=== PATIENT | male | born 1960 | race Two or more races ===

== ENCOUNTER 2025-08-28 01:24 | Inpatient (IN) | payer OTHER ==
[~2025-08-28] VITALS: Ht 170.2 cm; Wt 74.7 kg
[2025-08-28] VITALS (7 sets, daily range): BP systolic 144–180; BP diastolic 75–95; PULSE 77–84; RESP 16–20; TEMP 97.5–98.3; O2SAT 97–99
[~2025-08-28 01:24] MED LIST: AMLO1TAB23 PO; CLON0.1T PO; FURO80TA3 PO; HYDR100T10 PO
--- NOTE | 2025-08-28 01:36 | ECG ---
[facility] Test Date: 2025-08-28 Test Time: 01:33:37 Pat Name: SHANNAN BENITEZ Department: Room: [address] [place] [address] Gender: M Emergency Veterinary Assistant: ANJELICA : 1960 Requested By: WHITLEY BAIG Order Number: [id number] Reading MD: Ortiz Woo Measurements Intervals [place] Rate: 88 P: 25 MA: 157 QRS: 4 QRSD: 84 T: 41 QT: 388 QTc: 470 Interpretive Statements Sinus rhythm Probable left atrial enlargement Electronically Signed On 08-28-2025 12:19:09 PDT by Ortiz Woo Please click the below link to view image of tracing.
--- NOTE | 2025-08-28 01:40 | ED.PDOC ---
HPI Comments 64-year-old male came to ER for chest pain. Patient has history of hypertension, VA, end-stage renal disease on dialysis every Sunday and , status post CABG 4 months ago. Few hours ago, patient started experiencing substernal chest pains, pressure, constant, non radiating, associated with weakness, diaphoresis, shortness a breath, nausea and vomiting. Blood pressure upon arrival was 245/160 mm Hg Chief Complaint: Chest Pain Time Seen by MD: 01:39 Reviewed Notes: Nurses Notes Allergies: Coded Allergies: No Known Drug Allergy (Verified Allergy, Unknown, 08/28/25) Information Source: Patient Mode of Arrival: Ambulatory Severity: Moderate Timing: Hours Duration: Intermittent Location: Substernal Radiation: No Radiation Quality: Pressure Associated Signs and Symptoms: SOB, Diaphoresis, N/V Past Medical History PAST MEDICAL HISTORY: ESRD, HTN, [place] Surgical History: CABG Surgical History (Other): Dialysis Sunday and Family History Family History: Reviewed,noncontributory to illness Social History Smoker: Non-Smoker Alcohol: Denies ETOH Use Drugs: Denies Drug Use Lives In: Home Constitutional: reports: diaphoresis, weakness; denies: chills, fatigue, fever, malaise, sweats, others EENTM: denies: blurred vision, double vision, ear bleeding, ear discharge, ear drainage, ear pain, ear ringing, eye pain, eye redness, hearing loss, mouth pain, mouth swelling, nasal discharge, nose bleeding, nose congestion, nose pain, photophobia, tearing, throat pain, throat swelling, voice changes, others Respiratory: reports: SOB at rest, shortness of breath; denies: cough, hemoptysis, orthopnea, SOB with excertion, stridor, wheezing, others Cardiovascular: reports: chest pain, dizzy spells, diaphoresis; denies: Dyspnea on exertion, edema, irregular heart beat, left arm pain, lightheadedness, palpitations, PND, syncope, others Gastrointestinal: reports: nausea, vomiting; denies: abdomen distended, abdominal pain, blood streaked bowels, constipated, diarrhea, dysphagia, difficulty swallowing, hematemesis, melena, poor appetite, poor fluid intake, rectal bleeding, rectal pain, others Genitourinary: denies: burning, dysuria, flank pain, frequency, hematuria, incontinence, penile discharge, penile sore, pain, testicle pain, testicle swelling, urgency, others Neurological: denies: dizziness, fainting, headache, left sided numbness, left sided weakness, numbness, paresthesia, pre-existing deficit, right sided num bness, right sided weakness, seizure, speech problems, tingling, tremors, weakness, others Musculoskeletal: denies: back pain, gout, joint pain, joint swelling, muscle pain, muscle stiffness, neck pain, others Integumetry: denies: bruises, change in color, change in hair/nails, dryness, laceration, lesions, lumps, rash, wounds, others Allergic/Immunocompromised: denies: Difficulty Healing, Frequent Infections, Hives, Itching, others Hematologic/Lymphatic: denies: anemia, blood clots, easy bleeding, easy bruising, swollen glands, others Endocrine: denies: excessive hunger, excessive sweating, excessive thirst, excessive urination, flushing, intolerance to cold, intolerance to heat, unexplained weight gain, unexplained weight loss, others Psychiatric: denies: anxiety, bipolar disorder, depression, hopeless, panic disorder, schizophrenia, sleepless, suicidal, others Physical Exam General Appearance: Moderate Distress, Normal HEENT: Normal ENT Inspection, Pharynx Normal, TMs Normal Neck: Full Range of Motion, Non-Tender, Normal, Normal Inspection Respiratory: Chest Non-Tender, Lungs Clear, No Accessory Muscle Use, No Respiratory Distress, Normal Breath Sounds Cardiovascular: No Edema, No JVD, No Murmur, No Gallop, Normal Peripheral Pulses, Regular Rate/Rhythm Breast Exam: Deferred Gastrointestinal: No Organomegaly, Non Tender, No Pulsatile Mass, Normal Bowel Sounds, Soft Genitalia: Deferred Pelvic: Deferred Rectal: Deferred Extremities: No calf tenderness, Normal capillary refill, Normal inspection, Normal range of motion, Non-tender, No pedal edema Musculoskeletal : Apperance: Normal Neurologic: Alert, afternoon nanny II-XII nml as Tested, No Motor Deficits, Normal Affect, Normal Mood, No Sensory Deficits Cerebellar Function: Normal Reflexes: Normal Skin: Dry, Normal Color, Warm Lymphatic: No Adenopathy Was a procedure done? Was a procedure done?: No CP Differential Dx Differential Diagnosis: Angina, Anxiety / Panic Attack Differential Diagnosis: Angina, Chest Wall Pain, Costochondritis, Esophageal reflux/spasm, Gastritis, Myocardial Infarction, Pneumonia X-Ray, Labs, Meds, VS Vital Signs Date Time Temp Pulse Resp B/P (MAP) Pulse Ox O2 Delivery O2 Flow Rate FiO2 08/28/25 03:47 85 12 173/95 08/28/25 02:14 223/129 08/28/25 02:13 82 20 223/129 08/28/25 02:13 98.2 83 20 223/129 (160) 96 98.2 08/28/25 02:13 83 20 96 Room Air 08/28/25 01:33 88 08/28/25 01:25 98.3 99 28 245/160 91 98.3 Lab Test 08/28/25 02:35 08/28/25 01:45 Range/Units Troponin I High Sensitivity 22 22 </=54 ng/L White Blood Count 9.2 4.4-10.8 10^3/uL Red Blood Count 3.14 L 4.5-5.90 10^6/uL Hemoglobin 10.0 L 13.5-17.5 g/dL Hematocrit 29.3 L 41.0-53.0 % Mean Corpuscular Volume 93.3 80.0-100.0 fL Mean Corpuscular Hemoglobin 31.8 28.0-32.0 pg Mean Corpuscular Hemoglobin Concent 34.1 32.0-36.0 g/dL Red Cell Distribution Width 16.6 H 11.8-14.3 % Platelet Count 249 140-450 10^3/uL Mean Platelet Volume 7.3 6.9-10.8 fL Neutrophils (%) (Auto) 71.9 37.0-80.0 % Lymphocytes (%) (Auto) 16.8 10.0-50.0 % Monocytes (%) (Auto) 4.9 0.0-12.0 % Eosinophils (%) (Auto) 5.3 0.0-7.0 % Basophils (%) (Auto) 1.1 0.0-2.0 % Neutrophils # (Auto) 6.6 1.6-8.6 10 ^3/uL Lymphocytes # (Auto) 1.5 0.4-5.4 10 ^3/uL Monocytes # (Auto) 0.4 0-1.3 10 ^3/uL Eosinophils # (Auto) 0.5 0-0.8 10 ^3/uL Basophils # (Auto) 0.1 0-0.2 10 ^3/uL Nucleated Red Blood Cells 0.0 % Prothrombin Time 10.9 9.3-11.8 sec Prothrombin Time INR 1.03 0.9-1.15 Activated Partial Thromboplast Time 26.4 24.5-34.5 SEC Sodium Level 141 136-145 mmol/L Potassium Level 5.2 H 3.5-5.1 mmol/L Chloride Level 100 98-107 mmol/L Carbon Dioxide Level 21 20-31 mmol/L Anion Gap 20 H 5-15 Blood Urea Nitrogen 57 H 9-23 mg/dL Creatinine 11.14 *H 0.700-1.30 mg/dL Glomerular Filtration Rate Calc 5 >90 mL/min BUN/Creatinine Ratio 5.1 L 10.0-20.0 Serum Glucose 93 74-106 mg/dL Calcium Level 7.7 L 8.7-10.4 mg/dL Magnesium Level 2.1 1.6-2.6 mg/dL Total Bilirubin 0.4 0.2-1.0 mg/dL Aspartate Amino Transferase (AST) 30 13-40 U/L Alanine Aminotransferase (ALT) 24 7-40 U/L Alkaline Phosphatase 67 46-116 U/L B-Type Natriuretic Peptide 2003.41 0-100 pg/mL Total Protein 7.5 5.7-8.2 g/dL Albumin 4.8 3.2-4.8 g/dL Current Medications Medications (Trade) Dose Ordered Sig/Devyn Route Start Time Stop Time Status Last Admin Aspirin 162 mg ONCE ONCE PO 08/28/25 01:45 08/28/25 01:46 DC 08/28/25 02:07 Morphine Sulfate 4 mg ONCE ONCE IV 08/28/25 01:45 08/28/25 01:46 DC 08/28/25 02:13 Ondansetron HCl (Zofran) 4 mg ONCE ONCE IV 08/28/25 01:45 08/28/25 01:46 DC 08/28/25 02:10 Hydralazine HCl (Apresoline Injection) 20 mg ONCE ONCE IV 08/28/25 01:45 08/28/25 01:46 DC 08/28/25 02:14 CHEST RADIOGRAPH Indication: chest pain Technique: Single frontal view of the chest was obtained COMPARISON: None FINDINGS: Lines and Tubes: Right PermCath tip projects over the cavoatrial junction. Lungs: Clear Pleura: No effusion. No pneumothorax. Cardiomediastinal contours: Unremarkable status post median sternotomy. Bones: Unremarkable IMPRESSION: 1. No acute cardiopulmonary disease. 2. Right PermCath. Time of 1ST Reevaluation: 01:35 Reevaluation 1ST: Unchanged Patient Education/Counseling: Diagnosis, Treatment Family Education/Counseling: No Family Present SEPSIS Sepsis Screen Date sepsis recognized/suspect: Aug 28, 2025 Time Sepsis recognized/suspect: 012 Recent Procedure: No On Antibiotic Therapy: No Respiratory Rate >20: Yes Heart Rate >90: Yes Temp<36 C (96.8 F) or >38.3 C: No SBP <90 or MAP <65 mmHG: No New Acute Mental Status Change: No Is the patient on CPAP, BIPAP,: No Physician Orders Troponin-I Hs (08/28/25 04:32) Chest Xray 1 View (08/28/25 03:20) Vital Signs Date Time Temp Pulse Resp B/P (MAP) Pulse Ox O2 Delivery O2 Flow Rate FiO2 08/28/25 03:47 85 12 173/95 08/28/25 02:14 223/129 08/28/25 02:13 82 20 223/129 08/28/25 02:13 98.2 83 20 223/129 (160) 96 98.2 08/28/25 02:13 83 20 96 Room Air 08/28/25 01:33 88 08/28/25 01:25 98.3 99 28 245/160 91 98.3 Laboratory Tests Test 08/28/25 01:45 White Blood Count 9.2 10^3/uL (4.4-10.8) Medications Medications Dose Ordered Sig/Devyn Route Start Time Stop Time Status Last Admin Dose Admin Aspirin 162 mg ONCE ONCE PO 08/28/25 01:45 08/28/25 01:46 DC 08/28/25 02:07 Hydralazine HCl 20 mg ONCE ONCE IV 08/28/25 01:45 08/28/25 01:46 DC 08/28/25 02:14 Morphine Sulfate 4 mg ONCE ONCE IV 08/28/25 01:45 08/28/25 01:46 DC 08/28/25 02:13 Ondansetron HCl 4 mg ONCE ONCE IV 08/28/25 01:45 08/28/25 01:46 DC 08/28/25 02:10 Departure 1 Departure Time of Disposition: 04:26 Impression: Primary Impression: End stage renal failure on dialysis Additional Impressions: Fluid overload Hypertensive urgency Acute coronary syndrome Disposition: ADMITTED INPATIENT Admit to: Tele Condition: Guarded Discharged With: Self Comments 64-year-old male gets dialysis on Tuesdays and now with chest pain and shortness of breath. His blood pressure is quite elevated. His lab results were reviewed and show mild hyperkalemia 5.2. Troponin is normal at 22. BNP is quite elevated 2002. Chest x-ray has some mild fluid overload. Patient was given aspirin and hydralazine and morphine. Patient will need to be admitted for hypertensive urgency and fluid overload with renal failure and acute coronary syndrome Critical Care Note Critical Care Time?: Yes (35 min-critical care time only) Critical care comment: Chest pain Total critical care time: Approximately 36 minutes Due to a high probability of clinically significant, life threatening deterioration, the patient required my highest level of preparedness to intervene emergently and I personally spent this critical care time directly and personally managing the patient. This critical care time included obtaining a history; examining the patient; pulse oximetry; ordering and review of studies; arranging urgent treatment with development of a management plan; evaluation of patient's response to treatment; frequent reassessment; and, discussions with other providers. This critical care time was performed to assess and manage the high probability of imminent, life-threatening deterioration that could result in multi-organ failure. It was exclusive of separately billable procedures and treating other patients. Stability Stability form required: No Heart Score Heart Score: Heart Score Response (Comments) Value History Moderate Suspicious 1 EKG Repolarization Disturb 1 Age >65 2 Risk Factors >3 or Hx ASHD 2 Troponin Normal limit 0 Total 6 I personally scribed for WHITLEY BAIG MD ([email or web address]) on 08/28/25 at 01:40. Electronically submitted by Jackson Weinberg ([email or web address]). I personally scribed for WHITLEY BAIG MD ([email or web address]) on 08/28/25 at 04:01. Electronically submitted by Jackson Weinberg ([email or web address]). WHITLEY BAIG MD Aug 28, 2025 01:40
[2025-08-28 02:00] LABS: Hematocrit 29.3 % (41.0-53.0); Hemoglobin 10.0 g/dL (13.5-17.5); Mean Corpuscular Hemoglobin 31.8 pg (28.0-32.0); Mean Corpuscular Volume 93.3 fL (80.0-100.0); Nucleated Red Blood Cells % 0.0 %
[2025-08-28 02:10] LABS: INR 1.03 (0.9-1.15); Partial Thromboplastin Time 26.4 SEC (24.5-34.5); Prothrombin Time 10.9 sec (9.3-11.8)
[2025-08-28] MEDS: ONDANSETRON HCL 4 MG/2 ML VIAL IV ONE ×2 (02:10→05:54)
[2025-08-28] MEDS: MORPHINE SULFATE 4 MG/ML SYR/VIAL IV ONE (02:13)
[2025-08-28] MEDS: hydrALAZINE HCL 20 MG/ML VL IV ONE (02:14)
[2025-08-28 02:21] LABS: Alanine Aminotransferase 24 U/L (7-40); Albumin 4.8 g/dL (3.2-4.8); Alkaline Phosphatase 67 U/L (46-116); Anion Gap 20 (5-15); BUN/Creatinine Ratio 5.1 (10.0-20.0); Carbon Dioxide 21 mmol/L (20-31); Chloride 100 mmol/L (98-107); Glucose 93 mg/dL (74-106); Magnesium 2.1 mg/dL (1.6-2.6); Sodium 141 mmol/L (136-145); Total Protein 7.5 g/dL (5.7-8.2)
[2025-08-28 02:22] LABS: Bilirubin, Total 0.4 mg/dL (0.2-1.0)
[2025-08-28 02:33] LABS: Blood Urea Nitrogen 57 mg/dL (9-23); Calcium 7.7 mg/dL (8.7-10.4); Potassium 5.2 mmol/L (3.5-5.1)
--- NOTE | 2025-08-28 03:52 | DVH ---
CHEST RADIOGRAPH Indication: chest pain Technique: Single frontal view of the chest was obtained COMPARISON: None FINDINGS: Lines and Tubes: Right PermCath tip projects over the cavoatrial junction. Lungs: Clear Pleura: No effusion. No pneumothorax. Cardiomediastinal contours: Unremarkable status post median sternotomy. Bones: Unremarkable IMPRESSION: 1. No acute cardiopulmonary disease. 2. Right PermCath.
[2025-08-28] MEDS: HYDROmorphone HCL 2 MG/ML VL/or syr IV ONE (05:52)
[2025-08-28] MEDS ORDERED: ONDANSETRON HCL 4 MG/2 ML VIAL IV PRN (06:15)
[2025-08-28] MEDS ORDERED: DOCUSATE SOD 100 MG CAP PO PRN (06:15)
[2025-08-28] MEDS ORDERED: ACETAMINOPHEN 325 MG TAB PO PRN (06:15)
[2025-08-28] MEDS ORDERED: NITROGLYCERIN 0.4 MG SL TAB SL PRN (07:00)
--- NOTE | 2025-08-28 07:01 | DVHHP2 ---
History of Present Illness Reason for Visit: Hypertensive urgency History of Present Illness The patient is a 64-year-old male with past medical history of end-stage renal disease on hemodialysis, NE, and hypertension who presented to [facility] ED with complaint of chest pain. Patient reports he has been experienci ng substernal chest pain, pressure in nature, constant, nonradiating, associated with weakness, diaphoresis, shortness of breaths, nausea and vomiting, getting worse that prompted this visit. Patient was seen and evaluated in the ED, laboratory data shows WBC 9.2, hemoglobin 10.0, hematocrit 29.3, platelets 219, sodium 141, potassium 5.2, BUN 57, creatinine 11.14, glucose 93, calcium 7.7, troponin 22, BNP 2003.41, blood pressure 223/129 trending down to 166/90, heart rate 82, temperature 97.7 F O2 saturation 98% on oxygen. Chest x-ray show no acute cardiopulmonary disease. Please see medication orders section in the computer. On my assessment, patient denied chest pain at this moment, no headache, no dizziness, no diaphoresis, currently on oxygen, no diarrhea, no nausea, no vomiting, no fever, no chills. Patient was admitted for further evaluation and medical management. Past Medical History ESRD, HTN, NE Past Surgical History CABG 4 months ago, Dialysis Sunday and Family History Reviewed, noncontributory to the management of this case. Past Social History The patient lives at home, denies smoking, alcohol or illicit drugs abuse. Review of Systems Constitutional: Yes: Weakness; No: Fever, Chills, Sweats, Malaise, Other Eyes: No: Pain, Vision change, Conjunctivae inflammation, Eyelid inflammation, Other, Redness ENT: No: Ear pain, Ear discharge, Nose pain, Nose discharge, Nose congestion, Mouth pain, Mouth swelling, Throat pain, Throat swelling, Other Respiratory: Shortness of breath, Other (SOB at rest); No: Cough, Dry, SOB with excertion, Wheezing, Hemoptysis, Pleuritic Pain, Sputum, Wheezing Cardiovascular: Chest Pain, Other (Dizzy spells, diaphoresis.); No: Palpitations, Orthopnea, Paroxysmal Noc. Dyspnea, Edema, Lt Headedness Gastrointestinal: Nausea, Vomiting; No: Abdominal Pain, Diarrhea, Constipation, Melena, Hematochezia, Other Genitourinary: No Dysuria, No Frequency, No Incontinence, No Hematuria, No Retention; Other (Right PermCath) Musculoskeletal: No: other, neck pain, shoulder pain, arm pain, back pain, hand pain, leg pain, foot pain Skin: No: Rash, Lesions, Jaundice, Bruising, Other Neurological: No: Weakness, Numbness, Incoordination, Change in speech, Confu ashish, Seizures, Other Allergies: Coded Allergies: No Known Drug Allergy (Verified Allergy, Unknown, 08/28/25) Medications Current Medications Medications Dose Ordered Sig/Devyn Route Start Time Stop Time Status Last Admin Dose Admin Aspirin 81 mg DAILY PO 08/28/25 10:00 UNV Hydralazine HCl 10 mg Q6HP PRN IV 08/28/25 06:15 UNV Clonidine HCl 0.1 mg Q4HP PRN PO 08/28/25 06:15 UNV Amlodipine Besylate 10 mg DAILY PO 08/28/25 10:00 UNV Multivit/Ca Carb/ B Cmplx/FA/Prenat 1 tab DAILY PO 08/28/25 10:00 UNV Sevelamer HCl 800 mg TIDWM PO 08/28/25 08:00 UNV Calcium Acetate 667 mg TIDWMEALS PO 08/28/25 08:00 UNV Sodium Chloride 10 ml Q8HR IV 08/28/25 14:00 UNV Acetaminophen/ Hydrocodone Bitart 1 tab Q4HP PRN PO 08/28/25 06:15 UNV Ondansetron HCl 4 mg Q4HP PRN IV 08/28/25 06:15 UNV Docusate Sodium 100 mg BIDPRN PRN PO 08/28/25 06:15 UNV Acetaminophen 650 mg Q6HP PRN PO 08/28/25 06:15 UNV Exam Vital Signs Vital Signs Date Time Temp Pulse Resp B/P (MAP) Pulse Ox O2 Delivery O2 Flow Rate FiO2 08/28/25 06:24 85 18 154/93 08/28/25 06:08 97.7 94 97.7 08/28/25 02:13 Room Air General Appearance: Alert, Oriented X3, Cooperative, No acute distress HEENT: Atraumatic, PERRLA, EOMI, Mucous membr. moist/pink Respiratory: Normal air movement Cardiovascular: Regular rate, Normal S1, Normal S2, No murmurs Abdominal: Normal bowel sounds, Soft, No tenderness, No hepatospenomegaly, No masses Extremities: No clubbing, No cyanosis, No edema, Normal pulses, No tenderness /swelling Skin: No rashes, No breakdown, No significant lesion Neuro: Normal speech, Normal tone, Sensation intact, Cranial nerves 3-12 NL, Reflexes 2+, Other (Generalized weakness) Psych/Mental Status: Mental status NL, Mood NL Labs/Xrays Labs Test 08/28/25 04:43 08/28/25 01:45 Range/Units Troponin I High Sensitivity 31 </=54 ng/L White Blood Count 9.2 4.4-10.8 10^3/uL Red Blood Count 3.14 L 4.5-5.90 10^6/uL Hemoglobin 10.0 L 13.5-17.5 g/dL Hematocrit 29.3 L 41.0-53.0 % Mean Corpuscular Volume 93.3 80.0-100.0 fL Mean Corpuscular Hemoglobin 31.8 28.0-32.0 pg Mean Corpuscular Hemoglobin Concent 34.1 32.0-36.0 g/dL Red Cell Distribution Width 16.6 H 11.8-14.3 % Platelet Count 249 140-450 10^3/uL Mean Platelet Volume 7.3 6.9-10.8 fL Neutrophils (%) (Auto) 71.9 37.0-80.0 % Lymphocytes (%) (Auto) 16.8 10.0-50.0 % Monocytes (%) (Auto) 4.9 0.0-12.0 % Eosinophils (%) (Auto) 5.3 0.0-7.0 % Basophils (%) (Auto) 1.1 0.0-2.0 % Neutrophils # (Auto) 6.6 1.6-8.6 10 ^3/uL Lymphocytes # (Auto) 1.5 0.4-5.4 10 ^3/uL Monocytes # (Auto) 0.4 0-1.3 10 ^3/uL Eosinophils # (Auto) 0.5 0-0.8 10 ^3/uL Basophils # (Auto) 0.1 0-0.2 10 ^3/uL Nucleated Red Blood Cells 0.0 % Prothrombin Time 10.9 9.3-11.8 sec Prothrombin Time INR 1.03 0.9-1.15 Activated Partial Thromboplast Time 26.4 24.5-34.5 SEC Sodium Level 141 136-145 mmol/L Potassium Level 5.2 H 3.5-5.1 mmol/L Chloride Level 100 98-107 mmol/L Carbon Dioxide Level 21 20-31 mmol/L Anion Gap 20 H 5-15 Blood Urea Nitrogen 57 H 9-23 mg/dL Creatinine 11.14 *H 0.700-1.30 mg/dL Glomerular Filtration Rate Calc 5 >90 mL/min BUN/Creatinine Ratio 5.1 L 10.0-20.0 Serum Glucose 93 74-106 mg/dL Calcium Level 7.7 L 8.7-10.4 mg/dL Magnesium Level 2.1 1.6-2.6 mg/dL Total Bilirubin 0.4 0.2-1.0 mg/dL Aspartate Amino Transferase (AST) 30 13-40 U/L Alanine Aminotransferase (ALT) 24 7-40 U/L Alkaline Phosphatase 67 46-116 U/L B-Type Natriuretic Peptide 2003.41 0-100 pg/mL Total Protein 7.5 5.7-8.2 g/dL Albumin 4.8 3.2-4.8 g/dL PATIENT: Shaggy Crowe ACCT: [id number] UNIT: [id number] : 1960 LOC: ER ROOM / BED: / AGE / SEX: 64 / M ADM STATUS: REG ER SERVICE 0320 ORDERING PHYSICIAN: WHITLEY BAIG MD PROCEDURE(s): CXR1 - CHEST XRAY 1 VIEW REASON: chest pain ORDER NUMBER(s): [id number], ACCESSION NUMBER(s): [id number] CHEST RADIOGRAPH Indication: chest pain Technique: Single frontal view of the chest was obtained COMPARISON: None FINDINGS: Lines and Tubes: Right PermCath tip projects over the cavoatrial junction. Lungs: Clear Pleura: No effusion. No pneumothorax. Cardiomediastinal contours: Unremarkable status post median sternotomy. Bones: Unremarkable IMPRESSION: 1. No acute cardiopulmonary disease. 2. Right PermCath. SEPSIS Sepsis Screen Date sepsis recognized/suspect: Aug 28, 2025 Time Sepsis recognized/suspect: 021 Recent Procedure: No On Antibiotic Therapy: No Respiratory Rate >20: No Heart Rate >90: No Temp<36 C (96.8 F) or >38.3 C: No SBP <90 or MAP <65 mmHG: No New Acute Mental Status Change: No Is the patient on CPAP, BIPAP,: No Physician Orders Chest Xray 1 View (08/28/25 03:20) Complete Blood Count (08/28/25 06:02) Comprehensive Metabolic Panel (08/28/25 06:02) *Dr. Savannah Salmon -Da Amanda (08/28/25 06:02) Aspirin Tablet (08/28/25 10:00) Hydralazine Injection (Apresoline Inject (08/28/25 06:15) Clonidine Hcl Tablet (Catapres Tablet) (08/28/25 06:15) Amlodipine Tablet (Norvasc Tablet) (08/28/25 10:00) B-Complex W/ C & Folic Tablet (Nephro-Vi (08/28/25 10:00) Sevelamer (Renagel) (08/28/25 08:00) Calcium Acetate Capsule (Phoslo Capsule) (08/28/25 08:00) Allergies (08/28/25 06:02) Code Status (08/28/25 06:02) Renal Standard(2gna,3gk,Lopho) (08/28/25 Breakfast) Sodium Chloride Lock (Saline Lock Ns) (08/28/25 14:00) Oxygen Per Hour (08/28/25 06:02) Hydrocodone-Acet 5/325mg Tab (Chester 5/32 (08/28/25 06:15) Ondansetron Hcl (Zofran) (08/28/25 06:15) Docusate Sodium Capsule (Colace Capsule) (08/28/25 06:15) Complete Blood Count (08/29/25 04:00) Comprehensive Metabolic Panel (08/29/25 04:00) Condition: Serious (08/28/25 06:02) Acetaminophen Tablet (Tylenol Tablet) (08/28/25 06:15) Bedrest With Bathroom Privileg (08/28/25 06:02) Maintain Bed Rest (08/28/25 06:02) Sequential Compression Device (08/28/25 ) Vital Signs Date Time Temp Pulse Resp B/P (MAP) Pulse Ox O2 Delivery O2 Flow Rate FiO2 08/28/25 06:24 85 18 154/93 08/28/25 06:08 97.7 84 18 173/95 (121) 94 97.7 08/28/25 05:52 89 18 166/90 08/28/25 04:29 97.7 82 12 162/104 (123) 99 97.7 08/28/25 03:47 85 12 173/95 08/28/25 02:14 223/129 08/28/25 02:13 82 20 223/129 08/28/25 02:13 98.2 83 20 223/129 (160) 96 98.2 08/28/25 02:13 83 20 96 Room Air 08/28/25 01:33 88 08/28/25 01:25 98.3 99 28 245/160 91 98.3 Laboratory Tests Test 08/28/25 01:45 White Blood Count 9.2 10^3/uL (4.4-10.8) Medications Medications Dose Ordered Sig/Devyn Route Start Time Stop Time Status Last Admin Dose Admin Aspirin 162 mg ONCE ONCE PO 08/28/25 01:45 08/28/25 01:46 DC 08/28/25 02:07 162 MG Hydralazine HCl 20 mg ONCE ONCE IV 08/28/25 01:45 08/28/25 01:46 DC 08/28/25 02:14 20 MG Hydromorphone HCl 1 mg ONCE ONCE IV 08/28/25 05:30 08/28/25 05:31 DC 08/28/25 05:52 1 MG Morphine Sulfate 4 mg ONCE ONCE IV 08/28/25 01:45 08/28/25 01:46 DC 08/28/25 02:13 4 MG Ondansetron HCl 4 mg ONCE ONCE IV 08/28/25 01:45 08/28/25 01:46 DC 08/28/25 02:10 4 MG Ondansetron HCl 4 mg ONCE ONCE IV 08/28/25 05:30 08/28/25 05:31 DC 08/28/25 05:54 4 MG Assessment/Plan Assessment/Plan Hypertensive urgency Fluid overload Electrolyte imbalance Acute coronary syndrome End stage renal failure on dialysis Plan 1. Admit to telemetry unit 2. Breathing treatment 3. Pain control management 4. Management of fluids and electrolytes 5. Consultation for Nephrology 6. Diagnostic tests chest x-ray 7. DVT prophylaxis-on aspirin 8. Repeat labs CBC, CMP in a.m. 9. Continue with current medical management 10. Treatment plan discussed with patient and RN. Patient verbalized understanding. Plan discussed with: Patient, Other (RN) My Orders Orders - NINI OCHOA DNP Procedure Category Date Status Time Complete Blood Count LAB 08/28/25 Logged 06:02 Comprehensive LAB 08/28/25 Logged Metabolic Panel 06:02 *Dr. Savannah Salmon -Da CONS 08/28/25 Transmitted Amanda 06:02 Aspirin Tablet PHA 08/28/25 Logged 10:00 Hydralazine Injection PHA 08/28/25 Logged (Apresoline Inject 06:15 Clonidine Hcl Tablet PHA 08/28/25 Logged (Catapres Tablet) 06:15 Amlodipine Tablet PHA 08/28/25 Logged (Norvasc Tablet) 10:00 B-Complex W/ C & PHA 08/28/25 Logged Folic Tablet 10:00 Sevelamer (Renagel) PHA 08/28/25 Logged 08:00 Calcium Acetate PHA 08/28/25 Logged Capsule (Phoslo 08:00 Allergies WING 08/28/25 In Process 06:02 Code Status CODE 08/28/25 Transmitted 06:02 Renal DIET 08/28/25 Transmitted Standard(2gna,3gk,Lopho) Breakfast Sodium Chloride Lock PHA 08/28/25 Logged (Saline Lock Ns) 14:00 Oxygen Per Hour RT 08/28/25 Transmitted 06:02 Hydrocodone-Acet PHA 08/28/25 Logged 5/325mg Tab (Chester 06:15 Ondansetron Hcl PHA 08/28/25 Logged (Zofran) 06:15 Docusate Sodium PHA 08/28/25 Logged Capsule (Colace 06:15 Complete Blood Count LAB 08/29/25 Verified 04:00 Comprehensive LAB 08/29/25 Verified Metabolic Panel 04:00 Condition: Serious WING 08/28/25 In Process 06:02 Acetaminophen Tablet PHA 08/28/25 Logged (Tylenol Tablet) 06:15 Bedrest With Bathroom WING 08/28/25 In Process Privileg 06:02 Maintain Bed Rest WING 08/28/25 In Process 06:02 Sequential WING 08/28/25 In Process Compression Device Problem List: (1) Hypertensive urgency (2) Fluid overload (3) Electrolyte imbalance (4) Acute coronary syndrome (5) End stage renal failure on dialysis Date of Service: Aug 28, 2025 Billing Provider: NINI OCHOA DNP Common Visit Codes: [id number] INP/OBS CARE (HIGH) NINI OCHOA DNP Aug 28, 2025 07:00
[2025-08-28] MEDS: SEVELAMER 800 MG TAB PO SCH (08:00)
[2025-08-28] MEDS: CALCIUM ACETATE 667 MG CAP PO SCH (08:00)
[2025-08-28 08:25] LABS: Hematocrit 31.9 % (41.0-53.0); Hemoglobin 10.6 g/dL (13.5-17.5); Mean Corpuscular Hemoglobin 31.5 pg (28.0-32.0); Mean Corpuscular Volume 94.5 fL (80.0-100.0); Nucleated Red Blood Cells % 0.0 %
[2025-08-28 08:45] LABS: Alanine Aminotransferase 24 U/L (7-40); Alkaline Phosphatase 69 U/L (46-116); Anion Gap 19 (5-15); BUN/Creatinine Ratio 5.1 (10.0-20.0); Bilirubin, Total 0.4 mg/dL (0.2-1.0); Carbon Dioxide 21 mmol/L (20-31); Chloride 99 mmol/L (98-107); Sodium 139 mmol/L (136-145); Total Protein 8.1 g/dL (5.7-8.2)
[2025-08-28 09:04] LABS: Albumin 5.1 g/dL (3.2-4.8); Blood Urea Nitrogen 57 mg/dL (9-23); Calcium 8.0 mg/dL (8.7-10.4); Glucose 115 mg/dL (74-106); Potassium 5.5 mmol/L (3.5-5.1)
[2025-08-28] MEDS: B-COMPLEX W/ C & FOLIC ACID(NEPHROVITE TAB) PO SCH (10:00)
[2025-08-28] MEDS ORDERED: MORPHINE SULFATE 4 MG/ML SYR/VIAL IV PRN (10:00)
[2025-08-28] MEDS ORDERED: SODIUM CHL 0.9% 1000 ML BAG XX ONE (11:00)
[2025-08-28] MEDS: SODIUM CHLOR 0.9% PF (SALINE LOCK) 10ML VIAL/SYR IV SCH (13:36)
[2025-08-28] MEDS: HYDROcodone-ACET 5/325MG TAB PO PRN (21:12)
[2025-08-28] MEDS: hydrALAZINE HCL 20 MG/ML VL IV PRN (23:43)
[2025-08-29 01:00] VITALS: BP 155/97; PULSE 81; RESP 16; TEMP 98.6; O2SAT 98
[2025-08-29 05:00] VITALS: BP 163/99; PULSE 85; RESP 16; TEMP 98.7; O2SAT 100
[2025-08-29 05:33] LABS: Hematocrit 27.5 % (41.0-53.0); Hemoglobin 9.4 g/dL (13.5-17.5); Mean Corpuscular Hemoglobin 32.1 pg (28.0-32.0); Mean Corpuscular Volume 94.3 fL (80.0-100.0); Nucleated Red Blood Cells % 0.0 %
[2025-08-29 05:49] LABS: Alanine Aminotransferase 17 U/L (7-40); Albumin 4.2 g/dL (3.2-4.8); Alkaline Phosphatase 56 U/L (46-116); Anion Gap 14 (5-15); BUN/Creatinine Ratio 4.2 (10.0-20.0); Carbon Dioxide 27 mmol/L (20-31); Chloride 101 mmol/L (98-107); Glucose 91 mg/dL (74-106); Potassium 4.8 mmol/L (3.5-5.1); Sodium 142 mmol/L (136-145); Total Protein 6.5 g/dL (5.7-8.2)
[2025-08-29 05:50] LABS: Bilirubin, Total 0.4 mg/dL (0.2-1.0)
[2025-08-29 05:53] LABS: Blood Urea Nitrogen 35 mg/dL (9-23); Calcium 8.0 mg/dL (8.7-10.4)
[2025-08-29] MEDS ORDERED: CARV25TA55 PO (06:12)
[2025-08-29] MEDS ORDERED: NIFE90TA75 PO (06:12)
[2025-08-29] MEDS ORDERED: SODI650T PO (06:12)
--- NOTE | 2025-08-29 06:13 | DVHPN2 ---
Progress Note - Dictate vital signs Vital Sign Date Time Temp Pulse Resp B/P (MAP) Pulse Ox O2 Delivery O2 Flow Rate FiO2 08/29/25 05:00 98.7 85 16 163/99 (120) 100 98.7 08/28/25 20:00 Room Air* 0 21 Total Intake and Output 08/28/25 08/28/25 08/29/25 15:00 23:00 07:00 Intake Total 540 ml 775 ml Balance 540 ml 775 ml medications Current Medications Medications Dose Ordered Sig/Devyn Route Start Time Stop Time Status Last Admin Dose Admin Aspirin 81 mg DAILY PO 08/28/25 10:00 Hydralazine HCl 10 mg Q6HP PRN IV 08/28/25 06:15 08/28/25 23:43 10 MG Clonidine HCl 0.1 mg Q4HP PRN PO 08/28/25 06:15 08/29/25 04:32 0.1 MG Amlodipine Besylate 10 mg DAILY PO 08/28/25 10:00 Multivit/Ca Carb/ B Cmplx/FA/Prenat 1 tab DAILY PO 08/28/25 10:00 Sevelamer HCl 800 mg TIDWM PO 08/28/25 08:00 Calcium Acetate 667 mg TIDWMEALS PO 08/28/25 08:00 Sodium Chloride 10 ml Q8HR IV 08/28/25 14:00 08/28/25 22:00 10 ML Acetaminophen/ Hydrocodone Bitart 1 tab Q4HP PRN PO 08/28/25 06:15 08/29/25 04:37 1 TAB Ondansetron HCl 4 mg Q4HP PRN IV 08/28/25 06:15 Docusate Sodium 100 mg BIDPRN PRN PO 08/28/25 06:15 Acetaminophen 650 mg Q6HP PRN PO 08/28/25 06:15 Nitroglycerin 0.4 mg Q5MINP PRN SL 08/28/25 07:00 Morphine Sulfate 2 mg Q30M PRN IV 08/28/25 10:00 Losartan Potassium 50 mg DAILY PO 08/29/25 10:00 Hydralazine HCl 50 mg Q8HR PO 08/28/25 14:00 08/28/25 21:12 50 MG laboratory and microbiology Laboratory Tests 08/29/25 05:14 Test 08/29/25 05:14 Range/Units Serum Glucose 91 74-106 mg/dL KIKE CARDENAS NP Aug 29, 2025 06:13
[2025-08-29] MEDS ORDERED: ASPI-628 PO (07:43)
[2025-08-29 08:00] VITALS: PULSE 82; RESP 20; O2SAT 98
--- NOTE | 2025-08-29 08:50 | DVHINCON2 ---
DATE OF CONSULTATION: 08/28/2025 CONSULTING PHYSICIAN: Yong Villalobos MD REASON FOR CONSULTATION: Management of dialysis. HISTORY OF PRESENT ILLNESS: The patient is a 64-year-old gentleman who is one of our chronic dialysis patients, came to the hospital earlier today complaining of chest pain. ____ was found to have systolic blood pressure of 220. He was admitted to the hospital. Has received intravenous hydralazine. Blood pressure has started to improve. Today is his dialysis day. I am being consulted to handle his dialysis treatment and assist in managing his blood pressure. The patient denies any other symptoms or complaints. PAST MEDICAL HISTORY: Significant for ____ hypertension, coronary artery disease. He recently underwent coronary artery bypass surgery. He also has history of anemia, hyperparathyroidism, and hyperlipidemia. SOCIAL HISTORY: The patient denies smoking cigarettes, drinking alcohol, or using illicit drugs. MEDICATIONS IN THE HOSPITAL: Include morphine, multivitamins, amlodipine, aspirin, calcium acetate, sevelamer, nitroglycerin, acetaminophen, docusate, Zofran, clonidine, and hydralazine. PHYSICAL EXAMINATION: VITAL SIGNS: Blood pressure is 150/93, heart rate 85, respirations 18, temperature 97. GENERAL: The patient is an adult gentleman appears to be chronically ill, in no acute distress, alert and oriented x 3. HEENT: Unremarkable. NECK: No jugular venous distention, palpable thyroid, or lymphadenopathy. LUNGS: Clear to auscultation. CARDIOVASCULAR: Regular rate. S4 gallop. ABDOMEN: Soft and nontender. No organomegaly. Bowel sounds are normal intensity and frequency. EXTREMITIES: No clubbing, cyanosis, or edema. NEUROLOGIC: Nonfocal. SKIN: Unremarkable. LABORATORY FINDINGS: Sodium 139, potassium 5.5, bicarbonate 21, BUN 57, creatinine 11. Hemoglobin is 10.6. IMAGING DATA: Chest x-ray showed no infiltrate. ASSESSMENT AND PLAN: * End-stage renal disease. * ____. * Uncontrolled hypertension. * Anemia of renal disease. The patient's hemoglobin is at target range. The patient will be scheduled to have dialysis today. We will try to remove 3 to 3.5 liters of fluid to assist in managing his blood pressure. He should be on a strict low-sodium diet less than 2 grams a day. As far as antihypertensive management, we should start him on hydralazine 50 mg p.o. every 8 hours, losartan 50 mg once daily. I would recommend switching amlodipine to nifedipine XL 90 mg once a day and then titrate those medications as clinically necessary based on his progress over the next couple of days. I will follow him closely. Thank you for the consultation. MD MARIFER Darby/JIMBO/RENARD TID: [id number] RECEIPT: [id number]
[2025-08-29 09:00] VITALS: BP 136/82; PULSE 83; RESP 20; TEMP 99.6; O2SAT 98
[2025-08-29] MEDS: LOSARTAN POTASSIUM 50 MG TAB PO SCH (09:06)
--- NOTE | 2025-08-29 12:11 | DVHPN2 ---
Progress Note - Dictate Date Seen: Aug 29, 2025 Has the PT tested + for MRSA If YES, has PT been informed?: No Medical Necessity Reason Pt with a Central, PICC or Fol: No vital signs Vital Sign Date Time Temp Pulse Resp B/P (MAP) Pulse Ox O2 Delivery O2 Flow Rate FiO2 08/29/25 09:07 136/82 08/29/25 09:00 99.6 83 20 98 99.6 08/29/25 08:00 Room Air* 0 21 Total Intake and Output 08/28/25 08/28/25 08/29/25 15:00 23:00 07:00 Intake Total 540 ml 775 ml Balance 540 ml 775 ml medications Current Medications Medications Dose Ordered Sig/Devyn Route Start Time Stop Time Status Last Admin Dose Admin Aspirin 81 mg DAILY PO 08/28/25 10:00 08/29/25 09:05 81 MG Hydralazine HCl 10 mg Q6HP PRN IV 08/28/25 06:15 08/28/25 23:43 10 MG Clonidine HCl 0.1 mg Q4HP PRN PO 08/28/25 06:15 08/29/25 04:32 0.1 MG Amlodipine Besylate 10 mg DAILY PO 08/28/25 10:00 08/29/25 09:07 10 MG Multivit/Ca Carb/ B Cmplx/FA/Prenat 1 tab DAILY PO 08/28/25 10:00 08/29/25 09:06 1 TAB Sevelamer HCl 800 mg TIDWM PO 08/28/25 08:00 08/29/25 09:07 800 MG Calcium Acetate 667 mg TIDWMEALS PO 08/28/25 08:00 08/29/25 09:08 667 MG Sodium Chloride 10 ml Q8HR IV 08/28/25 14:00 08/29/25 06:42 10 ML Acetaminophen/ Hydrocodone Bitart 1 tab Q4HP PRN PO 08/28/25 06:15 08/29/25 04:37 1 TAB Ondansetron HCl 4 mg Q4HP PRN IV 08/28/25 06:15 Docusate Sodium 100 mg BIDPRN PRN PO 08/28/25 06:15 Acetaminophen 650 mg Q6HP PRN PO 08/28/25 06:15 Nitroglycerin 0.4 mg Q5MINP PRN SL 08/28/25 07:00 Morphine Sulfate 2 mg Q30M PRN IV 08/28/25 10:00 Losartan Potassium 50 mg DAILY PO 08/29/25 10:00 08/29/25 09:06 50 MG Hydralazine HCl 50 mg Q8HR PO 08/28/25 14:00 08/29/25 06:43 50 MG Patient Own Medication 1 tab TID PO 08/29/25 14:00 UNV Sodium Bicarbonate 650 mg TID PO 08/29/25 14:00 objective GENERAL: The patient is an adult gentleman appears to be chronically ill, in no acute distress, alert and oriented x 3. HEENT: Unremarkable. NECK: No jugular venous distention, palpable thyroid, or lymphadenopathy. LUNGS: Clear to auscultation. CARDIOVASCULAR: Regular rate. S4 gallop. ABDOMEN: Soft and nontender. No organomegaly. Bowel sounds are normal intensity and frequency. EXTREMITIES: No clubbing, cyanosis, or edema. NEUROLOGIC: Nonfocal. SKIN: Unremarkable. laboratory and microbiology Laboratory Tests 08/29/25 05:14 Test 08/29/25 05:14 Range/Units Serum Glucose 91 74-106 mg/dL Assessment/Plan ASSESSMENT AND PLAN: * End-stage renal disease. Had HD last night, 3 L of fluid were removed * CHF, improved * Uncontrolled hypertension. * Anemia of renal disease. The patient's hemoglobin is at target range. The patient will continue HD on MWF but will scheduled extra HD for tomorrow He should be on a strict low-sodium diet less than 2 grams a day. hydralazine 50 mg p.o. every 8 hours, losartan 50 mg once daily. I would recommend switching amlodipine to nifedipine XL 90 mg once a day and then titrate those medications as clinically necessary Plan discussed with: Other POOL YEAGER MD Aug 29, 2025 12:11
[2025-08-29] MEDS ORDERED: SODIUM BICARBONATE PO SCH (14:00)
[2025-08-29] MEDS ORDERED: SODIUM BICARBONATE 650 MG TAB PO SCH (14:00)
--- NOTE | 2025-08-29 21:44 | DVHDS2 ---
Discharge Summary Date of Admission Aug 28, 2025 at 07:00 Date of Discharge: Aug 29, 2025 Labs/Diagnostic Data: Laboratory Results Test 08/29/25 05:14 08/28/25 08:09 08/28/25 04:43 08/28/25 01:45 White Blood Count 5.3 10^3/uL (4.4-10.8) Red Blood Count 2.92 10^6/uL (4.5-5.90) Hemoglobin 9.4 g/dL (13.5-17.5) Hematocrit 27.5 % (41.0-53.0) Mean Corpuscular Volume 94.3 fL (80.0-100.0) Mean Corpuscular Hemoglobin 32.1 pg (28.0-32.0) Mean Corpuscular Hemoglobin Concent 34.1 g/dL (32.0-36.0) Red Cell Distribution Width 16.2 % (11.8-14.3) Platelet Count 227 10^3/uL (140-450) Mean Platelet Volume 7.3 fL (6.9-10.8) Neutrophils (%) (Auto) 68.4 % (37.0-80.0) Lymphocytes (%) (Auto) 15.0 % (10.0-50.0) Monocytes (%) (Auto) 7.4 % (0.0-12.0) Eosinophils (%) (Auto) 7.3 % (0.0-7.0) Basophils (%) (Auto) 1.9 % (0.0-2.0) Neutrophils # (Auto) 3.6 10 ^3/uL (1.6-8.6) Lymphocytes # (Auto) 0.8 10 ^3/uL (0.4-5.4) Monocytes # (Auto) 0.4 10 ^3/uL (0-1.3) Eosinophils # (Auto) 0.4 10 ^3/uL (0-0.8) Basophils # (Auto) 0.1 10 ^3/uL (0-0.2) Nucleated Red Blood Cells 0.0 % Sodium Level 142 mmol/L (136-145) Potassium Level 4.8 mmol/L (3.5-5.1) Chloride Level 101 mmol/L (98-107) Carbon Dioxide Level 27 mmol/L (20-31) Anion Gap 14 (5-15) Blood Urea Nitrogen 35 mg/dL (9-23) Creatinine 8.34 mg/dL (0.700-1.30) Glomerular Filtration Rate Calc 7 mL/min (>90) BUN/Creatinine Ratio 4.2 (10.0-20.0) Serum Glucose 91 mg/dL (74-106) Calcium Level 8.0 mg/dL (8.7-10.4) Total Bilirubin 0.4 mg/dL (0.2-1.0) Aspartate Amino Transferase (AST) 14 U/L (13-40) Alanine Aminotransferase (ALT) 17 U/L (7-40) Alkaline Phosphatase 56 U/L (46-116) Total Protein 6.5 g/dL (5.7-8.2) Albumin 4.2 g/dL (3.2-4.8) Troponin I High Sensitivity 31 ng/L (</=54) Prothrombin Time 10.9 sec (9.3-11.8) Prothrombin Time INR 1.03 (0.9-1.15) Activated Partial Thromboplast Time 26.4 SEC (24.5-34.5) Magnesium Level 2.1 mg/dL (1.6-2.6) B-Type Natriuretic Peptide 2003.41 pg/mL (0-100) Other Laboratory Tests 08/29/25 05:14 Brief Hx & Hospital Course: Patient was admitted on 08/28/2025 for fluid overload. He is end-stage renal disease on hemodialysis. Patient had hyperkalemia and hypertensive urgency. Patient's blood pressure was 245/160. Patient did receive hemodialysis. Hyperkalemia had resolved. Patient decided to leave against medical advice stating he felt better. Patient was instructed to follow up with his PCP in 1 week. The patient decided they wanted to leave AMA. The patient was informed about the risk of leaving. And was informed about the risk that are involved if they left without any treatment which may include . The patient was okay with it and decided to leave without any intervention. The patient was told to return for any worsening symptoms. Condition at Discharge: Undetermined Final Diagnosis/Problems List Dyspnea ESRD on HD Fluid overload Hyperkalemia Hypertensive urgency Hx CABG Discharge Disposition: AMA Discharge Instruct/Medications Scheduled Amlodipine Besylate (Amlodipine Besylate), 1 TAB PO DAILY, (Reported) Aspirin (Aspirin Adult Low Dose), 1 TAB PO DAILY, (Reported) Carvedilol (Carvedilol), 1 TAB PO BID, (Reported) Hydralazine Hcl (Hydralazine Hcl), 1 TAB PO TID, (Reported) Nifedipine (Nifedipine Er), 1 TAB PO DAILY, (Reported) Sodium Bicarbonate (Sodium Bicarbonate), 1 TAB PO TID, (Reported) Miscellaneous Medications Clonidine Hydrochloride (Clonidine Hcl), TAB PO, (Reported) Discharge Statement: "Patient was advised to return to the ER or call 911 if any headaches, dizziness, shortness of breath, chest pain, abdominal pain, bleeding, fevers, or worsening of medical condition. Patient was counseled about treatment plan, medications, possible side effects, patientverbalized understanding. All questions were answered to the best of my ability. This discharge took greater then 30 minutes in planning, reviewing documentation, counseling the patient, and discussing with other team members." ASSESSMENT ASSESSMENT Assessment KIKE CARDENAS NP Aug 29, 2025 21:44
[2025-08-30] MEDS ORDERED: SODIUM CHL 0.9% 1000 ML BAG XX ONE (07:00)
[2025-08-30] MEDS ORDERED: EPOETIN ALFA-EPBX 4,000 UNIT/ML VIAL SC ONE (21:00)
[2025-08-31 11:07] LABS: Hepatitis B Surface Antigen Negative (Negative)
== END 2025-08-29 12:42 | disposition left against medical advice (07) | DRG 640 ==
LOC: ER 01:24 → OVERFLOW 07:00 → TELE-EAST 14:50
PROVIDERS: ADMIT Nurse Practitioner; ATTEND Nurse Practitioner
DX: E87.70 Fluid overload, unspecified (principal); N18.6 End stage renal disease; I24.9 Acute ischemic heart disease, unspecified; I13.2 Hypertensive heart and chronic kidney disease with heart failure and with stage 5 chronic kidney disease, or end stage renal disease; E87.5 Hyperkalemia; I16.0 Hypertensive urgency; Z99.2 Dependence on renal dialysis; I50.9 Heart failure, unspecified; D63.1 Anemia in chronic kidney disease; E78.5 Hyperlipidemia, unspecified; I25.10 Atherosclerotic heart disease of native coronary artery without angina pectoris; Z95.1 Presence of aortocoronary bypass graft; I25.2 Old myocardial infarction; Z79.899 Other long term (current) drug therapy; Z53.29 Procedure and treatment not carried out because of patient's decision for other reasons
CPT/HCPCS: 36415; 71045; 80053; 83735; 83880; 84484; 85025; 85610; 85730; 86706; 87340; 90935; 93005; 99291; G0378; J1642; J2405

== ENCOUNTER 2025-09-01 01:52 | Inpatient (IN) | payer OTHER ==
[~2025-09-01] VITALS: Ht 167.6 cm; Wt 71.5 kg
[~2025-09-01 01:52] MED LIST changes: +ASPI-628 PO; +CARV25TA55 PO; +NIFE90TA75 PO; +SODI650T PO
--- NOTE | 2025-09-01 02:26 | ED.PDOC ---
SOB-HPI HPI Comments This is a 64-year-old male with a history of CAD status post CABG 4/5mo back at [facility], ESRD on hemodialysis Sunday/ [facility] for similar duration, hypertension who presented to the ER with a chief complaint of shortness of breaths and chills. Patient has been having shortness of breaths for the past day along with dry cough, chills, low-grade fever, he lives alone, denies smoking or drinking, denies any sick contacts or traveling. Patient is ambulatory. On arrival to the ER, patient is afebrile, normotensive, regular rate and rhythm. Examination unremarkable. 1+ pitting edema in the lower extremities. Patient has a hemodialysis scheduled 1300PT Last hemodialysis session 08/28 as inpatient, 3 L taken out Reports taking his nifedipine and Coreg regularly. Attestation note: Dr. Pastrana: I was the supervising attending for this ED encounter. Please see the resident's notes. I was available for questions and consultations. Differential diagnosis: Dyspnea: DDx include ACS, unstable angina, anxiety, PE, pneumothroax, neoplasm, cardiac ischemia, COPD, asthma, CHF, pleural effusion, tobacco abuse, pneumonia, hypoxia, hypercapnia, anemia., infection/sepsis., pulmonary edema. Asthma, Cardiac tamponade, infection. MDM: MDM: patient presented with the above HPI.---dyspnea/chills and fever---workup was initiated. patient was found with the above mentioned diagnosis. the following medications were ordered: please refer to order lists of meds and tests obtained by myself Dr. Pastrana. Patient ED course and VS have been stabilized. Patient has been reassessed in ED and remained in a stable condition. Pertinent incidental findings were discussed with the patient and/or family. Patient/family voices understanding and is agreeable with plan. Patient has been observed in the ED adequate length of time to insure improvement/stability. Escalation of care considered: Consideration of escalation to observation or admission Hyperkalemia protocol was initiated. Nephrology was consulted for dialysis. Patient was ADMITTED to the medicine team for further evaluation and treatment of their presentation. All the reports of any imaging studies that were ordered by myself were reviewed by myself. Chief Complaint: Shortness of Breath Time Seen by MD: 02:12 Reviewed notes: Nurses Notes Information Source: Patient Mode of Arrival: EMS Severity: Mild Past Medical History PAST MEDICAL HISTORY: ESRD, HTN, [place] Past Medical History (Other): Hypertension, ESRD on hemodialysis, history of CABG Surgical History: CABG Family History Family History: Reviewed,noncontributory to illness Social History Smoker: Non-Smoker Alcohol: Denies ETOH Use Drugs: Denies Drug Use Lives In: Home Constitutional: reports: chills, fever EENTM: denies: blurred vision, double vision, ear bleeding, ear discharge, ear drainage, ear pain, ear ringing, eye pain, eye redness, hearing loss, mouth pain, mouth swelling, nasal discharge, nose bleeding, nose congestion, nose pain, photophobia, tearing, throat pain, throat swelling, voice changes, others Respiratory: reports: cough, SOB at rest Cardiovascular: denies: chest pain, dizzy spells, diaphoresis, Dyspnea on exertion, edema, irregular heart beat, left arm pain, lightheadedness, palpitations, PND, syncope, others Gastrointestinal: denies: abdomen distended, abdominal pain, blood streaked bowels, constipated, diarrhea, dysphagia, difficulty swallowing, hematemesis, melena, nausea, poor appetite, poor fluid intake, rectal bleeding, rectal pain, vomiting, others Genitourinary: denies: burning, dysuria, flank pain, frequency, hematuria, incontinence, penile discharge, penile sore, pain, testicle pain, testicle swelling, urgency, others Neurological: denies: dizziness, fainting, headache, left sided numbness, left sided weakness, numbness, paresthesia, pre-existing deficit, right sided numbness, right sided weakness, seizure, speech problems, tingling, tremors, weakness, others Musculoskeletal: denies: back pain, gout, joint pain, joint swelling, muscle pain, muscle stiffness, neck pain, others Integumetry: denies: bruises, change in color, change in hair/nails, dryness, laceration, lesions, lumps, rash, wounds, others Allergic/Immunocompromised: denies: Difficulty Healing, Frequent Infections, Hives, Itching, others Hematologic/Lymphatic: denies: anemia, blood clots, easy bleeding, easy bruising, swollen glands, others Endocrine: denies: excessive hunger, excessive sweating, excessive thirst, excessive urination, flushing, intolerance to cold, intolerance to heat, unexplained weight gain, unexplained weight loss, others Psychiatric: denies: anxiety, bipolar disorder, depression, hopeless, panic disorder, schizophrenia, sleepless, suicidal, others Physical Exam General Appearance: Mild Distress HEENT: Cornea (L), Cornea (R) Neck: NOT DONE Respiratory: Decreased Breath Sounds, No Accessory Muscle Use, No Respiratory Distress Cardiovascular: Regular Rate/Rhythm Breast Exam: Deferred Gastrointestinal: Non Tender, Normal Bowel Sounds Genitalia: Deferred Pelvic: Deferred Rectal: Rectal Exam not done Extremities: Pedal edema, Swelling Neurologic: NOT DONE Cerebellar Function: NOT DONE Reflexes: NOT DONE Skin: Warm Lymphatic: NOT DONE Was a procedure done? Was a procedure done?: No Differential Dx Differential Diagnosis: Anxiety, Pharyngitis, Other Comments missed HD X-Ray, Labs, Meds, VS Vital Signs Date Time Temp Pulse Resp B/P (MAP) Pulse Ox O2 Delivery O2 Flow Rate FiO2 09/01/25 03:37 17 95 Room Air* 0 21 09/01/25 03:01 14 97 Room Air* 0 21 09/01/25 02:31 72 16 98 Room Air* 0 21 09/01/25 02:31 98.0 72 16 145/84 (104) 98 98.0 09/01/25 02:06 75 09/01/25 01:58 98.0 75 18 143/75 98 98.0 Lab Test 09/01/25 03:26 09/01/25 02:22 Range/Units Troponin I High Sensitivity Pending 16 </=54 ng/L White Blood Count 8.0 # 4.4-10.8 10^3/uL Red Blood Count 2.91 L 4.5-5.90 10^6/uL Hemoglobin 9.1 L 13.5-17.5 g/dL Hematocrit 27.6 L 41.0-53.0 % Mean Corpuscular Volume 94.8 80.0-100.0 fL Mean Corpuscular Hemoglobin 31.4 28.0-32.0 pg Mean Corpuscular Hemoglobin Concent 33.1 32.0-36.0 g/dL Red Cell Distribution Width 16.1 H 11.8-14.3 % Platelet Count 203 140-450 10^3/uL Mean Platelet Volume 7.7 6.9-10.8 fL Neutrophils (%) (Auto) 64.4 37.0-80.0 % Lymphocytes (%) (Auto) 17.7 10.0-50.0 % Monocytes (%) (Auto) 5.4 0.0-12.0 % Eosinophils (%) (Auto) 11.5 H 0.0-7.0 % Basophils (%) (Auto) 1.0 0.0-2.0 % Neutrophils # (Auto) 5.1 1.6-8.6 10 ^3/uL Lymphocytes # (Auto) 1.4 0.4-5.4 10 ^3/uL Monocytes # (Auto) 0.4 0-1.3 10 ^3/uL Eosinophils # (Auto) 0.9 H 0-0.8 10 ^3/uL Basophils # (Auto) 0.1 0-0.2 10 ^3/uL Nucleated Red Blood Cells 0.1 % Prothrombin Time 10.7 9.3-11.8 sec Prothrombin Time INR 1.01 0.9-1.15 Activated Partial Thromboplast Time 28.8 24.5-34.5 SEC Sodium Level 139 136-145 mmol/L Potassium Level 6.4 *H 3.5-5.1 mmol/L Chloride Level 101 98-107 mmol/L Carbon Dioxide Level 19 L 20-31 mmol/L Anion Gap 19 H 5-15 Blood Urea Nitrogen 61 H 9-23 mg/dL Creatinine 12.34 #*H 0.700-1.30 mg/dL Glomerular Filtration Rate Calc 4 >90 mL/min BUN/Creatinine Ratio 4.9 L 10.0-20.0 Serum Glucose 95 74-106 mg/dL Lactic Acid Level 0.8 0.4-2.0 mmol/L Calcium Level 7.5 L 8.7-10.4 mg/dL Total Bilirubin 0.2 0.2-1.0 mg/dL Aspartate Amino Transferase (AST) 18 13-40 U/L Alanine Aminotransferase (ALT) 17 7-40 U/L Alkaline Phosphatase 58 46-116 U/L B-Type Natriuretic Peptide 845.68 0-100 pg/mL Total Protein 7.3 5.7-8.2 g/dL Albumin 4.7 3.2-4.8 g/dL Current Medications Medications (Trade) Dose Ordered Sig/Devyn Route Start Time Stop Time Status Last Admin Albuterol (Ventolin Medneb) 2.5 mg ONCE ONCE NEB 09/01/25 02:45 09/01/25 02:58 DC 09/01/25 03:01 [place] [id number] Ph: [phone] DIAGNOSTIC IMAGING Diagnostic Imaging Report : [id number] Signed PATIENT: SHANNAN BENITEZ ACCT: [id number] UNIT: [id number] : 1960 LOC: ER ROOM / BED: / AGE / SEX: 64 / M ADM STATUS: REG ER SERVICE 1 ORDERING PHYSICIAN: FACUNDO PASTRANA DO PROCEDURE(s): CXRP - CHEST PORTABLE REASON: sob ORDER NUMBER(s): [id number], ACCESSION NUMBER(s): [id number] CHEST RADIOGRAPH Indication: sob Technique: 1 view Comparison: XY CHEST XRAY 1 VIEW on DOS: 08/28/25 FINDINGS: Lines and Tubes: Unchanged tunneled right IJ catheter. Lungs/Pleura: Similar bilateral infrahilar interstitial prominence. No focal consolidation, pleural effusion or pneumothorax. Cardiomediastinum: Normal heart size. Prior CABG. Other: No acute osseous abnormality. Sternotomy wires are unchanged. Multiple surgical ana and a metallic ring structure overlie the upper abdomen. IMPRESSION: No consolidation or significant interval change from 4 days prior. Mild infrahilar interstitial opacities suggest mild edema or atypical infection. ATED BY: GONZÁLEZ SANZ MD DICTATED DATE/TIME: 09/01/25242 SIGNED BY: GONZÁLEZ SANZ MD SIGNED DATE/TIME: 09/01/25242 CC: X-Ray, Labs, Meds, VS Comment CBC CMP Chest x-ray COVID/influenza swab Images Reviewed?: Images reviewed and evaluated by me Time of 1ST Reevaluation: 03:00 Reevaluation 1ST: Unchanged Patient Education/Counseling: Diagnosis, Treatment, Prognosis, Need For Follow Up Family Education/Counseling: No Family Present SEPSIS Sepsis Screen Date sepsis recognized/suspect: Sep 01, 2025 Time Sepsis recognized/suspect: 0201 Recent Procedure: No On Antibiotic Therapy: No Respiratory Rate >20: No Heart Rate >90: No Temp<36 C (96.8 F) or >38.3 C: No SBP <90 or MAP <65 mmHG: No New Acute Mental Status Change: No Is the patient on CPAP, BIPAP,: No Physician Orders Surveillance Observer (09/01/25 ) Chest Portable (09/01/25 02:12) Electrocardigram (09/01/25 02:12) Troponin-I Hs (09/01/25 03:12) Troponin-I Hs (09/01/25 05:12) Covid19 Antigen Samina (09/01/25 ) Rapid Influenza A&B (09/01/25 02:18) Potassium (09/01/25 07:19) Insulin R (Human) (Insulin R) (09/01/25 03:30) Dextrose 50% Syringe (09/01/25 03:30) Albuterol Medneb (Ventolin Medneb) (09/01/25 03:30) Furosemide Injection (Lasix Injection) (09/01/25 03:30) Calcium Gluc 1,000mg/50ml-Ns (09/01/25 03:30) Sodium Zirconium Cyclosilicate (Lokelma) (09/01/25 03:30) *Dr. Savannah Salmon -Eulogio Patel (09/01/25 03:20) Acetaminophen Tablet (Tylenol Tablet) (09/01/25 03:30) Vital Signs Date Time Temp Pulse Resp B/P (MAP) Pulse Ox O2 Delivery O2 Flow Rate FiO2 09/01/25 03:37 17 95 Room Air* 0 21 09/01/25 03:01 14 97 Room Air* 0 21 09/01/25 02:31 72 16 98 Room Air* 0 21 09/01/25 02:31 98.0 72 16 145/84 (104) 98 98.0 09/01/25 02:06 75 09/01/25 01:58 98.0 75 18 143/75 98 98.0 Laboratory Tests Test 09/01/25 02:22 Lactic Acid Level 0.8 mmol/L (0.4-2.0) White Blood Count 8.0 10^3/uL (4.4-10.8) # Medications Medications Dose Ordered Sig/Devyn Route Start Time Stop Time Status Last Admin Dose Admin Albuterol 2.5 mg ONCE ONCE NEB 09/01/25 02:45 09/01/25 02:58 DC 09/01/25 03:01 Departure 1 Departure Time of Disposition: 04:00 Impression: Primary Impression: Dyspnea Additional Impressions: ESRD on hemodialysis Hyperkalemia Anemia Disposition: 30 STILL A PATIENT Admit to: Tele Condition: Fair Discharged With: Self Comments Patient will be admitted to this facility for further management of h yperkalemia, volume overload state, he will probably need inpatient hemodialysis. Nephrology has been consulted. Hyperkalemia treatment provided, IV Lasix 40 mg once Pending COVID and influenza swab Critical Care Note Critical Care Time?: Yes (45 min-critical care time only) Stability Stability form required: No Heart Score Heart Score: Heart Score Response (Comments) Value History Moderate Suspicious 1 EKG Normal 0 Age >65 2 Risk Factors >3 or Hx ASHD 2 Troponin Normal limit 0 Total 5 I personally scribed for SANDRA VAUGHAN RESIDENT ([email or web address]) on 09/01/25 at 03:34. Electronically submitted by Troy Carson [email or web address]). SANDRA VAUGHAN Sep 01, 2025 02:26 FACUNDO PASTRANA DO Sep 01, 2025 03:35
[2025-09-01 02:31] VITALS: PULSE 72; RESP 16; O2SAT 98
--- NOTE | 2025-09-01 02:46 | DVH ---
CHEST RADIOGRAPH Indication: sob Technique: 1 view Comparison: XY CHEST XRAY 1 VIEW on DOS: 08/28/25 FINDINGS: Lines and Tubes: Unchanged tunneled right IJ catheter. Lungs/Pleura: Similar bilateral infrahilar interstitial prominence. No focal consolidation, pleural e ffusion or pneumothorax. Cardiomediastinum: Normal heart size. Prior CABG. Other: No acute osseous abnormality. Sternotomy wires are unchanged. Multiple surgical ana and a metallic ring structure overlie the upper abdomen. IMPRESSION: No consolidation or significant interval change from 4 days prior. Mild infrahilar interstitial opaci ties suggest mild edema or atypical infection.
[2025-09-01 02:49] LABS: Hematocrit 27.6 % (41.0-53.0); Hemoglobin 9.1 g/dL (13.5-17.5); Mean Corpuscular Hemoglobin 31.4 pg (28.0-32.0); Mean Corpuscular Volume 94.8 fL (80.0-100.0); Nucleated Red Blood Cells % 0.1 %
[2025-09-01 03:00] LABS: INR 1.01 (0.9-1.15); Partial Thromboplastin Time 28.8 SEC (24.5-34.5); Prothrombin Time 10.7 sec (9.3-11.8)
[2025-09-01] MEDS: ALBUTEROL SULF 2.5 MG/0.5ML(0.5%) NEB SOLN NEB ONE ×2 (03:01→04:20)
[2025-09-01 03:05] LABS: Alanine Aminotransferase 17 U/L (7-40); Albumin 4.7 g/dL (3.2-4.8); Alkaline Phosphatase 58 U/L (46-116); Anion Gap 19 (5-15); BUN/Creatinine Ratio 4.9 (10.0-20.0); Chloride 101 mmol/L (98-107); Glucose 95 mg/dL (74-106); Sodium 139 mmol/L (136-145); Total Protein 7.3 g/dL (5.7-8.2)
[2025-09-01 03:14] LABS: Bilirubin, Total 0.2 mg/dL (0.2-1.0); Blood Urea Nitrogen 61 mg/dL (9-23); Calcium 7.5 mg/dL (8.7-10.4); Carbon Dioxide 19 mmol/L (20-31)
[2025-09-01 03:15] LABS: Potassium 6.4 mmol/L (3.5-5.1)
[2025-09-01] MEDS: InsuLIN REG 1unit/0.01ml Soln (100units/ml) IV ONE (03:30)
[2025-09-01] MEDS: CALCIUM GLUC 1,000mg/50ml-NS 50 ML IV ONE (03:30)
[2025-09-01] MEDS: SODIUM ZIRCONIUM CYCL 10 GM PAK PO ONE (03:30)
[2025-09-01] MEDS: ACETAMINOPHEN 325 MG TAB PO ONE (03:30)
[2025-09-01] MEDS: FUROSEMIDE 40 MG/4 ML VIAL IV ONE (03:30)
[2025-09-01] MEDS: DEXTROSE (50%) 50ML SYRG IV ONE (03:30)
[2025-09-01] MEDS ORDERED: ACETAMINOPHEN 325 MG TAB PO PRN (04:15)
[2025-09-01] MEDS ORDERED: ONDANSETRON HCL 4 MG/2 ML VIAL IV PRN (04:15)
[2025-09-01] MEDS ORDERED: HYDROcodone-ACET 5/325MG TAB PO PRN (04:15)
[2025-09-01] MEDS ORDERED: NITROGLYCERIN 0.4 MG SL TAB SL PRN (04:15)
[2025-09-01] MEDS ORDERED: DOCUSATE SOD 100 MG CAP PO PRN (04:15)
[2025-09-01] MEDS ORDERED: MORPHINE SULFATE INJ 2 MG/ml SYRG IV PRN (04:15)
--- NOTE | 2025-09-01 04:15 | DVHHP2 ---
Admitting Diagnosis: Shortness of breath History of Present Illness 64 y/o male patient with history of CAD, CABG, ESRD on hemodialysis, hypertension presents with c/o shortness of breath and chills. While in the emergency department the patient was evaluated by the provider, As per provider: Labs, vital signs, and imagining monitored. Patient will be admitted for further evaluation and treatment. I discussed admission with the patient/family and is in agreement to treatment plan. Patient Family History: Patient reports no known family medical history. Allergies: Coded Allergies: No Known Drug Allergy (Verified Allergy, Unknown, 08/28/25) Home Meds Reported Medications Aspirin (Aspirin Adult Low Dose) 81 Mg Tab, 1 TAB PO DAILY 08/29/25 Amlodipine Besylate (Amlodipine Besylate) 10 Mg Tab, 1 TAB PO DAILY 08/29/25 Hydralazine Hcl (Hydralazine Hcl) 100 Mg Tab, 1 TAB PO TID 08/29/25 Sodium Bicarbonate (Sodium Bicarbonate) 650 Mg Tab, 1 TAB PO TID 08/29/25 Nifedipine (Nifedipine Er) 90 Mg Tab, 1 TAB PO DAILY 08/29/25 Clonidine Hydrochloride (Clonidine Hcl) 0.1 Mg Tab, TAB PO 08/29/25 Carvedilol (Carvedilol) 25 Mg Tab, 1 TAB PO BID 08/29/25 Current Medications Current Medications Medications (Trade) Dose Ordered Sig/Devyn Route PRN Reason Start Time Stop Time Status Last Admin Acetaminophen/ Hydrocodone Bitart ([place] 5/325MG Tab) 1 tab Q4HP PRN PO MODERATE PAIN (4-6 PAIN SCALE) 09/01/25 04:15 Ondansetron HCl (Zofran) 4 mg Q4HP PRN IV NAUSEA / VOMITING 09/01/25 04:15 Docusate Sodium (Colace Capsule) 100 mg BIDPRN PRN PO FOR CONSTIPATION 09/01/25 04:15 Acetaminophen (Tylenol Tablet) 650 mg Q6HP PRN PO PAIN SCALE 1-3 OR TEMP>100.4 09/01/25 04:15 Hydralazine HCl (Apresoline Injection) 10 mg Q6HP PRN IV SBP>150 09/01/25 04:15 Nitroglycerin (Ntrostat Sublingual) 0.4 mg Q5MINP PRN SL FOR CHEST PAIN 09/01/25 04:15 Morphine Sulfate 2 mg Q30M PRN IV FOR CHEST PAIN 09/01/25 04:15 Aspirin (Ecotrin Enteric Coated Tablet) 81 mg DAILY PO 09/01/25 10:00 09/01/25 09:36 Clonidine HCl (Catapres Tablet) 0.1 mg Q8HP PRN PO SBP>160 09/01/25 04:15 Patient Own Medication 1 tab BID PO 09/01/25 10:00 09/01/25 04:18 DC Patient Own Medication 1 tab DAILY PO 09/01/25 10:00 09/01/25 04:18 DC Patient Own Medication 1 tab TID PO 09/01/25 06:00 09/01/25 04:18 DC Heparin Sodium (Porcine) 5,000 units BID SC 09/01/25 10:00 Pantoprazole Sodium (Protonix Tablet) 40 mg DAILY PO 09/01/25 10:00 09/01/25 09:36 Carvedilol (Coreg Tablet) 25 mg BID PO 09/01/25 10:00 Sodium Bicarbonate 650 mg TID PO 09/01/25 06:00 09/01/25 14:21 Nifedipine (Procardia Xl (Time-Release)) 90 mg DAILY PO 09/01/25 10:00 Review of Systems Constitutional: denies chills, denies fever, denies malaise Eyes: denies eye pain, denies vision change ENT: denies ear pain, denies headache, denies nasal congestion, denies painful swallowing, denies voice change Cardiovascular: denies chest pain, denies edema, denies orthopnea, denies palpitations, denies paroxysmal nocturnal dyspnea Respiratory: denies cough, denies shortness of breath Gastrointestinal: denies constipation, denies diarrhea, denies nausea, denies vomiting Genitourinary: denies dysuria, denies frequent urination, denies urethral discharge Musculoskeletal: denies back pain, denies joint pain, denies muscle pain Skin: denies bruising, denies itching, denies rash Neurological: denies focal weakness, denies headache, denies sensory changes Psychiatric: denies anxiety, denies depression Endocrine: denies polydipsia, denies polyuria Hematologic/Lymphatic: denies easy bleeding, denies easy bruising, denies enlarged lymph nodes Allergic/Immunologic: denies allergy, denies hives Vital Signs Vital Signs Date Time Temp Pulse Resp B/P (MAP) Pulse Ox O2 Delivery O2 Flow Rate FiO2 09/01/25 20:00 98 Room Air* 0 21 09/01/25 17:00 97.8 75 18 162/96 (118) 97.8 Physical Exam General Appearance: alert, no distress HEENT: EOMI, PERRLA, normal external inspect of ears, no icterus, no nasal drainage Neck: no carotid bruit, no jugular venous distention (JVD), no lymphadenopathy Chest: normal thorax Respiratory: clear to auscultation, normal air movement Cardiovascular: regular rate and rhythm, no diastolic murmur, no jugular venous distention (JVD), no rub, no systolic murmur Abdominal: soft, no hepatomegaly, no mass, no splenomegaly, no tenderness Genitourinary: grossly normal external Musculoskeletal: no joint tenderness, no swelling Extremities: normal pulses, no calf tenderness, no clubbing, no cyanosis, no edema Skin: no bruising, no jaundice, no rash Neurological: alert, No focal deficit SEPSIS Sepsis Screen Date sepsis recognized/suspect: Sep 01, 2025 Time Sepsis recognized/suspect: 233 Recent Procedure: No On Antibiotic Therapy: No Respiratory Rate >20: No Heart Rate >90: No Temp<36 C (96.8 F) or >38.3 C: No SBP <90 or MAP <65 mmHG: No New Acute Mental Status Change: No Is the patient on CPAP, BIPAP,: No Physician Orders [employer] Counselor (09/01/25 ) Chest Portable (09/01/25 02:12) *Dr. Savannah Salmon -Da Amanda (09/01/25 03:20) Admit (09/01/25 04:06) Code Status (09/01/25 04:06) Renal Standard(2gna,3gk,Lopho) (09/01/25 Breakfast) Hydrocodone-Acet 5/325mg Tab ([place] 5/32 (09/01/25 04:15) Ondansetron Hcl (Zofran) (09/01/25 04:15) Docusate Sodium Capsule (Colace Capsule) (09/01/25 04:15) Complete Blood Count (09/02/25 04:00) Comprehensive Metabolic Panel (09/02/25 04:00) Condition: Fair (09/01/25 04:06) Acetaminophen Tablet (Tylenol Tablet) (09/01/25 04:15) *Dr. Savannah Salmon -Eulogio Patel (09/01/25 04:06) Hydralazine Injection (Apresoline Inject (09/01/25 04:15) Nitroglycerin Sublingual (Ntrostat Subli (09/01/25 04:15) Morphine Sulfate Injection (09/01/25 04:15) Stat Ekg For Chest Pain (09/01/25 04:06) Notify Md Of Changes From Base (09/01/25 04:06) Singer Songwriter For 24 Hours (09/01/25 04:06) Emergency Dysrhythmia Protocol (09/01/25 04:06) Rhythm Strips Once Every Shift (09/01/25 04:06) Oxygen By Nasal Cannula (09/01/25 04:06) Aspirin Enteric Coated Tablet (Ecotrin E (09/01/25 10:00) Clonidine Hcl Tablet (Catapres Tablet) (09/01/25 04:15) Heparin Sodium (Porcine) (09/01/25 10:00) Pantoprazole Tablet (Protonix Tablet) (09/01/25 10:00) Carvedilol Tablet (Coreg Tablet) (09/01/25 10:00) Sodium Bicarb Tab (09/01/25 06:00) Nifedipine Er (Procardia Xl (Time-Releas (09/01/25 10:00) Hemodialysis Orders (09/01/25 09:24) Dialysis Nursing Message (09/01/25 09:24) Document Fluid Input And Outpu (09/01/25 09:24) Acute Hepatitis Panel (09/01/25 09:24) Vital Signs Date Time Temp Pulse Resp B/P (MAP) Pulse Ox O2 Delivery O2 Flow Rate FiO2 09/01/25 20:00 98 Room Air* 0 21 09/01/25 17:00 97.8 75 18 162/96 (118) 95 97.8 09/01/25 13:19 82 17 99 Room Air* 0 21 09/01/25 13:19 98.3 82 17 151/84 (106) 99 98.3 09/01/25 12:30 97.9 80 13 153/78 (103) 99 97.9 09/01/25 10:00 68 14 135/68 (90) 98 09/01/25 09:00 69 13 129/72 (91) 98 09/01/25 08:00 67 12 156/72 (100) 97 09/01/25 08:00 66 09/01/25 07:14 66 09/01/25 07:14 97.9 66 14 157/82 (107) 97 97.9 09/01/25 07:14 14 97 Room Air* 0 21 09/01/25 07:14 66 14 97 Room Air* 0 21 09/01/25 06:00 76 18 158/89 (112) 97 09/01/25 04:22 74 16 130/63 (85) 97 09/01/25 03:37 17 95 Room Air* 0 21 09/01/25 03:30 98.0 09/01/25 03:30 155/84 09/01/25 03:01 14 97 Room Air* 0 21 09/01/25 02:31 72 16 98 Room Air* 0 21 09/01/25 02:31 98.0 72 16 145/84 (104) 98 98.0 09/01/25 02:06 75 09/01/25 01:58 98.0 75 18 143/75 98 98.0 Laboratory Tests Test 09/01/25 02:22 Lactic Acid Level 0.8 mmol/L (0.4-2.0) White Blood Count 8.0 10^3/uL (4.4-10.8) # Medications Medications Dose Ordered Sig/Devyn Route Start Time Stop Time Status Last Admin Dose Admin Aspirin 81 mg DAILY PO 09/01/25 10:00 09/01/25 09:36 Pantoprazole Sodium 40 mg DAILY PO 09/01/25 10:00 09/01/25 09:36 Results Labs Test 09/01/25 15:26 09/01/25 06:28 09/01/25 05:28 09/01/25 03:26 Range/Units Sodium Level 141 136-145 mmol/L Potassium Level 4.3 # 3.5-5.1 mmol/L Chloride Level 99 98-107 mmol/L Carbon Dioxide Level 27 20-31 mmol/L Anion Gap 15 5-15 Blood Urea Nitrogen 35 #H 9-23 mg/dL Creatinine 7.98 #H 0.700-1.30 mg/dL Glomerular Filtration Rate Calc 7 >90 mL/min BUN/Creatinine Ratio 4.4 L 10.0-20.0 Serum Glucose 159 H 74-106 mg/dL Calcium Level 8.1 L 8.7-10.4 mg/dL Influenza Type A Antigen Negative Negative Influenza Type B Antigen Negative Negative SARS-CoV-2 Antigen (Rapid) Negative NEGATIVE Troponin I High Sensitivity 14 </=54 ng/L Test 09/01/25 02:22 Range/Units White Blood Count 8.0 # 4.4-10.8 10^3/uL Red Blood Count 2.91 L 4.5-5.90 10^6/uL Hemoglobin 9.1 L 13.5-17.5 g/dL Hematocrit 27.6 L 41.0-53.0 % Mean Corpuscular Volume 94.8 80.0-100.0 fL Mean Corpuscular Hemoglobin 31.4 28.0-32.0 pg Mean Corpuscular Hemoglobin Concent 33.1 32.0-36.0 g/dL Red Cell Distribution Width 16.1 H 11.8-14.3 % Platelet Count 203 140-450 10^3/uL Mean Platelet Volume 7.7 6.9-10.8 fL Neutrophils (%) (Auto) 64.4 37.0-80.0 % Lymphocytes (%) (Auto) 17.7 10.0-50.0 % Monocytes (%) (Auto) 5.4 0.0-12.0 % Eosinophils (%) (Auto) 11.5 H 0.0-7.0 % Basophils (%) (Auto) 1.0 0.0-2.0 % Neutrophils # (Auto) 5.1 1.6-8.6 10 ^3/uL Lymphocytes # (Auto) 1.4 0.4-5.4 10 ^3/uL Monocytes # (Auto) 0.4 0-1.3 10 ^3/uL Eosinophils # (Auto) 0.9 H 0-0.8 10 ^3/uL Basophils # (Auto) 0.1 0-0.2 10 ^3/uL Nucleated Red Blood Cells 0.1 % Prothrombin Time 10.7 9.3-11.8 sec Prothrombin Time INR 1.01 0.9-1.15 Activated Partial Thromboplast Time 28.8 24.5-34.5 SEC Lactic Acid Level 0.8 0.4-2.0 mmol/L Total Bilirubin 0.2 0.2-1.0 mg/dL Aspartate Amino Transferase (AST) 18 13-40 U/L Alanine Aminotransferase (ALT) 17 7-40 U/L Alkaline Phosphatase 58 46-116 U/L B-Type Natriuretic Peptide 845.68 0-100 pg/mL Total Protein 7.3 5.7-8.2 g/dL Albumin 4.7 3.2-4.8 g/dL Plan 1. Fluid overload Monitor 2. ESRD on hemodialysis Monitor, nephrology consult, plan for hemodialysis 3. HTN with ESRD Monitor, medications 4. Hyperkalemia Monitor, repeat K level Plan discussed with: Patient, Other KIKE CARDENAS NP Sep 01, 2025 04:15
[2025-09-01] MEDS: SODIUM BICARBONATE 650 MG TAB PO SCH (05:57)
[2025-09-01] MEDS ORDERED: SODIUM BICARBONATE PO SCH (06:00)
[2025-09-01 07:14] VITALS: PULSE 66; RESP 14; O2SAT 97
[2025-09-01 07:30] LABS: COVID19 ANTIGEN SOFIA FIA NEGATIVE (NEGATIVE)
[2025-09-01 08:32] LABS: Chloride 101 mmol/L (98-107); Sodium 138 mmol/L (136-145)
[2025-09-01 08:33] LABS: Anion Gap 18 (5-15)
[2025-09-01 08:34] LABS: Calcium 7.2 mg/dL (8.7-10.4); Carbon Dioxide 19 mmol/L (20-31)
[2025-09-01 08:35] LABS: Potassium 6.6 mmol/L (3.5-5.1)
[2025-09-01 08:38] LABS: Glucose 91 mg/dL (74-106)
[2025-09-01 08:39] LABS: BUN/Creatinine Ratio 5.7 (10.0-20.0); Blood Urea Nitrogen 74 mg/dL (9-23)
[2025-09-01] MEDS: CARVEDILOL 12.5 MG TAB PO SCH (09:31)
[2025-09-01] MEDS: PANTOPRAZOLE 40 MG TAB PO SCH (09:36)
[2025-09-01] MEDS: ASPirin-EC 81 mg tab PO SCH (09:36)
[2025-09-01] MEDS: SODIUM CHL 0.9% 1000 ML BAG XX ONE (09:37)
[2025-09-01] MEDS: HEPARIN SODIUM (PORCINE) 5000 UNITS/ML 1ML VIAL SC SCH (09:45)
[2025-09-01] MEDS ORDERED: PATIENTS OWN MEDICATION (Carvedilol 1 TAB) PO SCH (10:00)
[2025-09-01] MEDS ORDERED: PATIENTS OWN MEDICATION (Nifedipine (Nifedipine Er) 1 TAB) PO SCH (10:00)
--- NOTE | 2025-09-01 12:09 | ECG ---
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
--- NOTE | 2025-09-01 12:32 | DVHPN2 ---
Progress Note - Dictate Date Seen: Sep 01, 2025 Medical Necessity Reason Pt with a Central, PICC or Fol: No vital signs Vital Sign Date Time Temp Pulse Resp B/P (MAP) Pulse Ox O2 Delivery O2 Flow Rate FiO2 09/01/25 10:00 68 14 135/68 (90) 98 09/01/25 07:14 97.9 97.9 09/01/25 07:14 Room Air* 0 21 medications Current Medications Medications Dose Ordered Sig/Devyn Route Start Time Stop Time Status Last Admin Dose Admin Acetaminophen/ Hydrocodone Bitart 1 tab Q4HP PRN PO 09/01/25 04:15 Ondansetron HCl 4 mg Q4HP PRN IV 09/01/25 04:15 Docusate Sodium 100 mg BIDPRN PRN PO 09/01/25 04:15 Acetaminophen 650 mg Q6HP PRN PO 09/01/25 04:15 Hydralazine HCl 10 mg Q6HP PRN IV 09/01/25 04:15 Nitroglycerin 0.4 mg Q5MINP PRN SL 09/01/25 04:15 Morphine Sulfate 2 mg Q30M PRN IV 09/01/25 04:15 Aspirin 81 mg DAILY PO 09/01/25 10:00 09/01/25 09:36 81 MG Clonidine HCl 0.1 mg Q8HP PRN PO 09/01/25 04:15 Heparin Sodium (Porcine) 5,000 units BID SC 09/01/25 10:00 Pantoprazole Sodium 40 mg DAILY PO 09/01/25 10:00 09/01/25 09:36 40 MG Carvedilol 25 mg BID PO 09/01/25 10:00 Sodium Bicarbonate 650 mg TID PO 09/01/25 06:00 09/01/25 05:57 650 MG Nifedipine 90 mg DAILY PO 09/01/25 10:00 objective General Appearance: alert, no distress HEENT: EOMI, PERRLA, normal external inspect of ears, no icterus, no nasal drainage Neck: no carotid bruit, no jugular venous distention (JVD), no lymphadenopathy Chest: normal thorax Respiratory: clear to auscultation, normal air movement Cardiovascular: regular rate and rhythm, no diastolic murmur, no jugular venous distention (JVD), no rub, no systolic murmur Abdominal: soft, no hepatomegaly, no mass, no splenomegaly, no tenderness Genitourinary: grossly normal external Musculoskeletal: no joint tenderness, no swelling Extremities: normal pulses, no calf tenderness, no clubbing, no cyanosis, no edema Skin: no bruising, no jaundice, no rash Neurological: alert, No focal deficit laboratory and microbiology Laboratory Tests 09/01/25 07:29 09/01/25 02:22 Test 09/01/25 07:29 Range/Units Serum Glucose 91 74-106 mg/dL Problem List 1. Fluid overload Monitor 2. ESRD on hemodialysis Monitor, nephrology consult, plan for hemodialysis 3. HTN with ESRD Monitor, medications 4. Hyperkalemia Monitor, repeat K level Assessment/Plan Subjective: Patient is awake and alert. Objective: Patient was admitted for fluid overload and hyperkalemia. Patient is noncompliant with dialysis. 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 Patient has been admitted multiple times for hyperkalemia. Plan: Hyperkalemia protocol. Emergent dialysis. Nephrology consult. Repeat labs. Monitor on EKG. Plan discussed with: Patient, Other KIKE CARDENAS NP Sep 01, 2025 12:32
[2025-09-01 13:19] VITALS: BP 151/84; PULSE 82; RESP 17; TEMP 98.3; O2SAT 99
[2025-09-01 15:59] LABS: Chloride 99 mmol/L (98-107); Potassium 4.3 mmol/L (3.5-5.1); Sodium 141 mmol/L (136-145)
[2025-09-01 16:00] LABS: Anion Gap 15 (5-15); Carbon Dioxide 27 mmol/L (20-31)
[2025-09-01 16:06] LABS: BUN/Creatinine Ratio 4.4 (10.0-20.0)
[2025-09-01 16:08] LABS: Blood Urea Nitrogen 35 mg/dL (9-23); Calcium 8.1 mg/dL (8.7-10.4); Glucose 159 mg/dL (74-106)
[2025-09-01 17:00] VITALS: BP 162/96; PULSE 75; RESP 18; TEMP 97.8; O2SAT 95
--- NOTE | 2025-09-01 18:56 | DVHINCON2 ---
Date of service: Sep 01, [address] Pak Reason for Consultation Dialysis History of Present Illness 64 Y/O M with history of ESRD on HD, HTN, CAD s/p CABG presented with chief complaint of SOB. K is 6.6 mmol/l. I was consulted for dialysis Past Medical History ESRD HTN Anemia CAD Past Surgical History CABG Allergies: Coded Allergies: No Known Drug Allergy (Verified Allergy, Unknown, 08/28/25) Home Meds Reported Medications Aspirin (Aspirin Adult Low Dose) 81 Mg Tab, 1 TAB PO DAILY 08/29/25 Amlodipine Besylate (Amlodipine Besylate) 10 Mg Tab, 1 TAB PO DAILY 08/29/25 Hydralazine Hcl (Hydralazine Hcl) 100 Mg Tab, 1 TAB PO TID 08/29/25 Sodium Bicarbonate (Sodium Bicarbonate) 650 Mg Tab, 1 TAB PO TID 08/29/25 Nifedipine (Nifedipine Er) 90 Mg Tab, 1 TAB PO DAILY 08/29/25 Clonidine Hydrochloride (Clonidine Hcl) 0.1 Mg Tab, TAB PO 08/29/25 Carvedilol (Carvedilol) 25 Mg Tab, 1 TAB PO BID 08/29/25 Current Medications Current Medications Medications (Trade) Dose Ordered Sig/Devyn Route PRN Reason Start Time Stop Time Status Last Admin Acetaminophen/ Hydrocodone Bitart ([place] 5/325MG Tab) 1 tab Q4HP PRN PO MODERATE PAIN (4-6 PAIN SCALE) 09/01/25 04:15 Ondansetron HCl (Zofran) 4 mg Q4HP PRN IV NAUSEA / VOMITING 09/01/25 04:15 Docusate Sodium (Colace Capsule) 100 mg BIDPRN PRN PO FOR CONSTIPATION 09/01/25 04:15 Acetaminophen (Tylenol Tablet) 650 mg Q6HP PRN PO PAIN SCALE 1-3 OR TEMP>100.4 09/01/25 04:15 Hydralazine HCl (Apresoline Injection) 10 mg Q6HP PRN IV SBP>150 09/01/25 04:15 Nitroglycerin (Ntrostat Sublingual) 0.4 mg Q5MINP PRN SL FOR CHEST PAIN 09/01/25 04:15 Morphine Sulfate 2 mg Q30M PRN IV FOR CHEST PAIN 09/01/25 04:15 Aspirin (Ecotrin Enteric Coated Tablet) 81 mg DAILY PO 09/01/25 10:00 09/01/25 09:36 Clonidine HCl (Catapres Tablet) 0.1 mg Q8HP PRN PO SBP>160 09/01/25 04:15 Patient Own Medication 1 tab BID PO 09/01/25 10:00 09/01/25 04:18 DC Patient Own Medication 1 tab DAILY PO 09/01/25 10:00 09/01/25 04:18 DC Patient Own Medication 1 tab TID PO 09/01/25 06:00 09/01/25 04:18 DC Heparin Sodium (Porcine) 5,000 units BID SC 09/01/25 10:00 Pantoprazole Sodium (Protonix Tablet) 40 mg DAILY PO 09/01/25 10:00 09/01/25 09:36 Carvedilol (Coreg Tablet) 25 mg BID PO 09/01/25 10:00 Sodium Bicarbonate 650 mg TID PO 09/01/25 06:00 09/01/25 14:21 Nifedipine (Procardia Xl (Time-Release)) 90 mg DAILY PO 09/01/25 10:00 Family History: Patient reports no known family medical history. Review of Systems as per HPI, all other systems were reviewed and are negative H&P Exam Vital Signs/I&O Vital Sign Date Time Temp Pulse Resp B/P (MAP) Pulse Ox O2 Delivery O2 Flow Rate FiO2 09/01/25 17:00 97.8 75 18 162/96 (118) 95 97.8 09/01/25 13:19 Room Air* 0 21 Physical Exam Gen: NAD HEENT: NC, AT Lungs: Crackles lung bases Cardiac: RRR, no murmur Abd: soft, no tenderness Ext: no edema Neuro: no focal deficits Labs/Diagnostic Data Labs/Diagnostic Data Laboratory Tests Test 09/01/25 15:26 09/01/25 07:29 09/01/25 06:28 09/01/25 05:28 Range/Units Sodium Level 141 138 136-145 mmol/L Potassium Level 4.3 # 6.6 *H 3.5-5.1 mmol/L Chloride Level 99 101 98-107 mmol/L Carbon Dioxide Level 27 19 L 20-31 mmol/L Anion Gap 15 18 H 5-15 Blood Urea Nitrogen 35 #H 74 #H 9-23 mg/dL Creatinine 7.98 #H 13.03 *H 0.700-1.30 mg/dL Glomerular Filtration Rate Calc 7 4 >90 mL/min BUN/Creatinine Ratio 4.4 L 5.7 L 10.0-20.0 Serum Glucose 159 H 91 74-106 mg/dL Calcium Level 8.1 L 7.2 L 8.7-10.4 mg/dL Influenza Type A Antigen Negative Negative Influenza Type B Antigen Negative Negative SARS-CoV-2 Antigen (Rapid) Negative NEGATIVE Troponin I High Sensitivity 14 </=54 ng/L Test 09/01/25 03:26 09/01/25 02:22 Range/Units Troponin I High Sensitivity 15 16 </=54 ng/L White Blood Count 8.0 # 4.4-10.8 10^3/uL Red Blood Count 2.91 L 4.5-5.90 10^6/uL Hemoglobin 9.1 L 13.5-17.5 g/dL Hematocrit 27.6 L 41.0-53.0 % Mean Corpuscular Volume 94.8 80.0-100.0 fL Mean Corpuscular Hemoglobin 31.4 28.0-32.0 pg Mean Corpuscular Hemoglobin Concent 33.1 32.0-36.0 g/dL Red Cell Distribution Width 16.1 H 11.8-14.3 % Platelet Count 203 140-450 10^3/uL Mean Platelet Volume 7.7 6.9-10.8 fL Neutrophils (%) (Auto) 64.4 37.0-80.0 % Lymphocytes (%) (Auto) 17.7 10.0-50.0 % Monocytes (%) (Auto) 5.4 0.0-12.0 % Eosinophils (%) (Auto) 11.5 H 0.0-7.0 % Basophils (%) (Auto) 1.0 0.0-2.0 % Neutrophils # (Auto) 5.1 1.6-8.6 10 ^3/uL Lymphocytes # (Auto) 1.4 0.4-5.4 10 ^3/uL Monocytes # (Auto) 0.4 0-1.3 10 ^3/uL Eosinophils # (Auto) 0.9 H 0-0.8 10 ^3/uL Basophils # (Auto) 0.1 0-0.2 10 ^3/uL Nucleated Red Blood Cells 0.1 % Prothrombin Time 10.7 9.3-11.8 sec Prothrombin Time INR 1.01 0.9-1.15 Activated Partial Thromboplast Time 28.8 24.5-34.5 SEC Sodium Level 139 136-145 mmol/L Potassium Level 6.4 *H 3.5-5.1 mmol/L Chloride Level 101 98-107 mmol/L Carbon Dioxide Level 19 L 20-31 mmol/L Anion Gap 19 H 5-15 Blood Urea Nitrogen 61 H 9-23 mg/dL Creatinine 12.34 #*H 0.700-1.30 mg/dL Glomerular Filtration Rate Calc 4 >90 mL/min BUN/Creatinine Ratio 4.9 L 10.0-20.0 Serum Glucose 95 74-106 mg/dL Lactic Acid Level 0.8 0.4-2.0 mmol/L Calcium Level 7.5 L 8.7-10.4 mg/dL Total Bilirubin 0.2 0.2-1.0 mg/dL Aspartate Amino Transferase (AST) 18 13-40 U/L Alanine Aminotransferase (ALT) 17 7-40 U/L Alkaline Phosphatase 58 46-116 U/L B-Type Natriuretic Peptide 845.68 0-100 pg/mL Total Protein 7.3 5.7-8.2 g/dL Albumin 4.7 3.2-4.8 g/dL Assessment ESRD on HD Hyperkalemia Acute on chronic diastolic CHF Fluid overload Hypertension CAD s/p CABG Hyperphosphatemia Secondary hyperparathyroidism Anemia of CKD Azotemia Plan: s/p stat HD low K diet continue Nifedipine ADRIANO post HD. goal Hb: 10-11 g/dl resume binders Plan discussed with: Patient GAEL ROBERTSON MD Sep 01, 2025 18:56
[2025-09-01 20:00] VITALS: PULSE 72; O2SAT 98
[2025-09-01 21:00] VITALS: BP 163/89; PULSE 72; RESP 18; TEMP 97.7; O2SAT 98
[2025-09-01] MEDS: EPOETIN ALFA-EPBX 4,000 UNIT/ML VIAL SC ONE (21:35)
[2025-09-02 01:00] VITALS: BP 143/84; PULSE 71; RESP 18; TEMP 98; O2SAT 98
[2025-09-02 05:00] VITALS: BP 168/97; PULSE 64; RESP 19; TEMP 98; O2SAT 98
[2025-09-02] MEDS: hydrALAZINE HCL 20 MG/ML VL IV PRN (05:36)
[2025-09-02 06:54] LABS: Hematocrit 27.5 % (41.0-53.0); Hemoglobin 9.5 g/dL (13.5-17.5); Mean Corpuscular Hemoglobin 31.9 pg (28.0-32.0); Mean Corpuscular Volume 92.9 fL (80.0-100.0); Nucleated Red Blood Cells % 0.0 %
[2025-09-02 07:13] LABS: Alanine Aminotransferase 11 U/L (7-40); Alkaline Phosphatase 48 U/L (46-116); Anion Gap 16 (5-15); BUN/Creatinine Ratio 4.3 (10.0-20.0); Carbon Dioxide 26 mmol/L (20-31); Chloride 99 mmol/L (98-107); Glucose 85 mg/dL (74-106); Sodium 141 mmol/L (136-145); Total Protein 6.3 g/dL (5.7-8.2)
[2025-09-02 07:14] LABS: Albumin 4.0 g/dL (3.2-4.8); Bilirubin, Total 0.4 mg/dL (0.2-1.0)
[2025-09-02 07:16] LABS: Blood Urea Nitrogen 40 mg/dL (9-23); Calcium 7.8 mg/dL (8.7-10.4); Potassium 5.2 mmol/L (3.5-5.1)
[2025-09-02 08:00] VITALS: PULSE 65; PULSE 67; RESP 18
[2025-09-02 11:48] LABS: Hepatitis B Surface Antigen Negative (Negative); Hepatitis C Antibody Negative (Negative)
--- NOTE | 2025-09-02 12:18 | DVHPN2 ---
Progress Note - Dictate Medical Necessity Reason Pt with a Central, PICC or Fol: No vital signs Vital Sign Date Time Temp Pulse Resp B/P (MAP) Pulse Ox O2 Delivery O2 Flow Rate FiO2 09/02/25 09:37 153/90 09/02/25 09:34 67 09/02/25 08:00 18 Room Air* 0 21 09/02/25 05:00 98.0 98 98.0 Total Intake and Output 09/01/25 09/01/25 09/02/25 15:00 23:00 07:00 Intake Total 300 ml 0 ml Output Total 2 ml Balance 300 ml -2 ml medications Current Medications Medications Dose Ordered Sig/Devyn Route Start Time Stop Time Status Last Admin Dose Admin Acetaminophen/ Hydrocodone Bitart 1 tab Q4HP PRN PO 09/01/25 04:15 Ondansetron HCl 4 mg Q4HP PRN IV 09/01/25 04:15 Docusate Sodium 100 mg BIDPRN PRN PO 09/01/25 04:15 Acetaminophen 650 mg Q6HP PRN PO 09/01/25 04:15 Hydralazine HCl 10 mg Q6HP PRN IV 09/01/25 04:15 09/02/25 05:36 10 MG Nitroglycerin 0.4 mg Q5MINP PRN SL 09/01/25 04:15 Morphine Sulfate 2 mg Q30M PRN IV 09/01/25 04:15 Aspirin 81 mg DAILY PO 09/01/25 10:00 09/02/25 09:34 81 MG Clonidine HCl 0.1 mg Q8HP PRN PO 09/01/25 04:15 09/01/25 23:03 0.1 MG Heparin Sodium (Porcine) 5,000 units BID SC 09/01/25 10:00 09/02/25 09:38 5,000 UNITS Pantoprazole Sodium 40 mg DAILY PO 09/01/25 10:00 09/02/25 09:34 40 MG Carvedilol 25 mg BID PO 09/01/25 10:00 09/02/25 09:34 25 MG Sodium Bicarbonate 650 mg TID PO 09/01/25 06:00 09/02/25 05:19 650 MG Nifedipine 90 mg DAILY PO 09/01/25 10:00 09/02/25 09:37 90 MG objective General Appearance: alert, no distress HEENT: EOMI, PERRLA, normal external inspect of ears, no icterus, no nasal drainage Neck: no carotid bruit, no jugular venous distention (JVD), no lymphadenopathy Chest: normal thorax Respiratory: clear to auscultation, normal air movement Cardiovascular: regular rate and rhythm, no diastolic murmur, no jugular venous distention (JVD), no rub, no systolic murmur Abdominal: soft, no hepatomegaly, no mass, no splenomegaly, no tenderness Genitourinary: grossly normal external Musculoskeletal: no joint tenderness, no swelling Extremities: normal pulses, no calf tenderness, no clubbing, no cyanosis, no edema Skin: no bruising, no jaundice, no rash Neurological: alert, No focal deficit laboratory and microbiology Laboratory Tests 09/02/25 06:22 Test 09/02/25 06:22 Range/Units Serum Glucose 85 74-106 mg/dL Problem List 1. Fluid overload Monitor 2. ESRD on hemodialysis Monitor, nephrology consult, plan for hemodialysis 3. HTN with ESRD Monitor, medications 4. Hyperkalemia Monitor, repeat K level Assessment/Plan Subjective: Patient is awake and alert. Objective: Patient was admitted for fluid overload and hyperkalemia. Patient is noncompliant with dialysis. 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 Patient has been admitted multiple times for hyperkalemia. Plan: Hyperkalemia protocol. Emergent dialysis. Nephrology consult. Repeat labs. Monitor on EKG. KIKE CARDENAS NP Sep 02, 2025 12:18
[2025-09-02] MEDS ORDERED: SODI10PA PO (12:31)
--- NOTE | 2025-09-02 12:33 | DVHDS2 ---
Discharge Summary Date of Admission Sep 01, 2025 at 04:06 Date of Discharge: Sep 02, 2025 Labs/Diagnostic Data: Laboratory Results Test 09/02/25 06:22 09/01/25 06:28 09/01/25 05:28 09/01/25 03:26 White Blood Count 5.2 10^3/uL (4.4-10.8) Red Blood Count 2.96 10^6/uL (4.5-5.90) Hemoglobin 9.5 g/dL (13.5-17.5) Hematocrit 27.5 % (41.0-53.0) Mean Corpuscular Volume 92.9 fL (80.0-100.0) Mean Corpuscular Hemoglobin 31.9 pg (28.0-32.0) Mean Corpuscular Hemoglobin Concent 34.3 g/dL (32.0-36.0) Red Cell Distribution Width 15.7 % (11.8-14.3) Platelet Count 174 10^3/uL (140-450) Mean Platelet Volume 7.9 fL (6.9-10.8) Neutrophils (%) (Auto) 54.9 % (37.0-80.0) Lymphocytes (%) (Auto) 25.9 % (10.0-50.0) Monocytes (%) (Auto) 6.3 % (0.0-12.0) Eosinophils (%) (Auto) 11.5 % (0.0-7.0) Basophils (%) (Auto) 1.4 % (0.0-2.0) Neutrophils # (Auto) 2.8 10 ^3/uL (1.6-8.6) Lymphocytes # (Auto) 1.3 10 ^3/uL (0.4-5.4) Monocytes # (Auto) 0.3 10 ^3/uL (0-1.3) Eosinophils # (Auto) 0.6 10 ^3/uL (0-0.8) Basophils # (Auto) 0.1 10 ^3/uL (0-0.2) Nucleated Red Blood Cells 0.0 % Sodium Level 141 mmol/L (136-145) Potassium Level 5.2 mmol/L (3.5-5.1) Chloride Level 99 mmol/L (98-107) Carbon Dioxide Level 26 mmol/L (20-31) Anion Gap 16 (5-15) Blood Urea Nitrogen 40 mg/dL (9-23) Creatinine 9.25 mg/dL (0.700-1.30) Glomerular Filtration Rate Calc 6 mL/min (>90) BUN/Creatinine Ratio 4.3 (10.0-20.0) Serum Glucose 85 mg/dL (74-106) Calcium Level 7.8 mg/dL (8.7-10.4) Total Bilirubin 0.4 mg/dL (0.2-1.0) Aspartate Amino Transferase (AST) 10 U/L (13-40) Alanine Aminotransferase (ALT) 11 U/L (7-40) Alkaline Phosphatase 48 U/L (46-116) Total Protein 6.3 g/dL (5.7-8.2) Albumin 4.0 g/dL (3.2-4.8) Influenza Type A Antigen Negative (Negative) Influenza Type B Antigen Negative (Negative) SARS-CoV-2 Antigen (Rapid) Negative (NEGATIVE) Troponin I High Sensitivity 14 ng/L (</=54) Hepatitis A IgM Antibody Negative Hepatitis B Surface Antigen Negative (Negative) Hepatitis B Core IgM Antibody Negative (Negative) Hepatitis C Antibody Negative (Negative) Test 09/01/25 02:22 Prothrombin Time 10.7 sec (9.3-11.8) Prothrombin Time INR 1.01 (0.9-1.15) Activated Partial Thromboplast Time 28.8 SEC (24.5-34.5) Lactic Acid Level 0.8 mmol/L (0.4-2.0) B-Type Natriuretic Peptide 845.68 pg/mL (0-100) Other Laboratory Tests 09/02/25 06:22 Brief Hx & Hospital Course: 64 y/o male patient with history of CAD, CABG, ESRD on hemodialysis, hypertension presents with c/o shortness of breath and chills. While in the emergency department the patient was evaluated by the provider, As per provider: Labs, vital signs, and imagining monitored. Patient was admitted 09/01/2025 for fluid overload. Patient is in stage renal disease on hemodialysis. Patient is only going to dialysis twice a week. 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 Patient has multiple admissions for fluid overload and hyperkalemia. Patient's hyperkalemia was treated with hyperkalemia protocol. I did discuss plan of care with nephrology. We will send patient home with Lokelma daily 10 g. Patient is to continue dialysis per his regular schedule outpatient. Patient was instructed to follow-up with his PCP to 1 week. The patient received proper medical treatment and medications. Vital signs, Imaging and Laboratory Work was monitored daily. All consults recommendations were followed as provided. There were no complaints or new complaints upon discharge, all questions and concerns were answered. Patient was advised to return to the ER or call 911 if any headaches, dizziness, shortness of breath, chest pain, bleeding, fevers, or worsening of medical condition. Patient/Family was counseled about treatment plan, medications, possible side effects, patient verbalized understanding. All questions were answered to the best of my ability. The patient symptoms improved and they are okay to be DC. Condition at Discharge: Good Final Diagnosis/Problems List Hyperkalemia uncontrolled blood pressure ESRD on HD Secondary Diagnosis: Fluid overload ESRD on hemodialysis HTN with ESRD Hyperkalemia Discharge Disposition: Home Discharge Instruct/Medications Diet: Renal Activity: No Restrictions, As Tolerated Medications: lokelma 10g daily Scheduled Amlodipine Besylate (Amlodipine Besylate), 1 TAB PO DAILY, (Reported) Aspirin (Aspirin Adult Low Dose), 1 TAB PO DAILY, (Reported) Carvedilol (Carvedilol), 1 TAB PO BID, (Reported) Clonidine Hydrochloride (Clonidine Hcl), 1 TAB PO DAILY, (Reported) Furosemide (Furosemide), 1 TAB PO BID, (Reported) Hydralazine Hcl (Hydralazine Hcl), 1 TAB PO Q8HR, (Reported) Nifedipine (Nifedipine Er), 1 TAB PO DAILY, (Reported) Sodium Bicarbonate (Sodium Bicarbonate), 1 TAB PO TID, (Reported) Sodium Zirconium Cyclosilicate (Lokelma), 10 GM PO DAILY Discharge Statement: "Patient was advised to return to the ER or call 911 if any headaches, dizziness, shortness of breath, chest pain, abdominal pain, bleeding, fevers, or worsening of medical condition. Patient was counseled about treatment plan, medications, possible side effects, patientverbalized understanding. All questions were answered to the best of my ability. This discharge took greater then 30 minutes in planning, reviewing documentation, counseling the patient, and discussing with other team members." ASSESSMENT ASSESSMENT Assessment Hyperkalemia uncontrolled blood pressure ESRD on HD KIKE CARDENAS NP Sep 02, 2025 12:33
[2025-09-02] MEDS: SODIUM ZIRCONIUM CYCL 10 GM PAK PO ONE (12:47)
== END 2025-09-02 13:50 | disposition home or self-care (01) | DRG 291 ==
LOC: ER 01:52 → OVERFLOW 04:06 → TELE-WESTW 13:10
PROVIDERS: ADMIT Nurse Practitioner; ATTEND Nurse Practitioner
PROC: 5A1D70Z Performance of Urinary Filtration, Intermittent, Less than 6 Hours Per Day (ICD-10-PCS; principal; 2025-09-01)
DX: I13.2 Hypertensive heart and chronic kidney disease with heart failure and with stage 5 chronic kidney disease, or end stage renal disease (principal); I50.33 Acute on chronic diastolic (congestive) heart failure; N18.6 End stage renal disease; N25.81 Secondary hyperparathyroidism of renal origin; E87.5 Hyperkalemia; I25.10 Atherosclerotic heart disease of native coronary artery without angina pectoris; D63.1 Anemia in chronic kidney disease; E83.39 Other disorders of phosphorus metabolism; Z99.2 Dependence on renal dialysis; Z95.1 Presence of aortocoronary bypass graft; Z79.82 Long term (current) use of aspirin; Z79.899 Other long term (current) drug therapy
CPT/HCPCS: 36415; 71045; 80048; 80053; 80074; 83605; 83880; 84132; 84484; 85025; 85610; 85730; 87426; 87804; 90935; 93005; 94640; 96374; 99291; G0378; J1642; J1815

== ENCOUNTER 2025-09-19 23:01 | Inpatient (IN) | payer OTHER ==
[~2025-09-19] VITALS: Ht 172.7 cm; Wt 72.1 kg
[~2025-09-19 23:01] MED LIST changes: +SODI10PA PO
[2025-09-19] MEDS: FUROSEMIDE 100 MG/10ML VIAL IV ONE (23:15)
[2025-09-19] MEDS: hydrALAZINE HCL 20 MG/ML VL IV ONE (23:30)
--- NOTE | 2025-09-19 23:34 | ED.PDOC ---
HPI Comments HPI: 64-year-old male who came to ER for shortness of breath. Patient has a history of hypertension, end-stage renal disease, on dialysis 2 to 3 times a week. Patient's last dialysis session was . Claims good compliance with the medications. With a past few or as patient has been complaining of chest pressure, shortness of breath and weakness. Of arrival to the ER, blood pressure noted to be at 228/132 mmHg. Patient was discharged here last Sep 02, diagnosed with Hyperkalemia, uncontrolled blood pressure, ESRD on HD Initial Vitals BP: 228/132 HR: 80 RR: 20 O2: 95% Temp: 98.3 F Past Medical History: Hypertension, end-stage renal disease Past Surgical History: Dialysis, CABG HPI: Poor Historian. REVIEW OF SYSTEMS: CONSTITUTIONAL: Denies acute: fever, diaphoresis, chills, HEAD: Denies acute: headache, photophobia Eyes: Denies acute: Double vision, vision loss, eye pain, eye discharge. EARS: Denies acute: tinnitus, hearing loss, ear discharge, ear pain, THROAT: Denies acute: sore throat, swelling, difficulty swallowing , pain with swallowin g, change in voice. NECK: Denies acute: neck pain, neck swelling, stiff neck. HEART: Denies acute : palpitations, LUNGS: Denies acute: wheezing, cough, hemoptysis ABDOMEN: Denies acute: abdominal pain, Nausea, Vomiting, diarrhea, melena , hematemesis, hematochezia SKIN: Denies acute: rash, redness, lesions, itchiness. EXTREMITIES: Denies acute: calf pain, numbness, tingling, weakness, denies pain in extremity. Denies acute: Low back pain. Neuro: Denies acute: focal neurological deficit, motor or sensory focal neurological deficit, tremors, seizure like activity, confusion, dizziness, change in mental status, loss of bowel or bladder function, cauda equina like symptoms. : Denies acute: dysuria, hematuria, flank pain, increase in urinary frequency. PSYCH: Denies acute: hallucination, suicidal ideation, homicidal ideation. PHYSICAL EXAM: General: -----[id number]---acute distress, awake and alert. Head: normocephalic, atraumatic. Neck: supple, trachea is midline, no swelling. Throat: Normal phonation. Eyes:, no erythema, no purulent discharge, no proptosis, no icterus. Heart: regular rate, regular rhythm, no significant murmur appreciated. Lungs: no apparent respiratory distress, Able to speak in full sentences. No wheezing, no rhonchi, no crackles. No stridors Clear to auscultation bilaterally. Abdomen: non tender to palpation, non distended, soft, no guarding, no rebound, + bowel sounds. Neuro: Awake, Alert, oriented to name, self, situation, follows commands GCS=15. Speech is normal. Skin: no petechia, no purpura, no cyanosis, non-pale, not jaundice. Lower extremities: --trace - Pitting edema no deformity, no focal swelling, no calf TTP. Makes eye contact. moves all four extremities. Face: no apparent facial droop. ED COURSE: DISCLAIMER: This medical document was created using an electronic medical record system with voice recognition software and computerized dictation system. Although this doc ument has been carefully reviewed, there might still be some phonetic and typographical errors. Occasional wrong-word or "sound-alike" substitutions may have occurred due to the inherent limitations of voice recognition software. These areas are purely typographical due to imperfections of the software programs and do not reflect any compromise in the patient's medical care. Please read the chart carefully and recognize, using context, where these substitutions have occurred. Chief Complaint: Shortness of Breath Time Seen by MD: 23:32 Reviewed Notes: Nurses Notes, Allergies Allergies: Coded Allergies: No Known Drug Allergy (Verified Allergy, Unknown, 08/28/25) Home Meds Active Scripts Sodium Zirconium Cyclosilicate (Lokelma) 10 Gm Phong, 10 GM PO DAILY for 30 Days, #30 PACK 1 Refill Prov:KIKE CARDENAS CHICKEN PICKER 09/02/25 Reported Medications Furosemide (Furosemide) 80 Mg Tab, 1 TAB PO BID for 30 Days, #60 09/02/25 Aspirin (Aspirin Adult Low Dose) 81 Mg Tab, 1 TAB PO DAILY 08/29/25 Amlodipine Besylate (Amlodipine Besylate) 10 Mg Tab, 1 TAB PO DAILY for 30 Days, #30 08/29/25 Hydralazine Hcl (Hydralazine Hcl) 100 Mg Tab, 1 TAB PO Q8HR for 30 Days, #90 08/29/25 Sodium Bicarbonate (Sodium Bicarbonate) 650 Mg Tab, 1 TAB PO TID 08/29/25 Nifedipine (Nifedipine Er) 90 Mg Tab, 1 TAB PO DAILY 08/29/25 Clonidine Hydrochloride (Clonidine Hcl) 0.1 Mg Tab, 1 TAB PO DAILY for 30 Days, #30 08/29/25 Carvedilol (Carvedilol) 25 Mg Tab, 1 TAB PO BID 08/29/25 Information Source: Patient Mode of Arrival: Ambulatory Past Medical History PAST MEDICAL HISTORY: ESRD, HTN, ME Surgical History: CABG Family History Family History: Reviewed,noncontributory to illness Social History Smoker: Non-Smoker Alcohol: Denies ETOH Use Drugs: Denies Drug Use Lives In: Home Was a procedure done? Was a procedure done?: No CP Differential Dx Differential Diagnosis: Angina, Anxiety / Panic Attack Differential Diagnosis: CHF, Other (DDX include renal disease, thyroid disease, electrolyte abnormality, increased salt intake, medications non-compliance, undiagnosed HTN, Hypertensive crisis, hypertensive urgency., drug toxicity.) Differential Diagnosis: Angina, Chest Wall Pain, Costochondritis, Esophageal reflux/spasm, Gastritis, Myocardial Infarction, Other (Ddx include but not limitied to gastritis, musculoskeletal pain, radiculopathy, atypical chest pain, dissection, aneurysm, ACS, unstable angina, hiatal hernia, GERD, anxiety, costochondritis, PE, pneumothroax, neoplasm, cardiac ischemia, drug abuse, anemia.) X-Ray, Labs, Meds, VS Vital Signs Date Time Temp Pulse Resp B/P (MAP) Pulse Ox O2 Delivery O2 Flow Rate FiO2 09/20/25 00:25 207/104 09/20/25 00:25 207/104 09/20/25 00:15 215/101 09/19/25 23:47 98.1 75 20 216/114 (148) 97 98.1 09/19/25 23:47 76 20 97 Room Air* 0 21 09/19/25 23:30 216/114 09/19/25 23:29 77 09/19/25 23:15 216/104 09/19/25 23:03 98.3 80 20 228/132 95 98.3 Lab Test 09/20/25 00:22 09/19/25 23:30 Range/Units Troponin I High Sensitivity 17 18 </=54 ng/L White Blood Count 6.4 4.4-10.8 10^3/uL Red Blood Count 3.15 L 4.5-5.90 10^6/uL Hemoglobin 10.0 L 13.5-17.5 g/dL Hematocrit 29.7 L 41.0-53.0 % Mean Corpuscular Volume 94.4 80.0-100.0 fL Mean Corpuscular Hemoglobin 31.8 28.0-32.0 pg Mean Corpuscular Hemoglobin Concent 33.7 32.0-36.0 g/dL Red Cell Distribution Width 15.3 H 11.8-14.3 % Platelet Count 212 140-450 10^3/uL Mean Platelet Volume 7.5 6.9-10.8 fL Neutrophils (%) (Auto) 65.2 37.0-80.0 % Lymphocytes (%) (Auto) 20.2 10.0-50.0 % Monocytes (%) (Auto) 6.9 0.0-12.0 % Eosinophils (%) (Auto) 6.2 0.0-7.0 % Basophils (%) (Auto) 1.5 0.0-2.0 % Neutrophils # (Auto) 4.2 1.6-8.6 10 ^3/uL Lymphocytes # (Auto) 1.3 0.4-5.4 10 ^3/uL Monocytes # (Auto) 0.4 0-1.3 10 ^3/uL Eosinophils # (Auto) 0.4 0-0.8 10 ^3/uL Basophils # (Auto) 0.1 0-0.2 10 ^3/uL Nucleated Red Blood Cells 0.0 % Sodium Level 140 136-145 mmol/L Potassium Level 4.9 3.5-5.1 mmol/L Chloride Level 97 L 98-107 mmol/L Carbon Dioxide Level 26 20-31 mmol/L Anion Gap 17 H 5-15 Blood Urea Nitrogen 52 H 9-23 mg/dL Creatinine 10.14 *H 0.700-1.30 mg/dL Glomerular Filtration Rate Calc 5 >90 mL/min BUN/Creatinine Ratio 5.1 L 10.0-20.0 Serum Glucose 93 74-106 mg/dL Calcium Level 7.4 L 8.7-10.4 mg/dL Total Bilirubin 0.2 0.2-1.0 mg/dL Aspartate Amino Transferase (AST) 14 13-40 U/L Alanine Aminotransferase (ALT) 12 7-40 U/L Alkaline Phosphatase 71 46-116 U/L B-Type Natriuretic Peptide 2098.83 0-100 pg/mL Total Protein 7.5 5.7-8.2 g/dL Albumin 4.8 3.2-4.8 g/dL Current Medications Medications (Trade) Dose Ordered Sig/Devyn Route Start Time Stop Time Status Last Admin Furosemide (Lasix Injection) 60 mg ONCE ONCE IV 09/19/25 23:15 09/19/25 23:16 DC 09/19/25 23:15 Hydralazine HCl (Apresoline Injection) 5 mg ONCE ONCE IV 09/19/25 23:30 09/19/25 23:31 DC 09/19/25 23:30 Clonidine HCl (Catapres Tablet) 0.2 mg ONCE ONCE PO 09/20/25 00:00 09/20/25 00:01 DC 09/20/25 00:25 Nitroglycerin (Ntrostat Sublingual) 0.4 mg ONCE ONCE SL 09/20/25 00:00 09/20/25 00:01 DC 09/20/25 00:25 Amlodipine Besylate (Norvasc Tablet) 10 mg ONCE ONCE PO 09/20/25 00:15 09/20/25 00:46 DC 09/20/25 00:15 Calcium Acetate (Phoslo Capsule) 667 mg ONCE ONCE PO 09/20/25 00:15 09/20/25 00:46 DC 09/20/25 00:15 Time of 1ST Reevaluation: 23:33 Reevaluation 1ST: Unchanged Patient Education/Counseling: Diagnosis, Treatment Family Education/Counseling: No Family Present Comments MDM: patient presented with the above HPI.---cardiac---workup was initiated. patient was found with the above mentioned diagnosis. the following medications were ordered: please refer to order lists of meds and tests obtained by myself Dr. Pastrana. Patient ED course and VS have been stabilized. Patient has been reassessed in the ED and remained in a stable condition. Pertinent incidental findings were discussed with the patient and/or family. Patient/family voices understanding and is agreeable with plan. Patient has been observed in the ED adequate length of time to insure improvement/stability. Escalation of care considered: Consideration of escalation to observation or admission I do not believe that the patient is compliant with his medications or with the his dialysis sessions. Patient was given multiple antihypertensive medications here in the ED. Medicine team took over the care of this patient. Patient was ADMITTED to the medicine team for further evaluation and treatment of their presentation. All the reports of any imaging studies that were ordered by myself were reviewed by myself. SEPSIS Sepsis Screen Date sepsis recognized/suspect: Sep 19, 2025 Time Sepsis recognized/suspect: 2302 Recent Procedure: No On Antibiotic Therapy: No Respiratory Rate >20: No Heart Rate >90: No Temp<36 C (96.8 F) or >38.3 C: No SBP <90 or MAP <65 mmHG: No New Acute Mental Status Change: No Is the patient on CPAP, BIPAP,: No Physician Orders Receiving Room Clerk (09/19/25 ) Chest Portable (09/19/25 23:06) Electrocardigram (09/19/25 23:06) Troponin-I Hs (09/20/25 02:06) Comprehensive Metabolic Panel (09/20/25 04:00) *[facility] (09/20/25 00:14) Amlodipine Tablet (Norvasc Tablet) (09/20/25 10:00) Clonidine Hcl Tablet (Catapres Tablet) (09/20/25 00:15) Carvedilol Tablet (Coreg Tablet) (09/20/25 10:00) Sevelamer (Renagel) (09/20/25 08:00) B-Complex W/ C & Folic Tablet (Nephro-Vi (09/20/25 10:00) Calcium Acetate Capsule (Phoslo Capsule) (09/20/25 08:00) Furosemide Injection (Lasix Injection) (09/20/25 10:00) Aspirin Tablet (09/20/25 10:00) Hydralazine Hcl Tablet (Apresoline Table (09/20/25 06:00) Allergies (09/20/25 00:14) Code Status (09/20/25 00:14) Renal Standard(2gna,3gk,Lopho) (09/20/25 Breakfast) Sodium Chloride Lock (Saline Lock Ns) (09/20/25 06:00) Oxygen Per Hour (09/20/25 00:14) Hydrocodone-Acet 5/325mg Tab ([place] 5/32 (09/20/25 00:15) Ondansetron Hcl (Zofran) (09/20/25 00:15) Docusate Sodium Capsule (Colace Capsule) (09/20/25 00:15) Complete Blood Count (09/21/25 04:00) Comprehensive Metabolic Panel (09/21/25 04:00) Condition: Serious (09/20/25 00:14) Acetaminophen Tablet (Tylenol Tablet) (09/20/25 00:15) Bedrest With Bathroom Privileg (09/20/25 00:14) Maintain Bed Rest (09/20/25 00:14) Sequential Compression Device (09/20/25 ) Vital Signs Date Time Temp Pulse Resp B/P (MAP) Pulse Ox O2 Delivery O2 Flow Rate FiO2 09/20/25 00:25 207/104 09/20/25 00:25 207/104 09/20/25 00:15 215/101 09/19/25 23:47 98.1 75 20 216/114 (148) 97 98.1 09/19/25 23:47 76 20 97 Room Air* 0 21 09/19/25 23:30 216/114 09/19/25 23:29 77 09/19/25 23:15 216/104 09/19/25 23:03 98.3 80 20 228/132 95 98.3 Laboratory Tests Test 09/19/25 23:30 White Blood Count 6.4 10^3/uL (4.4-10.8) Medications Medications Dose Ordered Sig/Devyn Route Start Time Stop Time Status Last Admin Dose Admin Amlodipine Besylate 10 mg ONCE ONCE PO 09/20/25 00:15 09/20/25 00:46 DC 09/20/25 00:15 Calcium Acetate 667 mg ONCE ONCE PO 09/20/25 00:15 09/20/25 00:46 DC 09/20/25 00:15 Clonidine HCl 0.2 mg ONCE ONCE PO 09/20/25 00:00 09/20/25 00:01 DC 09/20/25 00:25 Furosemide 60 mg ONCE ONCE IV 09/19/25 23:15 09/19/25 23:16 DC 10/25/25 23:15 Hydralazine HCl 5 mg ONCE ONCE IV 09/19/25 23:30 09/19/25 23:31 DC 09/19/25 23:30 Nitroglycerin 0.4 mg ONCE ONCE SL 09/20/25 00:00 09/20/25 00:01 DC 09/20/25 00:25 Departure 1 Departure Time of Disposition: 23:48 Impression: Primary Impression: Hypertensive crisis Additional Impressions: End stage renal disease on dialysis Chest pain Volume overload Anemia CHF exacerbation Disposition: ADMITTED INPATIENT Admit to: Tele Condition: Guarded Discharged With: Self Critical Care Note Critical Care Time?: Yes (45 min-critical care time only) Critical care comment: Chest pain, hypertensive urgency Stability Stability form required: No Heart Score Heart Score: Heart Score Response (Comments) Value History Moderate Suspicious 1 EKG Normal 0 Age >65 2 Risk Factors >3 or Hx ASHD 2 Troponin Normal limit 0 Total 5 I personally scribed for FACUNDO PASTRANA DO ([email or web address]) on 09/19/25 at 23:34. Electronically submitted by Jackson Weinberg ([email or web address]). FACUNDO PASTRANA DO Sep 19, 2025 23:34
[2025-09-19 23:39] LABS: Hematocrit 29.7 % (41.0-53.0); Hemoglobin 10.0 g/dL (13.5-17.5); Mean Corpuscular Hemoglobin 31.8 pg (28.0-32.0); Mean Corpuscular Volume 94.4 fL (80.0-100.0); Nucleated Red Blood Cells % 0.0 %
[2025-09-19 23:47] VITALS: PULSE 76; RESP 20; O2SAT 97
[2025-09-19 23:52] LABS: Alanine Aminotransferase 12 U/L (7-40); Albumin 4.8 g/dL (3.2-4.8); Alkaline Phosphatase 71 U/L (46-116); Anion Gap 17 (5-15); BUN/Creatinine Ratio 5.1 (10.0-20.0); Carbon Dioxide 26 mmol/L (20-31); Glucose 93 mg/dL (74-106); Potassium 4.9 mmol/L (3.5-5.1); Sodium 140 mmol/L (136-145); Total Protein 7.5 g/dL (5.7-8.2)
[2025-09-19 23:56] LABS: Bilirubin, Total 0.2 mg/dL (0.2-1.0); Blood Urea Nitrogen 52 mg/dL (9-23); Calcium 7.4 mg/dL (8.7-10.4); Chloride 97 mmol/L (98-107)
[2025-09-20] VITALS (8 sets, daily range): BP systolic 134–159; BP diastolic 84–100; PULSE 56–81; RESP 16–18; TEMP 97.8–98.3; O2SAT 96–99
[2025-09-20] MEDS ORDERED: ACETAMINOPHEN 325 MG TAB PO PRN (00:15)
[2025-09-20] MEDS ORDERED: DOCUSATE SOD 100 MG CAP PO PRN (00:15)
[2025-09-20] MEDS: CALCIUM ACETATE 667 MG CAP PO ONE (00:15)
[2025-09-20] MEDS ORDERED: HYDROcodone-ACET 5/325MG TAB PO PRN (00:15)
[2025-09-20] MEDS: NITROGLYCERIN 0.4 MG SL TAB SL ONE (00:25)
--- NOTE | 2025-09-20 00:35 | DVHHP2 ---
History of Present Illness Reason for Visit: Hypertensive crisis History of Present Illness The patient is a 64-year-old male with past medical history of AL, Coronary artery disease, hypertension, and end-stage renal disease on hemodialysis who presented to [facility] ED with complaint of shortness of breaths. Patient reports he has been experiencing shortness of breaths associated with chest pain, body pain, increased work of breathing, increased blood pressure with SBP in the 200s, getting worse that prompted this visit. Patient was seen and evaluated in the ED, laboratory data shows WBC 6.4, hemoglobin 10.0, hematocrit 29.7, platelets 212, sodium 140, potassium 4.9, BUN 52, creatinine 10.14, glucose 93, anion gap 17, calcium 7.4, BNP 2098.83, troponin 18, blood pressure 228/132, heart rate 75, temperature 98.1 F, O2 saturation 97% on oxygen. Patient was started on hydralazine 10 mg IV, please see medication orders section in the computer. On my assessment, patient denied chest pain, no dizziness, headache, diaphoresis, currently on oxygen, no diarrhea, nausea, vomiting, fever, no chills. Patient was admitted for further evaluation and medical management. Past Medical History Coronary artery disease, Hypertension, End-stage renal disease, AL Past Surgical History PermCath for Dialysis, CABG Family History Reviewed, noncontributory to the management of this case. Past Social History The patient lives at home, denies smoking, alcohol or illicit drugs abuse. Review of Systems Constitutional: Yes: Weakness; No: Fever, Chills, Sweats, Malaise, Other Eyes: No: Pain, Vision change, Conjunctivae inflammation, Eyelid inflammation, Other, Redness ENT: No: Ear pain, Ear discharge, Nose pain, Nose discharge, Nose congestion, Mouth pain, Mouth swelling, Throat pain, Throat swelling, Other Respiratory: Shortness of breath; No: Cough, Dry, SOB with excertion, Wheezing, Hemoptysis, Pleuritic Pain, Sputum, Wheezing, Other Cardiovascular: Chest Pain, Other (Right chest PermCath); No: Palpitations, Orthopnea, Paroxysmal Noc. Dyspnea, Edema, Lt Headedness Gastrointestinal: No: Nausea, Vomiting, Abdominal Pain, Diarrhea, Constipation, Melena, Hematochezia, Other Genitourinary: No Dysuria, No Frequency, No Incontinence, No Hematuria, No Retention; Other (On hemodialysis) Musculoskeletal: No: other, neck pain, shoulder pain, arm pain, back pain, hand pain, leg pain, foot pain Skin: No: Rash, Lesions, Jaundice, Bruising, Other Neurological: No: Weakness, Numbness, Incoordination, Change in speech, Confusion, Seizures, Other Allergies: Coded Allergies: No Known Drug Allergy (Verified Allergy, Unknown, 08/28/25) Medications Current Medications Medications Dose Ordered Sig/Devyn Route Start Time Stop Time Status Last Admin Dose Admin Amlodipine Besylate 10 mg DAILY PO 09/20/25 10:00 UNV Clonidine HCl 0.2 mg Q6HP PRN PO 09/20/25 00:15 UNV Carvedilol 25 mg Q12HR PO 09/20/25 10:00 UNV Sevelamer HCl 800 mg TIDWM PO 09/20/25 08:00 UNV Multivit/Ca Carb/ B Cmplx/FA/Prenat 1 tab DAILY PO 09/20/25 10:00 UNV Calcium Acetate 667 mg TIDWMEALS PO 09/20/25 08:00 UNV Furosemide 40 mg DAILY IV 09/20/25 10:00 UNV Aspirin 81 mg DAILY PO 09/20/25 10:00 UNV Hydralazine HCl 25 mg Q8HR PO 09/20/25 06:00 UNV Sodium Chloride 10 ml Q8HR IV 09/20/25 06:00 UNV Acetaminophen/ Hydrocodone Bitart 1 tab Q4HP PRN PO 09/20/25 00:15 UNV Ondansetron HCl 4 mg Q4HP PRN IV 09/20/25 00:15 UNV Docusate Sodium 100 mg BIDPRN PRN PO 09/20/25 00:15 UNV Acetaminophen 650 mg Q6HP PRN PO 09/20/25 00:15 UNV Exam Vital Signs Vital Signs Date Time Temp Pulse Resp B/P (MAP) Pulse Ox O2 Delivery O2 Flow Rate FiO2 09/20/25 00:25 207/104 09/19/25 23:47 98.1 75 20 97 98.1 09/19/25 23:47 Room Air* 0 21 General Appearance: Alert, Oriented X3, Cooperative, No acute distress HEENT: Atraumatic, PERRLA, EOMI, Mucous membr. moist/pink Respiratory: Normal air movement Cardiovascular: Regular rate, Normal S1, Normal S2, No murmurs Abdominal: Normal bowel sounds, Soft, No tenderness, No hepatospenomegaly, No masses Extremities: No clubbing, No cyanosis, No edema, Normal pulses, No tenderness/swelling Skin: No rashes Neuro: Normal speech, Normal tone, Sensation intact, Cranial nerves 3-12 NL, Reflexes 2+, Other (Generalized weakness) Psych/Mental Status: Mental status NL, Mood NL Labs/Xrays Labs Test 09/20/25 00:22 09/19/25 23:30 Range/Units White Blood Count 6.4 4.4-10.8 10^3/uL Red Blood Count 3.15 L 4.5-5.90 10^6/uL Hemoglobin 10.0 L 13.5-17.5 g/dL Hematocrit 29.7 L 41.0-53.0 % Mean Corpuscular Volume 94.4 80.0-100.0 fL Mean Corpuscular Hemoglobin 31.8 28.0-32.0 pg Mean Corpuscular Hemoglobin Concent 33.7 32.0-36.0 g/dL Red Cell Distribution Width 15.3 H 11.8-14.3 % Platelet Count 212 140-450 10^3/uL Mean Platelet Volume 7.5 6.9-10.8 fL Neutrophils (%) (Auto) 65.2 37.0-80.0 % Lymphocytes (%) (Auto) 20.2 10.0-50.0 % Monocytes (%) (Auto) 6.9 0.0-12.0 % Eosinophils (%) (Auto) 6.2 0.0-7.0 % Basophils (%) (Auto) 1.5 0.0-2.0 % Neutrophils # (Auto) 4.2 1.6-8.6 10 ^3/uL Lymphocytes # (Auto) 1.3 0.4-5.4 10 ^3/uL Monocytes # (Auto) 0.4 0-1.3 10 ^3/uL Eosinophils # (Auto) 0.4 0-0.8 10 ^3/uL Basophils # (Auto) 0.1 0-0.2 10 ^3/uL Nucleated Red Blood Cells 0.0 % Sodium Level 140 136-145 mmol/L Potassium Level 4.9 3.5-5.1 mmol/L Chloride Level 97 L 98-107 mmol/L Carbon Dioxide Level 26 20-31 mmol/L Anion Gap 17 H 5-15 Blood Urea Nitrogen 52 H 9-23 mg/dL Creatinine 10.14 *H 0.700-1.30 mg/dL Glomerular Filtration Rate Calc 5 >90 mL/min BUN/Creatinine Ratio 5.1 L 10.0-20.0 Serum Glucose 93 74-106 mg/dL Calcium Level 7.4 L 8.7-10.4 mg/dL Total Bilirubin 0.2 0.2-1.0 mg/dL Aspartate Amino Transferase (AST) 14 13-40 U/L Alanine Aminotransferase (ALT) 12 7-40 U/L Alkaline Phosphatase 71 46-116 U/L B-Type Natriuretic Peptide 2098.83 0-100 pg/mL Total Protein 7.5 5.7-8.2 g/dL Albumin 4.8 3.2-4.8 g/dL SEPSIS Sepsis Screen Date sepsis recognized/suspect: Sep 19, 2025 Time Sepsis recognized/suspect: 2350 Recent Procedure: No On Antibiotic Therapy: No Respiratory Rate >20: No Heart Rate >90: No Temp<36 C (96.8 F) or >38.3 C: No SBP <90 or MAP <65 mmHG: No New Acute Mental Status Change: No Is the patient on CPAP, BIPAP,: No Physician Orders Rd Mechanical Engineer (09/19/25 ) Chest Portable (09/19/25 23:06) Electrocardigram (09/19/25 23:06) Troponin-I Hs (09/20/25 00:06) Troponin-I Hs (09/20/25 02:06) Complete Blood Count (09/20/25 04:00) Comprehensive Metabolic Panel (09/20/25 04:00) *[facility] (09/20/25 00:14) Amlodipine Tablet (Norvasc Tablet) (09/20/25 00:15) Amlodipine Tablet (Norvasc Tablet) (09/20/25 10:00) Clonidine Hcl Tablet (Catapres Tablet) (09/20/25 00:15) Carvedilol Tablet (Coreg Tablet) (09/20/25 10:00) Sevelamer (Renagel) (09/20/25 08:00) B-Complex W/ C & Folic Tablet (Nephro-Vi (09/20/25 10:00) Calcium Acetate Capsule (Phoslo Capsule) (09/20/25 08:00) Calcium Acetate Capsule (Phoslo Capsule) (09/20/25 00:15) Furosemide Injection (Lasix Injection) (09/20/25 10:00) Aspirin Tablet (09/20/25 10:00) Hydralazine Hcl Tablet (Apresoline Table (09/20/25 06:00) Allergies (09/20/25 00:14) Code Status (09/20/25 00:14) Renal Standard(2gna,3gk,Lopho) (09/20/25 Breakfast) Sodium Chloride Lock (Saline Lock Ns) (09/20/25 06:00) Oxygen Per Hour (09/20/25 00:14) Hydrocodone-Acet 5/325mg Tab ([place] 5/32 (09/20/25 00:15) Ondansetron Hcl (Zofran) (09/20/25 00:15) Docusate Sodium Capsule (Colace Capsule) (09/20/25 00:15) Complete Blood Count (09/21/25 04:00) Comprehensive Metabolic Panel (09/21/25 04:00) Condition: Serious (09/20/25 00:14) Acetaminophen Tablet (Tylenol Tablet) (09/20/25 00:15) Bedrest With Bathroom Privileg (09/20/25 00:14) Maintain Bed Rest (09/20/25 00:14) Sequential Compression Device (09/20/25 ) Admit (09/20/25 00:34) Nitroglycerin Sublingual (Ntrostat Subli (09/20/25 00:45) Morphine Sulfate Injection (09/20/25 00:45) Stat Ekg For Chest Pain (09/20/25:34) Notify Md Of Changes From Base (09/20/25:34) Chief Passenger Ship Steward/Stewardess For 24 Hours (09/20/25 00:34) Emergency Dysrhythmia Protocol (09/20/25:34) Rhythm Strips Once Every Shift (09/20/25 00:34) Oxygen By Nasal Cannula (09/20/25 00:34) Vital Signs Date Time Temp Pulse Resp B/P (MAP) Pulse Ox O2 Delivery O2 Flow Rate FiO2 09/20/25 00:25 207/104 09/20/25 00:25 207/104 09/19/25 23:47 98.1 75 20 216/114 (148) 97 98.1 09/19/25 23:47 76 20 97 Room Air* 0 21 09/19/25 23:30 216/114 09/19/25 23:29 77 09/19/25 23:15 216/104 09/19/25 23:03 98.3 80 20 228/132 95 98.3 Laboratory Tests Test 09/19/25 23:30 White Blood Count 6.4 10^3/uL (4.4-10.8) Medications Medications Dose Ordered Sig/Devyn Route Start Time Stop Time Status Last Admin Dose Admin Clonidine HCl 0.2 mg ONCE ONCE PO 09/20/25 00:00 09/20/25 00:01 DC 09/20/25 00:25 0.2 MG Furosemide 60 mg ONCE ONCE IV 09/19/25 23:15 09/19/25 23:16 DC 09/19/25 23:15 60 MG Hydralazine HCl 5 mg ONCE ONCE IV 09/19/25 23:30 09/19/25 23:31 DC 09/19/25 23:30 5 MG Nitroglycerin 0.4 mg ONCE ONCE SL 09/20/25 00:00 09/20/25 00:01 DC 09/20/25 00:25 0.4 MG Assessment/Plan Assessment/Plan Hypertensive crisis Chest pain Volume overload End stage renal disease on dialysis Acute exacerbation of congestive heart failure Plan 1. Admit to telemetry unit 2. Breathing treatment 3. Pain control management 4. Management of fluids and electrolytes 5. Consultation for Nephrology/dialysis 6. Diagnostic tests chest x-ray 7. DVT prophylaxis-on aspirin 8. Repeat labs CBC, CMP in a.m. 9. Continue with current medical management 10. Treatment plan discussed with patient and RN. Patient verbalized understanding. Plan discussed with: Patient, Other (RN) My Orders Orders - NINI OCHOA DNP Procedure Category Date Status Time Complete Blood Count LAB 09/20/25 Logged 04:00 Comprehensive LAB 09/20/25 Logged Metabolic Panel 04:00 *Dr[facility] CONS 09/20/25 Transmitted -[place] 00:14 Amlodipine Tablet PHA 09/20/25 Logged (Norvasc Tablet) 00:15 Amlodipine Tablet PHA 09/20/25 Logged (Norvasc Tablet) 10:00 Clonidine Hcl Tablet PHA 09/20/25 Logged (Catapres Tablet) 00:15 Carvedilol Tablet PHA 09/20/25 Logged (Coreg Tablet) 10:00 Sevelamer (Renagel) PHA 09/20/25 Logged 08:00 B-Complex W/ C & PHA 09/20/25 Logged Folic Tablet 10:00 Calcium Acetate PHA 09/20/25 Logged Capsule (Phoslo 08:00 Calcium Acetate PHA 09/20/25 Logged Capsule (Phoslo 00:15 Furosemide Injection PHA 09/20/25 Logged (Lasix Injection) 10:00 Aspirin Tablet PHA 09/20/25 Logged 10:00 Hydralazine Hcl PHA 09/20/25 Logged Tablet (Apresoline 06:00 Allergies WING 09/20/25 In Process 00:14 Code Status CODE 09/20/25 Transmitted 00:14 Renal DIET 09/20/25 Transmitted Standard(2gna,3gk,Lopho) Breakfast Sodium Chloride Lock PHA 09/20/25 Logged (Saline Lock Ns) 06:00 Oxygen Per Hour RT 09/20/25 Transmitted 00:14 Hydrocodone-Acet PHA 09/20/25 Logged 5/325mg Tab ([place] 00:15 Ondansetron Hcl PHA 09/20/25 Logged (Zofran) 00:15 Docusate Sodium PHA 09/20/25 Logged Capsule (Colace 00:15 Complete Blood Count LAB 09/21/25 Verified 04:00 Comprehensive LAB 09/21/25 Verified Metabolic Panel 04:00 Condition: Serious WING 09/20/25 In Process 00:14 Acetaminophen Tablet PHA 09/20/25 Logged (Tylenol Tablet) 00:15 Bedrest With Bathroom WING 09/20/25 In Process Privileg 00:14 Maintain Bed Rest WING 09/20/25 In Process 00:14 Sequential WING 09/20/25 In Process Compression Device Admit ADMIT 09/20/25 Transmitted 00:34 Nitroglycerin PHA 09/20/25 Transmitted Sublingual (Ntrostat 00:45 Morphine Sulfate PHA 09/20/25 Transmitted Injection 00:45 Stat Ekg For Chest WING 09/20/25 Transmitted Pain 00:34 Notify Of Changes WING 09/20/25 Transmitted From Base 00:34 Chief Passenger Ship Steward/Stewardess For [facility] 09/20/25 Transmitted 24 Hours 00:34 Emergency Dysrhythmia [facility] 09/20/25 Transmitted Protocol 00:34 Rhythm Strips Once [facility] 09/20/25 Transmitted Every Shift 00:34 Oxygen By Nasal RT 09/20/25 Transmitted Cannula 00:34 Problem List: (1) Hypertensive crisis (2) Chest pain (3) Volume overload (4) End stage renal disease on dialysis (5) Acute exacerbation of congestive heart failure Date of Service: Sep 20, 2025 Billing Provider: NINI OCHOA DNP Common Visit Codes: [id number] INP/OBS CARE (HIGH) NINI OCHOA DNP Sep 20, 2025 00:35
[2025-09-20] MEDS ORDERED: NITROGLYCERIN 0.4 MG SL TAB SL PRN (00:45)
[2025-09-20] MEDS: MORPHINE SULFATE INJ 2 MG/ml SYRG IV PRN (00:57)
[2025-09-20] MEDS: LABETALOL HCL 20 MG/4 ML VL IV ONE ×2 (01:30→02:39)
--- NOTE | 2025-09-20 02:10 | DVH ---
CHEST RADIOGRAPH Indication: sob Technique: Single frontal view of the chest was obtained COMPARISON: XY CHEST PORTABLE on DOS: 09/01/25, XY CHEST XRAY 1 VIEW on DOS: 08/28/25 FINDINGS: Lines and Tubes: Right PermCath is stable in position. Lungs: Moderate diffuse increased prominence of the pulmonary vasculature without evidence of focal c onsolidation. Mild bibasilar pulmonary airspace disease. Pleura: No effusion. No pneumothorax. Cardiomediastinal contours: Unremarkable Bones: Unremarkable IMPRESSION: 1. Moderate diffuse increased prominence of the pulmonary vasculature with mild bibasilar pulmonary a irspace disease. 2. Right PermCath.
[2025-09-20 02:30] LABS: Hematocrit 31.5 % (41.0-53.0); Hemoglobin 10.6 g/dL (13.5-17.5); Mean Corpuscular Hemoglobin 31.5 pg (28.0-32.0); Mean Corpuscular Volume 93.5 fL (80.0-100.0); Nucleated Red Blood Cells % 0.0 %
[2025-09-20] MEDS ORDERED: NITROGLYCERIN 50MG/250ML 250 ML IV SCH (02:30)
[2025-09-20 02:49] LABS: Alanine Aminotransferase 14 U/L (7-40); Albumin 4.3 g/dL (3.2-4.8); Alkaline Phosphatase 64 U/L (46-116); Anion Gap 19 (5-15); BUN/Creatinine Ratio 6.3 (10.0-20.0); Carbon Dioxide 24 mmol/L (20-31); Chloride 98 mmol/L (98-107); Glucose 102 mg/dL (74-106); Potassium 4.7 mmol/L (3.5-5.1); Sodium 141 mmol/L (136-145); Total Protein 6.6 g/dL (5.7-8.2)
[2025-09-20 02:52] LABS: Bilirubin, Total 0.2 mg/dL (0.2-1.0); Blood Urea Nitrogen 64 mg/dL (9-23); Calcium 7.0 mg/dL (8.7-10.4)
[2025-09-20] MEDS: ONDANSETRON HCL 4 MG/2 ML VIAL IV PRN (05:19)
[2025-09-20] MEDS: SODIUM CHLOR 0.9% PF (SALINE LOCK) 10ML VIAL/SYR IV SCH (05:56)
--- NOTE | 2025-09-20 06:59 | ECG ---
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
[2025-09-20] MEDS: CALCIUM ACETATE 667 MG CAP PO SCH (09:05)
[2025-09-20] MEDS: SEVELAMER 800 MG TAB PO SCH (09:05)
[2025-09-20] MEDS: CARVEDILOL 12.5 MG TAB PO SCH (09:32)
[2025-09-20] MEDS: B-COMPLEX W/ C & FOLIC ACID(NEPHROVITE TAB) PO SCH (09:32)
[2025-09-20] MEDS: FUROSEMIDE 40 MG/4 ML VIAL IV SCH (09:33)
[2025-09-20 09:55] LABS: Triglycerides 131.0 mg/dL (< 150)
[2025-09-20 09:56] LABS: Magnesium 2.0 mg/dL (1.6-2.6)
[2025-09-20 09:57] LABS: Cholesterol 182.0 mg/dL (< 200); HDL Cholesterol 54.0 mg/dL (40-59)
--- NOTE | 2025-09-20 10:02 | DVHINCON2 ---
Date Seen: Sep 20, 2025 Referring Physician DARIEAL Valle Reason for Consultation Hypertensive crisis History of Present Illness This is a 64-year-old male patient who presents to the emergency room with chief complaint of shortness of breath, generalized weakness, and headache. He reports that symptoms began yesterday at approximately noon. The patient decided to come to the emergency room for further evaluation. Upon emergency room arrival, the patient's blood pressure was noted to reach as high as 228/132. Cardiology has been consulted at this time for hypertensive crisis. Initial twelve lead electrocardiogram reveals normal sinus rhythm without any significant ST segment changes. Initial troponin level of 18ng/L with flat trend thereafter. Significant past medical history includes severe coronary artery disease status post quadruple bypass (on ASA), history myocardial infarction, hypertension, hyperlipidemia, end-stage renal disease on hemodialysis, and chronic back pain. He reports compliance with his antihypertensive medications and with dialysis. The patient reports undergoing quadruple vessel CABG approximately six months ago at [facility]. He states he has not followed up with a sample worker in the outpatient setting. Past Medical History Past medical history reviewed. No other significant than mentioned above. Past Surgical History Quadruple vessel CABG Lumbar spinal surgery from L4-L5 Family History: Patient reports no known family medical history. Family History Family history reviewed. Social History Denies the use of tobacco, alcohol or illicit drugs. Allergies: Coded Allergies: No Known Drug Allergy (Verified Allergy, Unknown, 08/28/25) Home Meds Active Scripts Sodium Zirconium Cyclosilicate (Lokelma) 10 Gm Phong, 10 GM PO DAILY for 30 Days, #30 PACK 1 Refill Prov:KIKE CARDENAS NP 09/02/25 Reported Medications Furosemide (Furosemide) 80 Mg Tab, 1 TAB PO BID for 30 Days, #60 09/02/25 Aspirin (Aspirin Adult Low Dose) 81 Mg Tab, 1 TAB PO DAILY 08/29/25 Amlodipine Besylate (Amlodipine Besylate) 10 Mg Tab, 1 TAB PO DAILY for 30 Days, #30 08/29/25 Hydralazine Hcl (Hydralazine Hcl) 100 Mg Tab, 1 TAB PO Q8HR for 30 Days, #90 08/29/25 Sodium Bicarbonate (Sodium Bicarbonate) 650 Mg Tab, 1 TAB PO TID 08/29/25 Nifedipine (Nifedipine Er) 90 Mg Tab, 1 TAB PO DAILY 08/29/25 Clonidine Hydrochloride (Clonidine Hcl) 0.1 Mg Tab, 1 TAB PO DAILY for 30 Days, #30 08/29/25 Carvedilol (Carvedilol) 25 Mg Tab, 1 TAB PO BID 08/29/25 Home Meds Home medications reviewed. Current Medications Current Medications Medications (Trade) Dose Ordered Sig/Devyn Route PRN Reason Start Time Stop Time Status Last Admin Amlodipine Besylate (Norvasc Tablet) 10 mg DAILY PO 09/20/25 10:00 09/20/25 09:31 Clonidine HCl (Catapres Tablet) 0.2 mg Q6HP PRN PO SBP>160 09/20/25 00:15 Carvedilol (Coreg Tablet) 25 mg Q12HR PO 09/20/25 10:00 09/20/25 09:32 Sevelamer HCl (Renagel) 800 mg TIDWM PO 09/20/25 08:00 09/20/25 09:05 Multivit/Ca Carb/ B Cmplx/FA/Prenat (Nephro-Porf[place] Tablet) 1 tab DAILY PO 09/20/25 10:00 09/20/25 09:32 Calcium Acetate (Phoslo Capsule) 667 mg TIDWMEALS PO 09/20/25 08:00 09/20/25 09:05 Furosemide (Lasix Injection) 40 mg DAILY IV 09/20/25 10:00 09/20/25 09:33 Aspirin 81 mg DAILY PO 09/20/25 10:00 09/20/25 09:31 Hydralazine HCl (Apresoline Tablet) 25 mg Q8HR PO 09/20/25 06:00 Sodium Chloride (Saline Lock Ns) 10 ml Q8HR IV 09/20/25 06:00 09/20/25 05:56 Acetaminophen/ Hydrocodone Bitart ([place] 5/325MG Tab) 1 tab Q4HP PRN PO MODERATE PAIN (4-6 PAIN SCALE) 09/20/25 00:15 Ondansetron HCl (Zofran) 4 mg Q4HP PRN IV NAUSEA / VOMITING 09/20/25 00:15 09/20/25 05:19 Docusate Sodium (Colace Capsule) 100 mg BIDPRN PRN PO FOR CONSTIPATION 09/20/25 00:15 Acetaminophen (Tylenol Tablet) 650 mg Q6HP PRN PO PAIN SCALE 1-3 OR TEMP>100.4 09/20/25 00:15 Nitroglycerin (Ntrostat Sublingual) 0.4 mg Q5MINP PRN SL FOR CHEST PAIN 09/20/25 00:45 Morphine Sulfate 2 mg Q30M PRN IV FOR CHEST PAIN 09/20/25 00:45 09/20/25 00:57 Nitroglycerin 250 ml @ 1.5 mls/hr Q24H IV 09/20/25 02:30 09/20/25 02:33 DC Labetalol HCl (Labetalol HCl) 5 mg Q2HPRN PRN IV SBP>150 09/20/25 02:30 Nicardipine/ Sodium Chloride 200 ml @ 50 mls/hr Q4H IV 09/20/25 02:45 09/20/25 03:40 Azithromycin (Zithromax Tablet) 250 mg DAILY PO 09/21/25 10:00 Ceftriaxone Sodium 50 ml @ 100 mls/hr DAILY@09 IV 09/20/25 09:00 09/20/25 09:33 Review of Systems Constitutional: Generalized weakness Ears, Nose, & Throat: No symptom reported Eyes: No symptom reported Neurological: Headache Pulmonary/Respiratory: Shortness of breath Cardiovascular: No symptom reported Gastrointestinal: No symptom reported Genitourinary: No symptom reported Musculoskeletal: No symptom reported Skin: No symptom reported Psychiatric: No symptom reported Endocrine: No symptom reported Hematologic/Lymphatic: No symptom reported Vital Signs Vital Signs Date Time Temp Pulse Resp B/P (MAP) Pulse Ox O2 Delivery O2 Flow Rate FiO2 09/20/25 09:33 140/78 09/20/25 09:32 64 09/20/25 08:00 99 Nasal Cannula* 2 28 09/20/25 07:15 12 09/20/25 03:30 97.9 97.9 Physical Exam General Appearance: Cooperative. Well-developed. Well-nourished. No acute distress. Pulmonary/Respiratory: Clear, bilateral breaths sounds. Cardiovascular/Chest: Regular rate and rhythm. Peripheral Pulses: 2+ Radial (R). 2+ Radial (L). 2+ Pedal (R). 2+ Pedal (L) Abdominal Exam: Normal bowel sounds. Ankle Exam: Negative ankle edema Lower extremities: Negative lower extremity edema Neuro/Mental Status: A/OX4, coherent. Thoughts/Psych: Normal thought pattern. Appropriate mood and affect. Good judgment and insight. Appearance: No acute distress. Skin Exam: Normal inspection. Right upper chest HD catheter. Normal color. Warm and dry. Labs/Diagnostic Data Labs Test 09/20/25 02:18 09/19/25 23:30 Range/Units White Blood Count 8.0 4.4-10.8 10^3/uL Red Blood Count 3.37 L 4.5-5.90 10^6/uL Hemoglobin 10.6 L 13.5-17.5 g/dL Hematocrit 31.5 L 41.0-53.0 % Mean Corpuscular Volume 93.5 80.0-100.0 fL Mean Corpuscular Hemoglobin 31.5 28.0-32.0 pg Mean Corpuscular Hemoglobin Concent 33.7 32.0-36.0 g/dL Red Cell Distribution Width 15.2 H 11.8-14.3 % Platelet Count 207 140-450 10^3/uL Mean Platelet Volume 7.5 6.9-10.8 fL Neutrophils (%) (Auto) 64.1 37.0-80.0 % Lymphocytes (%) (Auto) 22.1 10.0-50.0 % Monocytes (%) (Auto) 7.6 0.0-12.0 % Eosinophils (%) (Auto) 5.1 0.0-7.0 % Basophils (%) (Auto) 1.1 0.0-2.0 % Neutrophils # (Auto) 5.2 1.6-8.6 10 ^3/uL Lymphocytes # (Auto) 1.8 0.4-5.4 10 ^3/uL Monocytes # (Auto) 0.6 0-1.3 10 ^3/uL Eosinophils # (Auto) 0.4 0-0.8 10 ^3/uL Basophils # (Auto) 0.1 0-0.2 10 ^3/uL Nucleated Red Blood Cells 0.0 % Sodium Level 141 136-145 mmol/L Potassium Level 4.7 3.5-5.1 mmol/L Chloride Level 98 98-107 mmol/L Carbon Dioxide Level 24 20-31 mmol/L Anion Gap 19 H 5-15 Blood Urea Nitrogen 64 #H 9-23 mg/dL Creatinine 10.23 *H 0.700-1.30 mg/dL Glomerular Filtration Rate Calc 5 >90 mL/min BUN/Creatinine Ratio 6.3 L 10.0-20.0 Serum Glucose 102 74-106 mg/dL Calcium Level 7.0 L 8.7-10.4 mg/dL Total Bilirubin 0.2 0.2-1.0 mg/dL Aspartate Amino Transferase (AST) 20 13-40 U/L Alanine Aminotransferase (ALT) 14 7-40 U/L Alkaline Phosphatase 64 46-116 U/L Troponin I High Sensitivity 18 </=54 ng/L Total Protein 6.6 5.7-8.2 g/dL Albumin 4.3 3.2-4.8 g/dL Thyroid Stimulating Hormone (TSH) 1.43 0.55-4.78 uIU/mL B-Type Natriuretic Peptide 2098.83 0-100 pg/mL Assessment Hypertensive emergency Severe coronary artery disease status post quadruple vessel bypass (on aspirin) Hyperlipidemia History myocardial infarction End-stage renal disease on hemodialysis Plan/Recommendation We will continue with the following plan/recommendations (Dr. Good): * Transthoracic echocardiogram reveals EF of 50% * Aggressive BP control * Single antiplatelet therapy * Lipid-lowering agent * Close cardiac surveillance * Nephrology consult and recommendations Patient seen with . Continue with medical management. There is no further inpatient cardiac workup indicated at this time. The patient states that he is planning to follow up with Cardiology in the outpatient setting, pending an appointment. Thank you for allowing us to care for this patient. Please call with any questions or concerns. Critical care time spent: 44 minutes This medical document was created using an electronic medical record system with voice recognition software and computerized dictation system. Although this do cument has been carefully reviewed, there might still be some phonetic and typographical errors. Occasional wrong-word or ``sound-alike substitutions may have occurred due to the inherent limitations of voice recognition software. These areas are purely typographical due to imperfections of the software programs and do not reflect any compromise in the patient's medical care. Please read the chart carefully and recognize, using context, where these substitutions have occurred. Plan discussed with: Patient NYHA Physical activity limitations: NA Date of Service: Sep 20, 2025 Billing Provider: BEN GUTIERREZ Cardiology Common Codes: [id number] INP/OBS CARE (High) Cardiology Consultation Codes: [id number] CONSULT <45MIN BEN GUTIERREZ Sep 20, 2025 10:02
[2025-09-20] MEDS: AZITHROMYCIN 250 MG TAB PO ONE (10:22)
[2025-09-20 11:21] LABS: Amphetamine Screen, Urine Neg (NEGATIVE); Barbiturate Scree,Urine Neg (NEGATIVE); Benzodiazephine Screen, Urine Neg (NEGATIVE); Cannabinoid Screen, Urine Neg (NEGATIVE); Cocaine Screen, Urine Neg (NEGATIVE); Opiate Scree,Urine Neg (NEGATIVE); Phencyclidine Screen, Urine Neg (NEGATIVE)
--- NOTE | 2025-09-20 11:52 | DVHINCON2 ---
Date of service: Sep 20, [address] Fraire Reason for Consultation End-stage kidney disease History of Present Illness This is a 64-year-old male with history of end-stage kidney disease on hemodialysis, coronary artery disease status post CABG, hypertension, noncompliance with the dialysis treatments presenting to the emergency room complaining of shortness of breast. Patient noted to have a blood pressure of 228/132 in the emergency room. Admitted with impression of hypertensive urgency. Started on nicardipine drip which was discontinued today morning. Nephrology consulted for continuation of dialysis. Patient seen and examined at bedside. Denies any shortness of breath. Off nicardipine drip. Blood pressure has been stable Past Medical History Past Medical History Coronary artery disease, Hypertension, End-stage renal disease on HD Past Surgical History Past Surgical History Tunneled catheter, CABG Family History: Patient reports no known family medical history. Family History Social History No active history of smoking, alcohol or drug abuse Allergies: Coded Allergies: No Known Drug Allergy (Verified Allergy, Unknown, 08/28/25) Home Meds Active Scripts Sodium Zirconium Cyclosilicate (Lokelma) 10 Gm Phong, 10 GM PO DAILY for 30 Days, #30 PACK 1 Refill Prov:KIKE CARDENAS RECTANGULAR TANK COOPER 09/02/25 Reported Medications Furosemide (Furosemide) 80 Mg Tab, 1 TAB PO BID for 30 Days, #60 09/02/25 Aspirin (Aspirin Adult Low Dose) 81 Mg Tab, 1 TAB PO DAILY 08/29/25 Amlodipine Besylate (Amlodipine Besylate) 10 Mg Tab, 1 TAB PO DAILY for 30 Days, #30 08/29/25 Hydralazine Hcl (Hydralazine Hcl) 100 Mg Tab, 1 TAB PO Q8HR for 30 Days, #90 08/29/25 Sodium Bicarbonate (Sodium Bicarbonate) 650 Mg Tab, 1 TAB PO TID 08/29/25 Nifedipine (Nifedipine Er) 90 Mg Tab, 1 TAB PO DAILY 08/29/25 Clonidine Hydrochloride (Clonidine Hcl) 0.1 Mg Tab, 1 TAB PO DAILY for 30 Days, #30 08/29/25 Carvedilol (Carvedilol) 25 Mg Tab, 1 TAB PO BID 08/29/25 Current Medications Current Medications Medications (Trade) Dose Ordered Sig/Devyn Route PRN Reason Start Time Stop Time Status Last Admin Amlodipine Besylate (Norvasc Tablet) 10 mg DAILY PO 09/20/25 10:00 09/20/25 09:31 Clonidine HCl (Catapres Tablet) 0.2 mg Q6HP PRN PO SBP>160 09/20/25 00:15 Carvedilol (Coreg Tablet) 25 mg Q12HR PO 09/20/25 10:00 09/20/25 09:32 Sevelamer HCl (Renagel) 800 mg TIDWM PO 09/20/25 08:00 09/20/25 09:05 Multivit/Ca Carb/ B Cmplx/FA/Prenat (Nephro-Porfirio Tablet) 1 tab DAILY PO 09/20/25 10:00 09/20/25 09:32 Calcium Acetate (Phoslo Capsule) 667 mg TIDWMEALS PO 09/20/25 08:00 09/20/25 09:05 Furosemide (Lasix Injection) 40 mg DAILY IV 09/20/25 10:00 09/20/25 09:33 Aspirin 81 mg DAILY PO 09/20/25 10:00 09/20/25 09:31 Hydralazine HCl (Apresoline Tablet) 25 mg Q8HR PO 09/20/25 06:00 Sodium Chloride (Saline Lock Ns) 10 ml Q8HR IV 09/20/25 06:00 09/20/25 05:56 Acetaminophen/ Hydrocodone Bitart ([place]lin 5/325MG Tab) 1 tab Q4HP PRN PO MODERATE PAIN (4-6 PAIN SCALE) 09/20/25 00:15 Ondansetron HCl (Zofran) 4 mg Q4HP PRN IV NAUSEA / VOMITING 09/20/25 00:15 09/20/25 05:19 Docusate Sodium (Colace Capsule) 100 mg BIDPRN PRN PO FOR CONSTIPATION 09/20/25 00:15 Acetaminophen (Tylenol Tablet) 650 mg Q6HP PRN PO PAIN SCALE 1-3 OR TEMP>100.4 09/20/25 00:15 Nitroglycerin (Ntrostat Sublingual) 0.4 mg Q5MINP PRN SL FOR CHEST PAIN 09/20/25 00:45 Morphine Sulfate 2 mg Q30M PRN IV FOR CHEST PAIN 09/20/25 00:45 09/20/25 00:57 Nitroglycerin 250 ml @ 1.5 mls/hr Q24H IV 09/20/25 02:30 09/20/25 02:33 DC Labetalol HCl (Labetalol HCl) 5 mg Q2HPRN PRN IV SBP>150 09/20/25 02:30 Nicardipine/ Sodium Chloride 200 ml @ 50 mls/hr Q4H IV 09/20/25 02:45 09/20/25 03:40 Azithromycin (Zithromax Tablet) 250 mg DAILY PO 09/21/25 10:00 Ceftriaxone Sodium 50 ml @ 100 mls/hr DAILY@09 IV 09/20/25 09:00 09/20/25 09:33 Atorvastatin Calcium (Lipitor) 40 mg HS PO 09/20/25 22:00 Review of Systems 12 point review of systems negative except as stated in the HPI Vital Signs Vital Signs Date Time Temp Pulse Resp B/P (MAP) Pulse Ox O2 Delivery O2 Flow Rate FiO2 09/20/25 11:03 62 154/81 09/20/25 11:00 17 100 09/20/25 10:31 Nasal Cannula* 2 28 09/20/25 03:30 97.9 97.9 Physical Exam Awake alert oriented x3 HEENT: Normocephalic, no JVD Lungs: Bilateral good air entry CVS: S1, S2 regular rate rhythm Abdomen: Soft, bowel sounds present DIRECTOR PHYSICAL: No focal deficits Extremities: No edema Labs/Diagnostic Data Labs Test 09/20/25 10:00 09/20/25 02:18 09/19/25 23:30 Range/Units Urine Opiates Screen Neg NEGATIVE Urine Fentanyl Screen Neg NEGATIVE Urine Barbiturates Screen Neg NEGATIVE Urine Phencyclidine Screen Neg NEGATIVE Urine Amphetamines Screen Neg NEGATIVE Urine Benzodiazepines Screen Neg NEGATIVE Urine Cocaine Screen Neg NEGATIVE Urine Cannabinoids Screen Neg NEGATIVE White Blood Count 8.0 4.4-10.8 10^3/uL Red Blood Count 3.37 L 4.5-5.90 10^6/uL Hemoglobin 10.6 L 13.5-17.5 g/dL Hematocrit 31.5 L 41.0-53.0 % Mean Corpuscular Volume 93.5 80.0-100.0 fL Mean Corpuscular Hemoglobin 31.5 28.0-32.0 pg Mean Corpuscular Hemoglobin Concent 33.7 32.0-36.0 g/dL Red Cell Distribution Width 15.2 H 11.8-14.3 % Platelet Count 207 140-450 10^3/uL Mean Platelet Volume 7.5 6.9-10.8 fL Neutrophils (%) (Auto) 64.1 37.0-80.0 % Lymphocytes (%) (Auto) 22.1 10.0-50.0 % Monocytes (%) (Auto) 7.6 0.0-12.0 % Eosinophils (%) (Auto) 5.1 0.0-7.0 % Basophils (%) (Auto) 1.1 0.0-2.0 % Neutrophils # (Auto) 5.2 1.6-8.6 10 ^3/uL Lymphocytes # (Auto) 1.8 0.4-5.4 10 ^3/uL Monocytes # (Auto) 0.6 0-1.3 10 ^3/uL Eosinophils # (Auto) 0.4 0-0.8 10 ^3/uL Basophils # (Auto) 0.1 0-0.2 10 ^3/uL Nucleated Red Blood Cells 0.0 % Sodium Level 141 136-145 mmol/L Potassium Level 4.7 3.5-5.1 mmol/L Chloride Level 98 98-107 mmol/L Carbon Dioxide Level 24 20-31 mmol/L Anion Gap 19 H 5-15 Blood Urea Nitrogen 64 #H 9-23 mg/dL Creatinine 10.23 *H 0.700-1.30 mg/dL Glomerular Filtration Rate Calc 5 >90 mL/min BUN/Creatinine Ratio 6.3 L 10.0-20.0 Serum Glucose 102 74-106 mg/dL Hemoglobin A1c 4.4 <5.7 % A1C Calcium Level 7.0 L 8.7-10.4 mg/dL Magnesium Level 2.0 1.6-2.6 mg/dL Total Bilirubin 0.2 0.2-1.0 mg/dL Aspartate Amino Transferase (AST) 20 13-40 U/L Alanine Aminotransferase (ALT) 14 7-40 U/L Alkaline Phosphatase 64 46-116 U/L Troponin I High Sensitivity 18 </=54 ng/L Total Protein 6.6 5.7-8.2 g/dL Albumin 4.3 3.2-4.8 g/dL Triglycerides Level 131 < 150 mg/dL Cholesterol Level 182 < 200 mg/dL LDL Cholesterol 113 H < 100 mg/dL HDL Cholesterol 54 40-59 mg/dL Thyroid Stimulating Hormone (TSH) 1.43 0.55-4.78 uIU/mL B-Type Natriuretic Peptide 2098.83 0-100 pg/mL Assessment End-stage kidney disease on hemodialysis Hypertensive urgency, improved Noncompliance with dialysis treatments History of coronary artery disease status post CABG Plan/Recommendation Hemodialysis tomorrow. Currently patient with no shortness of breath. Electrolytes within acceptable limits. Continue with oral antihypertensives. Blood pressure is stable. Plan discussed with: Patient KIKE CARTWRIGHT MD Sep 20, 2025 11:52
--- NOTE | 2025-09-20 13:30 | DVHSR ---
APPROVED REPORT EXAM: Two-dimensional and M-mode echocardiogram with Doppler and color Doppler. Blood Pressure: 121/102 mmHg INDICATION Evaluate Cardiac Function RISK FACTORS Height: 5' 8", Weight: 164 DIMENSIONS LVDd4.6 (3.8-5.7cm)LA (2D)4.2 (1.9-4.0cm)Aortic Root3.5 (2.0-3.7cm) LVDs3.0 (2.5-4.0cm)LA (MM) (1.9-4.0cm)Aortic Cusp Exc1.3 (1.5-2.0cm) EF (%) 64.0 (55-70%)Rt. Atrium4.3 (1.9-4.0cm)Asc. Aorta cm IVSd1.3 (0.7-1.1cm)RV (D) (1.8-2.4cm) PWd1.2 (0.7-1.1cm) Mitral Valve MitralMitral Stenosis E wave1.20m/sMV Mean GR.mmHg A wave0.90m/sMV Peak GR.mmHg E/A ratio1.32D MVAcm2 Aortic Valve Aortic ValveAortic Stenosis V10.90m/Chin Mean GR.8mmHg V21.90m/Chin Peak GR.15mmHg LVOT Diameter2.3 (1.8-2.4cm)Doppler AVA1.97cm2 Conclusion lvef 50% moderate LVH normal rv function moderate MAC normal atria no severe valve abnormaliteis noted
--- NOTE | 2025-09-20 16:34 | DVHPN2 ---
Progress Note Date Seen: Sep 20, 2025 Medical Necessity Reason Pt with a Central, PICC or Fol: No Subjective Review of Systems: CVS:Normal, RESPIRATORY:Normal, GI:Normal, :Normal, NEURO:Normal Objective vital signs Vital Sign Date Time Temp Pulse Resp B/P (MAP) Pulse Ox O2 Delivery O2 Flow Rate FiO2 09/20/25 14:57 134/87 09/20/25 13:00 98.3 56 18 97 98.3 09/20/25 12:56 Nasal Cannula* 2 28 Total Intake and Output 09/19/25 09/19/25 09/20/25 15:00 23:00 07:00 Intake Total 100 ml Balance 100 ml medications Current Medications Medications Dose Ordered Sig/Devyn Route Start Time Stop Time Status Last Admin Dose Admin Amlodipine Besylate 10 mg DAILY PO 09/20/25 10:00 09/20/25 09:31 10 MG Clonidine HCl 0.2 mg Q6HP PRN PO 09/20/25 00:15 Carvedilol 25 mg Q12HR PO 09/20/25 10:00 09/20/25 09:32 25 MG Sevelamer HCl 800 mg TIDWM PO 09/20/25 08:00 09/20/25 14:56 800 MG Multivit/Ca Carb/ B Cmplx/FA/Prenat 1 tab DAILY PO 09/20/25 10:00 09/20/25 09:32 1 TAB Calcium Acetate 667 mg TIDWMEALS PO 09/20/25 08:00 09/20/25 14:55 667 MG Furosemide 40 mg DAILY IV 09/20/25 10:00 09/20/25 09:33 40 MG Aspirin 81 mg DAILY PO 09/20/25 10:00 09/20/25 09:31 81 MG Hydralazine HCl 25 mg Q8HR PO 09/20/25 06:00 09/20/25 14:57 25 MG Sodium Chloride 10 ml Q8HR IV 09/20/25 06:00 09/20/25 14:56 10 ML Acetaminophen/ Hydrocodone Bitart 1 tab Q4HP PRN PO 09/20/25 00:15 Ondansetron HCl 4 mg Q4HP PRN IV 09/20/25 00:15 09/20/25 05:19 4 MG Docusate Sodium 100 mg BIDPRN PRN PO 09/20/25 00:15 Acetaminophen 650 mg Q6HP PRN PO 09/20/25 00:15 Nitroglycerin 0.4 mg Q5MINP PRN SL 09/20/25 00:45 Morphine Sulfate 2 mg Q30M PRN IV 09/20/25 00:45 09/20/25 00:57 2 MG Labetalol HCl 5 mg Q2HPRN PRN IV 09/20/25 02:30 Azithromycin 250 mg DAILY PO 09/21/25 10:00 Cancel Atorvastatin Calcium 40 mg HS PO 09/20/25 22:00 Examination: GENERAL:Normal, LUNGS:Normal, CVS:Normal, ABDOMEN:Normal, SKIN:Normal, :Normal laboratory and microbiology Laboratory Tests 09/20/25 02:18 Test 09/20/25 02:18 Range/Units Serum Glucose 102 74-106 mg/dL Labs and/or images reviewed: Labs reviewed by me, Image(s) reviewed by me Problem List/Assessment/Plan Problem List/Assessment/Plan Shaggy Crowe is a patient with a history of end-stage renal disease on hemodialysis, chronic diastolic heart failure, and coronary artery disease status post CABG presenting to the emergency room for hypertensive urgency or hypertensive crisis.The patient arrived with blood pressure greater than 200 and was initially managed on a cardene drip, which was subsequently weaned off. His blood pressure is currently stable in the 130s systolic and 80s diastolic. The patient reports receiving dialysis on Tuesdays and , and occasionally on , though he is noncompliant with his dialysis treatments. He is scheduled for dialysis tomorrow and was evaluated by catcher helper Dr. Nuñez during this admission. He was also seen by cardiology who ordered an echocardiogram. Shaggy Crowe is a patient with end-stage renal disease on hemodialysis presenting with hypertensive urgency with blood pressure greater than 200 mmHg. Hypertensive Urgency Assessment: Patient presented with hypertensive crisis with blood pressure greater than 200 mmHg. Initially required Cardene drip for blood pressure control but was successfully weaned off. Current blood pressure is stable in the 130s systolic and 80s diastolic, indicating adequate control of the hypertensive episode. Plan: - Blood pressure currently stable and controlled - Consider discharge tomorrow End-Stage Renal Disease Assessment: Patient has end-stage renal disease requiring hemodialysis. Reports dialysis schedule of Tuesdays, , and occasionally additional sessions. Patient is noncompliant with dialysis treatments. Was evaluated by catcher helper Dr. Nuñez. Plan: - Continue inpatient hemodialysis - Dialysis scheduled for tomorrow Chronic Diastolic Heart Failure Assessment: Patient has chronic diastolic heart failure in the setting of coronary artery disease status post coronary artery bypass grafting. Plan: - Cardiology consultation completed - Echocardiogram ordered Plan discussed with: Patient Date of Service: Sep 20, 2025 Billing Provider: SERENA DUMONT MD Common Visit Codes: [id number] INP/OBS CARE (MOD) JOCELYNE POSADAS Sep 20, 2025 16:34
[2025-09-20] MEDS: ATORVASTATIN 20 MG TAB PO SCH (21:14)
[2025-09-21] VITALS (8 sets, daily range): BP systolic 159–198; BP diastolic 100–111; PULSE 58–66; RESP 16–18; TEMP 97.5–98.7; O2SAT 96–99
[2025-09-21 09:16] LABS: Hematocrit 31.3 % (41.0-53.0); Hemoglobin 10.2 g/dL (13.5-17.5); Mean Corpuscular Hemoglobin 31.5 pg (28.0-32.0); Mean Corpuscular Volume 96.3 fL (80.0-100.0); Nucleated Red Blood Cells % 0.1 %
[2025-09-21 09:34] LABS: Albumin 3.8 g/dL (3.2-4.8); Alkaline Phosphatase 55 U/L (46-116); Anion Gap 17 (5-15); BUN/Creatinine Ratio 3.7 (10.0-20.0); Carbon Dioxide 20 mmol/L (20-31); Chloride 99 mmol/L (98-107); Sodium 136 mmol/L (136-145); Total Protein 6.2 g/dL (5.7-8.2)
[2025-09-21 09:40] LABS: Alanine Aminotransferase 9 U/L (7-40); Bilirubin, Total 0.2 mg/dL (0.2-1.0); Blood Urea Nitrogen 44 mg/dL (9-23); Calcium 7.3 mg/dL (8.7-10.4); Glucose 141 mg/dL (74-106); Potassium 5.4 mmol/L (3.5-5.1)
[2025-09-21] MEDS ORDERED: AZITHROMYCIN 250 MG TAB PO SCH (10:00)
--- NOTE | 2025-09-21 13:44 | DVHPN2 ---
Progress Note - Dictate Date Seen: Sep 21, 2025 Medical Necessity Reason Pt with a Central, PICC or Fol: No Subjective Feels better Admitted with uncontrolled HTN and fluid overload vital signs Vital Sign Date Time Temp Pulse Resp B/P (MAP) Pulse Ox O2 Delivery O2 Flow Rate FiO2 09/21/25 13:00 97.5 59 18 177/111 (133) 98 97.5 09/21/25 08:00 Nasal Cannula* 2 28 Total Intake and Output 09/20/25 09/20/25 09/21/25 15:00 23:00 07:00 Intake Total 300 ml 450 ml 795 ml Output Total 700 ml Balance 300 ml 450 ml 95 ml medications Current Medications Medications Dose Ordered Sig/Devyn Route Start Time Stop Time Status Last Admin Dose Admin Clonidine HCl 0.2 mg Q6HP PRN PO 09/20/25 00:15 09/21/25 01:36 0.2 MG Carvedilol 25 mg Q12HR PO 09/20/25 10:00 09/20/25 21:14 25 MG Sevelamer HCl 800 mg TIDWM PO 09/20/25 08:00 09/21/25 09:09 800 MG Multivit/Ca Carb/ B Cmplx/FA/Prenat 1 tab DAILY PO 09/20/25 10:00 09/21/25 10:22 1 TAB Calcium Acetate 667 mg TIDWMEALS PO 09/20/25 08:00 09/21/25 09:09 667 MG Furosemide 40 mg DAILY IV 09/20/25 10:00 09/20/25 09:33 40 MG Aspirin 81 mg DAILY PO 09/20/25 10:00 09/21/25 10:22 81 MG Sodium Chloride 10 ml Q8HR IV 09/20/25 06:00 09/21/25 05:42 10 ML Acetaminophen/ Hydrocodone Bitart 1 tab Q4HP PRN PO 09/20/25 00:15 Ondansetron HCl 4 mg Q4HP PRN IV 09/20/25 00:15 09/20/25 05:19 4 MG Docusate Sodium 100 mg BIDPRN PRN PO 09/20/25 00:15 Acetaminophen 650 mg Q6HP PRN PO 09/20/25 00:15 Nitroglycerin 0.4 mg Q5MINP PRN SL 09/20/25 00:45 Morphine Sulfate 2 mg Q30M PRN IV 09/20/25 00:45 09/20/25 00:57 2 MG Labetalol HCl 5 mg Q2HPRN PRN IV 09/20/25 02:30 Azithromycin 250 mg DAILY PO 09/21/25 10:00 Cancel Atorvastatin Calcium 40 mg HS PO 09/20/25 22:00 09/20/25 21:14 40 MG Hydralazine HCl 100 mg Q8HR PO 09/21/25 14:00 Nifedipine 90 mg DAILY PO 09/22/25 10:00 objective Awake alert oriented x3 HEENT: Normocephalic, no JVD Lungs: Bilateral good air entry CVS: S1, S2 regular rate rhythm Abdomen: Soft, bowel sounds present 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 DC planning Plan discussed with: POOL Hill MD Sep 21, 2025 13:44
[2025-09-21] MEDS: SODIUM CHL 0.9% 1000 ML BAG XX ONE (14:47)
[2025-09-21] MEDS: LABETALOL HCL 20 MG/4 ML VL IV PRN (18:06)
--- NOTE | 2025-09-21 21:23 | DVHPN2 ---
Progress Note - Dictate Date Seen: Sep 21, 2025 Medical Necessity Reason Pt with a Central, PICC or Fol: No vital signs Vital Sign Date Time Temp Pulse Resp B/P (MAP) Pulse Ox O2 Delivery O2 Flow Rate FiO2 09/21/25 20:16 64 173/105 09/21/25 19:56 Nasal Cannula* 2 28 09/21/25 17:00 97.9 17 98 97.9 Total Intake and Output 09/20/25 09/20/25 09/21/25 15:00 23:00 07:00 Intake Total 300 ml 450 ml 795 ml Output Total 700 ml Balance 300 ml 450 ml 95 ml medications Current Medications Medications Dose Ordered Sig/Devyn Route Start Time Stop Time Status Last Admin Dose Admin Clonidine HCl 0.2 mg Q6HP PRN PO 09/20/25 00:15 09/21/25 17:23 0.2 MG Carvedilol 25 mg Q12HR PO 09/20/25 10:00 09/20/25 21:14 25 MG Sevelamer HCl 800 mg TIDWM PO 09/20/25 08:00 09/21/25 18:05 800 MG Multivit/Ca Carb/ B Cmplx/FA/Prenat 1 tab DAILY PO 09/20/25 10:00 09/21/25 10:22 1 TAB Calcium Acetate 667 mg TIDWMEALS PO 09/20/25 08:00 09/21/25 18:04 667 MG Furosemide 40 mg DAILY IV 09/20/25 10:00 09/20/25 09:33 40 MG Aspirin 81 mg DAILY PO 09/20/25 10:00 09/21/25 10:22 81 MG Sodium Chloride 10 ml Q8HR IV 09/20/25 06:00 09/21/25 14:46 10 ML Acetaminophen/ Hydrocodone Bitart 1 tab Q4HP PRN PO 09/20/25 00:15 Ondansetron HCl 4 mg Q4HP PRN IV 09/20/25 00:15 09/20/25 05:19 4 MG Docusate Sodium 100 mg BIDPRN PRN PO 09/20/25 00:15 Acetaminophen 650 mg Q6HP PRN PO 09/20/25 00:15 Nitroglycerin 0.4 mg Q5MINP PRN SL 09/20/25 00:45 Morphine Sulfate 2 mg Q30M PRN IV 09/20/25 00:45 09/20/25 00:57 2 MG Labetalol HCl 5 mg Q2HPRN PRN IV 09/20/25 02:30 09/21/25 20:16 5 MG Azithromycin 250 mg DAILY PO 09/21/25 10:00 Cancel Atorvastatin Calcium 40 mg HS PO 09/20/25 22:00 09/20/25 21:14 40 MG Hydralazine HCl 100 mg Q8HR PO 09/21/25 14:00 Nifedipine 90 mg DAILY PO 09/22/25 10:00 objective General Appearance: alert, no distress HEENT: EOMI, PERRLA, normal external inspect of ears, no icterus, no nasal drainage Neck: no carotid bruit, no jugular venous distention (JVD), no lymphadenopathy Chest: normal thorax Respiratory: clear to auscultation, normal air movement Cardiovascular: regular rate and rhythm, no diastolic murmur, no jugular venous distention (JVD), no rub, no systolic murmur Abdominal: soft, no hepatomegaly, no mass, no splenomegaly, no tenderness Genitourinary: grossly normal external Musculoskeletal: no joint tenderness, no swelling Extremities: normal pulses, no calf tenderness, no clubbing, no cyanosis, no edema Skin: no bruising, no jaundice, no rash Neurological: alert, No focal deficit laboratory and microbiology Laboratory Tests 09/21/25 09:03 Test 09/21/25 09:03 Range/Units Serum Glucose 141 H 74-106 mg/dL Problem List Hypertensive Urgency Assessment: Patient presented with hypertensive crisis with blood pressure greater than 200 mmHg. Initially required Cardene drip for blood pressure control but was successfully weaned off. Current blood pressure is stable in the 130s systolic and 80s diastolic, indicating adequate control of the hypertensive episode. Plan: - Blood pressure currently stable and controlled - Consider discharge tomorrow End-Stage Renal Disease Assessment: Patient has end-stage renal disease requiring hemodialysis. Reports dialysis schedule of Tuesdays, , and occasionally additional sessions. Patient is noncompliant with dialysis treatments. Was evaluated by network support engineer Dr. Nuñez. Plan: - Continue inpatient hemodialysis - Dialysis scheduled for tomorrow Chronic Diastolic Heart Failure Assessment: Patient has chronic diastolic heart failure in the setting of coronary artery disease status post coronary artery bypass grafting. Plan: - Cardiology consultation completed - Echocardiogram ordered Assessment/Plan Subjective Patient is awake and alert. Objective Patient was admitted with severe hypertensive urgency. Blood pressure was over 200. Patient has end-stage renal disease on hemodialysis. Patient has been known to be medically noncompliant. 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 Patient has a history of CAD status post CABG. Plan Adjust blood pressure medications. 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 Monitor vitals. Patient scheduled for hemodialysis today. Plan discussed with: Patient, Other KIKE CARDENAS NP Sep 21, 2025 21:23
[2025-09-21] MEDS: EPOETIN ALFA-EPBX 4,000 UNIT/ML VIAL SC ONE (21:30)
[2025-09-22] VITALS (8 sets, daily range): BP systolic 125–167; BP diastolic 74–98; PULSE 56–62; RESP 16–18; TEMP 97.4–99.3; O2SAT 97–99
--- NOTE | 2025-09-22 13:39 | DVHPN2 ---
Progress Note - Dictate Date Seen: Sep 22, 2025 Has the PT tested + for MRSA If YES, has PT been informed?: No Medical Necessity Reason Pt with a Central, PICC or Fol: No Subjective Feels better Admitted with uncontrolled HTN and fluid overload vital signs Vital Sign Date Time Temp Pulse Resp B/P (MAP) Pulse Ox O2 Delivery O2 Flow Rate FiO2 09/22/25 10:50 59 167/95 09/22/25 09:00 98.0 18 97 98.0 09/22/25 08:00 Nasal Cannula* 2 28 Total Intake and Output 09/21/25 09/21/25 09/22/25 15:00 23:00 07:00 Intake Total 470 ml 350 ml Balance 470 ml 350 ml medications Current Medications Medications Dose Ordered Sig/Devyn Route Start Time Stop Time Status Last Admin Dose Admin Clonidine HCl 0.2 mg Q6HP PRN PO 09/20/25 00:15 09/22/25 04:29 0.2 MG Carvedilol 25 mg Q12HR PO 09/20/25 10:00 09/22/25 09:50 25 MG Sevelamer HCl 800 mg TIDWM PO 09/20/25 08:00 09/22/25 13:04 800 MG Multivit/Ca Carb/ B Cmplx/FA/Prenat 1 tab DAILY PO 09/20/25 10:00 09/22/25 09:51 1 TAB Calcium Acetate 667 mg TIDWMEALS PO 09/20/25 08:00 09/22/25 13:04 667 MG Furosemide 40 mg DAILY IV 09/20/25 10:00 09/22/25 09:49 40 MG Aspirin 81 mg DAILY PO 09/20/25 10:00 09/22/25 09:50 81 MG Sodium Chloride 10 ml Q8HR IV 09/20/25 06:00 09/22/25 05:36 10 ML Acetaminophen/ Hydrocodone Bitart 1 tab Q4HP PRN PO 09/20/25 00:15 Ondansetron HCl 4 mg Q4HP PRN IV 09/20/25 00:15 09/20/25 05:19 4 MG Docusate Sodium 100 mg BIDPRN PRN PO 09/20/25 00:15 Acetaminophen 650 mg Q6HP PRN PO 09/20/25 00:15 Nitroglycerin 0.4 mg Q5MINP PRN SL 09/20/25 00:45 Morphine Sulfate 2 mg Q30M PRN IV 09/20/25 00:45 09/20/25 00:57 2 MG Labetalol HCl 5 mg Q2HPRN PRN IV 09/20/25 02:30 09/21/25 23:00 5 MG Azithromycin 250 mg DAILY PO 09/21/25 10:00 Cancel Atorvastatin Calcium 40 mg HS PO 09/20/25 22:00 09/21/25 21:28 40 MG Hydralazine HCl 100 mg Q8HR PO 09/21/25 14:00 09/22/25 05:36 100 MG Nifedipine 90 mg DAILY PO 09/22/25 10:00 09/22/25 09:51 90 MG objective Awake alert oriented x3 HEENT: Normocephalic, no JVD Lungs: Bilateral good air entry CVS: S1, S2 regular rate rhythm Abdomen: Soft, bowel sounds present TRANSITION OF CARE SPECIALIST: No focal deficits Extremities: No edema laboratory and microbiology Laboratory Tests 09/21/25 09:03 Test 09/21/25 09:03 Range/Units Serum Glucose 141 H 74-106 mg/dL Problem List Assessment End-stage kidney disease on hemodialysis Hypertensive urgency, improved Noncompliance with dialysis treatments History of coronary artery disease status post CABG Plan/Recommendation Hemodialysis on MWF schedule Continue with oral antihypertensives: max doses of nifedipine, carvedilol and hydralazine, cannot use ARB due to persistent hyperkalemia Needs more aggressive UF with HD DC planning Plan discussed with: Patient POOL YEAGER MD Sep 22, 2025 13:39
--- NOTE | 2025-09-22 14:39 | DVHPN2 ---
Progress Note - Dictate Date Seen: Sep 22, 2025 Has the PT tested + for MRSA If YES, has PT been informed?: No Medical Necessity Reason Pt with a Central, PICC or Fol: No vital signs Vital Sign Date Time Temp Pulse Resp B/P (MAP) Pulse Ox O2 Delivery O2 Flow Rate FiO2 09/22/25 13:00 98.1 56 18 145/88 (107) 99 98.1 09/22/25 08:00 Nasal Cannula* 2 28 Total Intake and Output 09/21/25 09/21/25 09/22/25 15:00 23:00 07:00 Intake Total 470 ml 350 ml Balance 470 ml 350 ml medications Current Medications Medications Dose Ordered Sig/Devyn Route Start Time Stop Time Status Last Admin Dose Admin Clonidine HCl 0.2 mg Q6HP PRN PO 09/20/25 00:15 09/22/25 04:29 0.2 MG Carvedilol 25 mg Q12HR PO 09/20/25 10:00 09/22/25 09:50 25 MG Sevelamer HCl 800 mg TIDWM PO 09/20/25 08:00 09/22/25 13:04 800 MG Multivit/Ca Carb/ B Cmplx/FA/Prenat 1 tab DAILY PO 09/20/25 10:00 09/22/25 09:51 1 TAB Calcium Acetate 667 mg TIDWMEALS PO 09/20/25 08:00 09/22/25 13:04 667 MG Furosemide 40 mg DAILY IV 09/20/25 10:00 09/22/25 09:49 40 MG Aspirin 81 mg DAILY PO 09/20/25 10:00 09/22/25 09:50 81 MG Sodium Chloride 10 ml Q8HR IV 09/20/25 06:00 09/22/25 14:20 10 ML Acetaminophen/ Hydrocodone Bitart 1 tab Q4HP PRN PO 09/20/25 00:15 Ondansetron HCl 4 mg Q4HP PRN IV 09/20/25 00:15 09/20/25 05:19 4 MG Docusate Sodium 100 mg BIDPRN PRN PO 09/20/25 00:15 Acetaminophen 650 mg Q6HP PRN PO 09/20/25 00:15 Nitroglycerin 0.4 mg Q5MINP PRN SL 09/20/25 00:45 Morphine Sulfate 2 mg Q30M PRN IV 09/20/25 00:45 09/20/25 00:57 2 MG Labetalol HCl 5 mg Q2HPRN PRN IV 09/20/25 02:30 09/21/25 23:00 5 MG Azithromycin 250 mg DAILY PO 09/21/25 10:00 Cancel Atorvastatin Calcium 40 mg HS PO 09/20/25 22:00 09/21/25 21:28 40 MG Nifedipine 90 mg DAILY PO 09/22/25 10:00 09/22/25 09:51 90 MG Minoxidil 5 mg Q12HR PO 09/22/25 22:00 objective General Appearance: alert, no distress HEENT: EOMI, PERRLA, normal external inspect of ears, no icterus, no nasal drainage Neck: no carotid bruit, no jugular venous distention (JVD), no lymphadenopathy Chest: normal thorax Respiratory: clear to auscultation, normal air movement Cardiovascular: regular rate and rhythm, no diastolic murmur, no jugular venous distention (JVD), no rub, no systolic murmur Abdominal: soft, no hepatomegaly, no mass, no splenomegaly, no tenderness Genitourinary: grossly normal external Musculoskeletal: no joint tenderness, no swelling Extremities: normal pulses, no calf tenderness, no clubbing, no cyanosis, no edema Skin: no bruising, no jaundice, no rash Neurological: alert, No focal deficit laboratory and microbiology Laboratory Tests 09/21/25 09:03 Test 09/21/25 09:03 Range/Units Serum Glucose 141 H 74-106 mg/dL Problem List Hypertensive Urgency Assessment: Patient presented with hypertensive crisis with blood pressure greater than 200 mmHg. Initially required Cardene drip for blood pressure control but was successfully weaned off. Current blood pressure is stable in the 130s systolic and 80s diastolic, indicating adequate control of the hypertensive episode. Plan: - Blood pressure currently stable and controlled - Consider discharge tomorrow End-Stage Renal Disease Assessment: Patient has end-stage renal disease requiring hemodialysis. Reports dialysis schedule of Tuesdays, , and occasionally additional sessions. Patient is noncompliant with dialysis treatments. Was evaluated by dewaterer operator Dr. Nuñez. Plan: - Continue inpatient hemodialysis - Dialysis scheduled for tomorrow Chronic Diastolic Heart Failure Assessment: Patient has chronic diastolic heart failure in the setting of coronary artery disease status post coronary artery bypass grafting. Plan: - Cardiology consultation completed - Echocardiogram ordered Assessment/Plan Subjective Patient is awake and alert. Objective Patient was seen by nephrology. Blood pressure medications were adjusted. Blood pressure today is much better. Patient scheduled for hemodialysis tomorrow. Plan Continue current treatment. Patient instructed to be compliant with his hemodialysis chair times. Continue antihypertensives. DC plan for tomorrow after hemodialysis. Plan discussed with: Patient, Other KIKE CARDENAS NP Sep 22, 2025 14:39
[2025-09-22] MEDS: MINOXIDIL 2.5 MG TAB PO ONE (15:19)
[2025-09-22] MEDS: MINOXIDIL 2.5 MG TAB PO SCH (21:15)
[2025-09-23 01:00] VITALS: BP 121/74; PULSE 60; RESP 18; TEMP 97.8; O2SAT 98
[2025-09-23 05:00] VITALS: BP 130/76; PULSE 68; RESP 18; TEMP 97.9; O2SAT 96
[2025-09-23] MEDS ORDERED: SODIUM CHL 0.9% 1000 ML BAG XX ONE (07:00)
[2025-09-23 08:00] VITALS: PULSE 67
[2025-09-23 09:00] VITALS: BP 140/83; PULSE 63; RESP 16; TEMP 97.9; O2SAT 97
== END 2025-09-23 09:10 | disposition left against medical advice (07) | DRG 304 ==
LOC: ER 23:01 → OVERFLOW 09-20 00:34 → TELE-WESTW 09-20 12:06
PROVIDERS: ADMIT Nurse Practitioner; ATTEND Nurse Practitioner
PROC: 5A1D70Z Performance of Urinary Filtration, Intermittent, Less than 6 Hours Per Day (ICD-10-PCS; principal; 2025-09-21)
DX: I16.0 Hypertensive urgency (principal); N18.6 End stage renal disease; I50.32 Chronic diastolic (congestive) heart failure; I13.2 Hypertensive heart and chronic kidney disease with heart failure and with stage 5 chronic kidney disease, or end stage renal disease; D64.9 Anemia, unspecified; Z99.2 Dependence on renal dialysis; Z95.1 Presence of aortocoronary bypass graft; Z91.158 Patient's noncompliance with renal dialysis for other reason; I25.10 Atherosclerotic heart disease of native coronary artery without angina pectoris; E78.5 Hyperlipidemia, unspecified; G89.29 Other chronic pain; E87.5 Hyperkalemia; Z53.29 Procedure and treatment not carried out because of patient's decision for other reasons; I25.2 Old myocardial infarction; Z79.82 Long term (current) use of aspirin; Z79.899 Other long term (current) drug therapy
CPT/HCPCS: 36415; 71045; 80053; 80061; 80307; 83036; 83735; 83880; 84443; 84484; 85025; 90935; 93005; 93306; 96374; 96375; G0378; J1642; J2405

== ENCOUNTER 2025-09-24 00:11 | Inpatient (IN) | payer OTHER ==
[~2025-09-24] VITALS: Ht 172.7 cm; Wt 75.3 kg
[2025-09-24] VITALS (13 sets, daily range): BP systolic 151–172; BP diastolic 72–114; PULSE 62–80; RESP 10–20; TEMP 97.4–98; O2SAT 95–99
--- NOTE | 2025-09-24 01:50 | ED.PDOC ---
History of Present Illness HPI Comments 64-year-old male who presents to the ED with a chief complaint of shortness of breath onset yesterday (09/23/2025). Patient was admitted to [facility] on 09/19/2025 with a diagnosis of hypertensive crisis. Patient decided to sign himself out AMA yesterday, states he was feeling stable to go home. A few hours after being home patient began experiencing shortness of breath, generalized weakness and body aches, dizziness, nausea, diarrhea. Patient gets dialysis on Tuesdays, , Saturdays. Patient states he is willing to stay along as needed. Upon ED arrival BP was 158/87, states he was prescribed another medication for hypertension, was unable to pick it up. Denies headache, fever, chills, chest pain, dysuria, hematuria. No other symptoms or modifying factors present at this time. REVIEW OF SYSTEMS: General: No fever, no chills, or fatigue HEENT: No sore throat, no earache, no congestion, no neck pain. Cardiac: No chest pain. No palpitations. Lungs: shortness of breath GI: Nausea, diarrhea. : No dysuria, frequency, or urgency. No hematuria. Musculoskeletal: body aches. Skin: No rash, no itching. Neuro: dizziness. weakness. (And as sated in HPI) PHYSICAL EXAM: General: Awake, alert and oriented. No acute distress. Skin: Skin in warm, dry and intact. Appropriate color for ethnicity. HEENT: The head is normocephalic and atraumatic. Conjunctivae are clear without exudates or hemorrhage. Sclera is non-icteric. Eyelids are normal in appearance without swelling or lesions. Oral mucosa is pink and moist Neck: The neck is supple with normal range of motion. No JVD. Cardiac: Heart rate and rhythm are normal. No murmurs, gallops, or rubs are auscultated. Respiratory: No signs of respiratory distress. Lung sounds are clear in all lobes bilaterally without rales, rhonchi, or wheezes. Abdominal: Abdomen is soft, non-tender without distention, guarding or rigidity. Bowel sounds are present and normoactive in all four quadrants. Extremities: Upper and lower extremities are atraumatic in appearance without deformity or edema. Neurological: The patient is awake, alert and oriented to person, place, and time with normal speech. Speech is clear. There is no facial asymmetry. Psychiatric: Appropriate mood and affect. Good judgement and insight. 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 09/02/25 Reported Medications Furosemide (Furosemide) 80 Mg Tab, 1 TAB PO BID for 30 Days, #60 09/02/25 Aspirin (Aspirin Adult Low Dose) 81 Mg Tab, 1 TAB PO DAILY 08/29/25 Amlodipine Besylate (Amlodipine Besylate) 10 Mg Tab, 1 TAB PO DAILY for 30 Days, #30 08/29/25 Hydralazine Hcl (Hydralazine Hcl) 100 Mg Tab, 1 TAB PO Q8HR for 30 Days, #90 08/29/25 Sodium Bicarbonate (Sodium Bicarbonate) 650 Mg Tab, 1 TAB PO TID 08/29/25 Nifedipine (Nifedipine Er) 90 Mg Tab, 1 TAB PO DAILY 08/29/25 Clonidine Hydrochloride (Clonidine Hcl) 0.1 Mg Tab, 1 TAB PO DAILY for 30 Days, #30 08/29/25 Carvedilol (Carvedilol) 25 Mg Tab, 1 TAB PO BID 08/29/25 Mode of Arrival: Ambulatory Past Medical History PAST MEDICAL HISTORY: ESRD, HTN, [place] Surgical History: CABG Family History Family History: Reviewed,noncontributory to illness Social History Smoker: Non-Smoker Alcohol: Denies ETOH Use Drugs: Denies Drug Use Lives In: Home Was a procedure done? Was a procedure done?: No EKG EKG : Pulse Rate (adult): 68 Cardiac Rhythm: NSR X-Ray, Labs, Meds, VS Vital Signs Date Time Temp Pulse Resp B/P (MAP) Pulse Ox O2 Delivery O2 Flow Rate FiO2 09/24/25 04:32 173/88 09/24/25 04:30 97.7 09/24/25 04:14 16 95 Room Air* 0 21 09/24/25 04:13 68 09/24/25 03:50 68 09/24/25 02:52 62 18 98 Nasal Cannula* 2 28 09/24/25 02:51 62 18 168/86 (113) 100 09/24/25 00:14 97.5 63 18 158/87 96 97.5 Lab Test 09/24/25 02:30 09/24/25 02:05 Range/Units Influenza Type A Antigen Negative Negative Influenza Type B Antigen Negative Negative SARS-CoV-2 Antigen (Rapid) Negative NEGATIVE White Blood Count 5.8 4.4-10.8 10^3/uL Red Blood Count 3.49 L 4.5-5.90 10^6/uL Hemoglobin 11.1 L 13.5-17.5 g/dL Hematocrit 33.3 L 41.0-53.0 % Mean Corpuscular Volume 95.2 80.0-100.0 fL Mean Corpuscular Hemoglobin 31.7 28.0-32.0 pg Mean Corpuscular Hemoglobin Concent 33.3 32.0-36.0 g/dL Red Cell Distribution Width 14.9 H 11.8-14.3 % Platelet Count 211 140-450 10^3/uL Mean Platelet Volume 8.0 6.9-10.8 fL Neutrophils (%) (Auto) 67.3 37.0-80.0 % Lymphocytes (%) (Auto) 17.5 10.0-50.0 % Monocytes (%) (Auto) 7.3 0.0-12.0 % Eosinophils (%) (Auto) 6.6 0.0-7.0 % Basophils (%) (Auto) 1.3 0.0-2.0 % Neutrophils # (Auto) 3.9 1.6-8.6 10 ^3/uL Lymphocytes # (Auto) 1.0 0.4-5.4 10 ^3/uL Monocytes # (Auto) 0.4 0-1.3 10 ^3/uL Eosinophils # (Auto) 0.4 0-0.8 10 ^3/uL Basophils # (Auto) 0.1 0-0.2 10 ^3/uL Nucleated Red Blood Cells 0.0 % Sodium Level 134 L 136-145 mmol/L Potassium Level 6.3 *H 3.5-5.1 mmol/L Chloride Level 96 L 98-107 mmol/L Carbon Dioxide Level 23 20-31 mmol/L Anion Gap 15 5-15 Blood Urea Nitrogen 54 H 9-23 mg/dL Creatinine 11.45 *H 0.700-1.30 mg/dL Glomerular Filtration Rate Calc 4 >90 mL/min BUN/Creatinine Ratio 4.7 L 10.0-20.0 Serum Glucose 101 74-106 mg/dL Calcium Level 8.2 L 8.7-10.4 mg/dL Magnesium Level 2.4 1.6-2.6 mg/dL Troponin I High Sensitivity 28 </=54 ng/L Current Medications Medications (Trade) Dose Ordered Sig/Devyn Route Start Time Stop Time Status Last Admin Insulin Human Regular (InsuLIN R) 10 units ONCE ONCE IV 09/24/25 03:45 09/24/25 03:46 DC 09/24/25 04:29 Dextrose 50 ml ONCE ONCE IV 09/24/25 03:45 09/24/25 03:46 DC 09/24/25 04:29 Albuterol (Ventolin Medneb) 20 mg ONCE ONCE NEB 09/24/25 03:45 09/24/25 03:46 DC 09/24/25 04:14 Sodium Bicarbonate 50 ml ONCE ONCE IV 09/24/25 03:45 09/24/25 03:46 DC 09/24/25 04:30 Furosemide (Lasix Injection) 20 mg ONCE ONCE IV 09/24/25 03:45 09/24/25 03:46 DC 09/24/25 04:32 Calcium Gluconate/ Sodium Chloride 50 ml @ 120 mls/hr ONCE ONCE IV 09/24/25 03:45 09/24/25 04:09 DC 09/24/25 04:30 Acetaminophen (Tylenol Tablet) 650 mg ONCE ONCE PO 09/24/25 03:45 09/24/25 03:50 DC 09/24/25 04:30 Tramadol HCl (Ultram) 25 mg ONCE ONCE PO 09/24/25 03:45 09/24/25 03:50 DC 09/24/25 04:31 Time of 1ST Reevaluation: 02:00 Reevaluation 1ST: Unchanged Patient Education/Counseling: Need For Follow Up Family Education/Counseling: No Family Present SEPSIS Sepsis Screen Date sepsis recognized/suspect: Sep 24, 2025 Time Sepsis recognized/suspect: 0017 Recent Procedure: No On Antibiotic Therapy: No Respiratory Rate >20: No Heart Rate >90: No Temp<36 C (96.8 F) or >38.3 C: No SBP <90 or MAP <65 mmHG: No New Acute Mental Status Change: No Is the patient on CPAP, BIPAP,: No Physician Orders Chest Xray 1 View (09/24/25 03:45) Vital Signs Date Time Temp Pulse Resp B/P (MAP) Pulse Ox O2 Delivery O2 Flow Rate FiO2 09/24/25 04:32 173/88 09/24/25 04:30 97.7 09/24/25 04:14 16 95 Room Air* 0 21 09/24/25 04:13 68 09/24/25 03:50 68 09/24/25 02:52 62 18 98 Nasal Cannula* 2 28 09/24/25 02:51 62 18 168/86 (113) 100 09/24/25 00:14 97.5 63 18 158/87 96 97.5 Laboratory Tests Test 09/24/25 02:05 White Blood Count 5.8 10^3/uL (4.4-10.8) Medications Medications Dose Ordered Sig/Devyn Route Start Time Stop Time Status Last Admin Dose Admin Acetaminophen 650 mg ONCE ONCE PO 09/24/25 03:45 09/24/25 03:50 DC 09/24/25 04:30 Albuterol 20 mg ONCE ONCE NEB 09/24/25 03:45 09/24/25 03:46 DC 09/24/25 04:14 Calcium Gluconate/ Sodium Chloride 50 ml @ 120 mls/hr ONCE ONCE IV 09/24/25 03:45 09/24/25 04:09 DC 09/24/25 04:30 Dextrose 50 ml ONCE ONCE IV 09/24/25 03:45 09/24/25 03:46 DC 09/24/25 04:29 Furosemide 20 mg ONCE ONCE IV 09/24/25 03:45 09/24/25 03:46 DC 09/24/25 04:32 Insulin Human Regular 10 units ONCE ONCE IV 09/24/25 03:45 09/24/25 03:46 DC 09/24/25 04:29 Sodium Bicarbonate 50 ml ONCE ONCE IV 09/24/25 03:45 09/24/25 03:46 DC 09/24/25 04:30 Tramadol HCl 25 mg ONCE ONCE PO 09/24/25 03:45 09/24/25 03:50 DC 09/24/25 04:31 Departure 1 Departure Time of Disposition: 03:46 Impression: Primary Impression: End stage renal disease on dialysis Additional Impressions: Hyperkalemia Shortness of breath Disposition: ADMITTED INPATIENT Condition: Stable Critical Care Note Critical Care Time?: No Stability Stability form required: No Heart Score Heart Score: Heart Score Response (Comments) Value History N/A 0 EKG N/A 0 Age N/A 0 Risk Factors N/A 0 Troponin N/A 0 Total 0 I personally scribed for SCOTTIE MARCOS MD ([email or web address]) on 09/24/25 at 01:50. Electronically submitted by Hilda Long ([email or web address]). I personally scribed for SCOTTIE MARCOS MD ([email or web address]) on 09/24/25 at 04:13. Electronically submitted by Hilda Long ([email or web address]). SCOTTIE MARCOS MD Sep 24, 2025 01:50
[2025-09-24 02:19] LABS: Hematocrit 33.3 % (41.0-53.0); Hemoglobin 11.1 g/dL (13.5-17.5); Mean Corpuscular Hemoglobin 31.7 pg (28.0-32.0); Mean Corpuscular Volume 95.2 fL (80.0-100.0); Nucleated Red Blood Cells % 0.0 %
[2025-09-24 02:33] LABS: Anion Gap 15 (5-15); Carbon Dioxide 23 mmol/L (20-31)
[2025-09-24 02:38] LABS: Glucose 101 mg/dL (74-106)
[2025-09-24 02:39] LABS: BUN/Creatinine Ratio 4.7 (10.0-20.0); Magnesium 2.4 mg/dL (1.6-2.6)
[2025-09-24 02:42] LABS: Blood Urea Nitrogen 54 mg/dL (9-23); Calcium 8.2 mg/dL (8.7-10.4); Chloride 96 mmol/L (98-107); Sodium 134 mmol/L (136-145)
[2025-09-24 02:43] LABS: Potassium 6.3 mmol/L (3.5-5.1)
--- NOTE | 2025-09-24 03:53 | ECG ---
[facility] Test Date: 2025-09-24 Test Time: 03:50:43 Pat Name: SHANNAN BENITEZ Department: [facility] ED Patient ID: [facility]-[id number] Room: 0278T Gender: M Enamel Buffer: ANGELA : 1960 Requested By: SCOTTIE MARCOS Order Number: [id number] Reading MD: Ortiz Woo Measurements Intervals [place] Rate: 68 P: 53 ME: 178 QRS: 25 QRSD: 86 T: 61 QT: 436 QTc: 464 Interpretive Statements Sinus rhythm Probable left atrial enlargement RSR' in V1 or V2, probably normal variant Electronically Signed On 09-29-2025 13:26:08 PST by Ortiz Woo Please click the below link to view image of tracing.
[2025-09-24 04:13] LABS: COVID19 ANTIGEN SOFIA FIA NEGATIVE (NEGATIVE)
[2025-09-24] MEDS: ALBUTEROL SULF 2.5 MG/0.5ML(0.5%) NEB SOLN NEB ONE (04:14)
[2025-09-24] MEDS: InsuLIN REG 1unit/0.01ml Soln (100units/ml) IV ONE (04:29)
[2025-09-24] MEDS: DEXTROSE (50%) 50ML SYRG IV ONE ×2 (04:29→04:41)
[2025-09-24] MEDS: ACETAMINOPHEN 325 MG TAB PO ONE (04:30)
[2025-09-24] MEDS: SODIUM BICARB 8.4% 50Meq/50ml SYR INJ IV ONE (04:30)
[2025-09-24] MEDS: CALCIUM GLUC 1,000mg/50ml-NS 50 ML IV ONE (04:30)
[2025-09-24] MEDS: FUROSEMIDE 20 MG/2 ML VIAL IV ONE (04:32)
--- NOTE | 2025-09-24 05:25 | DVHHPRES ---
History of Present Illness Resident Creating Document: SARA BEAN History of Present Illness Patient is a 64-year-old male with past medical history of ESRD on dialysis, HTN, [place], presented to [facility] ED with complaint of chest pain and shortness of breath. Patient reports substernal chest pain radiating to both arms and legs, for approximately 1 week and is associated with nausea, vomiting, and diarrhea. Patient was admitted to [facility] on 09/19/2025 with a diagnosis of hypertensive crisis. Patient decided to sign himself out AMA yesterday, states he was feeling stable to go home. Patient gets dialysis on Tuesdays, , Saturdays with Dr. Nuñez. Last dialysis was on Sunday of this week. On evaluation in the ED, patient is afebrile, blood pressure is 173/88 mmHg. Initial labs show significant potassium 6.3 and creatinine 11.45. Chest x-ray shows moderate diffuse increased prominence of the pulmonary vasculature with mild bibasilar pulmonary airspace disease. The patient was started on blood pressure medication and IV fluids. Patient is admitted for further evaluation and management. Past Medical History ESRD, HTN, [place] Past Surgical History CABG Family History: None Smoke: No ALCOHOL: none Drugs: None Lives: with Family Review of Systems Review of Systems Constitutional: Generalized weakness Eyes: No Pain, No Vision change, No Conjunctivae inflammation, No Eyelid inflammation, No Other, No Redness ENT: No Ear pain, No Ear discharge, No Nose pain, No Nose discharge, No Nose co ngestion, No Mouth pain, No Mouth swelling, No Throat pain, No Throat swelling, No Other Cardiovascular: Chest Pain, No Palpitations, No Orthopnea, No Paroxysmal No Dyspnea, No Edema, No Lt Headedness, No Other Respiratory: Dry cough, No Dry, Shortness of breath, No SOB with exertion, No Wheezing, No Hemoptysis, No Pleuritic Pain, No Sputum, No Other Gastrointestinal: Nausea, Vomiting, No Abdominal Pain, Diarrhea, No Constipation, No Melena, No Hematochezia, No Other Genitourinary: No Dysuria, No Frequency, No Incontinence, No Hematuria, No Retention, No Other Musculoskeletal: No other, No neck pain, No shoulder pain, No arm pain, No back pain, No hand pain, No leg pain, No foot pain Skin: No Rash, No Lesions, No Jaundice, No Bruising, No Other Allergies: Coded Allergies: No Known Drug Allergy (Verified Allergy, Unknown, 08/28/25) Exam Vital Signs Vital Signs Date Time Temp Pulse Resp B/P (MAP) Pulse Ox O2 Delivery O2 Flow Rate FiO2 09/24/25 04:32 173/88 09/24/25 04:30 97.7 09/24/25 04:14 16 95 Room Air* 0 21 09/24/25 04:13 68 Exam General Appearance: Mild distress. Well developed. Well nourished. NAD Head Exam: Normal inspection Neck Exam: Normal inspection. Non-tender. Normal alignment Pulmonary/Respiratory: Chest non-tender. Clear bilateral breath sounds, no crackles, no wheezing. Cardiovascular/Chest: Regular rate and rhythm. No murmurs. No JVD. Peripheral Pulses: 2+ Radial (R). 2+ Radial (L). 2+ Pedal (R). 2+ Pedal (L) Abdominal Exam: Normal bowel sounds. Soft. normal abdomen, no visible veins, Nontender. No hepatospenomegaly. No masses Ankle Exam: Negative ankle edema Lower extremities: Bilateral +1 pitting edema. Neuro/Mental Status: A&O x4. Coherent. Thoughts/Psych: Normal thought pattern. Appropriate mood and affect. Good judgement and insight Skin Exam: Normal inspection. Normal color. Warm. Dry Labs/Xrays Labs Test 09/24/25 02:30 09/24/25 02:05 Range/Units Influenza Type A Antigen Negative Negative Influenza Type B Antigen Negative Negative SARS-CoV-2 Antigen (Rapid) Negative NEGATIVE White Blood Count 5.8 4.4-10.8 10^3/uL Red Blood Count 3.49 L 4.5-5.90 10^6/uL Hemoglobin 11.1 L 13.5-17.5 g/dL Hematocrit 33.3 L 41.0-53.0 % Mean Corpuscular Volume 95.2 80.0-100.0 fL Mean Corpuscular Hemoglobin 31.7 28.0-32.0 pg Mean Corpuscular Hemoglobin Concent 33.3 32.0-36.0 g/dL Red Cell Distribution Width 14.9 H 11.8-14.3 % Platelet Count 211 140-450 10^3/uL Mean Platelet Volume 8.0 6.9-10.8 fL Neutrophils (%) (Auto) 67.3 37.0-80.0 % Lymphocytes (%) (Auto) 17.5 10.0-50.0 % Monocytes (%) (Auto) 7.3 0.0-12.0 % Eosinophils (%) (Auto) 6.6 0.0-7.0 % Basophils (%) (Auto) 1.3 0.0-2.0 % Neutrophils # (Auto) 3.9 1.6-8.6 10 ^3/uL Lymphocytes # (Auto) 1.0 0.4-5.4 10 ^3/uL Monocytes # (Auto) 0.4 0-1.3 10 ^3/uL Eosinophils # (Auto) 0.4 0-0.8 10 ^3/uL Basophils # (Auto) 0.1 0-0.2 10 ^3/uL Nucleated Red Blood Cells 0.0 % Sodium Level 134 L 136-145 mmol/L Potassium Level 6.3 *H 3.5-5.1 mmol/L Chloride Level 96 L 98-107 mmol/L Carbon Dioxide Level 23 20-31 mmol/L Anion Gap 15 5-15 Blood Urea Nitrogen 54 H 9-23 mg/dL Creatinine 11.45 *H 0.700-1.30 mg/dL Glomerular Filtration Rate Calc 4 >90 mL/min BUN/Creatinine Ratio 4.7 L 10.0-20.0 Serum Glucose 101 74-106 mg/dL Calcium Level 8.2 L 8.7-10.4 mg/dL Magnesium Level 2.4 1.6-2.6 mg/dL Troponin I High Sensitivity 28 </=54 ng/L SEPSIS Sepsis Screen Date sepsis recognized/suspect: Sep 24, 2025 Time Sepsis recognized/suspect: 0017 Recent Procedure: No On Antibiotic Therapy: No Respiratory Rate >20: No Heart Rate >90: No Temp<36 C (96.8 F) or >38.3 C: No SBP <90 or MAP <65 mmHG: No New Acute Mental Status Change: No Is the patient on CPAP, BIPAP,: No Physician Orders Chest Xray 1 View (09/24/25 03:45) Vital Signs Date Time Temp Pulse Resp B/P (MAP) Pulse Ox O2 Delivery O2 Flow Rate FiO2 09/24/25 04:32 173/88 09/24/25 04:30 97.7 10/30/25 04:14 16 95 Room Air* 0 21 09/24/25 04:13 68 09/24/25 04:00 70 09/24/25 03:50 68 09/24/25 02:52 62 18 98 Nasal Cannula* 2 28 09/24/25 02:51 62 18 168/86 (113) 100 09/24/25 00:14 97.5 63 18 158/87 96 97.5 Laboratory Tests Test 09/24/25 02:05 White Blood Count 5.8 10^3/uL (4.4-10.8) Medications Medications Dose Ordered Sig/Devyn Route Start Time Stop Time Status Last Admin Dose Admin Acetaminophen 650 mg ONCE ONCE PO 09/24/25 03:45 09/24/25 03:50 DC 09/24/25 04:30 650 MG Albuterol 20 mg ONCE ONCE NEB 09/24/25 03:45 09/24/25 03:46 DC 09/24/25 04:14 20 MG Calcium Gluconate/ Sodium Chloride 50 ml @ 120 mls/hr ONCE ONCE IV 09/24/25 03:45 09/24/25 04:09 DC 09/24/25 04:30 120 MLS/HR Dextrose 50 ml ONCE ONCE IV 09/24/25 03:45 09/24/25 03:46 DC 09/24/25 04:29 50 ML Dextrose 50 ml ONCE ONCE IV 09/24/25 04:45 09/24/25 04:46 DC 09/24/25 04:41 50 ML Furosemide 20 mg ONCE ONCE IV 09/24/25 03:45 09/24/25 03:46 DC 09/24/25 04:32 20 MG Insulin Human Regular 10 units ONCE ONCE IV 09/24/25 03:45 09/24/25 03:46 DC 09/24/25 04:29 10 UNITS Sodium Bicarbonate 50 ml ONCE ONCE IV 09/24/25 03:45 09/24/25 03:46 DC 09/24/25 04:30 50 ML Tramadol HCl 25 mg ONCE ONCE PO 09/24/25 03:45 09/24/25 03:50 DC 09/24/25 04:31 25 MG Assessment/Plan Assessment/Plan Acute on chronic diastolic CHF ESRD on Hemodialysis (Sunday, , Sunday. Dr. Savannah Reyna) Hyperkalemia due to above Potassium 6.3 Hyperkalemia protocol given Creatinine 11.45 IV NS Nephro consult Furosemide 60 MG IV bid Chest X-ray: Moderate diffuse increased prominence of the pulmonary vasculature with mild bibasilar pulmonary airspace disease. Albuterol 2.5 MG NEB q6h prn Ipratropium 0.5 MG NEB q6h Nephrology consult Uncontrolled hypertension Nifedipine 90 MG PO daily Acute intractable nausea, vomiting, diarrhea possibly due to gastroenteritis Zofran 4 MG IV q4h Stool WBC Stool culture C diff Diet: Renal Goals of care: Full code, discussed for >30 minutes on 09/24/25 Plan discussed with patient Plan discussed with Dr. Rios Plan discussed with: Patient Date of Service: Sep 24, 2025 Billing Provider: LAVON RIOS MD Common Visit Codes: [id number] INP/OBS CARE (HIGH) Secondary Visit Codes: [id number] CARE PLAN 30 MINUTES SARA BEAN RESIDENT Sep 24, 2025 05:25 LUPILLO JEFFERSON RESIDENT Sep 24, 2025 07:42
[2025-09-24] MEDS ORDERED: IPRATROPIUM BROM 0.5 MG/2.5ML INH SOL NEB PRN (05:30)
[2025-09-24] MEDS ORDERED: ONDANSETRON HCL 4 MG/2 ML VIAL IV PRN (05:30)
[2025-09-24] MEDS ORDERED: NITROGLYCERIN 0.4 MG SL TAB SL PRN (05:30)
[2025-09-24] MEDS ORDERED: ALBUTEROL SULF 2.5 MG/0.5ML(0.5%) NEB SOLN NEB PRN (05:30)
--- NOTE | 2025-09-24 05:36 | DVH ---
CHEST RADIOGRAPH Indication: Shortness of breath Technique: Single frontal view of the chest was obtained COMPARISON: XY CHEST PORTABLE on DOS: 09/19/25, XY CHEST PORTABLE on DOS: 09/01/25, XY CHEST XRAY 1 EW on DOS: 08/28/25 FINDINGS: Lines and Tubes: Right PermCath in stable position. Lungs: Mild diffuse increased prominence of the pulmonary vasculature, diminished when compared to th e prior exam. No evidence of focal consolidation. Pleura: No effusion. No pneumothorax. Cardiomediastinal contours: Cardiomegaly status post median sternotomy. Bones: Unremarkable IMPRESSION: 1. Cardiomegaly with mild pulmonary vascular congestion, diminished when compared to the prior exam.
[2025-09-24] MEDS: FUROSEMIDE 100 MG/10ML VIAL IV ONE (06:05)
[2025-09-24 07:12] LABS: Alanine Aminotransferase 12 U/L (7-40); Alkaline Phosphatase 61 U/L (46-116); Anion Gap 18 (5-15); BUN/Creatinine Ratio 6.1 (10.0-20.0); Carbon Dioxide 25 mmol/L (20-31); Potassium 4.4 mmol/L (3.5-5.1); Sodium 139 mmol/L (136-145); Total Protein 6.5 g/dL (5.7-8.2)
[2025-09-24 07:13] LABS: Albumin 4.4 g/dL (3.2-4.8)
[2025-09-24 07:20] LABS: Blood Urea Nitrogen 69 mg/dL (9-23); Calcium 8.1 mg/dL (8.7-10.4); Chloride 96 mmol/L (98-107); Glucose 115 mg/dL (74-106)
[2025-09-24 07:21] LABS: Bilirubin, Total 0.2 mg/dL (0.2-1.0)
[2025-09-24] MEDS ORDERED: SODIUM CHL 0.9% 1000 ML BAG XX ONE (13:30)
[2025-09-24] MEDS: FUROSEMIDE 40 MG/4 ML VIAL IV SCH (17:45)
[2025-09-24] MEDS: MINOXIDIL 2.5 MG TAB PO SCH (22:41)
[2025-09-25] VITALS (12 sets, daily range): BP systolic 56–186; BP diastolic 71–102; PULSE 18–79; RESP 18; TEMP 36.7; O2SAT 95–100
[2025-09-25 09:20] LABS: Hematocrit 33.7 % (41.0-53.0); Hemoglobin 11.2 g/dL (13.5-17.5); Mean Corpuscular Hemoglobin 31.3 pg (28.0-32.0); Mean Corpuscular Volume 94.1 fL (80.0-100.0); Nucleated Red Blood Cells % 0.1 %
[2025-09-25 09:38] LABS: Alanine Aminotransferase 10 U/L (7-40); Albumin 4.5 g/dL (3.2-4.8); Alkaline Phosphatase 64 U/L (46-116); Anion Gap 13 (5-15); BUN/Creatinine Ratio 3.2 (10.0-20.0); Carbon Dioxide 26 mmol/L (20-31); Chloride 100 mmol/L (98-107); Sodium 139 mmol/L (136-145); Total Protein 7.1 g/dL (5.7-8.2)
[2025-09-25 09:43] LABS: Bilirubin, Total 0.3 mg/dL (0.2-1.0); Blood Urea Nitrogen 29 mg/dL (9-23); Calcium 8.4 mg/dL (8.7-10.4); Glucose 127 mg/dL (74-106); Potassium 5.1 mmol/L (3.5-5.1)
--- NOTE | 2025-09-25 11:14 | DVHPN2 ---
Progress Note - Dictate Date Seen: Sep 24, 2025 Has the PT tested + for MRSA If YES, has PT been informed?: No Medical Necessity Reason Pt with a Central, PICC or Fol: No Subjective Left AMA yesterday and came back today vital signs Vital Sign Date Time Temp Pulse Resp B/P (MAP) Pulse Ox O2 Delivery O2 Flow Rate FiO2 09/24/25 10:31 172/114 (133) 09/24/25 10:24 97.5 67 16 95 97.5 09/24/25 08:15 0.0 21 09/24/25 08:05 Room Air* medications Current Medications Medications Dose Ordered Sig/Devyn Route Start Time Stop Time Status Last Admin Dose Admin Ondansetron HCl 4 mg Q4HP PRN IV 09/24/25 05:30 Nitroglycerin 0.4 mg Q5MINP PRN SL 09/24/25 05:30 Albuterol 2.5 mg Q6HPRN PRN NEB 09/24/25 05:30 Ipratropium [place] 0.5 mg Q6HPRN PRN NEB 09/24/25 05:30 Nifedipine 90 mg DAILY PO 09/25/25 10:00 Furosemide 40 mg BIDD IV 09/24/25 18:00 Minoxidil 5 mg Q12HR PO 09/24/25 22:00 UNV objective Alert and oriented x 3 NAD Lungs Mild basilar rales CV: S4 gallop, II/ GIANLUCA Abdomen: soft, NT No leg edema laboratory and microbiology Laboratory Tests 09/24/25 06:35 09/24/25 02:05 Test 09/24/25 06:35 Range/Units Serum Glucose 115 H 74-106 mg/dL Problem List 1. ESRD 2. Uncontrolled HTN 3. DM2 4. Anemia of CKD Add Minoxidil 5 mg BID HD today Plan discussed with: Patient POOL YEAGER MD Sep 24, 2025 13:27
[2025-09-25] MEDS: SODIUM ZIRCONIUM CYCL 10 GM PAK PO ONE (11:52)
--- NOTE | 2025-09-25 13:33 | DVHPN2 ---
Progress Note - Dictate Date Seen: Sep 25, 2025 Has the PT tested + for MRSA If YES, has PT been informed?: No Medical Necessity Reason Pt with a Central, PICC or Fol: No Subjective No new complaints vital signs Vital Sign Date Time Temp Pulse Resp B/P (MAP) Pulse Ox O2 Delivery O2 Flow Rate FiO2 09/25/25 13:17 186/97 09/25/25 10:00 95 Room Air 0.0 09/25/25 10:00 21 09/25/25 09:00 98.1 74 18 98.1 Total Intake and Output 09/24/25 09/24/25 09/25/25 15:00 23:00 07:00 Intake Total 240 ml 400 ml Balance 240 ml 400 ml medications Current Medications Medications Dose Ordered Sig/Devyn Route Start Time Stop Time Status Last Admin Dose Admin Ondansetron HCl 4 mg Q4HP PRN IV 09/24/25 05:30 Nitroglycerin 0.4 mg Q5MINP PRN SL 09/24/25 05:30 Albuterol 2.5 mg Q6HPRN PRN NEB 09/24/25 05:30 Ipratropium [place] 0.5 mg Q6HPRN PRN NEB 09/24/25 05:30 Furosemide 40 mg BIDD IV 09/24/25 18:00 09/25/25 05:39 40 MG Minoxidil 5 mg Q12HR PO 09/24/25 22:00 09/25/25 09:02 5 MG Carvedilol 25 mg BID PO 09/25/25 22:00 Hydralazine HCl 100 mg Q8HR PO 09/25/25 14:00 09/25/25 13:17 100 MG Nifedipine 90 mg DAILY PO 09/26/25 10:00 objective Alert and oriented x 3 NAD Lungs Mild basilar rales CV: S4 gallop, II/ GIANLUCA Abdomen: soft, NT No leg edema laboratory and microbiology Laboratory Tests 09/25/25 09:04 Test 09/25/25 09:04 Range/Units Serum Glucose 127 H 74-106 mg/dL Problem List 1. ESRD, had HD yesterday 2. HTN, better controlled 3. DM2 4. Anemia of CKD started Minoxidil 5 mg BID Add Losartan 100 mg QD HD tomorrow Plan discussed with: POOL Hill MD Sep 25, 2025 13:33
[2025-09-25] MEDS: hydrALAZINE HCL 20 MG/ML VL IV ONE (18:00)
[2025-09-25] MEDS: LOSARTAN POTASSIUM 50 MG TAB PO ONE (18:00)
[2025-09-25] MEDS ORDERED: CARVEDILOL 12.5 MG TAB PO SCH (22:00)
[2025-09-25] MEDS ORDERED: SODI10PA PO (22:08)
[2025-09-25] MEDS ORDERED: LOSA-535 PO (22:12)
[2025-09-25] MEDS ORDERED: MINO2.5T2 PO (22:13)
--- NOTE | 2025-09-25 22:17 | DVHDS2 ---
Discharge Summary Date of Admission Sep 24, 2025 at 05:25 Date of Discharge: Sep 25, 2025 Labs/Diagnostic Data: Laboratory Results Test 09/25/25 09:04 09/24/25 21:00 09/24/25 06:35 09/24/25 06:12 White Blood Count 5.5 10^3/uL (4.4-10.8) Red Blood Count 3.58 10^6/uL (4.5-5.90) Hemoglobin 11.2 g/dL (13.5-17.5) Hematocrit 33.7 % (41.0-53.0) Mean Corpuscular Volume 94.1 fL (80.0-100.0) Mean Corpuscular Hemoglobin 31.3 pg (28.0-32.0) Mean Corpuscular Hemoglobin Concent 33.2 g/dL (32.0-36.0) Red Cell Distribution Width 14.7 % (11.8-14.3) Platelet Count 217 10^3/uL (140-450) Mean Platelet Volume 7.9 fL (6.9-10.8) Neutrophils (%) (Auto) 61.5 % (37.0-80.0) Lymphocytes (%) (Auto) 21.5 % (10.0-50.0) Monocytes (%) (Auto) 9.0 % (0.0-12.0) Eosinophils (%) (Auto) 6.6 % (0.0-7.0) Basophils (%) (Auto) 1.4 % (0.0-2.0) Neutrophils # (Auto) 3.4 10 ^3/uL (1.6-8.6) Lymphocytes # (Auto) 1.2 10 ^3/uL (0.4-5.4) Monocytes # (Auto) 0.5 10 ^3/uL (0-1.3) Eosinophils # (Auto) 0.4 10 ^3/uL (0-0.8) Basophils # (Auto) 0.1 10 ^3/uL (0-0.2) Nucleated Red Blood Cells 0.1 % Sodium Level 139 mmol/L (136-145) Potassium Level 5.1 mmol/L (3.5-5.1) Chloride Level 100 mmol/L (98-107) Carbon Dioxide Level 26 mmol/L (20-31) Anion Gap 13 (5-15) Blood Urea Nitrogen 29 mg/dL (9-23) Creatinine 9.20 mg/dL (0.700-1.30) Glomerular Filtration Rate Calc 6 mL/min (>90) BUN/Creatinine Ratio 3.2 (10.0-20.0) Serum Glucose 127 mg/dL (74-106) Calcium Level 8.4 mg/dL (8.7-10.4) Total Bilirubin 0.3 mg/dL (0.2-1.0) Aspartate Amino Transferase (AST) 11 U/L (13-40) Alanine Aminotransferase (ALT) 10 U/L (7-40) Alkaline Phosphatase 64 U/L (46-116) Total Protein 7.1 g/dL (5.7-8.2) Albumin 4.5 g/dL (3.2-4.8) Stool for White Cells None seen Lactic Acid Level 1.4 mmol/L (0.4-2.0) Troponin I High Sensitivity 23 ng/L (</=54) B-Type Natriuretic Peptide 1171.36 pg/mL (0-100) POC Glucose 128 mg/dl (70-106) Test 09/24/25 02:30 09/24/25 02:05 Influenza Type A Antigen Negative (Negative) Influenza Type B Antigen Negative (Negative) SARS-CoV-2 Antigen (Rapid) Negative (NEGATIVE) Magnesium Level 2.4 mg/dL (1.6-2.6) Other Laboratory Tests 09/25/25 09:04 Brief Hx & Hospital Course: Is a 64-year-old male with PMH of ESRD on HD who presented with complaints of chest pain and shortness of breath. Patient has had multiple admissions for similar complaints. Patient was recently seen few days prior for hypertensive crisis but signed out AMA. Patient receives dialysis on Tuesdays and Saturdays with Dr. Rosas. BP on arrival was 173/88 with potassium of 6.3. Patient was admitted and his hypertension was managed. Nephrology was consulted and patient underwent dialysis. Nephrology recommended that patient continues antihypertensives and with the addition of losartan 100 mg p.o. daily and minoxidil 5 mg p.o. twice daily. Patient's blood pressure is 126/86 on discharge. Patient did not have any chest pain prior to discharge. He was discharged in stable condition. [facility] case management arrange follow-up appointments. Condition at Discharge: Good Final Diagnosis/Problems List Hyperkalemia Secondary Diagnosis: ESRD on HD Hypertensive Crisis Discharge Disposition: Home Discharge Instruct/Medications Diet: Renal Activity: No Restrictions, As Tolerated Scheduled Amlodipine Besylate (Amlodipine Besylate), 1 TAB PO DAILY, (Reported) Aspirin (Aspirin Adult Low Dose), 1 TAB PO DAILY, (Reported) Carvedilol (Carvedilol), 1 TAB PO BID, (Reported) Clonidine Hydrochloride (Clonidine Hcl), 1 TAB PO DAILY, (Reported) Furosemide (Furosemide), 1 TAB PO BID, (Reported) Hydralazine Hcl (Hydralazine Hcl), 1 TAB PO Q8HR, (Reported) Losartan Potassium (Losartan Potassium), 100 MG PO DAILY Minoxidil (Minoxidil), 5 MG PO BID Nifedipine (Nifedipine Er), 1 TAB PO DAILY, (Reported) Sodium Bicarbonate (Sodium Bicarbonate), 1 TAB PO TID, (Reported) Sodium Zirconium Cyclosilicate (Lokelma), 10 GM PO DAILY Discontinued Medications Sodium Zirconium Cyclosilicate (Lokelma), 10 GM PO DAILY Discharge Statement: "Patient was advised to return to the ER or call 911 if any headaches, dizziness, shortness of breath, chest pain, abdominal pain, bleeding, fevers, or worsening of medical condition. Patient was counseled about treatment plan, medications, possible side effects, patientverbalized understanding. All questions were answered to the best of my ability. This discharge took greater then 30 minutes in planning, reviewing documentation, counseling the patient, and discussing with other team members." ASSESSMENT ASSESSMENT Assessment Hyperkalemia JOSE PAUL DO Sep 25, 2025 22:17
[2025-09-26] MEDS ORDERED: SODIUM CHL 0.9% 1000 ML BAG XX ONE (07:00)
[2025-09-26] MEDS ORDERED: LOSARTAN POTASSIUM 50 MG TAB PO SCH (10:00)
== END 2025-09-25 20:08 | disposition home or self-care (01) | DRG 640 ==
LOC: ER 00:11 → OVERFLOW 05:25 → TELE-WESTW 09:01
PROVIDERS: ADMIT Student in an Organized Health Care Education/Training Program; ATTEND Student in an Organized Health Care Education/Training Program
PROC: 5A1D70Z Performance of Urinary Filtration, Intermittent, Less than 6 Hours Per Day (ICD-10-PCS; principal; 2025-09-24)
DX: E87.5 Hyperkalemia (principal); I50.33 Acute on chronic diastolic (congestive) heart failure; N18.6 End stage renal disease; I13.2 Hypertensive heart and chronic kidney disease with heart failure and with stage 5 chronic kidney disease, or end stage renal disease; I16.9 Hypertensive crisis, unspecified; D63.1 Anemia in chronic kidney disease; E11.22 Type 2 diabetes mellitus with diabetic chronic kidney disease; Z99.2 Dependence on renal dialysis; Z79.82 Long term (current) use of aspirin; Z95.1 Presence of aortocoronary bypass graft; Z79.899 Other long term (current) drug therapy; K52.9 Noninfective gastroenteritis and colitis, unspecified
CPT/HCPCS: 36415; 71045; 80048; 80053; 82962; 83605; 83735; 83880; 84484; 85025; 85048; 87045; 87426; 87427; 87804; 90935; 93005; 94640; G0378; J1642; J1815

== ENCOUNTER 2025-09-27 13:55 | Emergency (ER) | payer OTHER ==
[~2025-09-27] VITALS: Ht 170.2 cm; Wt 70.6 kg
[~2025-09-27 13:55] MED LIST changes: +LOSA-535 PO; +MINO2.5T2 PO
[2025-09-27 13:57] VITALS: TEMP 97.8
--- NOTE | 2025-09-27 14:09 | ECG ---
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
--- NOTE | 2025-09-27 14:16 | ED.PDOC ---
History of Present Illness HPI Comments This is 64 year old male presenting to the ED with chief complaint of dizziness. Patient reports that he has been experiencing dizziness with associated weakness, numbness of the hands, nausea, vomiting, cough, SOB, and bilateral leg swelling for the past 2 days. Patient relays that he was recently discharged last week due to hypertensive crisis and hyperkalemia. Patient states he underwent a quadruple bypass 4 months ago at [place]. Patient denies any chest pain, headache, syncope, diarrhea, or abdominal pain. Chief Complaint: Dizziness Time Seen by MD: 14:12 Reviewed Notes: Nurses Notes, Medications, Allergies Allergies: Coded Allergies: No Known Drug Allergy (Verified Allergy, Unknown, 08/28/25) Home Meds Active Scripts Minoxidil (Minoxidil) 2.5 Mg Tab, 5 MG PO BID for 30 Days, #120 TAB 1 Refill Prov:CLARENCERolyJOSE JACOBO DO 09/25/25 Losartan Potassium (Losartan Potassium) 100 Mg Tab, 100 MG PO DAILY, #30 TAB 1 Refill Prov:JOSE PAUL DO 09/25/25 Sodium Zirconium Cyclosilicate (Lokelma) 10 Gm [place]ong, 10 GM PO DAILY for 30 Days, #30 PACK 2 Refills Prov:CHIKAJUSTIN JACOBOI Chadwick DO 09/25/25 Reported Medications Furosemide (Furosemide) 80 Mg Tab, 1 TAB PO BID for 30 Days, #60 09/02/25 Aspirin (Aspirin Adult Low Dose) 81 Mg Tab, 1 TAB PO DAILY 08/29/25 Amlodipine Besylate (Amlodipine Besylate) 10 Mg Tab, 1 TAB PO DAILY for 30 Days, #30 08/29/25 Hydralazine Hcl (Hydralazine Hcl) 100 Mg Tab, 1 TAB PO Q8HR for 30 Days, #90 08/29/25 Sodium Bicarbonate (Sodium Bicarbonate) 650 Mg Tab, 1 TAB PO TID 08/29/25 Nifedipine (Nifedipine Er) 90 Mg Tab, 1 TAB PO DAILY 08/29/25 Clonidine Hydrochloride (Clonidine Hcl) 0.1 Mg Tab, 1 TAB PO DAILY for 30 Days, #30 08/29/25 Carvedilol (Carvedilol) 25 Mg Tab, 1 TAB PO BID 08/29/25 Discontinued Scripts Sodium Zirconium Cyclosilicate (Lokelma) 10 Gm Phong, 10 GM PO DAILY for 30 Days, #30 PACK 1 Refill Prov:KIKE CARDENAS DARIELA 09/02/25 Information Source: Patient Mode of Arrival: Ambulatory Severity: Moderate Timing: Days Duration: Since onset Prehospital treatment: None Past Medical History PAST MEDICAL HISTORY: CHF, ESRD, HTN, [place] Surgical History: CABG Family History Family History: Reviewed,noncontributory to illness, Family hx of DM, Family hx of Cancer, Family hx of heart gian, Family hx of HTN Social History Smoker: Non-Smoker Alcohol: Denies ETOH Use Drugs: Denies Drug Use Lives In: Home Constitutional: reports: weakness; denies: chills, diaphoresis, fatigue, fever, malaise, sweats, others EENTM: denies: blurred vision, double vision, ear bleeding, ear discharge, ear drainage, ear pain, ear ringing, eye pain, eye redness, hearing loss, mouth pain, mouth swelling, nasal discharge, nose bleeding, nose congestion, nose pain, photophobia, tearing, throat pain, throat swelling, voice changes, others Respiratory: reports: cough, shortness of breath; denies: hemoptysis, orth opnea, SOB at rest, SOB with excertion, stridor, wheezing, others Cardiovascular: reports: edema; denies: chest pain, dizzy spells, diaphoresis, Dyspnea on exertion, irregular heart beat, left arm pain, lightheadedness, palpitations, PND, syncope, others Gastrointestinal: reports: nausea, vomiting; denies: abdomen distended, abdominal pain, blood streaked bowels, constipated, diarrhea, dysphagia, diffi culty swallowing, hematemesis, melena, poor appetite, poor fluid intake, rectal bleeding, rectal pain, others Genitourinary: denies: burning, dysuria, flank pain, frequency, hematuria, incontinence, penile discharge, penile sore, pain, testicle pain, testicle swelling, urgency, others Neurological: reports: dizziness, numbness; denies: fainting, headache, left sided numbness, left sided weakness, paresthesia, pre-existing deficit, right sided numbness, right sided weakness, seizure, speech problems, tingling, tremors, weakness, others Musculoskeletal: denies: back pain, gout, joint pain, joint swelling, muscle pain, muscle stiffness, neck pain, others Integumetry: denies: bruises, change in color, change in hair/nails, dryness, laceration, lesions, lumps, rash, wounds, others Allergic/Immunocompromised: denies: Difficulty Healing, Frequent Infections, Hives, Itching, others Hematologic/Lymphatic: denies: anemia, blood clots, easy bleeding, easy bruising, swollen glands, others Endocrine: denies: excessive hunger, excessive sweating, excessive thirst, excessive urination, flushing, intolerance to cold, intolerance to heat, unexplained weight gain, unexplained weight loss, others Psychiatric: denies: anxiety, bipolar disorder, depression, hopeless, panic disorder, schizophrenia, sleepless, suicidal, others All Other Systems: Reviewed and Negative Physical Exam General Appearance: Moderate Distress HEENT: Pale Conjuntivae (L), Pale Conjuntivae (R), Pharynx Normal, TMs Normal Neck: Full Range of Motion, Non-Tender, Normal, Normal Inspection Respiratory: Chest Non-Tender, Lungs Clear, No Accessory Muscle Use, No Respiratory Distress, Normal Breath Sounds Cardiovascular: No Edema, No JVD, No Murmur, No Gallop, Normal Peripheral Pulses, Regular Rate/Rhythm, Other (Dialysis catheter to the left chest) Breast Exam: Deferred Gastrointestinal: No Organomegaly, Non Tender, No Pulsatile Mass, Normal Bowel Sounds, Soft Genitalia: Deferred Pelvic: Deferred Rectal: Deferred Extremities: No calf tenderness, Normal capillary refill, No pedal edema Musculoskeletal : Apperance: Normal Neurologic: Alert, news intern II-XII nml as Tested, No Motor Deficits, Normal Affect, Normal Mood, No Sensory Deficits Cerebellar Function: Normal Reflexes: Normal Skin: Dry, Normal Color, Warm Lymphatic: No Adenopathy Was a procedure done? Was a procedure done?: No Differential Dx Considerations may include: Hyperkalemia, generalized weakness, dizziness, pulmonary edema X-Ray, Labs, Meds, VS Vital Signs Date Time Temp Pulse Resp B/P (MAP) Pulse Ox O2 Delivery O2 Flow Rate FiO2 09/27/25 15:31 69 13 98 Room Air* 0 21 09/27/25 14:39 68 18 105/63 (77) 98 09/27/25 14:39 68 18 98 Room Air 09/27/25 14:04 72 09/27/25 13:57 97.8 73 15 136/75 98 97.8 Lab Test 09/27/25 17:07 09/27/25 14:28 09/27/25 14:03 Range/Units Troponin I High Sensitivity 17 15 </=54 ng/L White Blood Count 6.9 # 4.4-10.8 10^3/uL Red Blood Count 3.66 L 4.5-5.90 10^6/uL Hemoglobin 11.5 L 13.5-17.5 g/dL Hematocrit 35.3 L 41.0-53.0 % Mean Corpuscular Volume 96.3 80.0-100.0 fL Mean Corpuscular Hemoglobin 31.4 28.0-32.0 pg Mean Corpuscular Hemoglobin Concent 32.6 32.0-36.0 g/dL Red Cell Distribution Width 15.1 H 11.8-14.3 % Platelet Count 213 140-450 10^3/uL Mean Platelet Volume 7.6 6.9-10.8 fL Neutrophils (%) (Auto) 72.0 37.0-80.0 % Lymphocytes (%) (Auto) 16.0 10.0-50.0 % Monocytes (%) (Auto) 6.0 0.0-12.0 % Eosinophils (%) (Auto) 4.8 0.0-7.0 % Basophils (%) (Auto) 1.2 0.0-2.0 % Neutrophils # (Auto) 4.9 1.6-8.6 10 ^3/uL Lymphocytes # (Auto) 1.1 0.4-5.4 10 ^3/uL Monocytes # (Auto) 0.4 0-1.3 10 ^3/uL Eosinophils # (Auto) 0.3 0-0.8 10 ^3/uL Basophils # (Auto) 0.1 0-0.2 10 ^3/uL Nucleated Red Blood Cells 0.0 % Sodium Level 143 136-145 mmol/L Potassium Level 6.7 *H 3.5-5.1 mmol/L Chloride Level 104 98-107 mmol/L Carbon Dioxide Level 18 L 20-31 mmol/L Anion Gap 21 H 5-15 Blood Urea Nitrogen 65 H 9-23 mg/dL Creatinine 13.49 #*H 0.700-1.30 mg/dL Glomerular Filtration Rate Calc 4 >90 mL/min BUN/Creatinine Ratio 4.8 L 10.0-20.0 Serum Glucose 113 H 74-106 mg/dL Calcium Level 7.9 L 8.7-10.4 mg/dL B-Type Natriuretic Peptide 697.77 0-100 pg/mL Hepatitis A IgM Antibody Pending Hepatitis B Surface Antigen Pending Hepatitis B Core IgM Antibody Pending Hepatitis C Antibody Pending POC Glucose 96 70-106 mg/dl Current Medications Medications (Trade) Dose Ordered Sig/Devyn Route Start Time Stop Time Status Last Admin Sodium Bicarbonate 50 ml ONCE ONCE IV 09/27/25 15:15 09/27/25 15:16 DC 09/27/25 15:45 Calcium Gluconate/ Sodium Chloride 50 ml @ 100 mls/hr ONCE ONCE IV 09/27/25 15:15 09/27/25 15:44 DC 09/27/25 15:25 Chest XR indicates: Bilateral lower lung zone opacities which may represent pneumonia in the right clinical setting. IV Hep-Lock was established. The patient's BNP is 697.77 The troponin level is negative The creatinine is 13.49 The BUN is 65 The patient is hyperkalemic at 6.7 The CBC is within normal limits. At this time, the patient is being admitted to the hospitalist. The patient was given calcium, dextrose, insulin and sodium bicarbonate for the hyperkalemia. The patient was evaluated by the hospitalist and it seems that they are scheduling the patient for dialysis and then the patient will be discharged home. The patient's care is being turned over to the hospitalist for [facility]. Images Reviewed?: Images reviewed and evaluated by me Time of 1ST Reevaluation: 15:10 Reevaluation 1ST: Unchanged Patient Education/Counseling: Diagnosis, Treatment, Prognosis, Need For Follow Up Family Education/Counseling: No Family Present SEPSIS Sepsis Screen Date sepsis recognized/suspect: Sep 27, 2025 Time Sepsis recognized/suspect: 1359 Recent Procedure: No On Antibiotic Therapy: No Respiratory Rate >20: No Heart Rate >90: No Temp<36 C (96.8 F) or >38.3 C: No SBP <90 or MAP <65 mmHG: No New Acute Mental Status Change: No Is the patient on CPAP, BIPAP,: No Physician Orders Chest Two Views Routine (09/27/25 14:14) Heplock Iv (09/27/25 14:14) Optics Manufacturing Technician (09/27/25 14:14) Blood Pressure (09/27/25 14:14) Pulse Oximetry (09/27/25 14:14) Troponin-I Hs (09/27/25 17:14) *[facility] (09/27/25 15:32) Hemodialysis Orders (09/27/25 15:44) Dialysis Nursing Message (09/27/25 15:44) Document Fluid Input And Outpu (09/27/25 15:44) Acute Hepatitis Panel (09/27/25 15:44) Discharge (09/27/25 16:42) 2 Gm Sodium Diet (09/27/25 Dinner) Vital Signs Date Time Temp Pulse Resp B/P (MAP) Pulse Ox O2 Delivery O2 Flow Rate FiO2 09/27/25 15:31 69 13 98 Room Air* 0 21 09/27/25 14:39 68 18 105/63 (77) 98 09/27/25 14:39 68 18 98 Room Air 09/27/25 14:04 72 09/27/25 13:57 97.8 73 15 136/75 98 97.8 Laboratory Tests Test 09/27/25 14:28 White Blood Count 6.9 10^3/uL (4.4-10.8) # Medications Medications Dose Ordered Sig/Devyn Route Start Time Stop Time Status Last Admin Dose Admin Calcium Gluconate/ Sodium Chloride 50 ml @ 100 mls/hr ONCE ONCE IV 09/27/25 15:15 09/27/25 15:44 DC 09/27/25 15:25 Sodium Bicarbonate 50 ml ONCE ONCE IV 09/27/25 15:15 09/27/25 15:16 DC 09/27/25 15:45 Departure 1 Departure Time of Disposition: 17:47 Impression: Primary Impression: End stage renal failure on dialysis Additional Impression: Hyperkalemia Disposition: 01 HOME / SELF CARE / HOMELESS Condition: Fair Discharged With: Self Critical Care Note Critical Care Time?: No Stability Stability form required: No Heart Score Heart Score: Heart Score Response (Comments) Value History Highly Suspicious 2 EKG Normal 0 Age >65 2 Risk Factors >3 or Hx ASHD 2 Troponin Normal limit 0 Total 6 I personally scribed for STACY MULTANI MD ([email or web address]) on 09/27/25 at 14:16. Electronically submitted by Cain Candelaria ([email or web address]). I personally scribed for STACY MULTANI MD ([email or web address]) on 09/27/25 at 14:50. Electronically submitted by Cain Candelaria ([email or web address]). STACY MULTANI MD Sep 27, 2025 14:16
[2025-09-27 14:38] LABS: Hematocrit 35.3 % (41.0-53.0); Hemoglobin 11.5 g/dL (13.5-17.5); Mean Corpuscular Hemoglobin 31.4 pg (28.0-32.0); Mean Corpuscular Volume 96.3 fL (80.0-100.0); Nucleated Red Blood Cells % 0.0 %
[2025-09-27 14:43] LABS: Chloride 104 mmol/L (98-107); Sodium 143 mmol/L (136-145)
[2025-09-27 14:44] LABS: Anion Gap 21 (5-15)
[2025-09-27 14:49] LABS: BUN/Creatinine Ratio 4.8 (10.0-20.0)
--- NOTE | 2025-09-27 14:49 | DVH ---
XY CHEST TWO VIEWS ROUTINE CLINICAL HISTORY: weakness COMPARISON: None TECHNIQUE: Frontal and lateral view of the chest was obtained FINDINGS: Lines and Tubes: Right IJ approach hemodialysis catheter terminating over the proximal right atrium. Lungs: Bilateral lower lung zone opacities. Pleura: No effusion. No pneumothorax. Cardiomediastinal contours: Unremarkable. Midline sternotomy wires surgical clips is noted consisten t with prior history of CABG. Bones: No acute osseous abnormality. Old fracture deformity of the right mid to distal clavicle. Surg ical clips are noted over the left Upper abdominal quadrant. IMPRESSION: Bilateral lower lung zone opacities which may represent pneumonia in the right clinical setting.
[2025-09-27 14:50] LABS: Blood Urea Nitrogen 65 mg/dL (9-23); Carbon Dioxide 18 mmol/L (20-31); Glucose 113 mg/dL (74-106)
[2025-09-27 14:51] LABS: Calcium 7.9 mg/dL (8.7-10.4); Potassium 6.7 mmol/L (3.5-5.1)
[2025-09-27] MEDS: CALCIUM GLUC 1,000mg/50ml-NS 50 ML IV ONE (15:25)
[2025-09-27 15:31] VITALS: PULSE 69; RESP 13; O2SAT 98
[2025-09-27] MEDS: DEXTROSE (50%) 50ML SYRG IV ONE (15:44)
[2025-09-27] MEDS: SODIUM BICARB 8.4% 50Meq/50ml SYR Vial IV ONE (15:45)
[2025-09-27] MEDS ORDERED: SODIUM CHL 0.9% 1000 ML BAG XX ONE (15:45)
[2025-09-27] MEDS: InsuLIN REG 1unit/0.01ml Soln (100units/ml) IV ONE (15:59)
--- NOTE | 2025-09-27 16:56 | DVHINCON2 ---
Date of service: Sep 27, 2025 Reason for Consultation ESRD History of Present Illness 64 year old male hx ESRD on hd, htn,LVH and multiple er visits for missed dialysis. presents to hospital after missed hd he has k 6.7, bun 67 Patient is a [facility] patient but he is getting discharged from their unit because his insurance /medical group has changed. I was asked by primary medical doctor to arrange dialysis and coordinate dialysis unit transfer Allergies: Coded Allergies: No Known Drug Allergy (Verified Allergy, Unknown, 08/28/25) Home Meds Active Scripts Minoxidil (Minoxidil) 2.5 Mg Tab, 5 MG PO BID for 30 Days, #120 TAB 1 Refill Prov:JOSE PAUL DO 09/25/25 Losartan Potassium (Losartan Potassium) 100 Mg Tab, 100 MG PO DAILY, #30 TAB 1 Refill Prov:JOSE PAUL DO 09/25/25 Sodium Zirconium Cyclosilicate (Lokelma) 10 Gm Phong, 10 GM PO DAILY for 30 Days, #30 PACK 2 Refills Prov:JOSE PAUL DO 09/25/25 Reported Medications Furosemide (Furosemide) 80 Mg Tab, 1 TAB PO BID for 30 Days, #60 09/02/25 Aspirin (Aspirin Adult Low Dose) 81 Mg Tab, 1 TAB PO DAILY 08/29/25 Amlodipine Besylate (Amlodipine Besylate) 10 Mg Tab, 1 TAB PO DAILY for 30 Days, #30 08/29/25 Hydralazine Hcl (Hydralazine Hcl) 100 Mg Tab, 1 TAB PO Q8HR for 30 Days, #90 08/29/25 Sodium Bicarbonate (Sodium Bicarbonate) 650 Mg Tab, 1 TAB PO TID 08/29/25 Nifedipine (Nifedipine Er) 90 Mg Tab, 1 TAB PO DAILY 08/29/25 Clonidine Hydrochloride (Clonidine Hcl) 0.1 Mg Tab, 1 TAB PO DAILY for 30 Days, #30 08/29/25 Carvedilol (Carvedilol) 25 Mg Tab, 1 TAB PO BID 08/29/25 Discontinued Scripts Sodium Zirconium Cyclosilicate (Lokelma) 10 Gm Phong, 10 GM PO DAILY for 30 Days, #30 PACK 1 Refill Prov:KIKE CARDENAS NP 09/02/25 Family History: Patient reports no known family medical history. H&P Exam Vital Signs/I&O Vital Sign Date Time Temp Pulse Resp B/P (MAP) Pulse Ox O2 Delivery O2 Flow Rate FiO2 09/27/25 15:31 69 13 98 Room Air* 0 21 09/27/25 14:39 105/63 (77) 09/27/25 13:57 97.8 97.8 Physical Exam elderly male nad tunnel hd catheter + edema Labs/Diagnostic Data Labs/Diagnostic Data Laboratory Tests Test 09/27/25 14:28 09/27/25 14:03 Range/Units White Blood Count 6.9 # 4.4-10.8 10^3/uL Red Blood Count 3.66 L 4.5-5.90 10^6/uL Hemoglobin 11.5 L 13.5-17.5 g/dL Hematocrit 35.3 L 41.0-53.0 % Mean Corpuscular Volume 96.3 80.0-100.0 fL Mean Corpuscular Hemoglobin 31.4 28.0-32.0 pg Mean Corpuscular Hemoglobin Concent 32.6 32.0-36.0 g/dL Red Cell Distribution Width 15.1 H 11.8-14.3 % Platelet Count 213 140-450 10^3/uL Mean Platelet Volume 7.6 6.9-10.8 fL Neutrophils (%) (Auto) 72.0 37.0-80.0 % Lymphocytes (%) (Auto) 16.0 10.0-50.0 % Monocytes (%) (Auto) 6.0 0.0-12.0 % Eosinophils (%) (Auto) 4.8 0.0-7.0 % Basophils (%) (Auto) 1.2 0.0-2.0 % Neutrophils # (Auto) 4.9 1.6-8.6 10 ^3/uL Lymphocytes # (Auto) 1.1 0.4-5.4 10 ^3/uL Monocytes # (Auto) 0.4 0-1.3 10 ^3/uL Eosinophils # (Auto) 0.3 0-0.8 10 ^3/uL Basophils # (Auto) 0.1 0-0.2 10 ^3/uL Nucleated Red Blood Cells 0.0 % Sodium Level 143 136-145 mmol/L Potassium Level 6.7 *H 3.5-5.1 mmol/L Chloride Level 104 98-107 mmol/L Carbon Dioxide Level 18 L 20-31 mmol/L Anion Gap 21 H 5-15 Blood Urea Nitrogen 65 H 9-23 mg/dL Creatinine 13.49 #*H 0.700-1.30 mg/dL Glomerular Filtration Rate Calc 4 >90 mL/min BUN/Creatinine Ratio 4.8 L 10.0-20.0 Serum Glucose 113 H 74-106 mg/dL Calcium Level 7.9 L 8.7-10.4 mg/dL Troponin I High Sensitivity 15 </=54 ng/L B-Type Natriuretic Peptide 697.77 0-100 pg/mL POC Glucose 96 70-106 mg/dl Assessment ESRD hyperkalemia htn dialysis noncompliance AARON HD fluid removal as tolerated send paperwork and dialysis flow sheet to [facility] to arrange outpatient dialysis start for this week. if patient next treatment isnt arranged in next 48hrs he must return to ER for dialysis Plan discussed with: Patient NIKKI STEVENSON MD Sep 27, 2025 16:56
[2025-09-27 18:00] VITALS: BP 131/70; PULSE 80; RESP 15; O2SAT 100
[2025-09-27] MEDS: ALBUMIN 25% 100 ML IV ONE (18:30)
--- NOTE | 2025-09-27 18:43 | DVHDS2 ---
Discharge Summary Date of Admission Date of Discharge: Sep 27, 2025 Labs/Diagnostic Data: Laboratory Results Test 09/27/25 17:07 09/27/25 14:28 09/27/25 14:03 Troponin I High Sensitivity 17 ng/L (</=54) White Blood Count 6.9 10^3/uL (4.4-10.8) Red Blood Count 3.66 10^6/uL (4.5-5.90) Hemoglobin 11.5 g/dL (13.5-17.5) Hematocrit 35.3 % (41.0-53.0) Mean Corpuscular Volume 96.3 fL (80.0-100.0) Mean Corpuscular Hemoglobin 31.4 pg (28.0-32.0) Mean Corpuscular Hemoglobin Concent 32.6 g/dL (32.0-36.0) Red Cell Distribution Width 15.1 % (11.8-14.3) Platelet Count 213 10^3/uL (140-450) Mean Platelet Volume 7.6 fL (6.9-10.8) Neutrophils (%) (Auto) 72.0 % (37.0-80.0) Lymphocytes (%) (Auto) 16.0 % (10.0-50.0) Monocytes (%) (Auto) 6.0 % (0.0-12.0) Eosinophils (%) (Auto) 4.8 % (0.0-7.0) Basophils (%) (Auto) 1.2 % (0.0-2.0) Neutrophils # (Auto) 4.9 10 ^3/uL (1.6-8.6) Lymphocytes # (Auto) 1.1 10 ^3/uL (0.4-5.4) Monocytes # (Auto) 0.4 10 ^3/uL (0-1.3) Eosinophils # (Auto) 0.3 10 ^3/uL (0-0.8) Basophils # (Auto) 0.1 10 ^3/uL (0-0.2) Nucleated Red Blood Cells 0.0 % Sodium Level 143 mmol/L (136-145) Potassium Level 6.7 mmol/L (3.5-5.1) Chloride Level 104 mmol/L (98-107) Carbon Dioxide Level 18 mmol/L (20-31) Anion Gap 21 (5-15) Blood Urea Nitrogen 65 mg/dL (9-23) Creatinine 13.49 mg/dL (0.700-1.30) Glomerular Filtration Rate Calc 4 mL/min (>90) BUN/Creatinine Ratio 4.8 (10.0-20.0) Serum Glucose 113 mg/dL (74-106) Calcium Level 7.9 mg/dL (8.7-10.4) B-Type Natriuretic Peptide 697.77 pg/mL (0-100) POC Glucose 96 mg/dl (70-106) Other Laboratory Tests 09/27/25 14:28 Brief Hx & Hospital Course: Patient is a 64-year-old male with past medical history of hypertension, ESRD on HD who presents with generalized complaints of dizziness, weakness due to missed dialysis. Patient was recently seen in the hospital for similar issue. Vitals were within normal limits without any signs of hypertension or hypoxia. Laboratory findings were notable for anemia of 11.5. BUN/creatinine was 65/13.49 with metabolic acidosis noted of 18 with anion gap of 21 and potassium of 6.7. Patient was given sodium bicarbonate, insulin, calcium gluconate for temporizing measures. Nephrology was consulted for stat dialysis. This was arranged in the ER. Patient had 3.5 L removed. He tolerated it well. His symptoms had largely resolved. He noted some generalized bodyaches. He was given Tylenol for this. Overall, patient was in stable condition and discharged home. Outpatient dialysis to be arranged with nephrology. Susan to arrange. Condition at Discharge: Good Final Diagnosis/Problems List Missed Dialysis Secondary Diagnosis: Hyperkalemia Discharge Disposition: Home Discharge Instruct/Medications Diet: Renal Diet comment: Low potassium diet. Activity: No Restrictions, As Tolerated Follow Up/Referral: Follow up with [facility]. Medications: Continue home medications. Scheduled Amlodipine Besylate (Amlodipine Besylate), 1 TAB PO DAILY, (Reported) Aspirin (Aspirin Adult Low Dose), 1 TAB PO DAILY, (Reported) Carvedilol (Carvedilol), 1 TAB PO BID, (Reported) Clonidine Hydrochloride (Clonidine Hcl), 1 TAB PO DAILY, (Reported) Furosemide (Furosemide), 1 TAB PO BID, (Reported) Hydralazine Hcl (Hydralazine Hcl), 1 TAB PO Q8HR, (Reported) Losartan Potassium (Losartan Potassium), 100 MG PO DAILY Minoxidil (Minoxidil), 5 MG PO BID Nifedipine (Nifedipine Er), 1 TAB PO DAILY, (Reported) Sodium Bicarbonate (Sodium Bicarbonate), 1 TAB PO TID, (Reported) Sodium Zirconium Cyclosilicate (Lokelma), 10 GM PO DAILY Discontinued Medications Sodium Zirconium Cyclosilicate (Lokelma), 10 GM PO DAILY Discharge Statement: "Patient was advised to return to the ER or call 911 if any headaches, dizziness, shortness of breath, chest pain, abdominal pain, bleeding, fevers, or worsening of medical condition. Patient was counseled about treatment plan, medications, possible side effects, patientverbalized understanding. All questions were answered to the best of my ability. This discharge took greater then 30 minutes in planning, reviewing documentation, counseling the patient, and discussing with other team members." ASSESSMENT ASSESSMENT Assessment Missed Dialysis JOSE PAUL DO Sep 27, 2025 18:43
[2025-09-27] MEDS: ACETAMINOPHEN 325 MG TAB PO ONE (18:57)
[2025-09-28 10:48] LABS: Hepatitis B Surface Antigen Negative (Negative)
[2025-09-28 10:55] LABS: Hepatitis C Antibody Negative (Negative)
== END 2025-09-27 19:03 | disposition home or self-care (01) ==
LOC: ER 13:55
DX: I13.2 Hypertensive heart and chronic kidney disease with heart failure and with stage 5 chronic kidney disease, or end stage renal disease (principal); N18.6 End stage renal disease; I50.9 Heart failure, unspecified; E87.5 Hyperkalemia; Z79.899 Other long term (current) drug therapy; Z91.158 Patient's noncompliance with renal dialysis for other reason; Z79.82 Long term (current) use of aspirin; Z99.2 Dependence on renal dialysis; Z95.1 Presence of aortocoronary bypass graft
CPT/HCPCS: 36415; 71046; 80048; 80074; 82947; 83880; 84484; 85025; 93005; 96365; 96375; 99285; J0613; 82962; 90935

== ENCOUNTER 2025-11-06 13:09 | Inpatient (IN) | payer OTHER, MEDICAID ==
[~2025-11-06] VITALS: Ht 172.7 cm; Wt 74.4 kg
--- NOTE | 2025-11-06 13:54 | ED.PDOC ---
HPI Comments Patient is a 65-year-old male with past medical history of ESRD on hemodialysis on Sunday, , Sunday schedule, via right chest wall access, hypertension, PR s/p CABG at [facility] 6 months ago, atrial fibrillation, brought in by EMS due to increased blood pressure. According to the patient, he has been noting increasing BP over the last 2 weeks, associated with shortness of breaths, today he also started feeling chest pressure which he rates 5/10 in intensity along with burning in eyes and numbness and tingling in bilateral upper extremities. Denies having similar symptoms in the past. On review of systems patient is complaining of fever, chills, shortness of breath and nausea. Past medical history: ESRD on hemodialysis, hypertension, PR s/p CABG, atrial fibrillation Past surgical history: CABG, back surgery Home medications: Eliquis, carvedilol, clonidine, hydralazine, nifedipine Social & Personal history: Lives alone. Denies smoking, alcohol, drugs. Allergies: Denies Patient seen and examined at bedside. Patient is alert and oriented to time, place person and responding to all questions. General: Fever, chills Eyes: No Pain, No Vision change, No Conjunctivae inflammation, No Eyelid in flammation, No Other, No Redness ENT: No Ear pain, No Ear discharge, No Nose pain, No Nose discharge, No Nose congestion, No Mouth pain, No Mouth swelling, No Throat pain, No Throat swelling, No Other Cardiovascular: No Chest Pain, No Palpitations, No Orthopnea, No Paroxysmal No Dyspnea, No Edema, No Lt Headedness, No Other Respiratory: No Cough, No Dry, Shortness of breath, No SOB with exertion, No Wheezing, No Hemoptysis, No Pleuritic Pain, No Sputum, No Other Gastrointestinal: Nausea, No Vomiting, No Abdominal Pain, No Diarrhea, No Constipation, No Melena, No Hematochezia, No Other Genitourinary: No Dysuria, No Frequency, No Incontinence, No Hematuria, No Retention, No Other Musculoskeletal: No other, No neck pain, No shoulder pain, No arm pain, No back pain, No hand pain, No leg pain, No foot pain Skin: No Rash, No Lesions, No Jaundice, No Bruising, No Other Chief Complaint: Shortness of Breath Time Seen by MD: 13:30 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 Allergies: Coded Allergies: No Known Drug Allergy (Verified Allergy, Unknown, 08/28/25) Home Meds Active Scripts Minoxidil (Minoxidil) 2.5 Mg Tab, 5 MG PO BID for 30 Days, #120 TAB 1 Refill Prov:JOSE PAUL DO 09/25/25 Losartan Potassium (Losartan Potassium) 100 Mg Tab, 100 MG PO DAILY, #30 TAB 1 Refill Prov:JOSE PAUL DO 09/25/25 Sodium Zirconium Cyclosilicate (Lokelma) 10 Gm Phong, 10 GM PO DAILY for 30 Days, #30 PACK 2 Refills Prov:JOSE PAUL DO 09/25/25 Reported Medications Furosemide (Furosemide) 80 Mg Tab, 1 TAB PO BID for 30 Days, #60 09/02/25 Aspirin (Aspirin Adult Low Dose) 81 Mg Tab, 1 TAB PO DAILY 08/29/25 Amlodipine Besylate (Amlodipine Besylate) 10 Mg Tab, 1 TAB PO DAILY for 30 Days, #30 08/29/25 Hydralazine Hcl (Hydralazine Hcl) 100 Mg Tab, 1 TAB PO Q8HR for 30 Days, #90 08/29/25 Sodium Bicarbonate (Sodium Bicarbonate) 650 Mg Tab, 1 TAB PO TID 08/29/25 Nifedipine (Nifedipine Er) 90 Mg Tab, 1 TAB PO DAILY 08/29/25 Clonidine Hydrochloride (Clonidine Hcl) 0.1 Mg Tab, 1 TAB PO DAILY for 30 Days, #30 08/29/25 Carvedilol (Carvedilol) 25 Mg Tab, 1 TAB PO BID 08/29/25 Information Source: Patient, Emergency Med Personnel Mode of Arrival: EMS Severity: Moderate Timing: Weeks Duration: Since onset Prehospital treatment: 12 Lead EKG Past Medical History PAST MEDICAL HISTORY: CHF, ESRD, HTN, PR Surgical History: CABG Family History Family History: Reviewed,noncontributory to illness, Family hx of DM, Family hx of Cancer, Family hx of heart gian, Family hx of HTN Social History Smoker: Non-Smoker Alcohol: Denies ETOH Use Drugs: Denies Drug Use Lives In: Home Physical Exam General Appearance: Mild Distress, None, Other (Tearful and sad affect) HEENT: Normal ENT Inspection, PERRL/EOMI Neck: None, Non-Tender, Normal, Normal Inspection Respiratory: Lungs Clear, No Accessory Muscle Use, No Respiratory Distress Cardiovascular: Regular Rate/Rhythm Breast Exam: Deferred Gastrointestinal: No Organomegaly, Non Tender, No Pulsatile Mass, Normal Bowel Sounds Genitalia: Deferred Pelvic: Deferred Rectal: Rectal Exam not done Extremities: No calf tenderness, Normal capillary refill, Normal inspection, Normal range of motion, Non-tender Neurologic: Alert, No Motor Deficits, No Sensory Deficits Cerebellar Function: Normal Reflexes: NOT DONE Skin: NOT DONE Peripheral Pulses: 2+ dorsalis pedis (R), 2+ dorsalis pedis (L) Lymphatic: NOT DONE Was a procedure done? Was a procedure done?: No CP Differential Dx Differential Diagnosis: Anxiety / Panic Attack, Heart Failure Differential Diagnosis: CHF, HTN Accelerated X-Ray, Labs, Meds, VS Vital Signs Date Time Temp Pulse Resp B/P (MAP) Pulse Ox O2 Delivery O2 Flow Rate FiO2 11/06/25 15:48 61 198/98 11/06/25 15:00 59 16 149/113 (125) 98 11/06/25 14:48 61 180/109 11/06/25 14:47 180/109 11/06/25 14:18 15 94 Room Air* 0 21 11/06/25 14:18 97.9 61 15 179/99 (125) 94 97.9 11/06/25 14:14 61 11/06/25 13:16 98.3 62 25 224/123 96 98.3 11/06/25 13:10 61 Lab Test 11/06/25 15:36 11/06/25 14:34 Range/Units Troponin I High Sensitivity Pending 18 </=54 ng/L White Blood Count 6.2 4.4-10.8 10^3/uL Red Blood Count 3.67 L 4.5-5.90 10^6/uL Hemoglobin 11.1 L 13.5-17.5 g/dL Hematocrit 33.3 L 41.0-53.0 % Mean Corpuscular Volume 90.7 80.0-100.0 fL Mean Corpuscular Hemoglobin 30.3 28.0-32.0 pg Mean Corpuscular Hemoglobin Concent 33.4 32.0-36.0 g/dL Red Cell Distribution Width 14.6 H 11.8-14.3 % Platelet Count 169 140-450 10^3/uL Mean Platelet Volume 8.8 6.9-10.8 fL Neutrophils (%) (Auto) 73.8 37.0-80.0 % Lymphocytes (%) (Auto) 15.0 10.0-50.0 % Monocytes (%) (Auto) 5.6 0.0-12.0 % Eosinophils (%) (Auto) 4.7 0.0-7.0 % Basophils (%) (Auto) 0.9 0.0-2.0 % Neutrophils # (Auto) 4.6 1.6-8.6 10 ^3/uL Lymphocytes # (Auto) 0.9 0.4-5.4 10 ^3/uL Monocytes # (Auto) 0.3 0-1.3 10 ^3/uL Eosinophils # (Auto) 0.3 0-0.8 10 ^3/uL Basophils # (Auto) 0.1 0-0.2 10 ^3/uL Nucleated Red Blood Cells 0.1 % Sodium Level 139 136-145 mmol/L Potassium Level 6.4 *H 3.5-5.1 mmol/L Chloride Level 99 98-107 mmol/L Carbon Dioxide Level 24 20-31 mmol/L Anion Gap 16 H 5-15 Blood Urea Nitrogen 76 H 9-23 mg/dL Creatinine 12.80 *H 0.700-1.30 mg/dL Glomerular Filtration Rate Calc 4 >90 mL/min BUN/Creatinine Ratio 5.9 L 10.0-20.0 Serum Glucose 97 74-106 mg/dL Calcium Level 8.1 L 8.7-10.4 mg/dL Total Bilirubin 0.3 0.2-1.0 mg/dL Aspartate Amino Transferase (AST) 10 L 13-40 U/L Alanine Aminotransferase (ALT) 15 7-40 U/L Alkaline Phosphatase 56 46-116 U/L B-Type Natriuretic Peptide 2715.56 0-100 pg/mL Total Protein 6.7 5.7-8.2 g/dL Albumin 4.3 3.2-4.8 g/dL Current Medications Medications (Trade) Dose Ordered Sig/Devyn Route Start Time Stop Time Status Last Admin Labetalol HCl (Labetalol HCl) 20 mg ONCE ONCE IV 11/06/25 13:30 11/06/25 13:31 DC 11/06/25 14:48 Furosemide (Lasix Injection) 40 mg ONCE ONCE IV 11/06/25 13:45 11/06/25 13:51 DC 11/06/25 14:47 Piperacillin Sod/ Tazobactam Sod 100 ml @ 100 mls/hr ONCE ONCE IV 11/06/25 14:45 11/06/25 15:44 DC 11/06/25 14:53 Time of 1ST Reevaluation: 14:30 Reevaluation 1ST: Worsened Patient Education/Counseling: Diagnosis, Treatment, Prognosis, Need For Follow Up Family Education/Counseling: No Family Present SEPSIS Sepsis Screen Date sepsis recognized/suspect: Nov 06, 2025 Time Sepsis recognized/suspect: 1319 Recent Procedure: No On Antibiotic Therapy: No Respiratory Rate >20: No Heart Rate >90: No Temp<36 C (96.8 F) or >38.3 C: No SBP <90 or MAP <65 mmHG: No New Acute Mental Status Change: No Is the patient on CPAP, BIPAP,: No Physician Orders Electrocardigram (11/06/25 13:25) Electrocardigram (11/06/25 13:22) Electrocardigram (11/06/25 14:22) Electrocardigram (11/06/25 16:22) Troponin-I Hs (11/06/25 14:22) Troponin-I Hs (11/06/25 16:22) Head Without Contrast (11/06/25 13:22) Chest Portable (11/06/25 13:33) Potassium (11/06/25 19:38) Calcium Gluc 1,000mg/50ml-Ns (11/06/25 15:45) Admit (11/06/25 15:53) Oxygen By Nasal Cannula (11/06/25 15:53) Stat Ekg For Chest Pain (11/06/25 15:53) Notify Md Of Changes From Base (11/06/25 15:53) 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 Savannah Salmon -Eulogio Patel (11/06/25 15:53) Ceftriaxone 1gm/50ml (Rocephin) (11/06/25 16:00) Ceftriaxone 1gm/50ml (Rocephin) (11/07/25 09:00) Doxycycline 100mg/100ml (Vibramycin) (11/06/25 16:00) Acetaminophen Tablet (Tylenol Tablet) (11/06/25 16:00) Acetaminophen Tablet (Tylenol Tablet) (11/06/25 16:00) Vital Signs Date Time Temp Pulse Resp B/P (MAP) Pulse Ox O2 Delivery O2 Flow Rate FiO2 11/06/25 15:48 61 198/98 11/06/25 15:00 59 16 149/113 (125) 98 11/06/25 14:48 61 180/109 11/06/25 14:47 180/109 11/06/25 14:18 15 94 Room Air* 0 21 11/06/25 14:18 97.9 61 15 179/99 (125) 94 97.9 11/06/25 14:14 61 11/06/25 13:16 98.3 62 25 224/123 96 98.3 11/06/25 13:10 61 Laboratory Tests Test 11/06/25 14:34 White Blood Count 6.2 10^3/uL (4.4-10.8) Medications Medications Dose Ordered Sig/Devyn Route Start Time Stop Time Status Last Admin Dose Admin Furosemide 40 mg ONCE ONCE IV 11/06/25 13:45 11/06/25 13:51 DC 11/06/25 14:47 Labetalol HCl 20 mg ONCE ONCE IV 11/06/25 13:30 11/06/25 13:31 DC 11/06/25 14:48 Piperacillin Sod/ Tazobactam Sod 100 ml @ 100 mls/hr ONCE ONCE IV 11/06/25 14:45 11/06/25 15:44 DC 11/06/25 14:53 Departure 1 Departure Time of Disposition: 14:45 Impression: Primary Impression: Hypertensive emergency Additional Impression: Pneumonia Qualified Codes: J18.9 - Pneumonia, unspecified organism Disposition: ADMITTED INPATIENT Admit to: [facility] Condition: Guarded Critical Care Note Critical Care Time?: No Stability Stability form required: No Heart Score Heart Score: Heart Score Response (Comments) Value History Moderate Suspicious 1 EKG Normal 0 Age >65 2 Risk Factors >3 or Hx ASHD 2 Troponin Normal limit 0 Total 5 MARIE,EMAN RESIDENT Nov 06, 2025 13:54
--- NOTE | 2025-11-06 14:11 | DVH ---
CHEST RADIOGRAPH INDICATION: CHEST PAIN TECHNIQUE: Single frontal view of the chest was obtained COMPARISON: XY CHEST XRAY 1 VIEW on DOS: 09/24/25, XY CHEST PORTABLE on DOS: 09/19/25, XY CHEST PORTABLE on DOS: 09/01/25 FINDINGS: Lines and Tubes: Right IJ approach hemodialysis catheter terminating within the proximal right atrium. Lungs: Diffuse interstitial prominence with By lower lung zone consolidation. Pleura: No effusion. No pneumothorax. Cardiomediastinal contours: Borderline cardiomegaly. Midline sternotomy wires and surgical clips are noted consistent with prior history of CABG. Bones: No acute osseous abnormality. Surgical clips are noted over the left upper abdomen. IMPRESSION: Pulmonary vascular congestion /atypical pneumonia with right lower lung zone consolidation which may represent pneumonia/atelectasis.
[2025-11-06 14:18] VITALS: RESP 15; O2SAT 94
--- NOTE | 2025-11-06 14:20 | DVH ---
CLINICAL HISTORY: R/O CVA TECHNIQUE: Helical scanning was performed of the head from the skull base to the vertex. Multiplanar reconstructions were performed. This exam was performed according to our departmental dose optimization program. Up-to-date CT equipment and radiation dose reduction techniques are utilized as appropriate. CTDI 60 DLP 1119 COMPARISON: None FINDINGS: There is no evidence for acute intracranial hemorrhage, acute ischemic changes, mass, mass effect, or extra-axial fluid collection. There is no hydrocephalus or midline shift. There is no effacement of the cerebral sulci and basal subarachnoid cisterns. The palafox-white matter differentiation is well maintained. Scattered white matter hypoattenuation is most compatible with a minimal burden of nonspecific chronic small vessel ischemic change. The imaged paranasal sinuses are clear. IMPRESSION: NO ACUTE INTRACRANIAL ABNORMALITY SEEN.
[2025-11-06] MEDS: FUROSEMIDE 40 MG/4 ML VIAL IV ONE (14:47)
[2025-11-06] MEDS: LABETALOL HCL 20 MG/4 ML VL IV ONE (14:48)
[2025-11-06] MEDS: PIPERACILLIN-TAZOB 3.375GM 100 ML IV ONE (14:53)
[2025-11-06 14:54] LABS: Hematocrit 33.3 % (41.0-53.0); Hemoglobin 11.1 g/dL (13.5-17.5); Mean Corpuscular Hemoglobin 30.3 pg (28.0-32.0); Mean Corpuscular Volume 90.7 fL (80.0-100.0); Nucleated Red Blood Cells % 0.1 %
[2025-11-06 15:25] LABS: Alanine Aminotransferase 15 U/L (7-40); Albumin 4.3 g/dL (3.2-4.8); Alkaline Phosphatase 56 U/L (46-116); Anion Gap 16 (5-15); BUN/Creatinine Ratio 5.9 (10.0-20.0); Bilirubin, Total 0.3 mg/dL (0.2-1.0); Carbon Dioxide 24 mmol/L (20-31); Chloride 99 mmol/L (98-107); Glucose 97 mg/dL (74-106); Sodium 139 mmol/L (136-145); Total Protein 6.7 g/dL (5.7-8.2)
[2025-11-06 15:26] LABS: Blood Urea Nitrogen 76 mg/dL (9-23); Calcium 8.1 mg/dL (8.7-10.4)
[2025-11-06 15:34] LABS: Potassium 6.4 mmol/L (3.5-5.1)
[2025-11-06] MEDS: ALBUTEROL SULF 2.5 MG/0.5ML(0.5%) NEB SOLN NEB ONE (15:45)
[2025-11-06] MEDS: CALCIUM GLUC 1,000mg/50ml-NS 50 ML IV ONE (16:01)
[2025-11-06] MEDS: DEXTROSE (50%) 50ML SYRG IV ONE ×2 (16:12→22:03)
[2025-11-06] MEDS: InsuLIN REG 1unit/0.01ml Soln (100units/ml) IV ONE ×2 (16:34→19:15)
[2025-11-06] MEDS: SODIUM BICARB 8.4% 50Meq/50ml SYR INJ IV ONE ×2 (16:37→22:03)
[2025-11-06] MEDS: hydrALAZINE HCL 20 MG/ML VL IV ONE (16:42)
[2025-11-06] MEDS ORDERED: DEXTROSE (50%) 50ML SYRG IV PRN (16:45)
[2025-11-06] MEDS: ACETAMINOPHEN 325 MG TAB PO ONE (16:48)
[2025-11-06] MEDS: SODIUM ZIRCONIUM CYCL 10 GM PAK PO ONE ×2 (16:49→22:03)
[2025-11-06] MEDS: DOXYCYCLINE 100MG/100ML 100 ML IV SCH (17:53)
--- NOTE | 2025-11-06 18:34 | DVHHPRES ---
History of Present Illness Resident Creating Document: JANNET MONTESINOS RESIDENT History of Present Illness 65-year-old male with past medical history of ESRD on hemodialysis on Sunday, , Sunday schedule, via right chest wall access, hypertension, [place] s/p CABG at [facility] 6 months ago, atrial fibrillation, brought in by EMS due to increased blood pressure. Patient mentioned that he has been feeling fever, shortness of breath, generalized weakness for last few days. He has been noting increasing BP over the last 2 weeks. He also mentioned associated nausea and dizziness. today he also started feeling chest pressure which he rates 5/10 in intensity along with burning in eyes and numbness and tingling in bilateral upper extremities. He denied any headache, abdominal pain, constipation, diarrhea, burning micturition, or other complaints. Patient goes to dialysis at [facility] Past medical history: ESRD on hemodialysis, hypertension, [place] s/p CABG, atrial fibrillation Past surgical history: CABG, back surgery Home medications: Eliquis, carvedilol, clonidine, hydralazine, nifedipine Social & Personal history: Lives alone. Denies smoking, alcohol, drugs. Allergies: Denies Family history Noncontributory to the above illness Review of Systems Review of Systems Review of system as described in the HPI Allergies: Coded Allergies: No Known Drug Allergy (Verified Allergy, Unknown, 08/28/25) Medications Current Medications Medications Dose Ordered Sig/Devyn Route Start Time Stop Time Status Last Admin Dose Admin Ceftriaxone Sodium 50 ml @ 100 mls/hr DAILY@09 IV 11/07/25 09:00 Doxycycline Hyclate 100 ml @ 50 mls/hr Q12H IV 11/06/25 16:00 11/06/25 17:53 50 MLS/HR Acetaminophen 650 mg Q4HP PRN PO 11/06/25 16:00 Diagnostic Test (Pha) 1 strip IQ4HR 11/06/25 20:00 Insulin Human Regular IQ4HR SC 11/06/25 20:00 Dextrose 50 ml UD PRN IV 11/06/25 16:45 Nifedipine 90 mg DAILY PO 11/07/25 10:00 Exam Vital Signs Vital Signs Date Time Temp Pulse Resp B/P (MAP) Pulse Ox O2 Delivery O2 Flow Rate FiO2 11/06/25 18:01 186/110 11/06/25 18:00 66 20 98 11/06/25 15:45 Nasal Cannula* 2 28 11/06/25 14:18 97.9 97.9 Exam Examination General Appearance: Alert, Oriented X3, Cooperative, No acute distress HEENT: EOMI Respiratory: Bilateral crackles Cardiovascular: Regular rate, Normal S1, Normal S2 Abdominal: Normal bowel sounds Extremities: No cyanosis, No edema, Normal pulses, No tenderness/swelling Skin: No rashes, No breakdown Neuro: Normal speech and tone Labs/Xrays Labs Test 11/06/25 17:40 11/06/25 16:53 11/06/25 14:34 Range/Units POC Glucose 164 H 70-106 mg/dl White Blood Count 6.2 4.4-10.8 10^3/uL Red Blood Count 3.67 L 4.5-5.90 10^6/uL Hemoglobin 11.1 L 13.5-17.5 g/dL Hematocrit 33.3 L 41.0-53.0 % Mean Corpuscular Volume 90.7 80.0-100.0 fL Mean Corpuscular Hemoglobin 30.3 28.0-32.0 pg Mean Corpuscular Hemoglobin Concent 33.4 32.0-36.0 g/dL Red Cell Distribution Width 14.6 H 11.8-14.3 % Platelet Count 169 140-450 10^3/uL Mean Platelet Volume 8.8 6.9-10.8 fL Neutrophils (%) (Auto) 73.8 37.0-80.0 % Lymphocytes (%) (Auto) 15.0 10.0-50.0 % Monocytes (%) (Auto) 5.6 0.0-12.0 % Eosinophils (%) (Auto) 4.7 0.0-7.0 % Basophils (%) (Auto) 0.9 0.0-2.0 % Neutrophils # (Auto) 4.6 1.6-8.6 10 ^3/uL Lymphocytes # (Auto) 0.9 0.4-5.4 10 ^3/uL Monocytes # (Auto) 0.3 0-1.3 10 ^3/uL Eosinophils # (Auto) 0.3 0-0.8 10 ^3/uL Basophils # (Auto) 0.1 0-0.2 10 ^3/uL Nucleated Red Blood Cells 0.1 % Sodium Level 139 136-145 mmol/L Potassium Level 6.4 *H 3.5-5.1 mmol/L Chloride Level 99 98-107 mmol/L Carbon Dioxide Level 24 20-31 mmol/L Anion Gap 16 H 5-15 Blood Urea Nitrogen 76 H 9-23 mg/dL Creatinine 12.80 *H 0.700-1.30 mg/dL Glomerular Filtration Rate Calc 4 >90 mL/min BUN/Creatinine Ratio 5.9 L 10.0-20.0 Serum Glucose 97 74-106 mg/dL Calcium Level 8.1 L 8.7-10.4 mg/dL Total Bilirubin 0.3 0.2-1.0 mg/dL Aspartate Amino Transferase (AST) 10 L 13-40 U/L Alanine Aminotransferase (ALT) 15 7-40 U/L Alkaline Phosphatase 56 46-116 U/L B-Type Natriuretic Peptide 2715.56 0-100 pg/mL Total Protein 6.7 5.7-8.2 g/dL Albumin 4.3 3.2-4.8 g/dL SEPSIS Sepsis Screen Date sepsis recognized/suspect: Nov 06, 2025 Time Sepsis recognized/suspect: 1417 Recent Procedure: No On Antibiotic Therapy: No Respiratory Rate >20: No Heart Rate >90: No Temp<36 C (96.8 F) or >38.3 C: No SBP <90 or MAP <65 mmHG: No New Acute Mental Status Change: No Is the patient on CPAP, BIPAP,: No Physician Orders Electrocardigram (11/06/25 13:25) Electrocardigram (11/06/25 13:22) Electrocardigram (11/06/25 14:22) Electrocardigram (11/06/25 16:22) Troponin-I Hs (11/06/25 16:22) Head Without Contrast (11/06/25 13:22) Chest Portable (11/06/25 13:33) Potassium (11/06/25 19:38) Admit (11/06/25 15:53) Oxygen By Nasal Cannula (11/06/25 15:53) Stat Ekg For Chest Pain (11/06/25 15:53) Notify Md Of Changes From Base (11/06/25 15:53) [employer] For 24 Hours (11/06/25 15:53) Emergency Dysrhythmia Protocol (11/06/25 15:53) Rhythm Strips Once Every Shift (11/06/25 15:53) *Dr. Savannah Salmon -Eulogio Patel (11/06/25 15:53) Ceftriaxone 1gm/50ml (Rocephin) (11/07/25 09:00) Doxycycline 100mg/100ml (Vibramycin) (11/06/25 16:00) Acetaminophen Tablet (Tylenol Tablet) (11/06/25 16:00) Glucose Blood (Accu-Chek Comfort Curve T (11/06/25 20:00) Insulin R (Human) (Insulin R) (11/06/25 20:00) Dextrose 50% Syringe (11/06/25 16:45) Urine Bacterial Culture (11/06/25 17:04) Blood Culture (11/06/25 17:04) Respiratory Culture W/ Gs (11/06/25 17:04) Nifedipine Er (Procardia Xl (Time-Releas (11/07/25 10:00) Vital Signs Date Time Temp Pulse Resp B/P (MAP) Pulse Ox O2 Delivery O2 Flow Rate FiO2 11/06/25 18:01 186/110 11/06/25 18:00 66 20 186/110 (135) 98 11/06/25 17:00 68 23 173/92 (119) 96 11/06/25 16:42 196/108 11/06/25 15:48 61 198/98 11/06/25 15:45 18 98 Nasal Cannula* 2 28 11/06/25 15:00 59 16 149/113 (125) 98 11/06/25 14:48 61 180/109 11/06/25 14:47 180/109 11/06/25 14:18 15 94 Room Air* 0 21 11/06/25 14:18 97.9 61 15 179/99 (125) 94 97.9 11/06/25 14:14 61 11/06/25 13:16 98.3 62 25 224/123 96 98.3 11/06/25 13:10 61 Laboratory Tests Test 11/06/25 14:34 White Blood Count 6.2 10^3/uL (4.4-10.8) Medications Medications Dose Ordered Sig/Devyn Route Start Time Stop Time Status Last Admin Dose Admin Acetaminophen 650 mg ONCE ONCE PO 11/06/25 16:00 11/06/25 16:01 DC 11/06/25 16:48 650 MG Albuterol 20 mg ONCE ONCE NEB 11/06/25 15:45 11/06/25 15:49 DC 11/06/25 15:45 20 MG Calcium Gluconate/ Sodium Chloride 50 ml @ 120 mls/hr ONCE ONCE IV 11/06/25 15:45 11/06/25 16:09 DC 11/06/25 16:01 120 MLS/HR Ceftriaxone Sodium 50 ml @ 100 mls/hr ONCE ONCE IV 11/06/25 16:00 11/06/25 16:29 DC 11/06/25 17:44 100 MLS/HR Dextrose 50 ml ONCE ONCE IV 11/06/25 15:45 11/06/25 15:49 DC 11/06/25 16:15 50 ML Doxycycline Hyclate 100 ml @ 50 mls/hr Q12H IV 11/06/25 16:00 11/06/25 17:53 50 MLS/HR Furosemide 40 mg ONCE ONCE IV 11/06/25 13:45 11/06/25 13:51 DC 11/06/25 14:47 40 MG Hydralazine HCl 10 mg Q6HPRN ONCE IV 11/06/25 18:00 11/06/25 18:01 DC 11/06/25 16:42 10 MG Insulin Human Regular 10 units ONCE ONCE IV 11/06/25 15:45 11/06/25 15:49 DC 11/06/25 16:34 10 UNITS Labetalol HCl 20 mg ONCE ONCE IV 11/06/25 13:30 11/06/25 13:31 DC 11/06/25 14:48 20 MG Nifedipine 90 mg ONCE ONCE PO 11/06/25 17:45 11/06/25 17:50 DC 11/06/25 18:01 90 MG Piperacillin Sod/ Tazobactam Sod 100 ml @ 100 mls/hr ONCE ONCE IV 11/06/25 14:45 11/06/25 15:44 DC 11/06/25 14:53 100 MLS/HR Sodium Bicarbonate 50 ml ONCE ONCE IV 11/06/25 15:45 11/06/25 15:49 DC 11/06/25 16:37 50 ML Zirconium Oxide 10 gm ONCE ONCE PO 11/06/25 15:45 11/06/25 15:49 DC 11/06/25 16:49 10 GM Assessment/Plan Assessment/Plan Assessment/plan # community-acquired pneumonia Gram-positive/Gram-negative IV ceftriaxone plus doxycycline Sputum Cultures # acute hypoxic respiratory failure due to community-acquired pneumonia/pulmonary edema/hypertensive emergency -on 2l # ESRD on hemodialysis Neurology consulted # Hepatomegaly emergency -IV hydralazine q.6 p.r.n. Nifedipine 90 mg # hyperkalemia -corrected EKG Repeat BMP Nephrology consult # [place] status post CABG Resume home meds # atrial fibrillation Resume home meds #DVT prophylaxis -heparin Code status discussed with the patient for greater than 21 minutes, full code Case discussion with Dr. Silva Plan discussed with: Patient, Other My Orders Orders - JANNET MONTESINOS RESIDENT Procedure Category Date Status Time Admit ADMIT 11/06/25 Transmitted 15:53 Oxygen By Nasal RT 11/06/25 Transmitted Cannula 15:53 Stat Ekg For Chest WING 11/06/25 In Process Pain 15:53 Notify Of Changes WING 11/06/25 In Process From Base 15:53 [employer] For [facility] 11/06/25 In Process 24 Hours 15:53 Emergency Dysrhythmia [facility] 11/06/25 In Process Protocol 15:53 Rhythm Strips Once [facility] 11/06/25 In Process Every Shift 15:53 *Dr. Savannah Salmon -Da CONS 11/06/25 Transmitted Amanda 15:53 Ceftriaxone 1gm/50ml PHA 11/07/25 In Process (Rocephin) 09:00 Doxycycline PHA 11/06/25 In Process 100mg/100ml 16:00 Acetaminophen Tablet PHA 11/06/25 In Process (Tylenol Tablet) 16:00 Glucose Blood PHA 11/06/25 In Process (Accu-Chek Comfort 20:00 Insulin R (Human) PHA 11/06/25 In Process (Insulin R) 20:00 Dextrose 50% Syringe PHA 11/06/25 In Process 16:45 Urine Bacterial SUSANA 11/06/25 Logged Culture 17:04 Blood Culture SUSANA 11/06/25 In Process 17:04 Respiratory Culture SUSANA 11/06/25 Logged W/ Gs 17:04 Nifedipine Er PHA 11/07/25 In Process (Procardia Xl 10:00 Visit Coding STANDARD RES Billing Provider: STEPH SILVA MD Date of Service if different f: Nov 06, 2025 Common Visit Codes: [id number] INP/OBS CARE (HIGH) Secondary Visit Codes: [id number] CARE PLAN 30 MINUTES JANNTE MONTESINOS RESIDENT Nov 06, 2025 18:34
[2025-11-06 18:50] LABS: Sodium 139 mmol/L (136-145)
[2025-11-06 18:51] LABS: Anion Gap 17 (5-15); Carbon Dioxide 24 mmol/L (20-31)
[2025-11-06 18:56] LABS: BUN/Creatinine Ratio 6.4 (10.0-20.0)
[2025-11-06 18:59] LABS: Blood Urea Nitrogen 79 mg/dL (9-23); Calcium 8.0 mg/dL (8.7-10.4); Chloride 98 mmol/L (98-107); Glucose 125 mg/dL (74-106)
[2025-11-06 19:01] LABS: Potassium 5.7 mmol/L (3.5-5.1)
[2025-11-06] MEDS: ALBUTEROL SULF 2.5 MG/0.5ML(0.5%) NEB SOLN ONE (19:26)
[2025-11-06 19:30] VITALS: RESP 17; O2SAT 100
[2025-11-06] MEDS: ACCU-CHEK COMFORT CURVE STRIP VI SCH (20:00)
[2025-11-06] MEDS: InsuLIN REG 1unit/0.01ml Soln (100units/ml) SC SCH (20:00)
[2025-11-06 20:41] LABS: INR 1.08 (0.9-1.15); Partial Thromboplastin Time 30.0 SEC (24.5-34.5); Prothrombin Time 11.4 sec (9.3-11.8)
[2025-11-06 21:34] LABS: COVID19 ANTIGEN SOFIA FIA NEGATIVE (NEGATIVE)
[2025-11-06] MEDS: FUROSEMIDE 20 MG/2 ML VIAL IV ONE (22:02)
[2025-11-06] MEDS: SODIUM BICARBONATE 650 MG TAB PO SCH (22:22)
[2025-11-06] MEDS: CARVEDILOL 12.5 MG TAB PO SCH (22:24)
[2025-11-06] MEDS: MINOXIDIL 2.5 MG TAB PO SCH (22:25)
[2025-11-07] VITALS (8 sets, daily range): BP systolic 128–148; BP diastolic 78–96; PULSE 63–95; RESP 15–20; TEMP 97.2–98.1; O2SAT 95–99
[2025-11-07] MEDS: HEPARIN SODIUM (PORCINE) 5000 UNITS/ML 1ML VIAL SC SCH
[2025-11-07] MEDS: ACETAMINOPHEN 325 MG TAB PO PRN (01:03)
[2025-11-07] MEDS: FUROSEMIDE 40 MG TAB PO SCH (05:06)
[2025-11-07 06:10] LABS: Hematocrit 32.7 % (41.0-53.0); Hemoglobin 11.1 g/dL (13.5-17.5); Mean Corpuscular Hemoglobin 30.5 pg (28.0-32.0); Mean Corpuscular Volume 89.5 fL (80.0-100.0); Nucleated Red Blood Cells % 0.0 %
[2025-11-07 06:18] LABS: Albumin 3.9 g/dL (3.2-4.8); Alkaline Phosphatase 49 U/L (46-116); Anion Gap 18 (5-15); BUN/Creatinine Ratio 6.0 (10.0-20.0); Carbon Dioxide 24 mmol/L (20-31); Glucose 103 mg/dL (74-106); Magnesium 2.2 mg/dL (1.6-2.6); Potassium 4.9 mmol/L (3.5-5.1); Sodium 139 mmol/L (136-145); Total Protein 6.2 g/dL (5.7-8.2)
[2025-11-07 06:19] LABS: Blood Urea Nitrogen 77 mg/dL (9-23); Chloride 97 mmol/L (98-107)
[2025-11-07 06:20] LABS: Alanine Aminotransferase 9 U/L (7-40)
[2025-11-07 06:21] LABS: Bilirubin, Total 0.3 mg/dL (0.2-1.0); Calcium 7.9 mg/dL (8.7-10.4)
--- NOTE | 2025-11-07 13:49 | DVHINCON2 ---
Date of service: Nov 07, [address] Huff Reason for Consultation ESKD ,Hyperkalemia History of Present Illness This is a 65-year-old male with history of end-stage kidney disease on hemodialysis on Sunday, , Sunday schedule presenting the emergency room complaining of chest discomfort associated with shortness of breath and elevated blood pressure. Patient does have history of coronary artery disease status post CABG, atrial fibrillation, hypertension. He also has significant noncompliance with his outpatient dialysis treatments. On presentation patient noted to be hyperkalemic with a potassium of 6.4. Nephrology consulted for continuation of dialysis. As per the history patient's last dialysis was on Sunday. Patient seen and examined at bedside. In no acute distress. Past Medical History ESRD on hemodialysis, hypertension, CAD, atrial fibrillation Past Surgical History S/P CABG, back surgery Family History: Diabetes mellitus Family History NONCONTRIBUTORY Social History NO ACTIVE HISTORY OF SMOKING, ALCOHOL OR DRUG ABUSE Allergies: Coded Allergies: No Known Drug Allergy (Verified Allergy, Unknown, 08/28/25) Home Meds Active Scripts Minoxidil (Minoxidil) 2.5 Mg Tab, 5 MG PO BID for 30 Days, #120 TAB 1 Refill Prov:CHIKAJOSE JACOBO DO 09/25/25 Losartan Potassium (Losartan Potassium) 100 Mg Tab, 100 MG PO DAILY, #30 TAB 1 Refill Prov:CLARENCERolyJUSTIN JACOBOI Chadwick DO 09/25/25 Sodium Zirconium Cyclosilicate (Lokelma) 10 Gm Phong, 10 GM PO DAILY for 30 Days, #30 PACK 2 Refills Prov:JOSE PAUL DO 09/25/25 Reported Medications Furosemide (Furosemide) 80 Mg Tab, 1 TAB PO BID for 30 Days, #60 09/02/25 Aspirin (Aspirin Adult Low Dose) 81 Mg Tab, 1 TAB PO DAILY 08/29/25 Amlodipine Besylate (Amlodipine Besylate) 10 Mg Tab, 1 TAB PO DAILY for 30 Days, #30 08/29/25 Hydralazine Hcl (Hydralazine Hcl) 100 Mg Tab, 1 TAB PO Q8HR for 30 Days, #90 08/29/25 Sodium Bicarbonate (Sodium Bicarbonate) 650 Mg Tab, 1 TAB PO TID 08/29/25 Nifedipine (Nifedipine Er) 90 Mg Tab, 1 TAB PO DAILY 08/29/25 Clonidine Hydrochloride (Clonidine Hcl) 0.1 Mg Tab, 1 TAB PO DAILY for 30 Days, #30 08/29/25 Carvedilol (Carvedilol) 25 Mg Tab, 1 TAB PO BID 08/29/25 Current Medications Current Medications Medications (Trade) Dose Ordered Sig/Devyn Route PRN Reason Start Time Stop Time Status Last Admin Ceftriaxone Sodium 50 ml @ 100 mls/hr DAILY@09 IV 11/07/25 09:00 Doxycycline Hyclate 100 ml @ 50 mls/hr Q12H IV 11/06/25 16:00 11/07/25 05:07 Acetaminophen (Tylenol Tablet) 650 mg Q4HP PRN PO MODERATE PAIN (4-6 PAIN SCALE) 11/06/25 16:00 11/07/25 01:03 Diagnostic Test (Pha) (Accu-Chek Comfort Curve T) 1 strip IQ4HR 11/06/25 20:00 11/07/25 12:00 Insulin Human Regular (InsuLIN R) IQ4HR SC 11/06/25 20:00 Dextrose 50 ml UD PRN IV Blood Sugar LESS THAN 60 11/06/25 16:45 Nifedipine (Procardia Xl (Time-Release)) 90 mg DAILY PO 11/07/25 10:00 Aspirin (Ecotrin Enteric Coated Tablet) 81 mg DAILY PO 11/07/25 10:00 Minoxidil (Loniten Tablet) 5 mg BID PO 11/06/25 22:00 11/06/25 22:25 Carvedilol (Coreg Tablet) 25 mg BID PO 11/06/25 22:00 11/06/25 22:24 Furosemide (Lasix Tablet) 80 mg BIDD PO 11/07/25 06:00 11/07/25 05:06 Hydralazine HCl (Apresoline Tablet) 100 mg Q8HR PO 11/06/25 22:00 11/07/25 05:06 Losartan Potassium (Cozaar Tablet) 100 mg DAILY PO 11/07/25 10:00 Sodium Bicarbonate 650 mg TID PO 11/06/25 22:00 11/07/25 05:07 Patient Own Medication 10 gm DAILY PO 11/07/25 10:00 Heparin Sodium (Porcine) 5,000 units Q8HR SC 11/06/25 22:00 11/07/25 05:17 Review of Systems 12 point review of system negative except as stated in the HPI Vital Signs Vital Signs Date Time Temp Pulse Resp B/P (MAP) Pulse Ox O2 Delivery O2 Flow Rate FiO2 11/07/25 09:00 97.9 66 15 131/78 (95) 96 97.9 11/07/25 00:58 Room Air* 0 21 Physical Exam Awake alert oriented x3 HEENT: Normocephalic, no JVD Lungs: Bilateral good air entry CVS: S1, S2 regular rate rhythm Abdomen: Soft, bowel sounds present ORTHOPHOTO TECH/DRAFTSMAN: No focal deficits Extremities: No edema Labs/Diagnostic Data Labs Test 11/07/25 10:55 11/07/25 05:13 11/06/25 20:45 11/06/25 20:13 Range/Units POC Glucose 98 70-106 mg/dl White Blood Count 6.4 4.4-10.8 10^3/uL Red Blood Count 3.65 L 4.5-5.90 10^6/uL Hemoglobin 11.1 L 13.5-17.5 g/dL Hematocrit 32.7 L 41.0-53.0 % Mean Corpuscular Volume 89.5 80.0-100.0 fL Mean Corpuscular Hemoglobin 30.5 28.0-32.0 pg Mean Corpuscular Hemoglobin Concent 34.0 32.0-36.0 g/dL Red Cell Distribution Width 14.6 H 11.8-14.3 % Platelet Count 152 140-450 10^3/uL Mean Platelet Volume 8.2 6.9-10.8 fL Neutrophils (%) (Auto) 74.5 37.0-80.0 % Lymphocytes (%) (Auto) 15.7 10.0-50.0 % Monocytes (%) (Auto) 7.0 0.0-12.0 % Eosinophils (%) (Auto) 2.0 0.0-7.0 % Basophils (%) (Auto) 0.8 0.0-2.0 % Neutrophils # (Auto) 4.7 1.6-8.6 10 ^3/uL Lymphocytes # (Auto) 1.0 0.4-5.4 10 ^3/uL Monocytes # (Auto) 0.4 0-1.3 10 ^3/uL Eosinophils # (Auto) 0.1 0-0.8 10 ^3/uL Basophils # (Auto) 0.1 0-0.2 10 ^3/uL Nucleated Red Blood Cells 0.0 % Sodium Level 139 136-145 mmol/L Potassium Level 4.9 3.5-5.1 mmol/L Chloride Level 97 L 98-107 mmol/L Carbon Dioxide Level 24 20-31 mmol/L Anion Gap 18 H 5-15 Blood Urea Nitrogen 77 H 9-23 mg/dL Creatinine 12.85 *H 0.700-1.30 mg/dL Glomerular Filtration Rate Calc 4 >90 mL/min BUN/Creatinine Ratio 6.0 L 10.0-20.0 Serum Glucose 103 74-106 mg/dL Calcium Level 7.9 L 8.7-10.4 mg/dL Magnesium Level 2.2 1.6-2.6 mg/dL Total Bilirubin 0.3 0.2-1.0 mg/dL Aspartate Amino Transferase (AST) < 8 L 13-40 U/L Alanine Aminotransferase (ALT) 9 7-40 U/L Alkaline Phosphatase 49 46-116 U/L Total Protein 6.2 5.7-8.2 g/dL Albumin 3.9 3.2-4.8 g/dL Influenza Type A Antigen Negative Negative Influenza Type B Antigen Negative Negative SARS-CoV-2 Antigen (Rapid) Negative NEGATIVE Prothrombin Time 11.4 9.3-11.8 sec Prothrombin Time INR 1.08 0.9-1.15 Activated Partial Thromboplast Time 30.0 24.5-34.5 SEC Test 11/06/25 17:40 11/06/25 14:34 Range/Units Troponin I High Sensitivity 16 </=54 ng/L B-Type Natriuretic Peptide 2715.56 0-100 pg/mL Assessment End-stage kidney disease on hemodialysis Hyperkalemia, resolved Noncompliance with outpatient dialysis treatments Probable right lower lobe pneumonia Coronary artery disease status post CABG History of atrial fibrillation Hypertension, poorly controlled Plan/Recommendation Potassium levels improved. Blood pressure is stable. Hemodialysis in a.m.. Plan discussed with: Patient KIKE CARTWRIGHT MD Nov 07, 2025 13:49
[2025-11-07] MEDS: ASPirin-EC 81 mg tab PO SCH (13:53)
--- NOTE | 2025-11-07 13:57 | DVHPN2 ---
Subjective The patient seen and examined at bedside. Feel better. Reviewed: Care Plan, H&P, Labs, Medications, Previous Orders, Radiology Changes from previous H/P or p: No Changes Objective Vitals Vital Signs Date Time Temp Pulse Resp B/P (MAP) Pulse Ox O2 Delivery O2 Flow Rate FiO2 11/07/25 13:52 66 136/81 11/07/25 09:00 97.9 15 96 97.9 11/07/25 00:58 Room Air* 0 21 Intake/Output Intake and Output 11/07/25 07:00 Intake Total 550 ml Output Total 0 ml Balance 550 ml Intake Oral 150 ml IV Total 400 ml Output Urine Total 0 ml General Appearance: Alert, Cooperative HEENT: Atraumatic, PERRLA, EOMI, Mucous membr. moist/pink Neck: Supple Lungs: Clear to auscultation, Normal air movement Cardiovascular: Regular rate, Normal S1, Normal S2, No murmurs, Gallops, Rubs Abdomen: Normal bowel sounds, Soft, No tenderness Neuro: Cranial nerves 3-12 NL Psych/Mental Status: Mental status NL Medications Current Medications Medications Dose Ordered Sig/Devyn Route Start Time Stop Time Status Last Admin Dose Admin Ceftriaxone Sodium 50 ml @ 100 mls/hr DAILY@09 IV 11/07/25 09:00 11/07/25 13:50 100 MLS/HR Doxycycline Hyclate 100 ml @ 50 mls/hr Q12H IV 11/06/25 16:00 11/07/25 05:07 50 MLS/HR Acetaminophen 650 mg Q4HP PRN PO 11/06/25 16:00 11/07/25 01:03 650 MG Diagnostic Test (Pha) 1 strip IQ4HR 11/06/25 20:00 11/07/25 12:00 1 STRIP Insulin Human Regular IQ4HR SC 11/06/25 20:00 Dextrose 50 ml UD PRN IV 11/06/25 16:45 Nifedipine 90 mg DAILY PO 11/07/25 10:00 Aspirin 81 mg DAILY PO 11/07/25 10:00 11/07/25 13:53 81 MG Minoxidil 5 mg BID PO 11/06/25 22:00 11/07/25 13:52 5 MG Carvedilol 25 mg BID PO 11/06/25 22:00 11/07/25 13:52 25 MG Furosemide 80 mg BIDD PO 11/07/25 06:00 11/07/25 05:06 80 MG Hydralazine HCl 100 mg Q8HR PO 11/06/25 22:00 11/07/25 13:51 100 MG Losartan Potassium 100 mg DAILY PO 11/07/25 10:00 Sodium Bicarbonate 650 mg TID PO 11/06/25 22:00 11/07/25 13:53 650 MG Patient Own Medication 10 gm DAILY PO 11/07/25 10:00 Heparin Sodium (Porcine) 5,000 units Q8HR SC 11/06/25 22:00 11/07/25 13:51 5,000 UNITS Laboratory Results Laboratory Tests 11/07/25 05:13 Chemistry Test 11/06/25 14:34 11/06/25 17:40 11/07/25 05:13 Albumin 4.3 g/dL (3.2-4.8) 3.9 g/dL (3.2-4.8) Calcium Level 8.1 mg/dL (8.7-10.4) L 8.0 mg/dL (8.7-10.4) L 7.9 mg/dL (8.7-10.4) L Total Protein 6.7 g/dL (5.7-8.2) 6.2 g/dL (5.7-8.2) Magnesium Level 2.2 mg/dL (1.6-2.6) Coagulation Test 11/06/25 20:13 Prothrombin Time 11.4 sec (9.3-11.8) Prothrombin Time INR 1.08 (0.9-1.15) Activated Partial Thromboplast Time 30.0 SEC (24.5-34.5) Cardiac Markers Test 11/06/25 14:34 B-Type Natriuretic Peptide 2715.56 pg/mL (0-100) LFT Test 11/06/25 14:34 11/07/25 05:13 Alanine Aminotransferase (ALT) 15 U/L (7-40) 9 U/L (7-40) Alkaline Phosphatase 56 U/L (46-116) 49 U/L (46-116) Aspartate Amino Transferase (AST) 10 U/L (13-40) L < 8 U/L (13-40) L Total Bilirubin 0.3 mg/dL (0.2-1.0) 0.3 mg/dL (0.2-1.0) Labs and/or images reviewed: Labs reviewed by me Assessment/Plan Assessment/Plan # community-acquired pneumonia Gram-positive/Gram-negative IV ceftriaxone plus doxycycline Cultures # acute hypoxic respiratory failure due to community-acquired pneumonia/pulmonary edema/hypertensive emergency -on 2l Hepatomegaly emergency -IV hydralazine q.6 p.r.n. Nifedipine 90 mg # hyperkalemia -corrected EKG Repeat BMP Nephrology consult #CT status post CABG Aspirin plus statin # atrial fibrillation Resume home meds # ESRD on hemodialysis Neurology consulted Plan discussed with: Patient My Orders Orders - BIGG MATTHEWS MD Procedure Category Date Status Time Renal DIET 11/07/25 Transmitted Standard(2gna,3gk,Lopho) Lunch Date of Service: Nov 07, 2025 Billing Provider: BIGG MATTHEWS MD Common Visit Codes: [id number] INP/OBS CARE(HIGH) BIGG MATTHEWS MD Nov 07, 2025 13:57
[2025-11-07] MEDS: LOSARTAN POTASSIUM 50 MG TAB PO SCH (13:58)
[2025-11-08] VITALS (8 sets, daily range): BP systolic 122–163; BP diastolic 83–95; PULSE 62–79; RESP 14–19; TEMP 97.4–98.8; O2SAT 96–98
[2025-11-08 05:33] LABS: Hematocrit 31.2 % (41.0-53.0); Hemoglobin 10.6 g/dL (13.5-17.5); Mean Corpuscular Hemoglobin 30.9 pg (28.0-32.0); Mean Corpuscular Volume 91.0 fL (80.0-100.0); Nucleated Red Blood Cells % 0.2 %
[2025-11-08 05:40] LABS: Anion Gap 18 (5-15); Carbon Dioxide 23 mmol/L (20-31); Sodium 137 mmol/L (136-145)
[2025-11-08 05:46] LABS: BUN/Creatinine Ratio 6.0 (10.0-20.0); Glucose 97 mg/dL (74-106)
[2025-11-08 05:56] LABS: Chloride 96 mmol/L (98-107)
[2025-11-08 05:57] LABS: Calcium 7.9 mg/dL (8.7-10.4)
[2025-11-08 05:58] LABS: Blood Urea Nitrogen 84 mg/dL (9-23); Potassium 5.7 mmol/L (3.5-5.1)
--- NOTE | 2025-11-08 10:07 | ECG ---
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
--- NOTE | 2025-11-08 12:45 | DVHPN2 ---
Subjective The patient seen and examined at bedside. Feel better. Reviewed: Care Plan, H&P, Labs, Medications, Previous Orders, Radiology Changes from previous H/P or p: No Changes Objective Vitals Vital Signs Date Time Temp Pulse Resp B/P (MAP) Pulse Ox O2 Delivery O2 Flow Rate FiO2 11/08/25 09:10 98.4 67 14 138/84 (102) 96 98.4 11/07/25 20:00 Room Air* 0 21 Intake/Output Intake and Output 11/08/25 07:00 Intake Total 840 ml Output Total 435 ml Balance 405 ml Intake Oral 740 ml IV Total 100 ml Output Urine Total 435 ml # Bowel Movements 1 General Appearance: Alert, Cooperative HEENT: Atraumatic, PERRLA, EOMI, Mucous membr. moist/pink Neck: Supple Lungs: Clear to auscultation, Normal air movement Cardiovascular: Regular rate, Normal S1, Normal S2, No murmurs, Gallops, Rubs Abdomen: Normal bowel sounds, Soft, No tenderness Neuro: Cranial nerves 3-12 NL Psych/Mental Status: Mental status NL Medications Current Medications Medications Dose Ordered Sig/Devyn Route Start Time Stop Time Status Last Admin Dose Admin Ceftriaxone Sodium 50 ml @ 100 mls/hr DAILY@09 IV 11/07/25 09:00 11/07/25 13:50 100 MLS/HR Doxycycline Hyclate 100 ml @ 50 mls/hr Q12H IV 11/06/25 16:00 11/08/25 05:10 50 MLS/HR Acetaminophen 650 mg Q4HP PRN PO 11/06/25 16:00 11/07/25 23:06 650 MG Diagnostic Test (Pha) 1 strip IQ4HR 11/06/25 20:00 11/08/25 05:34 1 STRIP Insulin Human Regular IQ4HR SC 11/06/25 20:00 Dextrose 50 ml UD PRN IV 11/06/25 16:45 Nifedipine 90 mg DAILY PO 11/07/25 10:00 11/07/25 14:00 90 MG Aspirin 81 mg DAILY PO 11/07/25 10:00 11/07/25 13:53 81 MG Minoxidil 5 mg BID PO 11/06/25 22:00 11/07/25 21:00 5 MG Carvedilol 25 mg BID PO 11/06/25 22:00 11/07/25 20:59 25 MG Furosemide 80 mg BIDD PO 11/07/25 06:00 11/08/25 05:31 80 MG Hydralazine HCl 100 mg Q8HR PO 11/06/25 22:00 11/08/25 05:32 100 MG Losartan Potassium 100 mg DAILY PO 11/07/25 10:00 11/07/25 13:58 100 MG Sodium Bicarbonate 650 mg TID PO 11/06/25 22:00 11/08/25 05:31 650 MG Patient Own Medication 10 gm DAILY PO 11/07/25 10:00 Heparin Sodium (Porcine) 5,000 units Q8HR SC 11/06/25 22:00 11/08/25 05:33 5,000 UNITS Laboratory Results Laboratory Tests 11/08/25 04:54 Chemistry Test 11/08/25 04:54 Calcium Level 7.9 mg/dL (8.7-10.4) L Microbiology Microbiology Date/Time Source Procedure Growth Status 11/07/25 01:25 Nose MRSA Screen - Final Complete 11/06/25 17:52 Blood Blood Culture - Preliminary NO GROWTH AFTER 24 HOURS OF INCUBATION. Resulted Labs and/or images reviewed: Labs reviewed by me Assessment/Plan Assessment/Plan # community-acquired pneumonia Gram-positive/Gram-negative IV ceftriaxone plus doxycycline Cultures # acute hypoxic respiratory failure due to community-acquired pneumonia/pulmonary edema/hypertensive emergency -on 2l Hepatomegaly emergency -IV hydralazine q.6 p.r.n. Nifedipine 90 mg # hyperkalemia -corrected EKG Repeat [facility] Nephrology consult #ND status post CABG Aspirin plus statin # atrial fibrillation Resume home meds # ESRD on hemodialysis Neurology consulted Plan discussed with: Patient My Orders Orders - BIGG MATTHEWS MD Procedure Category Date Status Time Complete Blood Count LAB 11/09/25 Verified 05:00 Basic Metabolic Panel LAB 11/09/25 Verified 05:00 Date of Service: Nov 08, 2025 Billing Provider: BIGG MATTHEWS MD Common Visit Codes: [id number] INP/OBS CARE(HIGH) BIGG MATTHEWS MD Nov 08, 2025 12:44
--- NOTE | 2025-11-08 20:15 | DVHPN2 ---
Progress Note - Dictate Date Seen: Nov 08, 2025 Subjective no acute issues overnight vital signs Vital Sign Date Time Temp Pulse Resp B/P (MAP) Pulse Ox O2 Delivery O2 Flow Rate FiO2 11/08/25 18:00 148/95 11/08/25 16:30 98.8 75 16 97 98.8 11/08/25 08:00 Room Air* 0 21 Total Intake and Output 11/07/25 11/07/25 11/08/25 15:00 23:00 07:00 Intake Total 640 ml 200 ml Output Total 310 ml 125 ml Balance 330 ml 75 ml medications Current Medications Medications Dose Ordered Sig/Devyn Route Start Time Stop Time Status Last Admin Dose Admin Ceftriaxone Sodium 50 ml @ 100 mls/hr DAILY@09 IV 11/07/25 09:00 11/08/25 09:00 100 MLS/HR Doxycycline Hyclate 100 ml @ 50 mls/hr Q12H IV 11/06/25 16:00 11/08/25 05:10 50 MLS/HR Acetaminophen 650 mg Q4HP PRN PO 11/06/25 16:00 11/07/25 23:06 650 MG Diagnostic Test (Pha) 1 strip IQ4HR 11/06/25 20:00 11/08/25 16:00 1 STRIP Insulin Human Regular IQ4HR SC 11/06/25 20:00 Dextrose 50 ml UD PRN IV 11/06/25 16:45 Nifedipine 90 mg DAILY PO 11/07/25 10:00 11/08/25 10:00 90 MG Aspirin 81 mg DAILY PO 11/07/25 10:00 11/08/25 10:00 81 MG Minoxidil 5 mg BID PO 11/06/25 22:00 11/08/25 10:00 5 MG Carvedilol 25 mg BID PO 11/06/25 22:00 11/07/25 20:59 25 MG Furosemide 80 mg BIDD PO 11/07/25 06:00 11/08/25 18:00 80 MG Hydralazine HCl 100 mg Q8HR PO 11/06/25 22:00 11/08/25 05:32 100 MG Losartan Potassium 100 mg DAILY PO 11/07/25 10:00 11/07/25 13:58 100 MG Sodium Bicarbonate 650 mg TID PO 11/06/25 22:00 11/08/25 14:00 650 MG Patient Own Medication 10 gm DAILY PO 11/07/25 10:00 Heparin Sodium (Porcine) 5,000 units Q8HR SC 11/06/25 22:00 11/08/25 05:33 5,000 UNITS objective Awake alert oriented x3 HEENT: Normocephalic, no JVD Lungs: Bilateral good air entry CVS: S1, S2 regular rate rhythm Abdomen: Soft, bowel sounds present 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
[2025-11-09] VITALS (7 sets, daily range): BP systolic 134–148; BP diastolic 75–87; PULSE 66–77; RESP 16–18; TEMP 36.7; O2SAT 97–99
[2025-11-09] MEDS: ALBUTEROL SULF 2.5 MG/0.5ML(0.5%) NEB SOLN NEB ONE (07:54)
[2025-11-09] MEDS: SODIUM CHL 0.9% 1000 ML BAG XX ONE (07:55)
--- NOTE | 2025-11-09 12:04 | DVH ---
XY CHEST TWO VIEWS ROUTINE CLINICAL HISTORY: PNA COMPARISON: XY CHEST PORTABLE on DOS: 11/06/25, XY CHEST TWO VIEWS ROUTINE on DOS: 09/27/25, XY CHEST XRAY 1 VIEW on DOS: 09/24/25, XY CHEST PORTABLE on DOS: 09/19/25, XY CHEST PORTABLE on DOS: 09/01/25 TECHNIQUE: Frontal and lateral view of the chest was obtained FINDINGS: Lines and Tubes: Dialysis catheter unchanged. Lungs: Pulmonary vascular congestion unchanged. Pleura: No effusion. No pneumothorax. Cardiomediastinal contours: Unremarkable Bones: No acute osseous abnormality. IMPRESSION: 1. Pulmonary vascular congestion unchanged.
[2025-11-09] MEDS ORDERED: DOXY100C4 PO (14:34)
--- NOTE | 2025-11-09 14:36 | DVHDS2 ---
Discharge Summary Date of Admission Nov 06, 2025 at 15:53 Date of Discharge: Nov 09, 2025 Labs/Diagnostic Data: Laboratory Results Test 11/09/25 12:35 11/08/25 04:54 11/07/25 05:13 11/06/25 20:45 POC Glucose 63 mg/dl (70-106) White Blood Count 5.4 10^3/uL (4.4-10.8) Red Blood Count 3.43 10^6/uL (4.5-5.90) Hemoglobin 10.6 g/dL (13.5-17.5) Hematocrit 31.2 % (41.0-53.0) Mean Corpuscular Volume 91.0 fL (80.0-100.0) Mean Corpuscular Hemoglobin 30.9 pg (28.0-32.0) Mean Corpuscular Hemoglobin Concent 34.0 g/dL (32.0-36.0) Red Cell Distribution Width 14.9 % (11.8-14.3) Platelet Count 168 10^3/uL (140-450) Mean Platelet Volume 8.5 fL (6.9-10.8) Neutrophils (%) (Auto) 64.8 % (37.0-80.0) Lymphocytes (%) (Auto) 19.9 % (10.0-50.0) Monocytes (%) (Auto) 8.9 % (0.0-12.0) Eosinophils (%) (Auto) 5.6 % (0.0-7.0) Basophils (%) (Auto) 0.8 % (0.0-2.0) Neutrophils # (Auto) 3.5 10 ^3/uL (1.6-8.6) Lymphocytes # (Auto) 1.1 10 ^3/uL (0.4-5.4) Monocytes # (Auto) 0.5 10 ^3/uL (0-1.3) Eosinophils # (Auto) 0.3 10 ^3/uL (0-0.8) Basophils # (Auto) 0 10 ^3/uL (0-0.2) Nucleated Red Blood Cells 0.2 % Sodium Level 137 mmol/L (136-145) Potassium Level 5.7 mmol/L (3.5-5.1) Chloride Level 96 mmol/L (98-107) Carbon Dioxide Level 23 mmol/L (20-31) Anion Gap 18 (5-15) Blood Urea Nitrogen 84 mg/dL (9-23) Creatinine 14.05 mg/dL (0.700-1.30) Glomerular Filtration Rate Calc 3 mL/min (>90) BUN/Creatinine Ratio 6.0 (10.0-20.0) Serum Glucose 97 mg/dL (74-106) Calcium Level 7.9 mg/dL (8.7-10.4) Hepatitis B Surface Antigen Negative (Negative) Hepatitis B Surface Antibody Negative (Negative) Magnesium Level 2.2 mg/dL (1.6-2.6) Total Bilirubin 0.3 mg/dL (0.2-1.0) Aspartate Amino Transferase (AST) < 8 U/L (13-40) Alanine Aminotransferase (ALT) 9 U/L (7-40) Alkaline Phosphatase 49 U/L (46-116) Total Protein 6.2 g/dL (5.7-8.2) Albumin 3.9 g/dL (3.2-4.8) Influenza Type A Antigen Negative (Negative) Influenza Type B Antigen Negative (Negative) SARS-CoV-2 Antigen (Rapid) Negative (NEGATIVE) Test 11/06/25 20:13 11/06/25 17:40 11/06/25 14:34 Prothrombin Time 11.4 sec (9.3-11.8) Prothrombin Time INR 1.08 (0.9-1.15) Activated Partial Thromboplast Time 30.0 SEC (24.5-34.5) Troponin I High Sensitivity 16 ng/L (</=54) B-Type Natriuretic Peptide 2715.56 pg/mL (0-100) Other Laboratory Tests 11/08/25 04:54 Brief Hx & Hospital Course: 65-year-old male with past medical history of ESRD on hemodialysis on Sunday, , Sunday schedule, via right chest wall access, hypertension, [place] s/p CABG at [facility] 6 months ago, atrial fibrillation, brought in by EMS due to increased blood pressure. Patient mentioned that he has been feeling fever, shortness of breath, generalized weakness for last few days. He has been noting increasing BP over the last 2 weeks. Patient was seen in Nephrology consult. Patient is feeling better, no longer on supplemental oxygen. Will be discharged home on Doxy PO. Condition at Discharge: Poor Final Diagnosis/Problems List Possible Gram Neg PNA ESRD on HD Pulm Edema Discharge Disposition: Home Discharge Instruct/Medications Diet: Renal Activity: Light activity Follow Up/Referral: PCP in 1 week Medications: See [facility] Scheduled Amlodipine Besylate (Amlodipine Besylate), 1 TAB PO DAILY, (Reported) Aspirin (Aspirin Adult Low Dose), 1 TAB PO DAILY, (Reported) Carvedilol (Carvedilol), 1 TAB PO BID, (Reported) Clonidine Hydrochloride (Clonidine Hcl), 1 TAB PO DAILY, (Reported) Doxycycline Hyclate (Doxycycline Hyclate), 100 MG PO BID Furosemide (Furosemide), 1 TAB PO BID, (Reported) Hydralazine Hcl (Hydralazine Hcl), 1 TAB PO Q8HR, (Reported) Losartan Potassium (Losartan Potassium), 100 MG PO DAILY Minoxidil (Minoxidil), 5 MG PO BID Nifedipine (Nifedipine Er), 1 TAB PO DAILY, (Reported) Sodium Bicarbonate (Sodium Bicarbonate), 1 TAB PO TID, (Reported) Sodium Zirconium Cyclosilicate (Lokelma), 10 GM PO DAILY Discharge Statement: "Patient was advised to return to the ER or call 911 if any headaches, dizziness, shortness of breath, chest pain, abdominal pain, bleeding, fevers, or worsening of medical condition. Patient was counseled about treatment plan, medications, possible side effects, patientverbalized understanding. All questions were answered to the best of my ability. This discharge took greater then 30 minutes in planning, reviewing documentation, counseling the patient, and discussing with other team members." ASSESSMENT ASSESSMENT Assessment Date of Service: Nov 09, 2025 Billing Provider: LAVON GILMAN MD Common Visit Codes: 15622-QRI/OBS DISCH DAY >30min LAVON GILMAN MD Nov 09, 2025 14:36
--- NOTE | 2025-11-09 16:33 | DVHPN2 ---
Progress Note - Dictate Date Seen: Nov 09, 2025 Medical Necessity Reason Pt with a Central, PICC or Fol: No Subjective feeling better vital signs Vital Sign Date Time Temp Pulse Resp B/P (MAP) Pulse Ox O2 Delivery O2 Flow Rate FiO2 11/09/25 16:22 36.7 72 17 99 11/09/25 15:51 144/82 11/09/25 08:00 Room Air* 0 21 Total Intake and Output 11/08/25 11/08/25 11/09/25 15:00 23:00 07:00 Intake Total 400 ml 500 ml Output Total 450 ml Balance 400 ml 50 ml medications Current Medications Medications Dose Ordered Sig/Devyn Route Start Time Stop Time Status Last Admin Dose Admin Ceftriaxone Sodium 50 ml @ 100 mls/hr DAILY@09 IV 11/07/25 09:00 11/09/25 10:00 100 MLS/HR Doxycycline Hyclate 100 ml @ 50 mls/hr Q12H IV 11/06/25 16:00 11/09/25 15:52 50 MLS/HR Acetaminophen 650 mg Q4HP PRN PO 11/06/25 16:00 11/09/25 10:30 650 MG Diagnostic Test (Pha) 1 strip IQ4HR 11/06/25 20:00 11/09/25 12:00 1 STRIP Insulin Human Regular IQ4HR SC 11/06/25 20:00 11/09/25 10:09 2 UNITS Dextrose 50 ml UD PRN IV 11/06/25 16:45 Nifedipine 90 mg DAILY PO 11/07/25 10:00 11/09/25 10:01 90 MG Aspirin 81 mg DAILY PO 11/07/25 10:00 11/09/25 10:00 81 MG Minoxidil 5 mg BID PO 11/06/25 22:00 11/09/25 10:00 5 MG Carvedilol 25 mg BID PO 11/06/25 22:00 11/09/25 10:01 25 MG Furosemide 80 mg BIDD PO 11/07/25 06:00 11/09/25 05:42 80 MG Hydralazine HCl 100 mg Q8HR PO 11/06/25 22:00 11/09/25 15:51 100 MG Losartan Potassium 100 mg DAILY PO 11/07/25 10:00 11/07/25 13:58 100 MG Sodium Bicarbonate 650 mg TID PO 11/06/25 22:00 11/09/25 15:50 650 MG Patient Own Medication 10 gm DAILY PO 11/07/25 10:00 Heparin Sodium (Porcine) 5,000 units Q8HR SC 11/06/25 22:00 11/09/25 05:48 5,000 UNITS objective Awake alert oriented x3 HEENT: Normocephalic, no JVD Lungs: Bilateral good air entry CVS: S1, S2 regular rate rhythm Abdomen: Soft, bowel sounds present 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: No 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
[2025-11-10] MEDS ORDERED: SODIUM CHL 0.9% 1000 ML BAG XX ONE (07:00)
== END 2025-11-09 18:18 | disposition home or self-care (01) | DRG 177 ==
LOC: ER 13:09 → EDBD 13:09 → OVERFLOW 15:53 → TELE-EAST 23:52
PROVIDERS: ADMIT Internal Medicine; ATTEND Internal Medicine
PROC: 05HA33Z Insertion of Infusion Device into Left Brachial Vein, Percutaneous Approach (ICD-10-PCS; principal; 2025-11-06)
PROC: B54NZZA Ultrasonography of Left Upper Extremity Veins, Guidance (ICD-10-PCS; 2025-11-06)
PROC: 5A1D70Z Performance of Urinary Filtration, Intermittent, Less than 6 Hours Per Day (ICD-10-PCS; 2025-11-08)
DX: J15.69 Pneumonia due to other Gram-negative bacteria (principal); J96.01 Acute respiratory failure with hypoxia; N18.6 End stage renal disease; I13.2 Hypertensive heart and chronic kidney disease with heart failure and with stage 5 chronic kidney disease, or end stage renal disease; I16.1 Hypertensive emergency; R16.0 Hepatomegaly, not elsewhere classified; Z99.2 Dependence on renal dialysis; I48.91 Unspecified atrial fibrillation; I25.10 Atherosclerotic heart disease of native coronary artery without angina pectoris; E87.5 Hyperkalemia; Z20.822 Contact with and (suspected) exposure to COVID-19; Z83.3 Family history of diabetes mellitus; Z91.199 Patient's noncompliance with other medical treatment and regimen due to unspecified reason; Z95.1 Presence of aortocoronary bypass graft
CPT/HCPCS: 36415; 70450; 71045; 71046; 80048; 80053; 82962; 83735; 83880; 84132; 84484; 85025; 85610; 85730; 86706; 87040; 87081; 87340; 87426; 87804; 90935; 93005; 94640; 96365; G0378; J1815; J2543

== ENCOUNTER 2025-11-12 21:26 | Inpatient (IN) | payer OTHER, MEDICAID ==
[~2025-11-12] VITALS: Ht 167.6 cm; Wt 72.3 kg
[~2025-11-12 21:26] MED LIST changes: -AMLO1TAB23 PO; +DOXY100C4 PO; -LOSA-535 PO
[2025-11-12] MEDS ORDERED: ONDANSETRON HCL 4 MG/2 ML VIAL IV ONE (21:45)
[2025-11-12] MEDS ORDERED: MORPHINE SULFATE 4 MG/ML SYR/VIAL IV ONE (21:45)
[2025-11-12] MEDS ORDERED: hydrALAZINE HCL 20 MG/ML VL IV ONE (21:45)
--- NOTE | 2025-11-12 21:49 | ED.PDOC ---
History of Present Illness HPI Comments 65 y/o M, with PMHx of HTN, [place], ESRD, and CHF presents to the ED for CC of hypertension. Patient reports, his blood pressure has been high for x1day. Upon arrival to the ED, patient is hypertensive with a blood pressure of 220/100mmHg. Patient endorses symptoms of shortness of breath, dizziness, weakness, fever, and chills in relation. Chief Complaint: High Blood Pressure Time Seen by MD: 21:40 Reviewed Notes: Nurses Notes, Auto Overhauler Notes, Medications, Allergies Allergies: Coded Allergies: No Known Drug Allergy (Verified Allergy, Unknown, 08/28/25) Home Meds Active Scripts Doxycycline Hyclate (Doxycycline Hyclate) 100 Mg Cap, 100 MG PO BID for 7 Days, #14 CAP Prov:LAVON GILMAN MD 11/09/25 Minoxidil (Minoxidil) 2.5 Mg Tab, 5 MG PO BID for 30 Days, #120 TAB 1 Refill Prov:JOSE PAUL DO 09/25/25 Sodium Zirconium Cyclosilicate (Lokelma) 10 Gm Phong, 10 GM PO DAILY for 30 Days, #30 PACK 2 Refills Prov:JOSE PAUL DO 09/25/25 Reported Medications Furosemide (Furosemide) 80 Mg Tab, 1 TAB PO BID for 30 Days, #60 09/02/25 Aspirin (Aspirin Adult Low Dose) 81 Mg Tab, 1 TAB PO DAILY 08/29/25 Hydralazine Hcl (Hydralazine Hcl) 100 Mg Tab, 1 TAB PO Q8HR for 30 Days, #90 08/29/25 Sodium Bicarbonate (Sodium Bicarbonate) 650 Mg Tab, 1 TAB PO TID 08/29/25 Nifedipine (Nifedipine Er) 90 Mg Tab, 1 TAB PO DAILY 08/29/25 Clonidine Hydrochloride (Clonidine Hcl) 0.1 Mg Tab, 1 TAB PO DAILY for 30 Days, #30 08/29/25 Carvedilol (Carvedilol) 25 Mg Tab, 1 TAB PO BID 08/29/25 Discontinued Reported Medications Amlodipine Besylate (Amlodipine Besylate) 10 Mg Tab, 1 TAB PO DAILY for 30 Days, #30 08/29/25 Discontinued Scripts Losartan Potassium (Losartan Potassium) 100 Mg Tab, 100 MG PO DAILY, #30 TAB 1 Refill Prov:JOSE PAUL DO 09/25/25 Information Source: Patient, Emergency Med Personnel Mode of Arrival: EMS Severity: Moderate Timing: Days Duration: Since onset Prehospital treatment: None Past Medical History PAST MEDICAL HISTORY: CHF, ESRD, HTN, [place] Surgical History: CABG Family History Family History: Reviewed,noncontributory to illness, Family hx of DM, Family hx of Cancer, Family hx of heart gian, Family hx of HTN Social History Smoker: Non-Smoker Alcohol: Denies ETOH Use Drugs: Denies Drug Use Lives In: Home Constitutional: reports: chills, fever, weakness; denies: diaphoresis, fatigue, malaise, sweats, others EENTM: denies: blurred vision, double vision, ear bleeding, ear discharge, ear drainage, ear pain, ear ringing, eye pain, eye redness, hearing loss, mouth pain, mouth swelling, nasal discharge, nose bleeding, nose congestion, nose pain, photophobia, tearing, throat pain, throat swelling, voice changes, others Respiratory: reports: shortness of breath; denies: cough, hemoptysis, orthopnea, SOB at rest, SOB with excertion, stridor, wheezing, others Cardiovascular: denies: chest pain, dizzy spells, diaphoresis, Dyspnea on exertion, edema, irregular heart beat, left arm pain, lightheadedness, palpitations, PND, syncope, others Gastrointestinal: denies: abdomen distended, abdominal pain, blood streaked bowels, constipated, diarrhea, dysphagia, difficulty swallowing, hematemesis, melena, nausea, poor appetite, poor fluid intake, rectal bleeding, rectal pain, vomiting, others Genitourinary: denies: burning, dysuria, flank pain, frequency, hematuria, incontinence, penile discharge, penile sore, pain, testicle pain, testicle swelling, urgency, others Neurological: reports: dizziness; denies: fainting, headache, left sided numbness, left sided weakness, numbness, paresthesia, pre-existing deficit, right sided numbness, right sided weakness, seizure, speech problems, tingling, tremors, weakness, others Musculoskeletal: denies: back pain, gout, joint pain, joint swelling, muscle pain, muscle stiffness, neck pain, others Integumetry: denies: bruises, change in color, change in hair/nails, dryness, laceration, lesions, lumps, rash, wounds, others Allergic/Immunocompromised: denies: Difficulty Healing, Frequent Infections, Hives, Itching, others Hematologic/Lymphatic: denies: anemia, blood clots, easy bleeding, easy bruising, swollen glands, others Endocrine: denies: excessive hunger, excessive sweating, excessive thirst, excessive urination, flushing, intolerance to cold, intolerance to heat, unexp lained weight gain, unexplained weight loss, others Psychiatric: denies: anxiety, bipolar disorder, depression, hopeless, panic disorder, schizophrenia, sleepless, suicidal, others All Other Systems: Reviewed and Negative Physical Exam General Appearance: No Apparent Distress, Normal HEENT: Normal ENT Inspection, Pharynx Normal, TMs Normal Neck: Full Range of Motion, Non-Tender, Normal, Normal Inspection Respiratory: Chest Non-Tender, Lungs Clear, No Accessory Muscle Use, No Respiratory Distress, Normal Breath Sounds Cardiovascular: No Edema, No JVD, No Murmur, No Gallop, Normal Peripheral Pulse s, Regular Rate/Rhythm Breast Exam: Deferred Gastrointestinal: No Organomegaly, Non Tender, No Pulsatile Mass, Normal Bowel Sounds, Soft Genitalia: Deferred Pelvic: Deferred Rectal: Deferred Extremities: No calf tenderness, Normal capillary refill, Normal inspection, Normal range of motion, Non-tender, No pedal edema Musculoskeletal : Apperance: Normal Neurologic: Alert, outreach liaison II-XII nml as Tested, No Motor Deficits, Normal Affect, Normal Mood, No Sensory Deficits Cerebellar Function: Normal Reflexes: Normal Skin: Dry, Normal Color, Warm Lymphatic: No Adenopathy Was a procedure done? Was a procedure done?: No Differential Dx Considerations may include: hypertensive crisis, hypertensive urgency, pneumonia X-Ray, Labs, Meds, VS Vital Signs Date Time Temp Pulse Resp B/P (MAP) Pulse Ox O2 Delivery O2 Flow Rate FiO2 11/12/25 22:34 67 18 198/103 11/12/25 22:26 198/103 11/12/25 21:52 98.2 62 19 204/96 (132) 98 98.2 11/12/25 21:52 Room Air* 0 21 11/12/25 21:38 60 11/12/25 21:30 98.0 60 18 220/100 99 98.0 Lab Test 11/12/25 22:20 Range/Units White Blood Count 6.0 4.4-10.8 10^3/uL Red Blood Count 3.47 L 4.5-5.90 10^6/uL Hemoglobin 10.5 L 13.5-17.5 g/dL Hematocrit 31.6 L 41.0-53.0 % Mean Corpuscular Volume 91.2 80.0-100.0 fL Mean Corpuscular Hemoglobin 30.4 28.0-32.0 pg Mean Corpuscular Hemoglobin Concent 33.3 32.0-36.0 g/dL Red Cell Distribution Width 14.7 H 11.8-14.3 % Platelet Count 150 140-450 10^3/uL Mean Platelet Volume 8.3 6.9-10.8 fL Neutrophils (%) (Auto) 63.2 37.0-80.0 % Lymphocytes (%) (Auto) 20.0 10.0-50.0 % Monocytes (%) (Auto) 7.5 0.0-12.0 % Eosinophils (%) (Auto) 8.7 H 0.0-7.0 % Basophils (%) (Auto) 0.6 0.0-2.0 % Neutrophils # (Auto) 3.8 1.6-8.6 10 ^3/uL Lymphocytes # (Auto) 1.2 0.4-5.4 10 ^3/uL Monocytes # (Auto) 0.5 0-1.3 10 ^3/uL Eosinophils # (Auto) 0.5 0-0.8 10 ^3/uL Basophils # (Auto) 0 0-0.2 10 ^3/uL Nucleated Red Blood Cells 0.0 % Sodium Level 140 136-145 mmol/L Potassium Level 6.3 *H 3.5-5.1 mmol/L Chloride Level 100 98-107 mmol/L Carbon Dioxide Level 23 20-31 mmol/L Anion Gap 17 H 5-15 Blood Urea Nitrogen 60 H 9-23 mg/dL Creatinine 15.47 *H 0.700-1.30 mg/dL Glomerular Filtration Rate Calc 3 >90 mL/min BUN/Creatinine Ratio 3.9 L 10.0-20.0 Serum Glucose 93 74-106 mg/dL Lactic Acid Level 1.2 0.4-2.0 mmol/L Calcium Level 8.3 L 8.7-10.4 mg/dL Total Bilirubin 0.2 0.2-1.0 mg/dL Aspartate Amino Transferase (AST) < 8 L 13-40 U/L Alanine Aminotransferase (ALT) 9 7-40 U/L Alkaline Phosphatase 56 46-116 U/L Troponin I High Sensitivity Pending Total Protein 6.9 5.7-8.2 g/dL Albumin 4.3 3.2-4.8 g/dL Current Medications Medications (Trade) Dose Ordered Sig/Devyn Route Start Time Stop Time Status Last Admin Hydralazine HCl (Apresoline Tablet) 25 mg ONCE ONCE PO 11/12/25 22:15 11/12/25 22:16 DC 11/12/25 22:26 Ondansetron HCl (Zofran Po) 4 mg ONCE ONCE PO 11/12/25 22:15 11/12/25 22:16 DC 11/12/25 22:26 Morphine Sulfate 4 mg ONCE ONCE IV 11/12/25 22:30 11/12/25 22:31 DC 11/12/25 22:34 X-Ray, Labs, Meds, VS Comment Patient will be admitted for hypertensive urgency Hyperkalemia End-stage renal failure Noncompliance with dialysis Recommend dialysis consult in the morning Hyperkalemia protocol started Time of 1ST Reevaluation: 22:10 Reevaluation 1ST: Unchanged Patient Education/Counseling: Diagnosis, Treatment Family Education/Counseling: No Family Present SEPSIS Sepsis Screen Date sepsis recognized/suspect: Nov 12, 2025 Time Sepsis recognized/suspect: 2129 Recent Procedure: No On Antibiotic Therapy: No Respiratory Rate >20: No Heart Rate >90: No Temp<36 C (96.8 F) or >38.3 C: No SBP <90 or MAP <65 mmHG: No New Acute Mental Status Change: No Is the patient on CPAP, BIPAP,: No Physician Orders Electrocardigram (11/12/25 21:42) Urinalysis (11/12/25 21:43) Troponin-I Hs (11/12/25 21:43) Drug Screen (11/12/25 21:43) Troponin-I Hs (11/12/25 22:43) Troponin-I Hs (11/13/25 00:43) Insulin R (Human) (Insulin R) (11/12/25 23:15) Albuterol Medneb (Ventolin Medneb) (11/12/25 23:15) Sodium Bicarb 50meq/50ml Syr (11/12/25 23:15) Dextrose 50% Syringe (11/12/25 23:15) Vital Signs Date Time Temp Pulse Resp B/P (MAP) Pulse Ox O2 Delivery O2 Flow Rate FiO2 11/12/25 22:34 67 18 198/103 11/12/25 22:26 198/103 11/12/25 21:52 98.2 62 19 204/96 (132) 98 98.2 11/12/25 21:52 Room Air* 0 21 11/12/25 21:38 60 11/12/25 21:30 98.0 60 18 220/100 99 98.0 Laboratory Tests Test 11/12/25 22:20 Lactic Acid Level 1.2 mmol/L (0.4-2.0) White Blood Count 6.0 10^3/uL (4.4-10.8) Medications Medications Dose Ordered Sig/Devyn Route Start Time Stop Time Status Last Admin Dose Admin Hydralazine HCl 25 mg ONCE ONCE PO 11/12/25 22:15 11/12/25 22:16 DC 11/12/25 22:26 Morphine Sulfate 4 mg ONCE ONCE IV 11/12/25 22:30 11/12/25 22:31 DC 11/12/25 22:34 Ondansetron HCl 4 mg ONCE ONCE PO 11/12/25 22:15 11/12/25 22:16 DC 11/12/25 22:26 Departure 1 Departure Time of Disposition: 23:11 Impression: Primary Impression: Hypertensive urgency Additional Impressions: Dyspnea Qualified Codes: R06.09 - Other forms of dyspnea Electrolyte imbalance End stage renal disease on dialysis Hyperkalemia Disposition: 09 ADMITTED INPATIENT Condition: Guarded Critical Care Note Critical Care Time?: No Stability Stability form required: No Heart Score Heart Score: Heart Score Response (Comments) Value History N/A 0 EKG N/A 0 Age N/A 0 Risk Factors N/A 0 Troponin N/A 0 Total 0 I personally scribed for AKHIL ROJAS ([email or web address]) on 11/12/25 at 21:49. Electronically submitted by Billie Mcwilliams ([email or web address]). AKHIL ROJAS Nov 12, 2025 21:49
[2025-11-12] MEDS: SODIUM CHLORIDE 0.9% 1,000 ML IV ONE (22:14)
[2025-11-12] MEDS ORDERED: MORPHINE SULFATE 4 MG/ML SYR/VIAL IM ONE (22:15)
[2025-11-12] MEDS: ONDANSETRON ODT 4 MG TAB PO ONE (22:26)
[2025-11-12] MEDS: MORPHINE SULFATE 4 MG/ML SYR/VIAL IV ONE (22:34)
[2025-11-12 22:51] LABS: Hematocrit 31.6 % (41.0-53.0); Hemoglobin 10.5 g/dL (13.5-17.5); Mean Corpuscular Hemoglobin 30.4 pg (28.0-32.0); Mean Corpuscular Volume 91.2 fL (80.0-100.0); Nucleated Red Blood Cells % 0.0 %
[2025-11-12 22:54] LABS: Albumin 4.3 g/dL (3.2-4.8); Alkaline Phosphatase 56 U/L (46-116); Anion Gap 17 (5-15); BUN/Creatinine Ratio 3.9 (10.0-20.0); Carbon Dioxide 23 mmol/L (20-31); Chloride 100 mmol/L (98-107); Glucose 93 mg/dL (74-106); Sodium 140 mmol/L (136-145); Total Protein 6.9 g/dL (5.7-8.2)
[2025-11-12 23:02] LABS: Alanine Aminotransferase 9 U/L (7-40); Blood Urea Nitrogen 60 mg/dL (9-23); Calcium 8.3 mg/dL (8.7-10.4)
[2025-11-12 23:04] LABS: Potassium 6.3 mmol/L (3.5-5.1)
[2025-11-12 23:05] LABS: Bilirubin, Total 0.2 mg/dL (0.2-1.0)
[2025-11-12] MEDS: DEXTROSE (50%) 50ML SYRG IV ONE (23:21)
[2025-11-12] MEDS: SODIUM BICARB 8.4% 50Meq/50ml SYR INJ IV ONE (23:21)
[2025-11-12] MEDS: InsuLIN REG 1unit/0.01ml Soln (100units/ml) IV ONE (23:21)
[2025-11-12 23:26] VITALS: PULSE 67; RESP 16; O2SAT 97
[2025-11-12] MEDS: ALBUTEROL SULF 2.5 MG/0.5ML(0.5%) NEB SOLN NEB ONE (23:26)
[2025-11-12] MEDS ORDERED: DOCUSATE SOD 100 MG CAP PO PRN (23:30)
[2025-11-12] MEDS ORDERED: ONDANSETRON HCL 4 MG/2 ML VIAL IV PRN (23:30)
[2025-11-12] MEDS ORDERED: NITROGLYCERIN 0.4 MG SL TAB SL PRN (23:30)
--- NOTE | 2025-11-12 23:34 | DVHHP2 ---
History of Present Illness Reason for Visit: Hypertensive urgency History of Present Illness The patient is a 65-year-old male with past medical history of end-stage renal disease on hemodialysis, hypertension, MT, and congestive heart failure who presented to [facility] ED with complaint of elevated blood pressur e. Patient reports that his blood pressure has been high for the past 1 day despite taking his medication associated with shortness of breaths. Patient was seen and evaluated in the ED, laboratory data shows WBC 6.0, hemoglobin 10.0, hematocrit 31.6, platelets 150, sodium 140, potassium 6.3, BUN 60, creatinine 15.47, GFR 3, glucose 93, calcium 8.3, AST 8, ALT 9, troponin 34, blood pressure 220/100 trending down to 198/103, heart rate 68, temperature 98.2 F, O2 saturation 98% on room air. Patient was given IV hydralazine 15 mg x 1, please see medication orders section in the computer. On my assessment, patient denied chest pain, no headache, dizziness, diaphoresis, shortness of breaths, no diarrhea, nausea, vomiting, fever, no chills. Patient was admitted for further evaluation and medical management. Past Medical History CHF, ESRD, HTN, MT Past Surgical History CABG Family History Reviewed, noncontributory to the management of this case. Past Social History The patient lives at home, denies smoking, alcohol or illicit drugs abuse. Review of Systems Constitutional: Yes: Weakness; No: Fever, Chills, Sweats, Malaise, Other Eyes: No: Pain, Vision change, Conjunctivae inflammation, Eyelid inflammation, Other, Redness ENT: No: Ear pain, Ear discharge, Nose pain, Nose discharge, Nose congestion, Mouth pain, Mouth swelling, Throat pain, Throat swelling, Other Respiratory: Shortness of breath; No: Cough, Dry, SOB with excertion, Wheezing, Hemoptysis, Pleuritic Pain, Sputum, Wheezing, Other Cardiovascular: No: Chest Pain, Palpitations, Orthopnea, Paroxysmal Noc. Dyspnea, Edema, Lt Headedness, Other Gastrointestinal: No: Nausea, Vomiting, Abdominal Pain, Diarrhea, Constipation, Melena, Hematochezia, Other Genitourinary: No Dysuria, No Frequency, No Incontinence, No Hematuria, No Retention, No Other Musculoskeletal: No: other, neck pain, shoulder pain, arm pain, back pain, hand pain, leg pain, foot pain Skin: No: Rash, Lesions, Jaundice, Bruising, Other Neurological: No: Weakness, Numbness, Incoordination, Change in speech, Confusion, Seizures, Other Allergies: Coded Allergies: No Known Drug Allergy (Verified Allergy, Unknown, 08/28/25) Exam Vital Signs Vital Signs Date Time Temp Pulse Resp B/P (MAP) Pulse Ox O2 Delivery O2 Flow Rate FiO2 11/12/25 23:26 16 Room Air* 0 21 11/12/25 22:34 67 198/103 11/12/25 21:52 98.2 98 98.2 General Appearance: Alert, Oriented X3, Cooperative, No acute distress HEENT: Atraumatic, PERRLA, EOMI, Mucous membr. moist/pink Respiratory: Normal air movement Cardiovascular: Regular rate, Normal S1, Normal S2, No murmurs Abdominal: Normal bowel sounds, Soft, No tenderness, No hepatospenomegaly, No masses Extremities: No clubbing, No cyanosis, No edema, Normal pulses, No te nderness/swelling Skin: No rashes, No significant lesion Neuro: Normal speech, Normal tone, Sensation intact, Cranial nerves 3-12 NL, Reflexes 2+, Other (Generalized weakness) Psych/Mental Status: Mental status NL, Mood NL Labs/Xrays Labs Test 11/12/25 22:20 Range/Units White Blood Count 6.0 4.4-10.8 10^3/uL Red Blood Count 3.47 L 4.5-5.90 10^6/uL Hemoglobin 10.5 L 13.5-17.5 g/dL Hematocrit 31.6 L 41.0-53.0 % Mean Corpuscular Volume 91.2 80.0-100.0 fL Mean Corpuscular Hemoglobin 30.4 28.0-32.0 pg Mean Corpuscular Hemoglobin Concent 33.3 32.0-36.0 g/dL Red Cell Distribution Width 14.7 H 11.8-14.3 % Platelet Count 150 140-450 10^3/uL Mean Platelet Volume 8.3 6.9-10.8 fL Neutrophils (%) (Auto) 63.2 37.0-80.0 % Lymphocytes (%) (Auto) 20.0 10.0-50.0 % Monocytes (%) (Auto) 7.5 0.0-12.0 % Eosinophils (%) (Auto) 8.7 H 0.0-7.0 % Basophils (%) (Auto) 0.6 0.0-2.0 % Neutrophils # (Auto) 3.8 1.6-8.6 10 ^3/uL Lymphocytes # (Auto) 1.2 0.4-5.4 10 ^3/uL Monocytes # (Auto) 0.5 0-1.3 10 ^3/uL Eosinophils # (Auto) 0.5 0-0.8 10 ^3/uL Basophils # (Auto) 0 0-0.2 10 ^3/uL Nucleated Red Blood Cells 0.0 % Sodium Level 140 136-145 mmol/L Potassium Level 6.3 *H 3.5-5.1 mmol/L Chloride Level 100 98-107 mmol/L Carbon Dioxide Level 23 20-31 mmol/L Anion Gap 17 H 5-15 Blood Urea Nitrogen 60 H 9-23 mg/dL Creatinine 15.47 *H 0.700-1.30 mg/dL Glomerular Filtration Rate Calc 3 >90 mL/min BUN/Creatinine Ratio 3.9 L 10.0-20.0 Serum Glucose 93 74-106 mg/dL Lactic Acid Level 1.2 0.4-2.0 mmol/L Calcium Level 8.3 L 8.7-10.4 mg/dL Total Bilirubin 0.2 0.2-1.0 mg/dL Aspartate Amino Transferase (AST) < 8 L 13-40 U/L Alanine Aminotransferase (ALT) 9 7-40 U/L Alkaline Phosphatase 56 46-116 U/L Troponin I High Sensitivity 34 </=54 ng/L Total Protein 6.9 5.7-8.2 g/dL Albumin 4.3 3.2-4.8 g/dL PATIENT: SHANNAN BENITEZ ACCT: [id number] UNIT: [id number] : 1960 LOC: [facility] ROOM / BED: 0240T / A AGE / SEX: 65 / M ADM STATUS: ADM IN SERVICE 1056 ORDERING PHYSICIAN: LAVON GILMAN MD PROCEDURE(s): CXR2 - CHEST TWO VIEWS ROUTINE REASON: FORMERLY NAMED [facility] ORDER NUMBER(s): [id number], ACCESSION NUMBER(s): [id number] XY CHEST TWO VIEWS ROUTINE CLINICAL HISTORY: PNA COMPARISON: XY CHEST PORTABLE on DOS: 11/06/25, XY CHEST TWO VIEWS ROUTINE on DOS: 09/27/25, XY CHEST XRAY 1 VIEW on DOS: 09/24/25, XY CHEST PORTABLE on DOS: 09/19/25, XY CHEST PORTABLE on DOS: 09/01/25 TECHNIQUE: Frontal and lateral view of the chest was obtained FINDINGS: Lines and Tubes: Dialysis catheter unchanged. Lungs: Pulmonary vascular congestion unchanged. Pleura: No effusion. No pneumothorax. Cardiomediastinal contours: Unremarkable Bones: No acute osseous abnormality. IMPRESSION: 1. Pulmonary vascular congestion unchanged. SEPSIS Sepsis Screen Date sepsis recognized/suspect: Nov 12, 2025 Time Sepsis recognized/suspect: 2151 Recent Procedure: No On Antibiotic Therapy: No Respiratory Rate >20: No Heart Rate >90: No Temp<36 C (96.8 F) or >38.3 C: No SBP <90 or MAP <65 mmHG: No New Acute Mental Status Change: No Is the patient on CPAP, BIPAP,: No Physician Orders Electrocardigram (11/12/25 21:42) Urinalysis (11/12/25 21:43) Drug Screen (11/12/25 21:43) Troponin-I Hs (11/12/25 22:43) Troponin-I Hs (11/13/25 00:43) B-Type Natriuretic Peptide (11/12/25 23:25) Hydralazine Injection (Apresoline Inject (11/12/25 23:30) Carvedilol Tablet (Coreg Tablet) (11/13/25 10:00) Aspirin Chewable Tablet (11/13/25 10:00) Amlodipine Tablet (Norvasc Tablet) (11/12/25 23:30) Amlodipine Tablet (Norvasc Tablet) (11/13/25 10:00) *[facility] (11/12/25 23:25) Albuterol Medneb (Ventolin Medneb) (11/12/25 23:30) Sodium Zirconium Cyclosilicate (Lokelma) (11/12/25 23:30) Admit (11/12/25 23:25) Allergies (11/12/25 23:25) Code Status (11/12/25 23:25) Renal Standard(2gna,3gk,Lopho) (11/13/25 Breakfast) Sodium Chloride Lock (Saline Lock Ns) (11/13/25 06:00) Oxygen Per Hour (11/12/25:25) Hydrocodone-Acet 5/325mg Tab ([place] 5/32 (11/12/25 23:30) Ondansetron Hcl (Zofran) (11/12/25 23:30) Docusate Sodium Capsule (Colace Capsule) (11/12/25 23:30) Fall Risk Precautions In Place QSHIFT (11/12/25:25) Complete Blood Count (11/13/25 04:00) Comprehensive Metabolic Panel (11/13/25 04:00) Echo 2d Mode Cardiac Dop (11/12/25:25) Condition: Serious (11/12/25:25) Acetaminophen Tablet (Tylenol Tablet) (11/12/25 23:30) Maintain Bed Rest (11/12/25:25) Sequential Compression Device (11/12/25 ) Nitroglycerin Sublingual (Ntrostat Subli (11/12/25 23:30) Morphine Sulfate Injection (11/12/25 23:30) Stat Ekg For Chest Pain (11/12/25:25) Notify Md Of Changes From Base (11/12/25:25) Work And Family Life Consultant For 24 Hours (11/12/25 23:25) Emergency Dysrhythmia Protocol (11/12/25 23:25) Rhythm Strips Once Every Shift (11/12/25 23:25) Oxygen By Nasal Cannula (11/12/25:25) B-Complex W/ C & Folic Tablet (Nephro-Vi (11/13/25 10:00) Sevelamer (Renagel) (11/13/25 08:00) Calcium Acetate Capsule (Phoslo Capsule) (11/13/25 08:00) Calcium Acetate Capsule (Phoslo Capsule) (11/12/25 23:30) Vital Signs Date Time Temp Pulse Resp B/P (MAP) Pulse Ox O2 Delivery O2 Flow Rate FiO2 11/12/25 23:26 16 Room Air* 0 21 11/12/25 22:34 67 18 198/103 11/12/25 22:26 198/103 11/12/25 21:52 98.2 62 19 204/96 (132) 98 98.2 11/12/25 21:52 Room Air* 0 21 11/12/25 21:38 60 11/12/25 21:30 98.0 60 18 220/100 99 98.0 Laboratory Tests Test 11/12/25 22:20 Lactic Acid Level 1.2 mmol/L (0.4-2.0) White Blood Count 6.0 10^3/uL (4.4-10.8) Medications Medications Dose Ordered Sig/Devyn Route Start Time Stop Time Status Last Admin Dose Admin Albuterol 20 mg ONCE ONCE NEB 11/12/25 23:15 11/12/25 23:16 DC 11/12/25 23:26 20 MG Dextrose 50 ml ONCE ONCE IV 11/12/25 23:15 11/12/25 23:16 DC 11/12/25 23:21 50 ML Hydralazine HCl 25 mg ONCE ONCE PO 11/12/25 22:15 11/12/25 22:16 DC 11/12/25 22:26 25 MG Insulin Human Regular 10 units ONCE ONCE IV 11/12/25 23:15 11/12/25 23:16 DC 11/12/25 23:21 10 UNITS Morphine Sulfate 4 mg ONCE ONCE IV 11/12/25 22:30 11/12/25 22:31 DC 11/12/25 22:34 4 MG Ondansetron HCl 4 mg ONCE ONCE PO 11/12/25 22:15 11/12/25 22:16 DC 11/12/25 22:26 4 MG Sodium Bicarbonate 50 ml ONCE ONCE IV 11/12/25 23:15 11/12/25 23:16 DC 11/12/25 23:21 50 ML Assessment/Plan Assessment/Plan Hypertensive urgency Hyperkalemia Dyspnea Other forms of dyspnea Electrolyte imbalance End stage renal disease on dialysis Plan 1. Admit to telemetry unit 2. Breathing treatment 3. Pain control management 4. Management of fluids and electrolytes 5. Consultation for Nephrology 6. Diagnostic tests chest x-ray 7. DVT prophylaxis-on aspirin 8. Repeat labs CBC, CMP in a.m. 9. Continue with current medical management 10. Treatment plan discussed with patient and RN. Patient verbalized understanding. Plan discussed with: Patient, Other (RN) My Orders Orders - NINI OCHOA DNP Procedure Category Date Status Time B-Type Natriuretic LAB 11/12/25 Transmitted Peptide 23:25 Hydralazine Injection PHA 11/12/25 Transmitted (Apresoline Inject 23:30 Carvedilol Tablet PHA 11/13/25 Transmitted (Coreg Tablet) 10:00 Aspirin Chewable PHA 11/13/25 Transmitted Tablet 10:00 Amlodipine Tablet PHA 11/12/25 Transmitted (Norvasc Tablet) 23:30 Amlodipine Tablet PHA 11/13/25 Transmitted (Norvasc Tablet) 10:00 *[facility] CONS 11/12/25 Transmitted -[place] 23:25 Albuterol Medneb PHA 11/12/25 Transmitted (Ventolin Medneb) 23:30 Sodium Zirconium PHA 11/12/25 Transmitted Cyclosilicate 23:30 Admit ADMIT 11/12/25 Transmitted 23:25 Allergies WING 11/12/25 Transmitted 23:25 Code Status CODE 11/12/25 Transmitted 23:25 Renal DIET 11/13/25 Transmitted Standard(2gna,3gk,Lopho) Breakfast Sodium Chloride Lock PHA 11/13/25 Transmitted (Saline Lock Ns) 06:00 Oxygen Per Hour RT 11/12/25 Transmitted 23:25 Hydrocodone-Acet PHA 11/12/25 Verified 5/325mg Tab ([place] 23:30 Ondansetron Hcl PHA 11/12/25 Verified (Zofran) 23:30 Docusate Sodium PHA 11/12/25 Verified Capsule (Colace 23:30 Fall Risk Precautions WING 11/12/[address] 23:25 Complete Blood Count LAB 11/13/25 Verified 04:00 Comprehensive LAB 11/13/25 Verified Metabolic Panel 04:00 Echo 2d Mode Cardiac US 11/12/25 Verified DOP 23:25 Condition: Serious WING 11/12/25 Verified 23:25 Acetaminophen Tablet PHA 11/12/25 Verified (Tylenol Tablet) 23:30 Maintain Bed Rest WING 11/12/25 Verified 23:25 Sequential WING 11/12/25 Verified Compression Device Nitroglycerin PHA 11/12/25 Verified Sublingual (Ntrostat 23:30 Morphine Sulfate PHA 11/12/25 Verified Injection 23:30 Stat Ekg For Chest WING 11/12/25 Verified Pain 23:25 Notify Md Of Changes WING 11/12/25 Verified From Base 23:25 Work And Family Life Consultant For WING 11/12/25 Verified 24 Hours 23:25 Emergency Dysrhythmia WING 11/12/25 Verified Protocol 23:25 Rhythm Strips Once WING 11/12/25 Verified Every Shift 23:25 Oxygen By Nasal RT 11/12/25 Verified Cannula 23:25 B-Complex W/ C & PHA 11/13/25 Verified Folic Tablet 10:00 Sevelamer (Renagel) [facility] 11/13/25 Verified 08:00 Calcium Acetate [facility] 11/13/25 Verified Capsule ([place] 08:00 Calcium Acetate [facility] 11/12/25 Verified Capsule (Phoslo 23:30 Problem List: (1) Hypertensive urgency (2) Hyperkalemia (3) Dyspnea (4) Electrolyte imbalance (5) Other forms of dyspnea (6) End stage renal disease on dialysis Date of Service: Nov 12, 2025 Billing Provider: NINI OCHOA DNP Common Visit Codes: [id number] INP/OBS CARE (HIGH) NINI OCHOA DNP Nov 12, 2025 23:34
[2025-11-12] MEDS ORDERED: MORPHINE SULFATE 4 MG/ML SYR/VIAL IV PRN (23:45)
[2025-11-13] VITALS (14 sets, daily range): BP systolic 126–196; BP diastolic 70–111; PULSE 67–90; RESP 14–20; TEMP 97.3–98.2; O2SAT 93–100
[2025-11-13] MEDS: SODIUM ZIRCONIUM CYCL 10 GM PAK PO ONE
[2025-11-13] MEDS: CALCIUM ACETATE 667 MG CAP PO ONE
--- NOTE | 2025-11-13 01:17 | ECG ---
[facility] Test Date: 2025-11-12 Test Time: 21:38:18 Pat Name: SHANNAN BENITEZ Department: [facility] ED Patient ID: [facility]-[id number] Room: 0240T Gender: M Lab Tester: TATI : 1960 Requested By: AKHIL GOODWIN* Order Number: [id number] Reading MD: Ortiz Woo Measurements Intervals [place] Rate: 60 P: 74 SC: 187 QRS: 6 QRSD: 86 T: 79 QT: 455 QTc: 455 Interpretive Statements Sinus rhythm Borderline T abnormalities, lateral leads Baseline wander in lead(s) I Electronically Signed On 11-16-2025 15:21:36 PST by Ortiz Woo Please click the below link to view image of tracing.
[2025-11-13] MEDS: hydrALAZINE HCL 20 MG/ML VL IV PRN (02:32)
[2025-11-13] MEDS: HYDROcodone-ACET 5/325MG TAB PO PRN (02:33)
[2025-11-13] MEDS: SODIUM CHLOR 0.9% PF (SALINE LOCK) 10ML VIAL/SYR IV SCH (05:29)
[2025-11-13 05:54] LABS: Hematocrit 33.6 % (41.0-53.0); Hemoglobin 10.7 g/dL (13.5-17.5); Mean Corpuscular Hemoglobin 30.5 pg (28.0-32.0); Mean Corpuscular Volume 95.9 fL (80.0-100.0); Nucleated Red Blood Cells % 0.1 %
[2025-11-13 06:07] LABS: Chloride 100 mmol/L (98-107); Sodium 138 mmol/L (136-145)
[2025-11-13 06:12] LABS: Alkaline Phosphatase 54 U/L (46-116)
[2025-11-13 06:13] LABS: BUN/Creatinine Ratio 5.7 (10.0-20.0); Total Protein 6.4 g/dL (5.7-8.2)
[2025-11-13 06:14] LABS: Albumin 4.0 g/dL (3.2-4.8)
[2025-11-13 06:30] LABS: Alanine Aminotransferase 16 U/L (7-40)
[2025-11-13 06:57] LABS: Bilirubin, Total 0.2 mg/dL (0.2-1.0); Calcium 8.1 mg/dL (8.7-10.4); Glucose 120 mg/dL (74-106)
[2025-11-13 06:59] LABS: Anion Gap 19 (5-15); Blood Urea Nitrogen 85 mg/dL (9-23); Carbon Dioxide 19 mmol/L (20-31); Potassium 6.7 mmol/L (3.5-5.1)
[2025-11-13] MEDS: B-COMPLEX W/ C & FOLIC ACID(NEPHROVITE TAB) PO SCH (08:40)
[2025-11-13] MEDS: CALCIUM ACETATE 667 MG CAP PO SCH (08:41)
[2025-11-13] MEDS: SEVELAMER 800 MG TAB PO SCH (08:41)
[2025-11-13] MEDS: CARVEDILOL 3.125 MG TAB PO SCH ×2 (08:42→22:05)
[2025-11-13] MEDS: SODIUM ZIRCONIUM CYCL 10 GM PAK PO SCH (11:00)
[2025-11-13] MEDS: DEXTROSE (50%) 50ML SYRG IV ONE (11:10)
[2025-11-13] MEDS: CALCIUM GLUC 1,000mg/50ml-NS 50 ML IV ONE (11:10)
[2025-11-13] MEDS: InsuLIN REG 1unit/0.01ml Soln (100units/ml) IV ONE (11:16)
[2025-11-13 11:58] LABS: Hepatitis B Surface Antigen Negative (Negative)
[2025-11-13 12:09] LABS: Hepatitis C Antibody Negative (Negative)
[2025-11-13] MEDS: ALBUTEROL SULF 2.5 MG/0.5ML(0.5%) NEB SOLN NEB ONE (14:33)
--- NOTE | 2025-11-13 14:47 | DVHINCON2 ---
Date of service: Nov 13, 2025 Referring Physician Tori Jimenez Reason for Consultation Dialysis History of Present Illness 65 Y/O M with history of ESRD on HD via Rt IJ TC, HTN, HLD, CAD s/p CABG presented with chief complaint of elevated BP. BP in ER 220/110 mmHg. CXR shows pulmonary congestion. K is 6.7 mmol/l. Stat dialysis was arranged after being notified this morning. Patient is non-compliant ans frequently misses dialysis. despite saying that he had his dialysis at [facility], but there is no record that he showed up. Past Medical History ESRD HTN HLD Anemia CAD Past Surgical History CABG Tunneled CVC placement Allergies: Coded Allergies: No Known Drug Allergy (Verified Allergy, Unknown, 08/28/25) Home Meds Active Scripts Doxycycline Hyclate (Doxycycline Hyclate) 100 Mg Cap, 100 MG PO BID for 7 Days, #14 CAP Prov:LAVON GILMAN MD 11/09/25 Minoxidil (Minoxidil) 2.5 Mg Tab, 5 MG PO BID for 30 Days, #120 TAB 1 Refill Prov:JOSE PAUL DO 09/25/25 Sodium Zirconium Cyclosilicate (Lokelma) 10 Gm Phong, 10 GM PO DAILY for 30 Days, #30 PACK 2 Refills Prov:JOSE PAUL DO 09/25/25 Reported Medications Furosemide (Furosemide) 80 Mg Tab, 1 TAB PO BID for 30 Days, #60 09/02/25 Aspirin (Aspirin Adult Low Dose) 81 Mg Tab, 1 TAB PO DAILY 08/29/25 Hydralazine Hcl (Hydralazine Hcl) 100 Mg Tab, 1 TAB PO Q8HR for 30 Days, #90 08/29/25 Sodium Bicarbonate (Sodium Bicarbonate) 650 Mg Tab, 1 TAB PO TID 08/29/25 Nifedipine (Nifedipine Er) 90 Mg Tab, 1 TAB PO DAILY 08/29/25 Clonidine Hydrochloride (Clonidine Hcl) 0.1 Mg Tab, 1 TAB PO DAILY for 30 Days, #30 08/29/25 Carvedilol (Carvedilol) 25 Mg Tab, 1 TAB PO BID 08/29/25 Discontinued Reported Medications Amlodipine Besylate (Amlodipine Besylate) 10 Mg Tab, 1 TAB PO DAILY for 30 Days, #30 08/29/25 Discontinued Scripts Losartan Potassium (Losartan Potassium) 100 Mg Tab, 100 MG PO DAILY, #30 TAB 1 Refill Prov:JOSE PAUL DO 09/25/25 Current Medications Current Medications Medications (Trade) Dose Ordered Sig/Devyn Route PRN Reason Start Time Stop Time Status Last Admin Hydralazine HCl (Apresoline Injection) 10 mg Q6HP PRN IV SBP>150 11/12/25 23:30 11/13/25 12:05 Carvedilol (Coreg Tablet) 3.125 mg Q12HR PO 11/13/25 10:00 11/13/25 08:42 Aspirin 81 mg DAILY PO 11/13/25 10:00 11/13/25 08:41 Amlodipine Besylate (Norvasc Tablet) 10 mg DAILY PO 11/13/25 10:00 11/13/25 08:43 Albuterol (Ventolin Medneb) 2.5 mg Q4HPRN PRN NEB SHORTNESS OF BREATH 11/12/25 23:30 Sodium Chloride (Saline Lock Ns) 10 ml Q8HR IV 11/13/25 06:00 11/13/25 14:26 Acetaminophen/ Hydrocodone Bitart ([place] 5/325MG Tab) 1 tab Q4HP PRN PO MODERATE PAIN (4-6 PAIN SCALE) 11/12/25 23:30 11/13/25 08:51 Ondansetron HCl (Zofran) 4 mg Q4HP PRN IV NAUSEA / VOMITING 11/12/25 23:30 Docusate Sodium (Colace Capsule) 100 mg BIDPRN PRN PO FOR CONSTIPATION 11/12/25 23:30 Acetaminophen (Tylenol Tablet) 650 mg Q6HP PRN PO PAIN SCALE 1-3 OR TEMP>100.4 11/12/25 23:30 Nitroglycerin (Ntrostat Sublingual) 0.4 mg Q5MINP PRN SL FOR CHEST PAIN 11/12/25 23:30 Morphine Sulfate 2 mg Q30M PRN IV FOR CHEST PAIN 11/12/25 23:45 Multivit/Ca Carb/ B Cmplx/FA/Prenat (Nephro-Porfirio Tablet) 1 tab DAILY PO 11/13/25 10:00 11/13/25 08:40 Sevelamer HCl (Renagel) 800 mg TIDWM PO 11/13/25 08:00 11/13/25 12:04 Calcium Acetate (Phoslo Capsule) 667 mg TIDWMEALS PO 11/13/25 08:00 11/13/25 12:05 Zirconium Oxide (Lokelma) 10 gm BID PO 11/13/25 11:00 Family History: Diabetes mellitus G8 MOTHER G8 FATHER Review of Systems As per HPI , all other systems were reviewed and are negative H&P Exam Vital Signs/I&O Vital Sign Date Time Temp Pulse Resp B/P (MAP) Pulse Ox O2 Delivery O2 Flow Rate FiO2 11/13/25 14:33 96 Room Air 0.0 11/13/25 14:33 21 11/13/25 14:33 87 18 11/13/25 13:30 97.6 174/99 (124) 97.6 Intake and Output 11/12/25 11/13/25 18:59 06:59 Intake Total 500 ml Balance 500 ml Intake Oral 500 ml Physical Exam Gen: NAD, AAOx3 HEENT: NC, AT Lungs: Crackles lung bases Cardio: RRR , no murmur Abd: soft, no distention Ext: no edema + Rt IJ TC Labs/Diagnostic Data Labs/Diagnostic Data Laboratory Tests Test 11/13/25 11:12 11/13/25 05:19 11/12/25 23:33 11/12/25 22:20 Range/Units POC Glucose 118 H 70-106 mg/dl White Blood Count 10.6 # 6.0 4.4-10.8 10^3/uL Red Blood Count 3.51 L 3.47 L 4.5-5.90 10^6/uL Hemoglobin 10.7 L 10.5 L 13.5-17.5 g/dL Hematocrit 33.6 L 31.6 L 41.0-53.0 % Mean Corpuscular Volume 95.9 # 91.2 80.0-100.0 fL Mean Corpuscular Hemoglobin 30.5 30.4 28.0-32.0 pg Mean Corpuscular Hemoglobin Concent 31.8 L 33.3 32.0-36.0 g/dL Red Cell Distribution Width 14.8 H 14.7 H 11.8-14.3 % Platelet Count 177 150 140-450 10^3/uL Mean Platelet Volume 8.4 8.3 6.9-10.8 fL Neutrophils (%) (Auto) 81.8 H 63.2 37.0-80.0 % Lymphocytes (%) (Auto) 8.4 L 20.0 10.0-50.0 % Monocytes (%) (Auto) 4.1 7.5 0.0-12.0 % Eosinophils (%) (Auto) 5.2 8.7 H 0.0-7.0 % Basophils (%) (Auto) 0.5 0.6 0.0-2.0 % Neutrophils # (Auto) 8.7 H 3.8 1.6-8.6 10 ^3/uL Lymphocytes # (Auto) 0.9 1.2 0.4-5.4 10 ^3/uL Monocytes # (Auto) 0.4 0.5 0-1.3 10 ^3/uL Eosinophils # (Auto) 0.5 0.5 0-0.8 10 ^3/uL Basophils # (Auto) 0 0 0-0.2 10 ^3/uL Nucleated Red Blood Cells 0.1 0.0 % Sodium Level 138 140 136-145 mmol/L Potassium Level 6.7 *H 6.3 *H 3.5-5.1 mmol/L Chloride Level 100 100 98-107 mmol/L Carbon Dioxide Level 19 L 23 20-31 mmol/L Anion Gap 19 H 17 H 5-15 Blood Urea Nitrogen 85 #*H 60 H 9-23 mg/dL Creatinine 14.91 *H 15.47 *H 0.700-1.30 mg/dL Glomerular Filtration Rate Calc 3 3 >90 mL/min BUN/Creatinine Ratio 5.7 L 3.9 L 10.0-20.0 Serum Glucose 120 H 93 74-106 mg/dL Calcium Level 8.1 L 8.3 L 8.7-10.4 mg/dL Total Bilirubin 0.2 0.2 0.2-1.0 mg/dL Aspartate Amino Transferase (AST) 25 < 8 L 13-40 U/L Alanine Aminotransferase (ALT) 16 9 7-40 U/L Alkaline Phosphatase 54 56 46-116 U/L Total Protein 6.4 6.9 5.7-8.2 g/dL Albumin 4.0 4.3 3.2-4.8 g/dL Hepatitis A IgM Antibody Negative Hepatitis B Surface Antigen Negative Negative Hepatitis B Core IgM Antibody Negative Negative Hepatitis C Antibody Negative Negative Troponin I High Sensitivity 33 34 </=54 ng/L Lactic Acid Level 1.2 0.4-2.0 mmol/L B-Type Natriuretic Peptide 1541.47 0-100 pg/mL Assessment Assessment: ESRD on HD via Rt IJ TC non- compliance Hyperkalemia Hypertensive urgency HLD CAD s/p CABG Hyperphosphatemia Secondary hyperparathyroidism Metabolic acidosis Plan: Seen on HD. tolerating well Next HD on Sunday if still in house Fluid restriction Increase Coreg to 6.25 mg PO BID Continue Amlodipine 10 mg PO daily ADRIANO post HD as needed. goal Hb: 10-11 g/dl Renal diet Plan discussed with: Patient, Other GAEL ROBERTSON MD Nov 13, 2025 14:47
--- NOTE | 2025-11-13 16:28 | DVHPN2 ---
Reviewed: H&P Changes from previous H/P or p: No Changes General: Per HPI Eyes: No Pain, No Vision change, No Conjunctivae inflammation, No Eyelid inflammation, No Other, No Redness ENT: No Ear pain, No Ear discharge, No Nose pain, No Nose discharge, No Nose congestion, No Mouth pain, No Mouth swelling, No Throat pain, No Throat swelling, No Other Cardiovascular: No Chest Pain, No Palpitations, No Orthopnea, No Paroxysmal Noc. Dyspnea, No Edema, No Lt Headedness, No Other Respiratory: No Cough, No Dry; Shortness of breath; No SOB with excertion, No Wheezing, No Hemoptysis, No Pleuritic Pain, No Sputum, No Other Gastrointestinal: No Nausea, No Vomiting, No Abdominal Pain, No Diarrhea, No Constipation, No Melena, No Hematochezia, No Other Genitourinary: No Dysuria, No Frequency, No Incontinence, No Hematuria, No Retention, No Other Musculoskeletal: No other, No neck pain, No shoulder pain, No arm pain, No back pain, No hand pain, No leg pain, No foot pain Skin: No Rash, No Lesions, No Jaundice, No Bruising, No Other Objective Vitals Vital Signs Date Time Temp Pulse Resp B/P (MAP) Pulse Ox O2 Delivery O2 Flow Rate FiO2 11/13/25 14:45 78 20 100 11/13/25 14:33 Room Air 0.0 11/13/25 14:33 21 11/13/25 13:30 97.6 174/99 (124) 97.6 Intake/Output Intake and Output 11/13/25 07:00 Intake Total 500 ml Balance 500 ml Intake Oral 500 ml Exam General Appearance: Alert, Oriented X3, Cooperative, No acute distress HEENT: Atraumatic, PERRLA, EOMI, Mucous membr. moist/pink Respiratory: Normal air movement Cardiovascular: Regular rate, Normal S1, Normal S2, No murmurs Abdominal: Normal bowel sounds, Soft, No tenderness, No hepatospenomegaly, No masses Extremities: No clubbing, No cyanosis, No edema, Normal pulses, No tenderness/swelling Skin: No rashes, No significant lesion Neuro: Normal speech, Normal tone, Sensation intact, Cranial nerves 3-12 NL, Reflexes 2+, Other (Generalized weakness) Psych/Mental Status: Mental status NL, Mood NL Medications Current Medications Medications Dose Ordered Sig/Devyn Route Start Time Stop Time Status Last Admin Dose Admin Hydralazine HCl 10 mg Q6HP PRN IV 11/12/25 23:30 11/13/25 12:05 10 MG Aspirin 81 mg DAILY PO 11/13/25 10:00 11/13/25 08:41 81 MG Amlodipine Besylate 10 mg DAILY PO 11/13/25 10:00 11/13/25 08:43 10 MG Albuterol 2.5 mg Q4HPRN PRN NEB 11/12/25 23:30 Sodium Chloride 10 ml Q8HR IV 11/13/25 06:00 11/13/25 14:26 10 ML Acetaminophen/ Hydrocodone Bitart 1 tab Q4HP PRN PO 11/12/25 23:30 11/13/25 08:51 1 TAB Ondansetron HCl 4 mg Q4HP PRN IV 11/12/25 23:30 Docusate Sodium 100 mg BIDPRN PRN PO 11/12/25 23:30 Acetaminophen 650 mg Q6HP PRN PO 11/12/25 23:30 Nitroglycerin 0.4 mg Q5MINP PRN SL 11/12/25 23:30 Morphine Sulfate 2 mg Q30M PRN IV 11/12/25 23:45 Multivit/Ca Carb/ B Cmplx/FA/Prenat 1 tab DAILY PO 11/13/25 10:00 11/13/25 08:40 1 TAB Sevelamer HCl 800 mg TIDWM PO 11/13/25 08:00 11/13/25 12:04 800 MG Calcium Acetate 667 mg TIDWMEALS PO 11/13/25 08:00 11/13/25 12:05 667 MG Zirconium Oxide 10 gm BID PO 11/13/25 11:00 Carvedilol 6.25 mg Q12HR PO 11/13/25 22:00 Laboratory Results Laboratory Tests 11/13/25 05:19 Chemistry Test 11/12/25 22:20 11/13/25 05:19 Albumin 4.3 g/dL (3.2-4.8) 4.0 g/dL (3.2-4.8) Calcium Level 8.3 mg/dL (8.7-10.4) L 8.1 mg/dL (8.7-10.4) L Total Protein 6.9 g/dL (5.7-8.2) 6.4 g/dL (5.7-8.2) Cardiac Markers Test 11/12/25 22:20 B-Type Natriuretic Peptide 1541.47 pg/mL (0-100) LFT Test 11/12/25 22:20 11/13/25 05:19 Alanine Aminotransferase (ALT) 9 U/L (7-40) 16 U/L (7-40) Alkaline Phosphatase 56 U/L (46-116) 54 U/L (46-116) Aspartate Amino Transferase (AST) < 8 U/L (13-40) L 25 U/L (13-40) Total Bilirubin 0.2 mg/dL (0.2-1.0) 0.2 mg/dL (0.2-1.0) Labs and/or images reviewed: Labs reviewed by me, Image(s) reviewed by me Assessment/Plan Assessment/Plan 65-year-old male with past medical history of end-stage renal disease on hemodialysis, hypertension, [place], and congestive heart failure who presented to [facility] ED with complaint of elevated blood pressure. Patient reports that his blood pressure has been high for the past 1 day despite taking his medication associated with shortness of breaths. 11/13: Unclear why patient is hypokalemic. Patient says he missed1 or 2 dialysis. I am concern for noncompliance. We will follow up with Nephrology. Patient given hyperkalemia protocol twice, still elevated potassium contacted Nephrology who has been made aware patient needs stat dialysis. Maintain on tele. Diagnosis: Hypertensive urgency Hyperkalemia Dyspnea Other forms of dyspnea Electrolyte imbalance End stage renal disease on dialysis dialysis noncompliance? Plan: Tylenol mild pain, [place] moderate pain, morphine severe pain Albuterol 2.5 prn shortness of breath Amlodipine 10 mg daily [id number] daily B complex 1 tablet daily Calcium acetate 667 t.i.d. with meals Coreg 6.25 B.i.d. Hydralazine 10 q.6 SBP more than 150 Chest pain protocol Prn for vomiting Zofran4 mg q.4h PRN Sevelamer 800 mg p.o. t.i.d. with meals Lokelma 10 mg p.o. b.i.d. Nephrology consult for HD Renal diet Tele Full code Plan discussed with: Patient My Orders Orders - KETURAH CLOUD MD Procedure Category Date Status Time Potassium LAB 11/13/25 Logged 12:00 Magnesium LAB 11/13/25 Logged 12:00 Phosphorus LAB 11/13/25 Logged 12:00 Sodium Zirconium PHA 11/13/25 In Process Cyclosilicate 11:00 Date of Service: Nov 13, 2025 Billing Provider: KETURAH CLOUD MD Common Visit Codes: [id number] INP/OBS CARE(HIGH) KETURAH CLOUD MD Nov 13, 2025 16:28
[2025-11-13] MEDS: SODIUM CHL 0.9% 1000 ML BAG XX ONE (18:13)
[2025-11-13 19:03] LABS: Potassium 4.6 mmol/L (3.5-5.1)
[2025-11-13 19:09] LABS: Magnesium 2.0 mg/dL (1.6-2.6)
[2025-11-13] MEDS: ACETAMINOPHEN 325 MG TAB PO PRN (19:55)
[2025-11-14] VITALS (8 sets, daily range): BP systolic 140–173; BP diastolic 80–104; PULSE 72–87; RESP 16–20; TEMP 98.1–98.5; O2SAT 96–99
[2025-11-14 06:52] LABS: Alanine Aminotransferase 11 U/L (7-40); Albumin 4.1 g/dL (3.2-4.8); Alkaline Phosphatase 52 U/L (46-116); Anion Gap 14 (5-15); BUN/Creatinine Ratio 3.4 (10.0-20.0); Bilirubin, Total 0.5 mg/dL (0.2-1.0); Calcium 8.8 mg/dL (8.7-10.4); Carbon Dioxide 28 mmol/L (20-31); Chloride 99 mmol/L (98-107); Glucose 95 mg/dL (74-106); Potassium 4.9 mmol/L (3.5-5.1); Sodium 141 mmol/L (136-145); Total Protein 6.5 g/dL (5.7-8.2)
[2025-11-14 06:56] LABS: Blood Urea Nitrogen 35 mg/dL (9-23)
--- NOTE | 2025-11-14 07:25 | DVHPN2 ---
Progress Note - Dictate Date Seen: Nov 14, 2025 Medical Necessity Reason Pt with a Central, PICC or Fol: No Subjective feeling better vital signs Vital Sign Date Time Temp Pulse Resp B/P (MAP) Pulse Ox O2 Delivery O2 Flow Rate FiO2 11/14/25 05:57 98.1 85 17 140/80 (100) 98 98.1 11/13/25 20:00 Room Air* 0 21 Total Intake and Output 11/13/25 11/13/25 11/14/25 15:00 23:00 07:00 Intake Total 50 ml 600 ml 1600 ml Output Total 0 ml Balance 50 ml 600 ml 1600 ml medications Current Medications Medications Dose Ordered Sig/Devyn Route Start Time Stop Time Status Last Admin Dose Admin Hydralazine HCl 10 mg Q6HP PRN IV 11/12/25 23:30 11/14/25 00:13 10 MG Aspirin 81 mg DAILY PO 11/13/25 10:00 11/13/25 08:41 81 MG Amlodipine Besylate 10 mg DAILY PO 11/13/25 10:00 11/13/25 08:43 10 MG Albuterol 2.5 mg Q4HPRN PRN NEB 11/12/25 23:30 Sodium Chloride 10 ml Q8HR IV 11/13/25 06:00 11/14/25 05:25 10 ML Acetaminophen/ Hydrocodone Bitart 1 tab Q4HP PRN PO 11/12/25 23:30 11/14/25 00:14 1 TAB Ondansetron HCl 4 mg Q4HP PRN IV 11/12/25 23:30 Docusate Sodium 100 mg BIDPRN PRN PO 11/12/25 23:30 Acetaminophen 650 mg Q6HP PRN PO 11/12/25 23:30 11/13/25 19:55 650 MG Nitroglycerin 0.4 mg Q5MINP PRN SL 11/12/25 23:30 Morphine Sulfate 2 mg Q30M PRN IV 11/12/25 23:45 Multivit/Ca Carb/ B Cmplx/FA/Prenat 1 tab DAILY PO 11/13/25 10:00 11/13/25 08:40 1 TAB Sevelamer HCl 800 mg TIDWM PO 11/13/25 08:00 11/13/25 18:04 800 MG Calcium Acetate 667 mg TIDWMEALS PO 11/13/25 08:00 11/13/25 18:04 667 MG Zirconium Oxide 10 gm BID PO 11/13/25 11:00 11/13/25 22:03 10 GM Carvedilol 6.25 mg Q12HR PO 11/13/25 22:00 11/13/25 22:05 6.25 MG objective Gen: NAD, AAOx3 HEENT: NC, AT Lungs: Crackles lung bases Cardio: RRR , no murmur Abd: soft, no distention Ext: no edema + Rt IJ TC laboratory and microbiology Laboratory Tests 11/14/25 05:20 11/13/25 05:19 Test 11/14/25 05:20 Range/Units Serum Glucose 95 74-106 mg/dL Assessment/Plan Assessment: ESRD on HD via Rt IJ TC non- compliance Hyperkalemia Hypertensive urgency HLD CAD s/p CABG Hyperphosphatemia Secondary hyperparathyroidism Metabolic acidosis Plan: S/p HD Sunday Next HD on Sunday if still in house Fluid restriction Continue Coreg to 6.25 mg PO BID Continue Amlodipine 10 mg PO daily ADRIANO post HD as needed. goal Hb: 10-11 g/dl Renal diet Plan discussed with: Patient GAEL ROBERTSON MD Nov 14, 2025 07:25
[2025-11-14] MEDS: ALBUTEROL SULF 2.5 MG/0.5ML(0.5%) NEB SOLN NEB PRN (09:33)
[2025-11-14] MEDS ORDERED: NIFE90TA75 PO (17:26)
[2025-11-14] MEDS ORDERED: CARV12.544 PO (17:26)
--- NOTE | 2025-11-14 17:26 | DVHDS2 ---
Discharge Summary Date of Admission Nov 12, 2025 at 23:25 Date of Discharge: Nov 14, 2025 Labs/Diagnostic Data: Laboratory Results Test 11/14/25 05:20 11/13/25 18:34 11/13/25 11:12 11/13/25 05:19 Sodium Level 141 mmol/L (136-145) Potassium Level 4.9 mmol/L (3.5-5.1) Chloride Level 99 mmol/L (98-107) Carbon Dioxide Level 28 mmol/L (20-31) Anion Gap 14 (5-15) Blood Urea Nitrogen 35 mg/dL (9-23) Creatinine 10.31 mg/dL (0.700-1.30) Glomerular Filtration Rate Calc 5 mL/min (>90) BUN/Creatinine Ratio 3.4 (10.0-20.0) Serum Glucose 95 mg/dL (74-106) Calcium Level 8.8 mg/dL (8.7-10.4) Total Bilirubin 0.5 mg/dL (0.2-1.0) Aspartate Amino Transferase (AST) 10 U/L (13-40) Alanine Aminotransferase (ALT) 11 U/L (7-40) Alkaline Phosphatase 52 U/L (46-116) Total Protein 6.5 g/dL (5.7-8.2) Albumin 4.1 g/dL (3.2-4.8) Phosphorus Level 5.9 mg/dL (2.4-5.1) Magnesium Level 2.0 mg/dL (1.6-2.6) POC Glucose 118 mg/dl (70-106) White Blood Count 10.6 10^3/uL (4.4-10.8) Red Blood Count 3.51 10^6/uL (4.5-5.90) Hemoglobin 10.7 g/dL (13.5-17.5) Hematocrit 33.6 % (41.0-53.0) Mean Corpuscular Volume 95.9 fL (80.0-100.0) Mean Corpuscular Hemoglobin 30.5 pg (28.0-32.0) Mean Corpuscular Hemoglobin Concent 31.8 g/dL (32.0-36.0) Red Cell Distribution Width 14.8 % (11.8-14.3) Platelet Count 177 10^3/uL (140-450) Mean Platelet Volume 8.4 fL (6.9-10.8) Neutrophils (%) (Auto) 81.8 % (37.0-80.0) Lymphocytes (%) (Auto) 8.4 % (10.0-50.0) Monocytes (%) (Auto) 4.1 % (0.0-12.0) Eosinophils (%) (Auto) 5.2 % (0.0-7.0) Basophils (%) (Auto) 0.5 % (0.0-2.0) Neutrophils # (Auto) 8.7 10 ^3/uL (1.6-8.6) Lymphocytes # (Auto) 0.9 10 ^3/uL (0.4-5.4) Monocytes # (Auto) 0.4 10 ^3/uL (0-1.3) Eosinophils # (Auto) 0.5 10 ^3/uL (0-0.8) Basophils # (Auto) 0 10 ^3/uL (0-0.2) Nucleated Red Blood Cells 0.1 % Hepatitis A IgM Antibody Negative Hepatitis B Surface Antigen Negative (Negative) Hepatitis B Core IgM Antibody Negative (Negative) Hepatitis C Antibody Negative (Negative) Test 11/12/25 23:33 11/12/25 22:20 Troponin I High Sensitivity 33 ng/L (</=54) Lactic Acid Level 1.2 mmol/L (0.4-2.0) B-Type Natriuretic Peptide 1541.47 pg/mL (0-100) Other Laboratory Tests 11/14/25 05:20 11/13/25 05:19 Brief Hx & Hospital Course: 65-year-old male with past medical history of end-stage renal disease on hemodialysis, hypertension, [place], and congestive heart failure who presented to [facility] ED with complaint of elevated blood pressure. Patient reports that his blood pressure has been high for the past 1 day despite taking his medication associated with shortness of breaths. 11/13: Unclear why patient is hypokalemic. Patient says he missed1 or 2 dialysis. I am concern for noncompliance. We will follow up with Nephrology. Patient given hyperkalemia protocol twice, still elevated potassium contacted Nephrology who has been made aware patient needs stat dialysis. Maintain on tele. Diagnosis: Hypertensive urgency, resolved Hyperkalemia, resolved Dyspnea Other forms of dyspnea Electrolyte imbalance End stage renal disease on dialysis dialysis noncompliance Medication noncompliance plan: - Procardia XL 90 daily, Coreg 12.5 mg twice daily, - hold hydralazine 100 t.i.d., minoxidil 5 mg b.i.d., review with PCP to continue these medications - continue other home medications - Strict compliance with yesterday scheduled Sunday. - follow up with PCP - follow up with Nephrology - [facility] clinic follow up 1 week. Condition at Discharge: Fair Final Diagnosis/Problems List Hypertensive urgency, resolved Hyperkalemia, resolved Dyspnea Other forms of dyspnea Electrolyte imbalance End stage renal disease on dialysis dialysis noncompliance Discharge Disposition: Home Discharge Instruct/Medications Scheduled Aspirin (Aspirin Adult Low Dose), 1 TAB PO DAILY, (Reported) Carvedilol (Carvedilol), 1 TAB PO BID, (Reported) Clonidine Hydrochloride (Clonidine Hcl), 1 TAB PO DAILY, (Reported) Doxycycline Hyclate (Doxycycline Hyclate), 100 MG PO BID Furosemide (Furosemide), 1 TAB PO BID, (Reported) Hydralazine Hcl (Hydralazine Hcl), 1 TAB PO Q8HR, (Reported) Minoxidil (Minoxidil), 5 MG PO BID Nifedipine (Nifedipine Er), 1 TAB PO DAILY, (Reported) Sodium Bicarbonate (Sodium Bicarbonate), 1 TAB PO TID, (Reported) Sodium Zirconium Cyclosilicate (Lokelma), 10 GM PO DAILY Discontinued Medications Amlodipine Besylate (Amlodipine Besylate), 1 TAB PO DAILY, (Reported) Losartan Potassium (Losartan Potassium), 100 MG PO DAILY Discharge Statement: "Patient was advised to return to the ER or call 911 if any headaches, dizziness, shortness of breath, chest pain, abdominal pain, bleeding, fevers, or worsening of medical condition. Patient was counseled about treatment plan, medications, possible side effects, patientverbalized understanding. All questions were answered to the best of my ability. This discharge took greater then 30 minutes in planning, reviewing documentation, counseling the patient, and discussing with other team members." ASSESSMENT ASSESSMENT Assessment Date of Service: Nov 14, 2025 Billing Provider: KETURAH CLOUD MD Common Visit Codes: 70462-MKQ/OBS DISCH DAY >30min KETURAH CLOUD MD Nov 14, 2025 17:26
== END 2025-11-14 18:20 | disposition home or self-care (01) | DRG 304 ==
LOC: EDBD 21:26 → ER 21:26 → OVERFLOW 23:25 → TELE-EAST 11-13 02:08
PROVIDERS: ADMIT Student in an Organized Health Care Education/Training Program; ATTEND Student in an Organized Health Care Education/Training Program
PROC: 5A1D70Z Performance of Urinary Filtration, Intermittent, Less than 6 Hours Per Day (ICD-10-PCS; principal; 2025-11-13)
DX: I16.0 Hypertensive urgency (principal); N18.6 End stage renal disease; E87.20 Acidosis, unspecified; E83.39 Other disorders of phosphorus metabolism; I13.2 Hypertensive heart and chronic kidney disease with heart failure and with stage 5 chronic kidney disease, or end stage renal disease; Z99.2 Dependence on renal dialysis; N25.81 Secondary hyperparathyroidism of renal origin; I50.9 Heart failure, unspecified; E87.5 Hyperkalemia; E78.5 Hyperlipidemia, unspecified; E87.6 Hypokalemia; I25.10 Atherosclerotic heart disease of native coronary artery without angina pectoris; Z95.1 Presence of aortocoronary bypass graft; Z91.158 Patient's noncompliance with renal dialysis for other reason; Z91.148 Patient's other noncompliance with medication regimen for other reason; Z83.3 Family history of diabetes mellitus
CPT/HCPCS: 36415; 80053; 80074; 82962; 83605; 83735; 83880; 84100; 84132; 84484; 85025; 87081; 90935; 93005; 94640; 96374; 96375; G0378; J1642; J1815; Q0162

== ENCOUNTER 2025-11-16 17:42 | Emergency (ER) | payer OTHER, MEDICAID ==
[~2025-11-16] VITALS: Ht 165.1 cm; Wt 75.0 kg
[2025-11-16 17:42] VITALS: BP 113/70; RESP 12; TEMP 98.7; O2SAT 98
[~2025-11-16 17:42] MED LIST changes: +CARV12.544 PO; -CARV25TA55 PO; -DOXY100C4 PO; -HYDR100T10 PO; -MINO2.5T2 PO
--- NOTE | 2025-11-16 18:03 | ECG ---
[facility] Test Date: 2025-11-16 Test Time: 17:51:59 Pat Name: SHANNAN BENITEZ Department: [facility] ED Patient ID: [facility]-[id number] Room: [address] [place] [address] Gender: M Admitting Officer: alondra : 1960 Requested By: STACY MULTANI Order Number: [id number] Reading MD: Ortiz Woo Measurements Intervals [place] Rate: 61 P: -5 VA: 191 QRS: 12 QRSD: 82 T: 72 QT: 436 QTc: 440 Interpretive Statements Sinus rhythm RSR' in V1 or V2, probably normal variant Electronically Signed On 11-20-2025 10:28:11 PST by Ortiz Woo Please click the below link to view image of tracing.
--- NOTE | 2025-11-16 18:13 | ED.PDOC ---
History of Present Illness HPI Comments 65 y/o M is BIBA for c/c of shortness of breath. Patient endorses on 4x hour history of, progressively, worsening, dyspnea. Pertinent history of ESRD w/HD on //Sun, HTN, CT, 4x CABG, CHF, and family history of heart disease. Associated generalized weakness, chills, and chest pain. No reported cough, congestion, fever, or further acute symptoms. Chief Complaint: Shortness of Breath Time Seen by MD: 18:00 Reviewed Notes: Nurses Notes, Social Services Analyst Notes, Medications, Allergies Allergies: Coded Allergies: No Known Drug Allergy (Verified Allergy, Unknown, 08/28/25) Home Meds Active Scripts Carvedilol (Carvedilol) 12.5 Mg Tab, 1 TAB PO BID, #60 TAB 1 Refill Prov:KETURAH COLUD MD 11/14/25 Nifedipine (Nifedipine Er) 90 Mg Tab, 1 TAB PO DAILY for 30 Days, #30 TAB 1 Refill Prov:KETURAH CLOUD MD 11/14/25 Sodium Zirconium Cyclosilicate (Lokelma) 10 Gm Phong, 10 GM PO DAILY for 30 Days, #30 PACK 2 Refills Prov:JOSE PAUL DO 09/25/25 Reported Medications Furosemide (Furosemide) 80 Mg Tab, 1 TAB PO BID for 30 Days, #60 09/02/25 Aspirin (Aspirin Adult Low Dose) 81 Mg Tab, 1 TAB PO DAILY 08/29/25 Sodium Bicarbonate (Sodium Bicarbonate) 650 Mg Tab, 1 TAB PO TID 08/29/25 Clonidine Hydrochloride (Clonidine Hcl) 0.1 Mg Tab, 1 TAB PO DAILY for 30 Days, #30 08/29/25 Discontinued Reported Medications Hydralazine Hcl (Hydralazine Hcl) 100 Mg Tab, 1 TAB PO Q8HR for 30 Days, #90 08/29/25 Carvedilol (Carvedilol) 25 Mg Tab, 1 TAB PO BID 08/29/25 Amlodipine Besylate (Amlodipine Besylate) 10 Mg Tab, 1 TAB PO DAILY for 30 Days, #30 08/29/25 Discontinued Scripts Doxycycline Hyclate (Doxycycline Hyclate) 100 Mg Cap, 100 MG PO BID for 7 Days, #14 CAP Prov:LAVON GILMAN MD 11/09/25 Minoxidil (Minoxidil) 2.5 Mg Tab, 5 MG PO BID for 30 Days, #120 TAB 1 Refill Prov:JOSE PAUL DO 09/25/25 Losartan Potassium (Losartan Potassium) 100 Mg Tab, 100 MG PO DAILY, #30 TAB 1 Refill Prov:JOSE PAUL DO 09/25/25 Information Source: Patient, Emergency Med Personnel Mode of Arrival: EMS Severity: Moderate Timing: Hours Duration: Since onset Prehospital treatment: 12 Lead EKG, Service Center Supervisor Past Medical History PAST MEDICAL HISTORY: CHF, ESRD, HTN, CT Surgical History: CABG (4x) Surgical History (Other): back surgery right portacatheter Family History Family History: Reviewed,noncontributory to illness, Family hx of DM, Family hx of Cancer, Family hx of heart gian, Family hx of HTN Social History Smoker: Non-Smoker Alcohol: Denies ETOH Use Drugs: Denies Drug Use Lives In: Home Constitutional: reports: chills; denies: diaphoresis, fatigue, fever, malaise, sweats, weakness, others EENTM: denies: blurred vision, double vision, ear bleeding, ear discharge, ear drainage, ear pain, ear ringing, eye pain, eye redness, hearing loss, mouth pain, mouth swelling, nasal discharge, nose bleeding, nose congestion, nose pain, photophobia, tearing, throat pain, throat swelling, voice changes, others Respiratory: reports: shortness of breath; denies: cough, hemoptysis, orthopnea, SOB at rest, SOB with excertion, stridor, wheezing, others Cardiovascular: reports: chest pain; denies: dizzy spells, diaphoresis, Dyspnea on exertion, edema, irregular heart beat, left arm pain, lightheadedness, palpitations, PND, syncope, others Gastrointestinal: denies: abdomen distended, abdominal pain, blood streaked bowels, constipated, diarrhea, dysphagia, difficulty swallowing, hematemesis, melena, nausea, poor appetite, poor fluid intake, rectal bleeding, rectal pain, vomiting, others Genitourinary: denies: burning, dysuria, flank pain, frequency, hematuria, incontinence, penile discharge, penile sore, pain, testicle pain, testicle swelling, urgency, others Neurological: reports: weakness; denies: dizziness, fainting, headache, left sided numbness, left sided weakness, numbness, paresthesia, pre-existing deficit, right sided numbness, right sided weakness, seizure, speech problems, tingling, tremors, others Musculoskeletal: denies: back pain, gout, joint pain, joint swelling, muscle pain, muscle stiffness, neck pain, others Integumetry: denies: bruises, change in color, change in hair/nails, dryness, laceration, lesions, lumps, rash, wounds, others Allergic/Immunocompromised: denies: Difficulty Healing, Frequent Infections, Hives, Itching, others Hematologic/Lymphatic: denies: anemia, blood clots, easy bleeding, easy bruising, swollen glands, others Endocrine: denies: excessive hunger, excessive sweating, excessive thirst, excessive urination, flushing, intolerance to cold, intolerance to heat, unexplained weight gain, unexplained weight loss, others Psychiatric: denies: anxiety, bipolar disorder, depression, hopeless, panic disorder, schizophrenia, sleepless, suicidal, others All Other Systems: Reviewed and Negative Physical Exam General Appearance: Moderate Distress HEENT: Normal ENT Inspection, Pharynx Normal, TMs Normal Neck: Full Range of Motion, Non-Tender, Normal, Normal Inspection Respiratory: Chest Non-Tender, Lungs Clear, No Accessory Muscle Use, No Respiratory Distress, Normal Breath Sounds Cardiovascular: No Edema, No JVD, No Murmur, No Gallop, Normal Peripheral Pulses, Regular Rate/Rhythm, Other (Ehsan catheter to the right chest) Breast Exam: Deferred Gastrointestinal: No Organomegaly, Non Tender, No Pulsatile Mass, Normal Bowel Sounds, Soft Genitalia: Deferred Pelvic: Deferred Rectal: Deferred Extremities: No calf tenderness, Normal capillary refill, Normal inspection, Normal range of motion, Non-tender, No pedal edema Musculoskeletal : Apperance: Normal Neurologic: Alert, performance reporter II-XII nml as Tested, No Motor Deficits, Normal Affect, Normal Mood, No Sensory Deficits Cerebellar Function: Normal Reflexes: Normal Skin: Dry, Normal Color, Warm Lymphatic: No Adenopathy Was a procedure done? Was a procedure done?: No EKG EKG : Pulse Rate (adult): 61 [place]: Normal Cardiac Rhythm: NSR Block: None Hypertrophy: None ST: Normal Differential Dx Considerations may include: acute CHF exacerbation, CT, PE, ACS, URI, PNA, viral, fluid overload, uremia, among others X-Ray, Labs, Meds, VS Vital Signs Date Time Temp Pulse Resp B/P (MAP) Pulse Ox O2 Delivery O2 Flow Rate FiO2 11/16/25 19:23 58 11/16/25 18:13 61 11/16/25 17:51 61 11/16/25 17:42 98.7 62 12 113/70 98 98.7 Lab Test 11/16/25 18:11 Range/Units White Blood Count 7.1 # 4.4-10.8 10^3/uL Red Blood Count 3.25 L 4.5-5.90 10^6/uL Hemoglobin 9.9 L 13.5-17.5 g/dL Hematocrit 28.9 #L 41.0-53.0 % Mean Corpuscular Volume 88.9 # 80.0-100.0 fL Mean Corpuscular Hemoglobin 30.4 28.0-32.0 pg Mean Corpuscular Hemoglobin Concent 34.2 32.0-36.0 g/dL Red Cell Distribution Width 14.5 H 11.8-14.3 % Platelet Count 155 140-450 10^3/uL Mean Platelet Volume 8.6 6.9-10.8 fL Neutrophils (%) (Auto) 66.0 37.0-80.0 % Lymphocytes (%) (Auto) 14.2 10.0-50.0 % Monocytes (%) (Auto) 5.4 0.0-12.0 % Eosinophils (%) (Auto) 13.9 H 0.0-7.0 % Basophils (%) (Auto) 0.5 0.0-2.0 % Neutrophils # (Auto) 4.7 1.6-8.6 10 ^3/uL Lymphocytes # (Auto) 1.0 0.4-5.4 10 ^3/uL Monocytes # (Auto) 0.4 0-1.3 10 ^3/uL Eosinophils # (Auto) 1.0 H 0-0.8 10 ^3/uL Basophils # (Auto) 0 0-0.2 10 ^3/uL Nucleated Red Blood Cells 0.0 % Sodium Level 137 136-145 mmol/L Potassium Level 6.1 *H 3.5-5.1 mmol/L Chloride Level 99 98-107 mmol/L Carbon Dioxide Level 24 20-31 mmol/L Anion Gap 14 5-15 Blood Urea Nitrogen 76 H 9-23 mg/dL Creatinine 15.00 #*H 0.700-1.30 mg/dL Glomerular Filtration Rate Calc 3 >90 mL/min BUN/Creatinine Ratio 5.1 L 10.0-20.0 Serum Glucose 134 H 74-106 mg/dL Calcium Level 8.6 L 8.7-10.4 mg/dL Troponin I High Sensitivity 28 </=54 ng/L B-Type Natriuretic Peptide 1280.87 0-100 pg/mL PROCEDURE(s): CXRP - CHEST PORTABLE IMPRESSION: Pulmonary vascular congestion / atypical pneumonia IV Hep-Lock established. The BNP is 1208.87 The patient will be given Lasix 40 mg IV push Patient's CBC shows anemia with a hemoglobin of 9 nine and hematocrit of 28 point The chemistry panel shows a BUN of 76 and a creatinine of 15 The patient is hyperkalemic at six point At this time, the patient is being admitted to the We did give the patient dextrose, calcium, insulin and sodium bicarbonate to address the hyperkalemia At this time, the patient is being admitted. Images Reviewed?: Images reviewed and evaluated by me Time of 1ST Reevaluation: 18:30 Reevaluation 1ST: Unchanged Patient Education/Counseling: Diagnosis, Treatment, Prognosis Family Education/Counseling: No Family Present SEPSIS Sepsis Screen Date sepsis recognized/suspect: Nov 16, 2025 Time Sepsis recognized/suspect: 1739 Recent Procedure: No On Antibiotic Therapy: No Respiratory Rate >20: No Heart Rate >90: No Temp<36 C (96.8 F) or >38.3 C: No SBP <90 or MAP <65 mmHG: No New Acute Mental Status Change: No Is the patient on CPAP, BIPAP,: No Physician Orders Chest Portable (11/16/25 18:00) Urinalysis (11/16/25 18:00) Heplock Iv (11/16/25 18:00) Service Center Supervisor (11/16/25 18:00) Blood Pressure (11/16/25 18:00) Pulse Oximetry (11/16/25 18:00) Covid19 Antigen Samina (11/16/25 ) Rapid Influenza A&B (11/16/25 18:00) Troponin-I Hs (11/16/25 19:00) Troponin-I Hs (11/16/25 21:00) Electrocardigram (11/16/25 21:00) Calcium Gluc 1,000mg/50ml-Ns (11/16/25 19:45) Admit (11/16/25 19:57) Nitroglycerin Sublingual (Ntrostat Subli (11/16/25 20:00) Morphine Sulfate Injection (11/16/25 20:00) Stat Ekg For Chest Pain (11/16/25 19:57) Notify Md Of Changes From Base (11/16/25 19:57) Space Technologist For 24 Hours (11/16/25 19:57) Emergency Dysrhythmia Protocol (11/16/25 19:57) Rhythm Strips Once Every Shift (11/16/25 19:57) Oxygen By Nasal Cannula (11/16/25 19:57) Vital Signs Date Time Temp Pulse Resp B/P (MAP) Pulse Ox O2 Delivery O2 Flow Rate FiO2 11/16/25 19:23 58 11/16/25 18:13 61 11/16/25 17:51 61 11/16/25 17:42 98.7 62 12 113/70 98 98.7 Laboratory Tests Test 11/16/25 18:11 White Blood Count 7.1 10^3/uL (4.4-10.8) # Departure 1 Departure Time of Disposition: 20:01 Impression: Primary Impression: Acute and chronic cholecystitis Additional Impressions: Hyperkalemia ESRD needing dialysis Disposition: 09 ADMITTED INPATIENT Admit to: Tele Condition: Fair Critical Care Note Critical Care Time?: Yes (45 min-critical care time only) Stability Stability form required: Yes Unstable for transfer: Telemetry monitoring (Telemetry monitoring required), ED Physician Assesment (Clinical assesment) Heart Score Heart Score: Heart Score Response (Comments) Value History Moderate Suspicious 1 EKG Normal 0 Age >65 2 Risk Factors >3 or Hx ASHD 2 Troponin Normal limit 0 Total 5 I personally scribed for STACY MULTANI MD ([email or web address]) on 11/16/25 at 18:13. Electronically submitted by Troy Carson ([email or web address]). I personally scribed for STACY MULTANI MD ([email or web address]) on 11/16/25 at 19:53. Electronically submitted by Troy Carson ([email or web address]). STACY MULTANI MD Nov 16, 2025 18:13
[2025-11-16 18:46] LABS: Chloride 99 mmol/L (98-107); Sodium 137 mmol/L (136-145)
[2025-11-16 18:47] LABS: Anion Gap 14 (5-15); Carbon Dioxide 24 mmol/L (20-31)
[2025-11-16 18:53] LABS: BUN/Creatinine Ratio 5.1 (10.0-20.0)
[2025-11-16 18:55] LABS: Hematocrit 28.9 % (41.0-53.0); Hemoglobin 9.9 g/dL (13.5-17.5); Mean Corpuscular Hemoglobin 30.4 pg (28.0-32.0); Mean Corpuscular Volume 88.9 fL (80.0-100.0); Nucleated Red Blood Cells % 0.0 %
[2025-11-16 19:23] VITALS: PULSE 58
--- NOTE | 2025-11-16 19:29 | ECG ---
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
--- NOTE | 2025-11-16 19:29 | DVH ---
CHEST RADIOGRAPH INDICATION: sob TECHNIQUE: Single frontal view of the chest was obtained COMPARISON: XY CHEST PORTABLE on DOS: 11/06/25, XY CHEST XRAY 1 VIEW on DOS: 09/24/25, XY CHEST PORTABLE on DOS: 09/19/25 FINDINGS: Lines and Tubes: Right IJ approach hemodialysis catheter terminating over the proximal right atrium. Lungs: No focal consolidation. Mild interstitial prominence. Pleura: No effusion. No pneumothorax. Cardiomediastinal contours: Heart size within normal limits. Midline sternotomy wires surgical clips are noted consistent with prior history Of CABG. Bones: No acute osseous abnormality. Surgical clips are noted over the left Upper abdominal quadrant. IMPRESSION: Pulmonary vascular congestion / atypical pneumonia
[2025-11-16 19:34] LABS: Blood Urea Nitrogen 76 mg/dL (9-23); Calcium 8.6 mg/dL (8.7-10.4); Glucose 134 mg/dL (74-106)
[2025-11-16 19:41] LABS: Potassium 6.1 mmol/L (3.5-5.1)
[2025-11-16] MEDS ORDERED: InsuLIN REG 1unit/0.01ml Soln (100units/ml) IV ONE (19:45)
[2025-11-16] MEDS ORDERED: SODIUM BICARB 8.4% 50Meq/50ml SYR Vial IV ONE (19:45)
[2025-11-16] MEDS ORDERED: DEXTROSE (50%) 50ML SYRG IV ONE (19:45)
[2025-11-16] MEDS ORDERED: CALCIUM GLUC 1,000mg/50ml-NS 50 ML IV ONE (19:45)
[2025-11-16] MEDS ORDERED: NITROGLYCERIN 0.4 MG SL TAB SL PRN (20:00)
[2025-11-16] MEDS ORDERED: MORPHINE SULFATE INJ 2 MG/ml SYRG IV PRN (20:00)
[2025-11-16] MEDS ORDERED: FUROSEMIDE 100 MG/10ML VIAL IV ONE (20:15)
[2025-11-16] MEDS ORDERED: ONDANSETRON HCL 4 MG/2 ML VIAL IV PRN (20:15)
[2025-11-16] MEDS ORDERED: ACETAMINOPHEN 325 MG TAB PO PRN (20:15)
[2025-11-16] MEDS ORDERED: SODIUM BICARBONATE 650 MG TAB PO SCH (22:00)
[2025-11-16] MEDS ORDERED: CARVEDILOL 12.5 MG TAB PO SCH (22:00)
[2025-11-17] MEDS ORDERED: FUROSEMIDE 40 MG/4 ML VIAL IV SCH (10:00)
== END 2025-11-16 20:44 | disposition left against medical advice (07) ==
LOC: EDUNIT# 17:42 → EDBD 17:42 → ER 17:42 → UNDOADMIN 19:57 → OVERFLOW 19:57 → UNDODISIN 20:44
DX: K81.2 Acute cholecystitis with chronic cholecystitis (principal); E87.5 Hyperkalemia; I13.2 Hypertensive heart and chronic kidney disease with heart failure and with stage 5 chronic kidney disease, or end stage renal disease; N18.6 End stage renal disease; I50.9 Heart failure, unspecified; Z79.82 Long term (current) use of aspirin; Z79.899 Other long term (current) drug therapy; Z98.890 Other specified postprocedural states
CPT/HCPCS: 36415; 71045; 80048; 83880; 84484; 85025; 93005; 99291; G0378